=== PATIENT | male | born 1950 | race Caucasian/White ===

== ENCOUNTER → 2017-04-03 | Outpatient (CLI) | payer BC ==
--- NOTE | 2017-04-03 08:17 | US ---
EXAMINATION TYPE: US liver DATE OF EXAM: 04/03/2017 COMPARISON: 06/09/2015 and 12/15/2014 CLINICAL HISTORY: 67-year-old male R74.8 ABN LEVEL OF OTHER SERUM ENZYMES. Elevated LFT's TECHNIQUE: Multiple sonographic images of the right upper quadrant are obtained. FINDINGS: Liver Length: 16.0 cm Gallbladder Wall: 0.2 cm CBD: 5.8 mm Right Kidney: 12.7 x 6.3 x 6.7 cm Pancreas: Suboptimal visualization of the pancreatic head and tail secondary to shadowing from bowel gas. Liver: Heterogeneous, echogenic, and attenuating. This secondary limits assessment for focal lesion. Gallbladder: wnl Evidence for sonographic Andrade's sign: No CBD: wnl Right Kidney: No hydronephrosis. Two cysts, largest at upper pole with septation= 5.2 x 5.5 x 5.5 cm . Previously, this measured 5.5 x 4.9 x 4.8 cm. It was also measured at 5.2 x 5.3 x 5.6 cm on 5. Continued annual surveillance can be performed. IMPRESSION: 1. Heterogeneous and echogenic liver. Findings could represent hepatic steatosis or nonspecific hepat ocellular disease. 2. A septated cyst in the upper pole the right kidney measures 5.5 cm. This was measured at 5.6 cm ba ck on 12/15/2014. Consider continued annual surveillance.
== END | disposition home or self-care (01) ==
LOC: RADUSWWP 06:56
PROVIDERS: ATTEND Family Medicine
DX: K76.89 Other specified diseases of liver (principal); N28.1 Cyst of kidney, acquired
CPT/HCPCS: 76705

== ENCOUNTER → 2017-08-25 | Outpatient (CLI) | payer BC ==
--- NOTE | 2017-08-25 13:13 | CT ---
EXAMINATION TYPE: CT chest w con DATE OF EXAM: 08/25/2017 COMPARISON: NONE HISTORY: Abnormal CXR. Chest x-ray films are not at this location. CT DLP: 425.2 mGycm, Automated exposure control for dose reduction was used. CONTRAST: Performed injected with 100 mL of Isovue 300. TECHNIQUE: Axial images were obtained at 5 mm thick sections. Reconstructed images are reviewed on [employer] computer in the coronal plane. FINDINGS: Portion of the thyroid visualized is normal. Some very subtle paraseptal emphysematous changes or pulmonary fibrosis may be present within the per iphery of the lungs. A 0.5 cm nodules in the anterior right middle lobe. Series 4 image 30. Irregular densities in the right middle lobe periphery measuring 0.5 cm. Series 4 image 32. There is a oval de nsity measuring 1.0 cm in the periphery of the right middle lobe. Series 4 image 38. There is a 1.0 cm right hilar lymph node. No additional enlarged lymphadenopathy is evident The asce nding aorta diameter at the level of the main pulmonary artery is 3.5 cm. The main pulmonary artery diameter at the bifurcation is 2.7 cm. Coronary artery calcifications present. Limited CT sections are obtained through the upper abdomen. There are 2 0.4 cm calcifications within the superior anterior right kidney pole. This is adjacent to a large cyst measuring 9 Hounsfield unit s and 3.2 cm in size. There is a 0.3 similar calcification inferior pole left kidney. No obstruction from the renal stones is evident. There is a small cyst at the inferior pole right kidney measuring 1 .6 cm and 9 Hounsfield units. A 1.0 cm mid right lateral renal cyst is also present. IMPRESSIONS: 1. At least 3 small nodular densities at the right middle lobe. A 1.0 cm lymph node is in the right s uprahilar region. Additional workup for neoplasm is recommended. PET/CT could be performed. 2. Nonobstructing bilateral renal stones
== END ==
LOC: RADCTMAIN 09:02
PROVIDERS: ATTEND Family Medicine
DX: R91.8 Other nonspecific abnormal finding of lung field (principal)
CPT/HCPCS: 71260; Q9967

== ENCOUNTER → 2017-11-27 | Outpatient (CLI) | payer BC ==
[2017-11-27 13:14] LABS: Blood Urea Nitrogen 15 mg/dL (9-20)
--- NOTE | 2017-11-27 16:06 | CT ---
EXAMINATION TYPE: CT chest w con DATE OF EXAM: 11/27/2017 COMPARISON: 08/25/2017 HISTORY: Follow up for pulmonary nodules. CT DLP: 387.5 mGycm. Automated Exposure Control for Dose Reduction was Utilized. TECHNIQUE: CT scan of the thorax is performed following with IV Contrast, patient injected with 100 mL of Isovue M300. FINDINGS: LUNGS: Subpleural reticulation is seen throughout the entirety of the lungs. This is not only seen in a peripheral basilar distribution but also a peripheral apical distribution. No evidence of intersep emily lobular thickening or fibrosis. There is a stable 1.0 cm right middle lobe nodule on series 4 image 41. Superior to this there is a s table 5 mm pulmonary nodule on series 4 image 34. Just superior to this the previously seen 5 mm pulm onary nodule is not well visualized given slice selection on series 4 image 32. There is a 5 mm pulmo nary nodule within the right lower lobe on series 4 image 33, retrospectively unchanged from the prio r. Probable intrafissural lymph node is irregular in shape on series 4 image 30 and unchanged from th e prior. Also retrospectively unchanged from the prior there is a 3 mm right basilar peripheral pulmo nary nodule on series 4 image 47. Subpleural 2 mm pulmonary nodule within the lingula is seen on series 4 image 40 and unchanged from t he prior. No new pulmonary nodules are identified. MEDIASTINUM: Mediastinal lymph nodes appear similar to the prior with the largest in the precarinal s pace containing a morphologically normal appearing fatty hilum. No pericardial effusion is seen. M oderate calcific atheromatous changes are seen of the thoracic aorta and of the coronary arteries. OTHER: There is a right renal cystic lesion partially visualized extending into the right renal sinus likely representing a pararenal cyst. Measures at least 7.1 cm. 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 Degree of stenosis appears greater than 50% at both origins. The liver is diffusely hypoattenuated representing hepatic steatosis most commonly. Moderate multilevel degenerative changes of the thoracic spine are noted. IMPRESSION: Short-term stability of the previously seen multiple bilateral nodules the largest measuring up to 1. 0 cm within the right middle lobe. The size PET CT could be considered for further evaluation.
== END | disposition home or self-care (01) ==
LOC: RADCTMAIN 12:32
PROVIDERS: ATTEND Internal Medicine Critical Care Medicine
DX: R91.8 Other nonspecific abnormal finding of lung field (principal); Z88.8 Allergy status to other drugs, medicaments and biological substances
CPT/HCPCS: 82565; 84520; 71260; 36415; Q9967

== ENCOUNTER → 2018-04-12 | Outpatient (CLI) | payer BC ==
--- NOTE | 2018-04-12 10:52 | US ---
EXAMINATION TYPE: US duplex aorta DATE OF EXAM: 04/12/2018 COMPARISON: CT abdomen and pelvis February 25, 2015 CLINICAL HISTORY: Z13.6 Encounter for screening for cardiovascular d. Controlled HTN per patient EXAM MEASUREMENTS: Abdominal Aorta: Proximal: 2.86cm A/P Longitudinal 2.8 cm transversely Mid: 2.2 by 2.02cm Transverse Distal: 1.7 by 1.94cm Transverse Bifurcation: Right CHRISTOPHER = 1.32cm Transverse; Left CHRISTOPHER = 1.36cm Transverse Calcified wall changes noted throughout aorta and into CHRISTOPHER. PW Doppler and Color Flow patency is docu mented. Adjacent liver is incidentally heterogeneously hyperechoic consistent with fatty infiltration. IMPRESSION: Diffuse atherosclerotic change redemonstrated without greater than 3 cm AAA.
== END | disposition home or self-care (01) ==
LOC: RADUSWWP 07:00
PROVIDERS: ATTEND Family Medicine
DX: I70.90 Unspecified atherosclerosis (principal)
CPT/HCPCS: 93979

== ENCOUNTER → 2018-05-29 | Outpatient (CLI) | payer BC ==
[2018-05-29 07:44] LABS: Blood Urea Nitrogen 16 mg/dL (9-20)
--- NOTE | 2018-05-29 10:18 | CT ---
EXAMINATION TYPE: CT abdomen pelvis w con DATE OF EXAM: 05/29/2018 COMPARISON: 02/25/2015 CT abdomen pelvis and chest CT dated 11/27/2017 HISTORY: Hematuria CT DLP: 1491 mGycm Automated exposure control for dose reduction was used. TECHNIQUE: Helical acquisition of images was performed from the lung bases through the pelvis. CONTRAST: Performed with Oral Contrast and with IV Contrast, patient injected with 100 ml mL of Isovue 300. FINDINGS: LUNG BASES: There is a similar approximately 9 mm pulmonary nodule within the right middle lobe in co mparison to exam of 2014. Given its stability this is favored to be benign. Subsolid 3 mm pulmonary n odule within the right lower lobe is also unchanged and favored to be benign. 2 mm right lower lobe p ulmonary nodule on series 4 image 10 appears new. Minimal bibasilar subsegmental atelectasis is seen at the lung bases. Subpleural reticulation favors early fibrotic change. Moderate atherosclerosis of the visualized abdominal aorta is noted. LIVER/GB: Hepatic parenchyma is diffusely hypoattenuated in comparison to that of the spleen, most co mmonly seen in hepatic steatosis. This finding limits evaluation for hepatic masses. No gross evidenc e of hepatic mass is seen. No intrahepatic biliary ductal dilatation. No cholelithiasis. PANCREAS: No significant abnormality is seen. SPLEEN: No significant abnormality is seen. ADRENALS: No significant abnormality is seen. KIDNEYS: There is a 3 mm calculus of the left lower pole of the kidney, nonobstructive. Too small to accurately characterize left hypoattenuated 9 mm renal lesion was partially visualized on the prior e xam but ill-defined due to lack of contrast. This measures fluid attenuation and likely represents a simple cyst. Additional subcentimeter left upper pole hypoattenuated lesion is also too small to accu rately characterize. Within the right kidney there are multiple cysts measuring up to 6.4 cm. Nonobst ructing right upper poler 6 mm calculus is seen as well as punctate additional upper pole calculi (2 in number) No hydronephrosis is seen of either kidney. No hydroureter. No urinary bladder calculi. FREE AIR: No free air is visualized. ADENOPATHY: No greater than 1 cm short axis lymph nodes are noted within the abdomen or pelvis. REPRODUCTIVE ORGANS: Prostate gland is heterogenous containing central zone calcifications. URINARY BLADDER: Unremarkable although nonenhanced. OSSEOUS STRUCTURES: Moderate femoral acetabular arthropathy is seen bilaterally. Degenerative change s are noted of the sacroiliac joints. Moderate multilevel degenerative changes of the spine are also noted. BOWEL: There are few sigmoid diverticula present without pericolonic fat stranding. Moderate amount retained colonic stool is seen. No dilated large or small bowel. OTHER: Extensive atheromatous changes are seen of the abdominal aorta and its branches. Abdominal aor ta is of normal course and caliber. IMPRESSION: 1. BILATERAL NONOBSTRUCTING RENAL CALCULI. NO EVIDENCE OF HYDRONEPHROSIS OR URINARY BLADDER CALCULI. MULTIPLE BILATERAL RENAL LESIONS ARE SEEN, THE LARGEST DEFINITIVELY SIMPLE CYSTS AND SUBCENTIMETER LE SIONS ARE TOO SMALL TO ACCURATELY CHARACTERIZE, HOWEVER THESE 2 MEASURES SIMPLE FLUID WITH NO CURRENT SUSPICIOUS FEATURES. 2. HEPATIC STEATOSIS. 3. SIGMOID DIVERTICULOSIS WITHOUT EVIDENCE OF ACUTE DIVERTICULITIS. 4. RIGHT BASILAR PULMONARY NODULES, ONE OF WHICH IS NEW AND 2 OF WHICH APPEAR SIMILAR DATING BACK TO 2014 THAT ARE FAVORED TO BE BENIGN SUPERIMPOSED UPON PROBABLE EARLY FIBROTIC CHANGE. CONTINUED FOLLOW -UP IS RECOMMENDED FOR THESE PULMONARY NODULES GIVEN THE 1 SUBCENTIMETER NODULE APPEARS NEW.
== END | disposition home or self-care (01) ==
LOC: RADCTMAIN 07:04
PROVIDERS: ATTEND Urology
DX: N20.0 Calculus of kidney (principal); N28.1 Cyst of kidney, acquired; N28.89 Other specified disorders of kidney and ureter; K76.0 Fatty (change of) liver, not elsewhere classified; K57.30 Diverticulosis of large intestine without perforation or abscess without bleeding
CPT/HCPCS: 82565; 84520; 74177; 36415; Q9967

== ENCOUNTER 2018-08-10 06:47 | Day surgery (SDC) | payer BC ==
[2018-08-08 09:48] VITALS: BMI 28.0
[~2018-08-10 06:47] MED LIST: LACTATED RINGERS 1,000 ML IV SCH; LIDOCAINE 1% 20 ML VIAL (10MG/ML) FOR IV START INTRADERMA PRN
[2018-08-10 07:20] VITALS: RESP 16; TEMP 97.4
[2018-08-10 07:21] LABS: Glucose,Whole Blood 108 mg/dL (75-99)
[2018-08-10] MEDS ORDERED: PROPOFOL 10 MG/ML 20 ML VIAL IV ONE (07:38)
--- NOTE | 2018-08-10 08:08 | P.PCN ---
Date of Procedure: 08/10/18 Procedure(s) Performed: BRIEF HISTORY: Patient is a 68-year-old pleasant white male, scheduled for an elective colonoscopy as a part of evaluation of stool that was positive for cologuard. Last colonoscopy was 15 years ago PROCEDURE PERFORMED: Colonoscopy with snare polypectomy. PREOPERATIVE DIAGNOSIS: Positiv cologuard. IV sedation per Anesthesia. PROCEDURE: After informed consent was obtained, the patient, was brought into the endoscopy unit. IV sedation was administered by Anesthesia under continuous monitoring. Digital rectal examination was normal. Initially the Olympus CF-160 flexible video colonoscope was then inserted in the rectum, gradually advanced into the cecum without any difficulty. Careful examination was performed as the scope was gradually being withdrawn. Ileocecal valve and the appendiceal orifice were visualized and appeared normal. Prep was excellent. Mucosa of the cecum, ascending colon, transverse colon, descending colon appeared normal. In the sigmoid colon there was a 5 mm sessile polyp removed by snare polypectomy. In the proximal rectum there was a 1 cm pancreatic polyp removed by snare polypectomy. Rest of the, sigmoid colon, and rectum appeared normal. Retroflexion was performed in the rectum and no lesions were seen. The patient tolerated the procedure well. IMPRESSION: 1 cm proximal rectal polyp serous was snare polypectomy 5 mm sigmoid colon polyp status post polypectomy RECOMMENDATIONS: Findings of this examination were discussed with the patient as well as his family. He was advised to follow with the biopsy results. If the biopsy shows adenoma, he can have a repeat colonoscopy in 3-5 years.
[2018-08-10 08:57] VITALS: BP 152/86; PULSE 80
== END 2018-08-10 08:34 | disposition home or self-care (01) ==
LOC: ORWHC2ENDO 06:47
PROVIDERS: ATTEND Internal Medicine Gastroenterology
DX: D12.5 Benign neoplasm of sigmoid colon (principal); D12.8 Benign neoplasm of rectum; E11.9 Type 2 diabetes mellitus without complications; F17.210 Nicotine dependence, cigarettes, uncomplicated; Z79.84 Long term (current) use of oral hypoglycemic drugs; Z79.899 Other long term (current) drug therapy
CPT/HCPCS: 88305; 45385; J2704

== ENCOUNTER 2019-05-10 09:51 | Emergency (ER) | payer BC ==
[2019-05-10 10:03] VITALS: TEMP 97.7
[2019-05-10] MEDS ORDERED: SODIUM CHLORIDE 0.9% 1,000 ML IV STA (10:22)
--- NOTE | 2019-05-10 10:22 | ED ---
Dizziness HPI - General Chief Complaint: Dizziness Stated Complaint: syncope, head pain Time Seen by Provider: 05/10/19 10:07 Source: patient Mode of arrival: wheelchair Limitations: no limitations - History of Present Illness Initial Comments: Patient is 61-year-old male with history of A. fib presents emergency Department with a chief complaint of a fall. Patient reports yesterday he was sitting on his porch, smoking a cigarette when he developed a syncopal episode, fell forward and landed on his face. Patient reports the fall was not witnessed. Patient reports that he did not recognize there was a syncopal episode until he noticed some bleeding near his nose. Patient reports there is no abrasion on his forehead and the bridge of the nose. Patient denies a postictal state. He states that he drove back for about 3 hours after the incident and came for reevaluation today. Patient reports he takes metoprolol and lisinopril daily. He does see a trauma registrar annually. Also complaining of a reproducible headache with palpation on the right side of his head. Denies any chest pain, shortness of breath, headache, nausea, vomiting, episodes of diaphoresis, lightheadedness, one-sided weakness or paresthesias, visual disturbances. - Related Data Home Medications Medication Instructions Recorded Confirmed Aspirin [Adult Low Dose Aspirin EC] 162 mg PO DAILY 12/07/15 05/10/19 Cholecalciferol [Vitamin D3] 5,000 unit PO DAILY 12/07/15 05/10/19 Lisinopril [Prinivil] 10 mg PO HS 12/07/15 05/10/19 Multivitamins, Thera [Multivitamin] 1 tab PO DAILY 12/07/15 05/10/19 Vitamin E 400 unit PO DAILY 12/07/15 05/10/19 Metoprolol Succinate (ER) [Toprol 50 mg PO DAILY 05/10/19 05/10/19 Xl] metFORMIN HCL ER [Glucophage Xr] 500 mg PO DAILY 05/10/19 05/10/19 Allergies Allergy/AdvReac Type Severity Reaction Status Date / Time No Known Allergies Allergy Verified 05/10/19 12:02 Review of Systems ROS Statement: Those systems with pertinent positive or pertinent negative responses have been documented in the HPI. ROS Other: All systems not noted in ROS Statement are negative. Past Medical History Past Medical History: Diabetes Mellitus, Hyperlipidemia, Hypertension Additional Past Medical History / Comment(s): hx kidney stones History of Any Multi-Drug Resistant Organisms: None Reported Past Surgical History: Appendectomy Additional Past Surgical History / Comment(s): fatty tissue removed from left leg Past Anesthesia/Blood Transfusion Reactions: No Reported Reaction Past Psychological History: No Psychological Hx Reported Smoking Status: Current every day smoker - Past Family History Mother Family Medical History: No Reported History General Exam Limitations: no limitations General appearance: alert, in no apparent distress Head exam: Present: normocephalic. Absent: atraumatic (Abrasion on the forehead and bridge of the nose. No palpable bone deformities in the nose.), normal inspection (2 lesions on the right side of the scalp directly where the patient is complaining of pain. Appears to be actinic keratosis.), other (Negative Negron sign, negative raccoon's, negative hemotympanum.) Eye exam: Present: normal appearance, PERRL, EOMI Pupils: Present: normal accommodation ENT exam: Present: normal exam, normal oropharynx, mucous membranes moist, TM's normal bilaterally, normal external ear exam Neck exam: Present: normal inspection, tenderness (Right-sided along the trapezius.), full ROM Respiratory exam: Present: normal lung sounds bilaterally Cardiovascular Exam: Present: regular rate, normal rhythm, normal heart sounds Extremities exam: Present: normal inspection, full ROM Back exam: Present: normal inspection, full ROM Neurological exam: Present: alert, oriented X3, CN II-XII intact, normal gait, reflexes normal Psychiatric exam: Present: normal affect, normal mood Skin exam: Present: warm, dry, intact, normal color Course Vital Signs 05/10/19 05/10/19 05/10/19 10:00 11:00 12:47 Temperature 97.7 F 97.7 F Pulse Rate 65 51 L 58 L Respiratory 18 19 19 Rate Blood Pressure 96/60 153/70 116/60 O2 Sat by Pulse 96 96 96 Oximetry EKG Findings - EKG Comments: EKG Findings:: First degree AV block, no ST changes. Ventricular rate 61, CA interval 222, QRS duration 82, QTC 392 Medical Decision Making - Medical Decision Making Patient is a 69-year-old male presenting to emergency Department with a chief complaint of a syncopal episode. Patient had a possible syncopal episode yesterday for an unknown period of time. I exam patient does have an abrasion on the forehead and nose. CT brain C-spine unremarkable. Patient is not on blood thinners. Urine was obtained to evaluate for dehydration. It is unremarkable. EKG shows a first-degree AV block. Patient does have a history of A. fib. Patient is currently treated with a beta candie and lisinopril. On initial evaluation patient is slightly hypertensive with systolic blood pressure in the mid 90s. Patient was reporting initially some dizziness. Patient was given 1 L bolus of IV saline. Reevaluation patient reports the dizziness is almost completely resolved. Blood pressure is up in the mid 110s systolic. I suspect the patient had developed a syncopal episode secondary to an orthostatic hypotensive episode after he attempted to get up while he was sitting on a bench causing him to have a syncopal episode. Patient advised to follow-up with [facility] and discuss possible changes to his anti-hypertensive medication. Initial troponin was negative. CBC CMP unremarkable. Strict return parameters were thoroughly discussed with patient is a worsening agreeable. Case discussed with physician. - Lab Data Result diagrams: 05/10/19 10:32 05/10/19 10:32 Lab Results 05/10/19 05/10/19 05/10/19 Range/Units 10:32 10:32 10:32 WBC 8.1 (3.8-10.6) k/uL RBC 4.49 (4.30-5.90) m/uL Hgb 13.9 (13.0-17.5) gm/dL Hct 40.4 (39.0-53.0) % MCV 89.9 (80.0-100.0) fL MCH 31.0 (25.0-35.0) pg MCHC 34.5 (31.0-37.0) g/dL RDW 13.2 (11.5-15.5) % Plt Count 247 (150-450) k/uL Sodium 132 L (137-145) mmol/L Potassium 4.7 (3.5-5.1) mmol/L Chloride 100 (98-107) mmol/L Carbon Dioxide 23 (22-30) mmol/L Anion Gap 9 mmol/L BUN 15 (9-20) mg/dL Creatinine 0.71 (0.66-1.25) mg/dL Est GFR (CKD-EPI)AfAm >90 (>60 ml/min/1.73 sqM) Est GFR (CKD-EPI)NonAf >90 (>60 ml/min/1.73 sqM) Glucose 195 H (74-99) mg/dL Calcium 9.2 (8.4-10.2) mg/dL Total Bilirubin 0.8 (0.2-1.3) mg/dL AST 30 (17-59) U/L ALT 24 (4-49) U/L Alkaline Phosphatase 162 H (38-126) U/L Troponin I <0.012 (0.000-0.034) ng/mL Total Protein 7.1 (6.3-8.2) g/dL Albumin 3.9 (3.5-5.0) g/dL Urine Color Urine Appearance (Clear) Urine pH (5.0-8.0) Ur Specific [place] (1.001-1.035) Urine Protein (Negative) Urine Glucose (UA) (Negative) Urine Ketones (Negative) Urine Blood (Negative) Urine Nitrite (Negative) Urine Bilirubin (Negative) Urine Urobilinogen (<2.0) mg/dL Ur Leukocyte Esterase (Negative) 05/10/19 Range/Units 12:00 WBC (3.8-10.6) k/uL RBC (4.30-5.90) m/uL Hgb (13.0-17.5) gm/dL Hct (39.0-53.0) % MCV (80.0-100.0) fL MCH (25.0-35.0) pg MCHC (31.0-37.0) g/dL RDW (11.5-15.5) % Plt Count (150-450) k/uL Sodium (137-145) mmol/L Potassium (3.5-5.1) mmol/L Chloride (98-107) mmol/L Carbon Dioxide (22-30) mmol/L Anion Gap mmol/L BUN (9-20) mg/dL Creatinine (0.66-1.25) mg/dL Est GFR (CKD-EPI)AfAm (>60 ml/min/1.73 sqM) Est GFR (CKD-EPI)NonAf (>60 ml/min/1.73 sqM) Glucose (74-99) mg/dL Calcium (8.4-10.2) mg/dL Total Bilirubin (0.2-1.3) mg/dL AST (17-59) U/L ALT (4-49) U/L Alkaline Phosphatase (38-126) U/L Troponin I (0.000-0.034) ng/mL Total Protein (6.3-8.2) g/dL Albumin (3.5-5.0) g/dL Urine Color Yellow Urine Appearance Clear (Clear) Urine pH 5.5 (5.0-8.0) Ur Specific [place] 1.008 (1.001-1.035) Urine Protein Negative (Negative) Urine Glucose (UA) Negative (Negative) Urine Ketones Negative (Negative) Urine Blood Negative (Negative) Urine Nitrite Negative (Negative) Urine Bilirubin Negative (Negative) Urine Urobilinogen <2.0 (<2.0) mg/dL Ur Leukocyte Esterase Negative (Negative) Disposition Clinical Impression: Syncope, Facial abrasion Disposition: HOME SELF-CARE Condition: Stable Instructions (If sedation given, give patient instructions): Abrasion (ED), Dizziness (ED) Additional Instructions: Please follow up with primary care. Physician to emergency department if symp toms worsen. Is patient prescribed a controlled substance at d/c from ED?: No Referrals: Stoney Patel MD [Primary Care Provider] - 1-2 days Time of Disposition: 12:22
[2019-05-10 10:52] LABS: HCT 40.4 % (39.0-53.0); HGB 13.9 gm/dL (13.0-17.5); MCHC 34.5 g/dL (31.0-37.0); MCV 89.9 fL (80.0-100.0); Mean Platelet Volume 7.2; Platelet Count 247 k/uL (150-450); RBC 4.49 m/uL (4.30-5.90); RDW 13.2 % (11.5-15.5); WBC 8.1 k/uL (3.8-10.6)
--- NOTE | 2019-05-10 10:54 | CT ---
EXAMINATION TYPE: CT brain rajinder lowery DATE OF EXAM: 05/10/2019 COMPARISON: None HISTORY: Fall CT DLP: 1384.[address] of the brain was performed. The ventricles, basal cisterns and sulci overlying the cerebral convexities demonstrate mild enlargem ent. There is no evidence for intracranial hemorrhage or sulcal effacement. There is decreased attenuatio n about the periventricular white matter and deep white matter of both cerebral hemispheres, compatib le with chronic small vessel ischemia. No mass effects are seen. If symptoms persist consider MRI. Osseous calvarium is intact. IMPRESSION: 1. Age related atrophic and chronic small vessel ischemic change without acute intracranial process seen at this time. CT Cervical Spine: Unenhanced CT of the cervical spine was performed with bone and soft tissue window settings submitted . Coronal and sagittal reconstruction is obtained. There is normal alignment and prevertebral soft tissues. No evidence for acute cervical fracture . Scattered degenerative disc disease and spondylosis. Biapical scarring. IMPRESSION: 1. No evidence for acute fracture or subluxation of the cervical spine.
[2019-05-10 11:02] VITALS: RESP 19
[2019-05-10 11:20] LABS: ALT 24 U/L (4-49); AST 30 U/L (17-59); African American GFR (CKD) >90 (>60 ml/min/1.73 sqM); Albumin 3.9 g/dL (3.5-5.0); Alkaline Phosphatase 162 U/L (38-126); Anion Gap 9 mmol/L; Blood Urea Nitrogen 15 mg/dL (9-20); Calcium 9.2 mg/dL (8.4-10.2); Carbon Dioxide 23 mmol/L (22-30); Chloride 100 mmol/L (98-107); Glucose 195 mg/dL (74-99); Non-African American GFR(CKD) >90 (>60 ml/min/1.73 sqM); Potassium 4.7 mmol/L (3.5-5.1); Sodium 132 mmol/L (137-145); Total Bilirubin 0.8 mg/dL (0.2-1.3); Total Protein 7.1 g/dL (6.3-8.2)
[2019-05-10 12:18] LABS: Appearance,Urine Clear (Clear); Bilirubin,Urine Negative (Negative); Blood,Urine Negative (Negative); Color,Urine Yellow; Glucose,Urine (UA) Negative (Negative); Ketones,Urine Negative (Negative); Leukocyte Esterase,Urine Negative (Negative); Nitrite,Urine Negative (Negative); PH, Urine 5.5 (5.0-8.0); Protein,Urine Negative (Negative); Specific Gravity,Urine 1.008 (1.001-1.035); Urobilinogen,Urine <2.0 mg/dL (<2.0)
[2019-05-10 12:48] VITALS: BP 116/60; PULSE 58
== END 2019-05-10 12:47 | disposition home or self-care (01) ==
LOC: EC 09:51
DX: S00.81XA Abrasion of other part of head, initial encounter (principal); R55 Syncope and collapse; S00.31XA Abrasion of nose, initial encounter; I44.0 Atrioventricular block, first degree; I48.91 Unspecified atrial fibrillation; I10 Essential (primary) hypertension; L98.9 Disorder of the skin and subcutaneous tissue, unspecified; E11.9 Type 2 diabetes mellitus without complications; F17.210 Nicotine dependence, cigarettes, uncomplicated; Z79.82 Long term (current) use of aspirin; Z79.84 Long term (current) use of oral hypoglycemic drugs; Z79.899 Other long term (current) drug therapy; W01.0XXA Fall on same level from slipping, tripping and stumbling without subsequent striking against object, initial encounter; Y93.89 Activity, other specified; Y92.008 Other place in unspecified non-institutional (private) residence as the place of occurrence of the external cause
CPT/HCPCS: 36415; 70450; 72125; 80053; 81003; 84484; 85027; 93005; 96360; 96361; 99284

== ENCOUNTER → 2020-06-22 | Outpatient (CLI) | payer BC ==
--- NOTE | 2020-06-22 16:07 | US ---
EXAMINATION TYPE: US liver DATE OF EXAM: 06/22/2020 COMPARISON: Ultrasound 04/03/[address] 05/29/2018 CLINICAL HISTORY: 70-year-old male R74.8 Abnormal levels of other serum enzymes. Elevated labs, no sy mptoms TECHNIQUE: Multiple sonographic images of the right upper quadrant are obtained. FINDINGS: EXAM MEASUREMENTS: Liver Length: 14.6 cm Gallbladder Wall: 0.2 cm CBD: 0.6 cm Right Kidney: 12.1 x 5.5 x 7.3 cm Pancreas: Suboptimal visualization of the pancreatic tail due to shadowing from bowel gas. Visualize d portions show no gross adenopathy. Liver: wnl Gallbladder: wnl Evidence for sonographic Andrade's sign: no CBD: Borderline in caliber. Right Kidney: 6.6 x 5.7 x 5.6cm cyst with a thin internal septation and some mural based calcificati ons along the deep aspect of the cyst. No suspicious soft tissue nodularity. In 2017, this measured 5 .5 x 5.5 x 5.2 cm [address] the CT of 05/29/2018, this measured 6.4 cm. IMPRESSION: 1. Mildly complex cyst of the right kidney measuring 6.6 cm (versus 6.4 cm in 2019 and 5.5 cm in 2017 ). Recommend continued annual surveillance given the slow, gradual increase in size. 2. Borderline caliber to the bile duct at 6 mm, acceptable given patient's age. This measurement is r elatively unchanged from 2017 where it was 5.8 mm.
== END | disposition home or self-care (01) ==
LOC: RADUSWWP 10:53
PROVIDERS: ATTEND Family Medicine
DX: R93.2 Abnormal findings on diagnostic imaging of liver and biliary tract (principal)
CPT/HCPCS: 76705

== ENCOUNTER → 2020-12-04 | Outpatient (CLI) | payer BC ==
[2020-12-04 15:38] LABS: African American GFR (CKD) >90 (>60 ml/min/1.73 sqM); Blood Urea Nitrogen 18 mg/dL (9-20); Non-African American GFR(CKD) 88 (>60 ml/min/1.73 sqM)
--- NOTE | 2020-12-04 16:40 | CT ---
EXAMINATION TYPE: CT chest w con DATE OF EXAM: 12/04/2020 COMPARISON: 08/06/2018 HISTORY: Lung nodule. Pt reports no issue since last exam CT DLP: 381.90 mGycm, Automated exposure control for dose reduction was used. CONTRAST: Performed injected with 100 mL of Isovue 300. TECHNIQUE: Axial images were obtained at 5 mm thick sections. Reconstructed images are reviewed on [employer] computer in the coronal plane. FINDINGS: Portion of the thyroid visualized is normal. There is a spiculated 0.5 cm density within the anterior right upper lung field. Series 4 image 33. T here is a 0.5 cm density in the periphery of the right anterior lateral lung. Series 4 image 32. Ther e is a 0.4 cm density within the posterior lateral right upper lobe. Series 4 image 33. There is interval development of a suspicious microspiculated nodule measuring 2.0 x 1.7 cm in the pe riphery of the right lung. Series 4 image 35. A nodule within the right middle lobe periphery measuri ng 1.4 cm has enlarged from 0.9 cm previously. Series 4 image 41. Punctate density measuring 0.4 cm m zayra be developing in the periphery of the right lateral lung base, series 4 image 44. There is an enlarged 1.3 cm pretracheal lymph node present. Additional 1.1 cm enlarged pretracheal l ymph node is evident. There may be a right suprahilar node measuring 1.3 cm. There is a 2.6 x 2.3 cm nodular density in the right hilar region may be a hilar lymph node. Series 3 image 35 The ascending aorta diameter at the level of the main pulmonary artery is 3.4 cm. The main pulmonary artery diamet er at the bifurcation is 2.[address] sections are obtained through the upper abdomen. There is a 7 cm cyst measuring 8 Hounsfie ld units on the posterior lateral right kidney. IMPRESSIONS: 1. Enlarging and new right lung nodules. PET CT recommended for additional workup. 2. Suspected right hilar and mediastinal adenopathy suspicious for metastatic disease. A Yellow level critical message alert has been initiated for Villa Celeste DO via the [employer] 36 0 [employer] Critical Results System on 12/04/2020 4:37 PM. This message alert has been sent to Villa Celeste DO via the preferences provided by the clinician for the receipt of Radiology Critical Findings. [facility] [place] [id number].
== END | disposition home or self-care (01) ==
LOC: RADCTMAIN 14:45
PROVIDERS: ATTEND Internal Medicine Critical Care Medicine
DX: R91.1 Solitary pulmonary nodule (principal)
CPT/HCPCS: 82565; 84520; 71260; 36415; Q9967

== ENCOUNTER → 2020-12-18 | Outpatient (CLI) | payer BC ==
--- NOTE | 2020-12-23 12:05 | PE ---
Nuclear medicine PET/CT HISTORY: Solitary pulmonary nodule, R 91.8, initial Correlation to CT chest 12/04/2020 Patient received 12.9 mCi F-18 FDG intravenously in delayed scanning was performed from the skull bas e to the mid thighs. Localization and attenuation correction CT scan was performed. Chest and neck: The pulmonary masses in the right lower lobe are again noted. There is associated hyp ermetabolic uptake. The larger nodule shows an SUV 3.9 and shows spiculated margins abutting the fiss ure, smaller nodule anteriorly SUV 2.2. Retrocaval pretracheal nodes are present, SUV values 3.8. The re is no pleural pericardial effusion. Coronary artery calcifications are present. Interstitial silverio es are present within the lungs. There is no cervical or supraclavicular adenopathy. No axillary rosa m opathy. Smaller nodule present on axial image 106 measures only 7 8 mm, nodular density also present on 108 measuring 5 mm, no definite associated uptake. Abdomen shows no suspicious uptake. No evident adrenal mass. Large cyst is associated with the upper pole the right kidney in exophytic location. Atheromatous changes are present within the aorta. Bowel uptake is likely physiologic. Osseous structures show no suspicious uptake. Degenerative disc changes and facet arthropathy are not ed within the lumbar spine. IMPRESSION: Findings may represent bronchogenic carcinoma, metastasis
== END | disposition home or self-care (01) ==
LOC: RADPETMAIN 13:00
PROVIDERS: ATTEND Internal Medicine Critical Care Medicine
DX: R91.8 Other nonspecific abnormal finding of lung field (principal)
CPT/HCPCS: 78815; A9552

== ENCOUNTER 2021-02-03 10:47 | Day surgery (SDC) | payer BC ==
[2021-01-29 15:47] VITALS: BMI 27.9
[~2021-02-03 10:47] MED LIST changes: +ALBUTEROL NEB (CONC) 2.5 MG/0.5 ML INHALATION ONE; +ATROPINE SULFATE 0.4 MG/ML 1 ML VIAL IM ONE; +DEXAMETHASONE SOD PHOSPHATE 4 MG/ML 1 ML VIAL IV ONE; -LIDOCAINE 1% 20 ML VIAL (10MG/ML) FOR IV START INTRADERMA PRN; +LIDOCAINE 2% (PF) 20 MG/ML 5 ML VIAL INHALATION ONE; +LIDOCAINE VISCOUS 300 MG/15 ML CUP MUCOUS MEM ONE; +ONDANSETRON 4 MG/2 ML VIAL IVP ONE; +SODIUM CHLORIDE 0.9% 1,000 ML IV SCH
[2021-02-03 11:18] VITALS: TEMP 96.8
[2021-02-03 11:43] LABS: Glucose,Whole Blood 132 mg/dL (75-99)
[2021-02-03] MEDS ORDERED: LIDOCAINE 1% INJ 10MG/ML (20 ML MDV) ONE (12:20)
[2021-02-03] MEDS ORDERED: SUCCINYLCHOLINE CHLORIDE 100 MG/5 ML SYR IV ONE (12:20)
[2021-02-03] MEDS ORDERED: fentaNYL (PF) 50 MCG/ML 2 ML AMP ONE (12:20)
[2021-02-03] MEDS ORDERED: PROPOFOL 10 MG/ML 20 ML VIAL IV ONE (12:20)
--- NOTE | 2021-02-03 12:39 | CT ---
EXAMINATION TYPE: CT Chest sebastián Etienne Protocol DATE OF EXAM: 02/03/2021 COMPARISON: PET CT December 18, 2020. HISTORY: pre bronchial navigation. Abnormal CT and PET/CT. CT DLP: 575 mGycm Automated exposure control for dose reduction was used. FINDINGS: Exam is for bronchoscopy planning and not for diagnostic purposes. Moderate underlying emphysematous change is present bilaterally greatest in the upper lungs. Persistent suspicious nodules in the right mid to lower lung along with central suspicious nodule. [id number] peripheral reticulation and fibrotic changes in the lower lungs. Abnormal right paratracheal adenopathy extending to pericarinal region shows significant short-term interval growth. Coronary artery calcifications are redemonstrat ed. There is partial visualization of exophytic thin-walled cyst laterally right kidney. IMPRESSION: As above.
[2021-02-03 14:15] VITALS: RESP 16
[2021-02-03 14:21] LABS: Glucose,Whole Blood 117 mg/dL (75-99)
--- NOTE | 2021-02-03 14:23 | XR ---
EXAMINATION TYPE: XR chest 1V portable DATE OF EXAM: 02/03/2021 COMPARISON: Chest CT December 04, 2020 HISTORY: Postbronchoscopy. TECHNIQUE: Single AP portable frontal upright view of the chest is obtained. FINDINGS: There is chronic emphysematous and pulmonary fibrotic change with scattered right lower rodrigo ng nodules redemonstrated. No pneumothorax after bronchoscopy and right lung sampling The cardiac gatito houette size is stable and upper limits of normal with atherosclerotic aorta. The osseous structure s are demineralized. Old posterior lateral right mid rib fractures are redemonstrated. IMPRESSION: No pneumothorax noted.
[2021-02-03 14:56] VITALS: BP 113/74; PULSE 60
[2021-02-03 18:24] LABS: Appearance,BF Hazy; Nucleated Cells, Body Fluid 40 /uL; RBC, Body Fluid 735 /uL
--- NOTE | 2021-02-03 18:42 | OP ---
OPERATIVE REPORT PULMONARY/CRITICAL CARE PROCEDURE NOTE: Electromagnetic navigational bronchoscopy. PREOPERATIVE DIAGNOSIS: Pulmonary mass/nodule. Rule out cancer. POSTOPERATIVE DIAGNOSIS: Pulmonary mass/nodule. Rule out cancer. OPERATORS: 1. Dr. Celeste. 2. Dr. Coughlin. 3. Medical student Jeff Allan. There was informed consent and universal timeout. The procedure was done in endoscopy room #1. Anesthesia provided general anesthesia with Dr. Santamaria. PROCEDURE DESCRIPTION: After the patient was adequately sedated and under the effects of general anesthesia, the bronchoscope was inserted through the bronchoscope adapter connected to the endotracheal tube. We localized the area of concern using the electromagnetic navigational system provided by [employer]. We did multiple transbronchial needle aspiration biopsies in the area of the anterior medial wall of the right middle lobe. Then we also did some sampling in the distal bronchus intermedius adjacent to the entrance of the right middle lobe. In the same location, we did brushes and washes as well. We also sampled the subcarinal area one time. We did a transbronchial needle aspiration of the subcarinal region. The patient tolerated the procedure well. There was minimal bleeding, maybe less than 5 mL. There was no immediate complication. The patient will be recovered. I did have a chance to speak to Jessi, the patient's . I explained what we did and our concerns. Anyway, the sampling probably will not be back until sometime mid next week. MMODL / IJN: [id number] /
[2021-02-03 18:54] LABS: Mononuclear WBC,Body Fluid 92 %; Polynuclear WBC,Body Fluid 8 %; Total Cells Counted,Body Fluid 100
== END 2021-02-03 15:05 | disposition home or self-care (01) ==
LOC: ORWHC2ENDO 10:47
PROVIDERS: ATTEND Internal Medicine Critical Care Medicine
DX: R91.8 Other nonspecific abnormal finding of lung field (principal); R91.1 Solitary pulmonary nodule; Z79.82 Long term (current) use of aspirin; Z79.84 Long term (current) use of oral hypoglycemic drugs; Z79.899 Other long term (current) drug therapy
CPT/HCPCS: 31629; 31623; 31624; 31627; 88104; 88108; 88305; 89050; 87070; 87205; 71045; 71250; J0461; J2001; J3010; J0330; J2704

== ENCOUNTER → 2021-02-24 | Outpatient (CLI) | payer BC ==
[2021-02-24 11:50] LABS: Basophils # (A) 0.1 k/uL (0-0.2); Basophils % (A) 1 %; Eosinophils # (A) 0.4 k/uL (0-0.7); Eosinophils % (A) 4 %; HGB 13.9 gm/dL (13.0-17.5); Lymphocytes # (A) 2.4 k/uL (1.0-4.8); Lymphocytes % (A) 27 %; MCH 30.4 pg (25.0-35.0); MCV 92.1 fL (80.0-100.0); Mean Platelet Volume 7.5; Monocytes # (A) 0.5 k/uL (0-1.0); Monocytes % (A) 6 %; Neutrophils # (A) 5.4 k/uL (1.3-7.7); Neutrophils % (A) 60 %; Platelet Count 215 k/uL (150-450); RBC 4.56 m/uL (4.30-5.90); RDW 12.4 % (11.5-15.5); WBC 8.9 k/uL (3.8-10.6)
[2021-02-24 12:26] LABS: African American GFR (CKD) >90 (>60 ml/min/1.73 sqM); Anion Gap 9 mmol/L; Blood Urea Nitrogen 20 mg/dL (9-20); Carbon Dioxide 25 mmol/L (22-30); Chloride 102 mmol/L (98-107); Non-African American GFR(CKD) >90 (>60 ml/min/1.73 sqM); Potassium 4.8 mmol/L (3.5-5.1); Sodium 136 mmol/L (137-145)
[2021-02-24 12:36] LABS: INR 0.9 (<1.2); Partial Thromboplastin Time 22.7 sec (22.0-30.0); Prothrombin Time 10.1 sec (9.0-12.0)
== END | disposition home or self-care (01) ==
LOC: LABWHC1 10:44
PROVIDERS: ATTEND Surgery
DX: Z01.812 Encounter for preprocedural laboratory examination (principal); R58 Hemorrhage, not elsewhere classified; R59.1 Generalized enlarged lymph nodes
CPT/HCPCS: 36415; 80051; 82565; 84520; 85025; 85610; 85730; 86850; 86900; 86901

== ENCOUNTER 2021-03-04 07:30 | Day surgery (SDC) | payer BC ==
[2021-03-03 09:11] VITALS: BMI 27.6
[~2021-03-04 07:30] MED LIST changes: -ALBUTEROL NEB (CONC) 2.5 MG/0.5 ML INHALATION ONE; -ATROPINE SULFATE 0.4 MG/ML 1 ML VIAL IM ONE; +HYDROmorphone 0.5 MG/0.5 ML SYRINGE IVP PRN; +LIDOCAINE 1% (10MG/ML) FOR IV START INTRADERMA PRN; -LIDOCAINE 2% (PF) 20 MG/ML 5 ML VIAL INHALATION ONE; -LIDOCAINE VISCOUS 300 MG/15 ML CUP MUCOUS MEM ONE; +MIDAZOLAM 2 MG/2 ML VIAL IV PRN; -SODIUM CHLORIDE 0.9% 1,000 ML IV SCH
[2021-03-04 08:16] LABS: Glucose,Whole Blood 140 mg/dL (75-99)
[2021-03-04] MEDS ORDERED: SUCCINYLCHOLINE CHLORIDE 100 MG/5 ML SYR IV ONE (09:35)
[2021-03-04] MEDS ORDERED: fentaNYL (PF) 50 MCG/ML 2 ML AMP ONE (09:35)
[2021-03-04] MEDS ORDERED: PROPOFOL 10 MG/ML 20 ML VIAL IV ONE (09:35)
[2021-03-04] MEDS ORDERED: LIDOCAINE 1% INJ 10MG/ML (20 ML MDV) ONE (09:35)
[2021-03-04] MEDS ORDERED: ROCURONIUM 10 MG/ML (5 ML VIAL) IV ONE (09:35)
[2021-03-04] MEDS ORDERED: NEOSTIGMINE 1 MG/ML 10 ML VIAL ONE (09:35)
[2021-03-04] MEDS ORDERED: GLYCOPYRROLATE 0.2 MG/ML 2 ML VIAL ONE (09:35)
[2021-03-04] MEDS ORDERED: SUGAMMADEX SODIUM 500 MG/5 ML SDV IV ONE (09:35)
[2021-03-04] MEDS ORDERED: MIDAZOLAM 2 MG/2 ML VIAL ONE (09:35)
[2021-03-04] MEDS ORDERED: LACTATED RINGERS 1,000 ML IV ONE (10:22)
[2021-03-04] MEDS ORDERED: GELATIN SPONGE,ABSORB (LARGE) 1 EACH SPONGE TOPICAL ONE (10:31)
[2021-03-04] MEDS ORDERED: THROMBIN (BOVINE) 5,000 UNIT VIAL TOPICAL ONE (10:34)
[2021-03-04] MEDS ORDERED: GELATIN SPONGE,ABSORB (SMALL) 1 EACH SPONGE TOPICAL ONE (10:34)
--- NOTE | 2021-03-04 11:12 | P.OP ---
Date of Procedure: 03/04/21 Preoperative Diagnosis: mediastinal lymphadenopathy, right lung mass Postoperative Diagnosis: same Procedure(s) Performed: Mediastinoscopy with ln bx Anesthesia: RIKKI Surgeon: Ayad Andrea Estimated Blood Loss (ml): 100 IV fluids (ml): 1,000 Pathology: other (Left paratracjheal bx, pretracheal bx) Condition: stable Disposition: PACU Indications for Procedure: 71-year-old male with right upper lobe mass which is PET positive. He also has mediastinal adenopathy which is PET positive . Bronchoscopic workup to date has been negative. Patient was referred to pa for diagnosis. Discussion was held with the patient that excisional biopsy of the lung would give us a diagnosis of the lung disease but not definitively of staging if the diagnosis is malignant. Alternatively biopsy of the mediastinal nodes would likely not give us a diagnosis if the mass is negative for carcinoma. Was decided to proceed with mediastinoscopy first physicist the least invasive procedure and then proceed to lung biopsy if that is nondiagnostic. Alternatively, if the mediastinoscopy demonstrates carcinoma then we will have both a diagnosis and staging with a minimally invasive procedure. Operative Findings: Tissues were very densely adherent and planes were extremely difficult. We were able to get some biopsies of the pretracheal and left paratracheal tissues but frozen section only revealed adipose tissue. In attempting to obtain more biopsies we ran into bleeding which led us to cease the procedure. Description of Procedure: The patient was brought to the operating room, placed supine on the operating table, anesthetized and intubated. He was appropriately positioned for mediastinoscopy. Transverse incision was made at the base of the neck across the midline. This was carried down through skin and subcutaneous tissue to the strap muscles. Dissection was continued in the midline between the strap muscles to the pretracheal plane. The pretracheal plane was entered and blunt dissection continued into the mediastinum with finger dissection. Video mediastinoscope was introduced and dissection was carried down to the ismael. Dissection was very difficult due to the density of the adhesion of the tissues. We attempted to dissected off into the pretracheal plane but the tissues were very dense and dissection was very difficult. We continued dissected both anteriorly and medially we discovered some softer tissue in the left paratracheal region. Multiple biopsies were taken here and one was sent for frozen section. We continued dissecting anteriorly and were able to biopsy some tissue but then ran into bleeding. This was packed and ultimately controlled with some Gelfoam and thrombin. Frozen section returned showing just adipose tissue. At this point it was felt that the risk of ongoing dissection causing further bleeding was too high to continue and it was decided to accept the specimens we had an move forward. Mediastinoscope was withdrawn and the incision was closed with layers of Vicryl suture and skin glue. Patient was extubated and transferred to recovery in stable condition.
[2021-03-04 11:22] VITALS: TEMP 97.5
[2021-03-04 11:27] LABS: Glucose,Whole Blood 150 mg/dL (75-99)
[2021-03-04 11:36] VITALS: RESP 16
[2021-03-04 12:24] VITALS: PULSE 58
[2021-03-04 12:51] VITALS: BP 126/65
== END 2021-03-04 13:04 | disposition home or self-care (01) ==
LOC: OR 07:30
PROVIDERS: ATTEND Thoracic Surgery (Cardiothoracic Vascular Surgery)
DX: C34.90 Malignant neoplasm of unspecified part of unspecified bronchus or lung (principal); E11.9 Type 2 diabetes mellitus without complications; I10 Essential (primary) hypertension; Z79.84 Long term (current) use of oral hypoglycemic drugs; Z79.82 Long term (current) use of aspirin; Z79.899 Other long term (current) drug therapy; Z87.891 Personal history of nicotine dependence; E78.5 Hyperlipidemia, unspecified
CPT/HCPCS: 86900; 86901; 88305; 86850; 88342; 88331; 88341; 39402; J2250; J1100; J2710; J0690; J2405; J2001; J3010; J0330; J2704

== ENCOUNTER → 2021-03-19 | Outpatient (CLI) | payer BC ==
--- NOTE | 2021-03-20 04:36 | MR ---
EXAMINATION TYPE: MR brain wo/w con DATE OF EXAM: 03/19/2021 COMPARISON: None HISTORY: ivon cancer, evaluate for mestatic disease. CONTRAST: Standard multiplanar, multisequence MRI departmental protocol images were obtained without contrast a nd with 9 mL intravenous Gadavist gadolinium contrast. There is cerebral cortical atrophy. There is no mass effect nor midline shift. There is no sign of in tracranial hemorrhage. Brainstem is intact. Corpus callosum is intact. Sella turcica appears normal. There is no evidence of posterior fossa mass. There is some mucosal thickening in the frontal and ant erior ethmoid sinuses. There is mild mucosal thickening right maxillary sinus. There is some nodular foci of increased signal on the T2 and FLAIR images in the white matter around the occipital horns of the lateral ventricles. There is also some minimal involvement around the fron emily horns. Total number of lesions is less than 20 and most of these are measure less than 5 mm. Contrast images show no pathologic enhancement. There is normal enhancement of the venous sinuses. IMPRESSION: There is some sinusitis. Patchy white matter signal changes probably due to chronic small vessel ischemia. No evidence of metastatic disease.
== END | disposition home or self-care (01) ==
LOC: RADMRIMAIN 17:46
PROVIDERS: ATTEND Internal Medicine Hematology & Oncology
DX: C34.90 Malignant neoplasm of unspecified part of unspecified bronchus or lung (principal); J32.9 Chronic sinusitis, unspecified
CPT/HCPCS: 70553; A9585

== ENCOUNTER → 2021-06-30 | Outpatient (CLI) | payer BC ==
[2021-06-30 12:00] LABS: African American GFR (CKD) >90 (>60 ml/min/1.73 sqM); Blood Urea Nitrogen 16 mg/dL (9-20); Non-African American GFR(CKD) >90 (>60 ml/min/1.73 sqM)
--- NOTE | 2021-06-30 13:43 | CT ---
EXAMINATION TYPE: CT chest w con DATE OF EXAM: 06/30/2021 COMPARISON: 02/03/2021, PET scan 12/18/2020 HISTORY: Lung ca. CT DLP: 354 mGycm Automated exposure control for dose reduction was used. TECHNIQUE: CT scan of the chest is performed with IV Contrast, patient injected with 100 mL of Isovue 300. MIP Images are created on CT scanner and reviewed. 3D reconstructed images are created on an independent workstation and reviewed. FINDINGS: LUNGS: Emphysematous changes are noted. A 5 mm nodule anterior segment right upper lobe is stable. Ad ditional 2 mm nodule axial image 47 right lower lobe stable. 2 mm superior segment right lower lobe n odule stable. Larger mass previously measuring 2 x 1.7 cm markedly reduced in size now measuring 1.2 x 0.8 cm. Interlobular septal thickening is seen. Correlate for chronic interstitial lung disease. 1.4 cm mass anterior segment right upper lobe markedly reduced in size now measuring a maximal dimens ion of 0.8 cm. Additional sub-5 mm nodules too small to characterize. No pleural effusion or pneumoth orax. MEDIASTINUM: The previously noted large pretracheal lymph node measuring a short axis of 2.4 cm now m easures a short axis of 1.2 cm it is markedly improved. Right hilar lymph node now measures a short a xis of 1.2 cm and previously measured 2.6 x 2.2 cm. There is coronary artery calcium patient. Atherosclerotic change aorta. Heart size normal. OTHER: Simple appearing right renal cyst. Hypertrophic and degenerative change of the spine. Chronic rib deformities are seen. IMPRESSION: 1. Interval marked reduction in size of the two masses in the right upper lobe as well as the medias tinal and hilar lymphadenopathy compatible with response to therapy. 2. Additional sub-5 mm nodules are too small to characterize and can be followed on short-term basis. 3. COPD with findings suggestive of chronic interstitial lung disease.
== END | disposition home or self-care (01) ==
LOC: RADCTMAIN 10:58
PROVIDERS: ATTEND Internal Medicine Hematology & Oncology
DX: C34.91 Malignant neoplasm of unspecified part of right bronchus or lung (principal); J44.9 Chronic obstructive pulmonary disease, unspecified
CPT/HCPCS: 82565; 84520; 71260; 36415; Q9967

== ENCOUNTER → 2021-09-27 | Outpatient (CLI) | payer BC ==
--- NOTE | 2021-09-27 12:54 | CT ---
EXAMINATION TYPE: CT ChestAbdPelvis w con DATE OF EXAM: 09/27/2021 COMPARISON: Chest 06/30/2021 and PET/CT 12/18/2020 HISTORY: 71-year-old male C34.91 Z03.89 Lung cancer, trouble swallowing TECHNIQUE: Contiguous axial scanning of the chest, abdomen, and pelvis performed with IV Contrast, pa tient injected with 100 mL of Isovue 300. Delayed images through the kidneys were obtained. Coronal/s agittal reconstructions performed. CT DLP: 1127.5 mGycm Automated exposure control for dose reduction was used. FINDINGS: CHEST: Heart normal size without pericardial effusion. Extensive LAD and RCA coronary calcifications are pre sent and a marker for coronary artery disease. Aorta normal caliber with [id number] atherosclerotic calcifications. The ventricular vessel bra nching anatomy. Large caliber to the main right and left pulmonary arteries measuring up to 2.9 cm suggesting underly ing pulmonary hypertension. Subcarinal lymph node slightly increased in size at 1.1 cm versus 7 mm, previously. Residual poorly defined soft tissue precarinal region measuring 1.6 cm versus 2.1 cm, previously sugg est posttreatment change at the site of previous disease. Small right infrahilar lymph node measuring 1.2 cm, unchanged. Previous right middle lobe nodules seen on 12/18/2020 not apparent. There is increasing patchy airspace opacity and groundglass throughout the right mid and lower lung s uggesting posttreatment change. Some of these areas have a somewhat nodular appearance, refer to axia l images 38 and 40. A 6 mm peripheral right lower lobe pulmonary nodule, axial image 49 appears new. Attention on follow- up. Background moderate emphysema. No pleural effusion. ABDOMEN: No focal liver lesion or biliary ductal dilatation. Portal venous system is patent. Gallbladder, adrenal glands, spleen, and pancreas within normal limits. A couple cortical cysts in the left kidney measuring up to 1.7 cm. Larger cortical cyst right kidney measuring up to 7.5 cm redemonstrated. No dilated small bowel, free fluid, free air. No mesenteric or retroperitoneal lymphadenopathy. Moderate atelectatic calcifications abdominal aorta and common iliac arteries. At least moderate arth ritic narrowing at the origin of the celiac axis and SMA. Focal moderate atherosclerotic stenosis pro ximal left common iliac artery, axial image 94 is unchanged. No dilated small bowel, free fluid, or free air. No mesenteric or retroperitoneal lymphadenopathy. Mi ld overall stool burden. Sigmoid diverticulosis. No pericolonic inflammatory change. PELVIS: Unchanged eccentric anterior bladder wall thickening, likely chronic for the patient. No masslike luis fernando earance here. Pelvic phleboliths. Prostate gland mildly enlarged at 4.9 cm. No abnormal fluid collect ion the pelvis or pelvic lymphadenopathy. BONES: [facility] mid and lower thoracic spine. Hypertrophic facet arthropathy mid to lower lumbar spine with grad e 1 anterolisthesis L4-L5. No osseous destructive process. IMPRESSION: 1. WORSENING PATCHY AIRSPACE DISEASE AND GROUNDGLASS THROUGHOUT THE RIGHT MID AND LOWER LUNG SUGGESTS POSTTREATMENT CHANGE. SOME OF THIS DENSITY HAS A NODULAR APPEARANCE (AXIAL IMAGE 38 AND 40); ATTENTI ON ON FOLLOW-UP. 2. A 6 MM PERIPHERAL RIGHT LOWER LOBE NODULE MAY BE INFLAMMATORY OR COULD BE A NEW PULMONARY NODULE. AGAIN, ATTENTION ON FOLLOW-UP. THE PREVIOUS DOMINANT RIGHT MIDDLE LOBE MASSES SEEN ON 12/18/2020 ARE NO LONGER IDENTIFIED. 3. SUBCARINAL LYMPH NODE IS NONENLARGED BUT HAS INCREASED IN SIZE (1.1 CM NOW VERSUS 7 MM, PREVIOUSLY ). THIS MAY BE REACTIVE. AGAIN, ATTENTION ON FOLLOW-UP. 4. DECREASING SOFT TISSUE IN THE PRECARINAL SPACE. STABLE TREATED DISEASE AT THE RIGHT HILUM. 5. CAD, COPD, AND PULMONARY HYPERTENSION.
== END | disposition home or self-care (01) ==
LOC: RADCTMAIN 09:07
PROVIDERS: ATTEND Internal Medicine Hematology & Oncology
DX: C34.91 Malignant neoplasm of unspecified part of right bronchus or lung (principal); I25.10 Atherosclerotic heart disease of native coronary artery without angina pectoris; I27.20 Pulmonary hypertension, unspecified; J44.9 Chronic obstructive pulmonary disease, unspecified
CPT/HCPCS: 82565; 84520; 71260; 74177; 36415; Q9967

== ENCOUNTER → 2021-09-28 | Outpatient (CLI) | payer BC ==
--- NOTE | 2021-09-28 19:29 | MR ---
EXAMINATION TYPE: MR brain wo/w con DATE OF EXAM: 09/28/2021 COMPARISON: 03/19/2021. CT 09/27/2021 HISTORY: 71-year-old male Z79.899, C34.31 Small cell cancer TECHNIQUE: Multiplanar, multisequence images of the brain and brainstem were acquired before and aft er administration of 8 mL IV Gadavist. Diffusion weighted imaging is performed. FINDINGS: No evidence for acute infarction, hemorrhage, mass effect, midline shift, herniation, effacement of b mackenzie cisterns, or extra-axial fluid collection. New 5 mm ring enhancing lesion near the right cerebellar vermis, axial postcontrast image 51. The ventricles and sulci are age-appropriate. Major intracranial flow voids are intact. T2/FLAIR weighted sequences again show moderate scattered foci of bright white matter change particul latia in the subcortical, deep white matter, and periventricular regions of both cerebral hemispheres, not significantly changed from prior. Midline structures demonstrate normal morphology. The craniocervical junction is normal. Post contrast images demonstrate no additional evidence of pathologic enhancement. Dural venous sinu ses are patent. Mild to moderate mucosal thickening ethmoid air cells. Mild mucosal thickening frontal sinuses. Sinus disease shows improvement from prior exam. Globes are intact. IMPRESSION: 1. Solitary 5 mm ring-enhancing lesion near the right cerebellar vermis, axial image 51. 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 2. Stable moderate scattered burden of chronic small vessel ischemic disease. Otherwise, no acute int racranial abnormality seen. 3. Residual mild to moderate ethmoid and frontal sinus disease, improving compared to 03/19/2021.
== END | disposition home or self-care (01) ==
LOC: RADMRIMAIN 11:39
PROVIDERS: ATTEND Radiology Radiation Oncology
DX: C34.31 Malignant neoplasm of lower lobe, right bronchus or lung (principal); I67.82 Cerebral ischemia; J32.2 Chronic ethmoidal sinusitis; G93.89 Other specified disorders of brain; Z79.899 Other long term (current) drug therapy
CPT/HCPCS: 70553; A9585

== ENCOUNTER → 2021-12-09 | Outpatient (CLI) | payer BC ==
--- NOTE | 2021-12-09 11:10 | MR ---
EXAMINATION TYPE: MR brain wo/w con DATE OF EXAM: 12/09/2021 COMPARISON: 09/28/2021 HISTORY: Lung cancer, evaluate for metastatic disease. TECHNIQUE: Multiplanar, multisequence images of the brain and brainstem is performed without and with IV contras t, utilizing 8 mL intravenous Gadavist . FINDINGS: No evidence for acute infarction, hemorrhage, mass effect, midline shift, herniation, effacement of b mackenzie cisterns, or extra-axial fluid collection. Previous 5 mm ring enhancing lesion near the right cerebellar vermis, no longer identified. The ventricles and sulci are age-appropriate. Major intracranial flow voids are intact. T2/FLAIR weighted sequences again show moderate scattered foci of bright white matter change particul latia in the subcortical, deep white matter, and periventricular regions of both cerebral hemispheres, not significantly changed from prior. Midline structures demonstrate normal morphology. The craniocervical junction is normal. Mild mucosal thickening frontal sinuses. Sinus disease shows improvement from prior exam. Globes are intact. IMPRESSION: 1. Resolution of previous noted 5 mm ring-enhancing lesion within the cerebellum. 2. Degenerative and nonspecific white matter changes most typical of remote ischemia. 3. Chronic sinusitis.
== END | disposition home or self-care (01) ==
LOC: RADMRIMAIN 09:03
PROVIDERS: ATTEND Radiology Radiation Oncology
DX: C79.31 Secondary malignant neoplasm of brain (principal); I67.82 Cerebral ischemia; J32.9 Chronic sinusitis, unspecified
CPT/HCPCS: 70553; A9585

== ENCOUNTER 2021-12-28 12:15 | Inpatient (IN) | payer BC, MEDICARE ==
[2021-12-28] MEDS ORDERED: METOPROLOL TARTRATE 5 MG/5 ML VIAL IVP STA ×2 (12:35→12:57)
[2021-12-28] MEDS ORDERED: SODIUM CHLORIDE 0.9% 500 ML 500 ML IV STA (12:35)
[2021-12-28] MEDS ORDERED: SODIUM CHLORIDE 0.9% 1,000 ML IV STA (12:35)
[2021-12-28] MEDS ORDERED: ASPIRIN 81 MG PO STA (12:35)
--- NOTE | 2021-12-28 12:45 | ED ---
Arrhythmia/Palpitations HPI - General Chief Complaint: Arrhythmia/Palpitations Stated Complaint: heart racing, chest pain Time Seen by Provider: 12/28/21 12:20 Source: patient, RN notes reviewed Mode of arrival: wheelchair Limitations: no limitations - History of Present Illness Initial Comments: 71-year-old male with a history of small cell cancer who states she's been having episodes of irregular and fast heartbeat with a past 6 months normally lasting up to 15 minutes but he controls it by relaxing perhaps drinking water he states. He states at these times his blood pressure goes down to about 80/60 this morning however started again and was last over 2 hours became for evaluation. He has some shortness of breath some dizziness lightheadedness with it. He denies any overt chest pain that has a different sensation in his chest. Additionally he has in the past and recent chemotherapy. Last was 6 months ago he did also had a recent change in his diabetic medication and since then has lost about 25 pounds in the last several months. MD Complaint: rapid heart beat, palpitations - Related Data Home Medications Medication Instructions Recorded Confirmed Aspirin [Adult Low Dose Aspirin EC] 81 mg PO DAILY 12/07/15 12/28/21 Cholecalciferol [Vitamin D3] 5,000 unit PO DAILY 12/07/15 12/28/21 Multivitamins, Thera [Multivitamin] 1 tab PO DAILY 12/07/15 12/28/21 Metoprolol Succinate (ER) [Toprol 50 mg PO DAILY 05/10/19 12/28/21 Xl] Cinnamon Bark [Cinnamon] 500 mg PO DAILY 12/28/21 12/28/21 Empaglifloz/Linaglip/Metformin 1 tab PO DAILY 12/28/21 12/28/21 [Trijardy Xr 12.5-2.5-1,000 mg] Zinc 50 mg PO DAILY 12/28/21 12/28/21 Allergies Allergy/AdvReac Type Severity Reaction Status Date / Time No Known Allergies Allergy Verified 12/28/21 14:11 Review of Systems ROS Statement: Those systems with pertinent positive or pertinent negative responses have been documented in the HPI. ROS Other: All systems not noted in ROS Statement are negative. Past Medical History Past Medical History: Diabetes Mellitus, Hyperlipidemia, Hypertension Additional Past Medical History / Comment(s): HAS "SPOT ON LUNG",hx kidney stones History of Any Multi-Drug Resistant Organisms: None Reported Past Surgical History: Appendectomy Additional Past Surgical History / Comment(s): Navigational bronchoscopy,fatty tissue removed from left leg,COLONOSCOPY Past Anesthesia/Blood Transfusion Reactions: No Reported Reaction Additional Past Anesthesia/Blood Transfusion Reaction / Comment(s): no hx blood transfusion Past Psychological History: No Psychological Hx Reported Smoking Status: Former smoker - Past Family History Mother Family Medical History: No Reported History General Exam - General Exam Comments Initial Comments: This is a well-developed well-nourished awake alert oriented times 3 male Limitations: no limitations General appearance: alert, anxious Head exam: Present: atraumatic, normocephalic, normal inspection Eye exam: Present: normal appearance, PERRL, EOMI. Absent: scleral icterus, conjunctival injection, periorbital swelling ENT exam: Present: normal exam, mucous membranes moist Neck exam: Present: normal inspection, full ROM, other (No stridor or bruits). Absent: tenderness, meningismus, lymphadenopathy Respiratory exam: Present: normal lung sounds bilaterally. Absent: respiratory distress, wheezes, rales, rhonchi, stridor Cardiovascular Exam: Present: tachycardia. Absent: systolic murmur, diastolic murmur, rubs, gallop, clicks GI/Abdominal exam: Present: soft, normal bowel sounds. Absent: distended, tenderness, guarding, rebound, rigid Extremities exam: Present: normal inspection, full ROM, normal capillary refill. Absent: tenderness, pedal edema, joint swelling, calf tenderness Back exam: Present: normal inspection Neurological exam: Present: alert, oriented X3, CN II-XII intact Psychiatric exam: Present: normal affect, normal mood Skin exam: Present: warm, dry, intact, normal color. Absent: rash Course Vital Signs 12/28/21 12/28/21 12/28/21 12:20 12:49 13:19 Temperature 97.8 F 98 F Pulse Rate 146 H 134 H 86 Respiratory 18 16 16 Rate Blood Pressure 98/65 145/88 138/85 O2 Sat by Pulse 95 65 L 98 Oximetry 12/28/21 14:45 Temperature Pulse Rate 75 Respiratory 20 Rate Blood Pressure 141/86 O2 Sat by Pulse 99 Oximetry - Reevaluation(s) Reevaluation #1: 12/28/21 15:13 She did spontaneously convert back to a sinus rhythm he then went into a fast rhythm did convert was given IV beta blockers and has had no further symptoms. Reevaluation #2: 12/28/21 15:15 Repeat EKG showed a supraventricular tachycardia rate 143 QRS duration 105 daily since QTC to 75/358 with evidence of RVH Medical Decision Making - Medical Decision Making I did discuss findings with the patient as well as Dr. Jimenez due to the situation the patient be admitted for continued monitoring and evaluation. - Lab Data Result diagrams: 12/28/21 12:37 12/28/21 12:37 Lab Results 12/28/21 12/28/21 12/28/21 Range/Units 12:37 12:37 12:37 WBC 7.7 (3.8-10.6) k/uL RBC 4.73 (4.30-5.90) m/uL Hgb 14.1 (13.0-17.5) gm/dL Hct 43.2 (39.0-53.0) % MCV 91.5 (80.0-100.0) fL MCH 29.8 (25.0-35.0) pg MCHC 32.5 (31.0-37.0) g/dL RDW 15.6 H (11.5-15.5) % Plt Count 328 (150-450) k/uL MPV 7.3 Neutrophils % 69 % Lymphocytes % 17 % Monocytes % 6 % Eosinophils % 6 % Basophils % 1 % Neutrophils # 5.3 (1.3-7.7) k/uL Lymphocytes # 1.3 (1.0-4.8) k/uL Monocytes # 0.4 (0-1.0) k/uL Eosinophils # 0.4 (0-0.7) k/uL Basophils # 0.1 (0-0.2) k/uL PT 10.0 (9.0-12.0) sec INR 0.9 (<1.2) APTT 23.4 (22.0-30.0) sec D-Dimer 1.66 H (<0.60) mg/L FEU Sodium 139 (137-145) mmol/L Potassium 4.7 (3.5-5.1) mmol/L Chloride 105 (98-107) mmol/L Carbon Dioxide 24 (22-30) mmol/L Anion Gap 10 mmol/L BUN 21 H (9-20) mg/dL Creatinine 1.19 (0.66-1.25) mg/dL Est GFR (CKD-EPI)AfAm 71 (>60 ml/min/1.73 sqM) Est GFR (CKD-EPI)NonAf 62 (>60 ml/min/1.73 sqM) Glucose 124 H (74-99) mg/dL Calcium 9.6 (8.4-10.2) mg/dL Magnesium 2.0 (1.6-2.3) mg/dL Total Bilirubin 0.5 (0.2-1.3) mg/dL AST 26 (17-59) U/L ALT 14 (4-49) U/L Alkaline Phosphatase 190 H (38-126) U/L Troponin I (0.000-0.034) ng/mL Total Protein 7.6 (6.3-8.2) g/dL Albumin 4.2 (3.5-5.0) g/dL TSH 1.330 (0.465-4.680) mIU/L 12/28/21 Range/Units 12:37 WBC (3.8-10.6) k/uL RBC (4.30-5.90) m/uL Hgb (13.0-17.5) gm/dL Hct (39.0-53.0) % MCV (80.0-100.0) fL MCH (25.0-35.0) pg MCHC (31.0-37.0) g/dL RDW (11.5-15.5) % Plt Count (150-450) k/uL MPV Neutrophils % % Lymphocytes % % Monocytes % % Eosinophils % % Basophils % % Neutrophils # (1.3-7.7) k/uL Lymphocytes # (1.0-4.8) k/uL Monocytes # (0-1.0) k/uL Eosinophils # (0-0.7) k/uL Basophils # (0-0.2) k/uL PT (9.0-12.0) sec INR (<1.2) APTT (22.0-30.0) sec D-Dimer (<0.60) mg/L FEU Sodium (137-145) mmol/L Potassium (3.5-5.1) mmol/L Chloride (98-107) mmol/L Carbon Dioxide (22-30) mmol/L Anion Gap mmol/L BUN (9-20) mg/dL Creatinine (0.66-1.25) mg/dL Est GFR (CKD-EPI)AfAm (>60 ml/min/1.73 sqM) Est GFR (CKD-EPI)NonAf (>60 ml/min/1.73 sqM) Glucose (74-99) mg/dL Calcium (8.4-10.2) mg/dL Magnesium (1.6-2.3) mg/dL Total Bilirubin (0.2-1.3) mg/dL AST (17-59) U/L ALT (4-49) U/L Alkaline Phosphatase (38-126) U/L Troponin I <0.012 (0.000-0.034) ng/mL Total Protein (6.3-8.2) g/dL Albumin (3.5-5.0) g/dL TSH (0.465-4.680) mIU/L - EKG Data -: EKG Interpreted by Nd EKG shows normal: sinus rhythm EKG Comments: Sinus rhythm first-degree AV block rate 98. Interval to a 2 QRS duration 84 QT since QTC 325/380 left exodeviation pulmonary disease pattern with nonspecific septal changes - Radiology Data Radiology results: report reviewed (Imaging reviewed evidence of right sided infiltrate pneumonia is considered along with the patient does have a history of small cell cancer.), image reviewed Disposition Clinical Impression: Tachycardia, Small cell lung cancer in adult, Elevated d-dimer Disposition: ADMITTED IP TO THIS [facility] Condition: Stable Referrals: Stoney Patel MD [Primary Care Provider] - 1-2 days Decision Date: 12/28/21 Decision Time: 15:00
[2021-12-28 12:52] LABS: Basophils # (A) 0.1 k/uL (0-0.2); Basophils % (A) 1 %; Eosinophils # (A) 0.4 k/uL (0-0.7); Eosinophils % (A) 6 %; HCT 43.2 % (39.0-53.0); HGB 14.1 gm/dL (13.0-17.5); Lymphocytes # (A) 1.3 k/uL (1.0-4.8); Lymphocytes % (A) 17 %; MCH 29.8 pg (25.0-35.0); MCHC 32.5 g/dL (31.0-37.0); MCV 91.5 fL (80.0-100.0); Mean Platelet Volume 7.3; Monocytes # (A) 0.4 k/uL (0-1.0); Monocytes % (A) 6 %; Neutrophils # (A) 5.3 k/uL (1.3-7.7); Neutrophils % (A) 69 %; Platelet Count 328 k/uL (150-450); RBC 4.73 m/uL (4.30-5.90); RDW 15.6 % (11.5-15.5); WBC 7.7 k/uL (3.8-10.6)
[2021-12-28 13:06] LABS: Albumin 4.2 g/dL (3.5-5.0); Calcium 9.6 mg/dL (8.4-10.2); Potassium 4.7 mmol/L (3.5-5.1); Total Bilirubin 0.5 mg/dL (0.2-1.3); Total Protein 7.6 g/dL (6.3-8.2)
[2021-12-28 13:09] LABS: INR 0.9 (<1.2); Partial Thromboplastin Time 23.4 sec (22.0-30.0)
--- NOTE | 2021-12-28 13:43 | XR ---
EXAMINATION TYPE: XR chest 2V DATE OF EXAM: 12/28/2021 COMPARISON: 02/03/2021 TECHNIQUE: PA and lateral views submitted. HISTORY: Tachycardia FINDINGS: Diffuse hyperinflation compatible COPD. Interstitial chronic findings compatible fibrosis. Increasing consolidation in the right midlung. Underlying mass in the right perihilar region again suspected. N o pneumothorax or pleural effusion. Right hilar fullness compatible with previous history of mass or adenopathy. Chronic rib deformities noted. IMPRESSION: 1. COPD with changes of chronic interstitial lung disease and increasing consolidation in the lateral margin of the right lung. This may represent an enlarging right-sided neoplasm with surrounding renate pheral atelectasis or developing pneumonia.
--- NOTE | 2021-12-28 14:23 | CT ---
EXAMINATION TYPE: CT angio chest CT DLP: 334.1 mGycm, Automated exposure control for dose reduction was used. DATE OF EXAM: 12/28/2021 2:10 PM COMPARISON: Chest radiograph from same day. Multiple CTs of the chest with most recent on 09/27/2021. CLINICAL INDICATION:Male, 71 years old with history of PE suspected; Chest pain TECHNIQUE/CONTRAST: CTA scan of the thorax is performed with IV Contrast, patient injected with 74 mL of Isovue 370, pulm onary embolism protocol. MIP images are created and reviewed. FINDINGS: Pulmonary Artery: There is no evidence for a filling defect within the pulmonary vasculature to sugge st acute pulmonary embolism. The pulmonary artery is of normal size. Lungs/Pleura: Multifocal airspace opacities within the right lung are present which are increased in density compared to prior CT on 09/28/2011.. There is superimposed moderate to severe centrilobular em physema changes. Underlying interstitial lung disease changes are present bilaterally. No evidence of pneumothorax. Trace right pleural effusion is present. Airway: Large airways are patent. Heart: Heart is within normal limits for size.. Vasculature: Mild atherosclerotic calcifications are present throughout the aorta and its branches. Mediastinum: No gross evidence of adenopathy. Musculoskeletal: No acute osseous abnormalities, mild multifocal disc degeneration changes are presen t. Soft Tissues: Unremarkable. Lower neck: No significant findings. Upper Abdomen: Partially visualized right renal cyst. IMPRESSION: 1. No evidence of pulmonary embolism. 2. Right multifocal airspace disease consistent with pneumonia superimposed on centrilobular emphysem a as well as chronic interstitial lung disease. Overall findings are worse from 09/27/2021.
[2021-12-28] MEDS ORDERED: ACETAMINOPHEN TAB 325 MG TAB PO PRN (15:17)
[2021-12-28] MEDS ORDERED: NALOXONE 0.4 MG/ML 1 ML VIAL IV PRN (15:17)
--- NOTE | 2021-12-28 17:08 | P.HPIM ---
History of Present Illness H&P Date: 12/28/21 Chief Complaint: Tachycardia 71-year-old man with medical history of hypertension, diabetes, hyperlipidemia, small cell carcinoma of the lung presented for evaluation of intermittent episodes of tachycardia. Patient says that for the last several months he has had intermittent episodes of tachycardia and hypotension. Normally, these episodes resolved with some water intake and rest, but this episode lasted for greater than 15-20 minutes, prompting concern. Patient says that when he has his episodes they're associated with a little bit of dyspnea, anxiety, sweats. When he has these episodes, he takes his blood pressure and notices that his heart rate is as high as 145-150, and his blood pressure is as low as 80/50. Since he started to express his episodes he stopped taking his lisinopril and continues to take his metoprolol only for blood pressure. He denies chest pain, fevers, chills, nausea, vomiting, syncope, presyncope, cough, dyspnea, abdominal pain, constipation, diarrhea, dysuria, dyschezia, numbness/weakness of extremities. In the emergency room, patient was afebrile, 138/85, heart rate 86, 98% on 2 L nasal cannula. CBC, chemistries are unremarkable. Liver function tests show a mildly elevated alkaline phosphatase at 190. TSH was 1.33. Coags were unremarkable. D-dimer was elevated at 1.66. EKG shows sinus rhythm with first- degree AV block and an indeterminate access, frequent PACs. Chest CTA shows no evidence of pulmonary embolism but does show right multifocal airspace disease consistent with infiltrate superimposed on centrilobular emphysema as well as chronic interstitial lung disease in the area of his known small cell cancer. Chest x-ray showed COPD with changes of chronic interstitial lung disease increased consolidation in the lateral margin of the right lung concerning for enlarging right-sided neoplasm. All Systems reviewed and pertinent positives and negatives noted in HPI, all other symptoms are negative Gen: in no apparent distress, resting comfortably in bed Eyes: PERRL, no scleral injection or icterus HENT: normocephalic, atraumatic, good hearing acuity, moist mucous membranes Neck: no tracheal deviation, full range of motion Resp: good air exchange, breathing comfortably with no accessory muscle use, no tactile fremitus CVS: good distal perfusion x 4, no pitting edema GI: soft, NTTP, ND, no hepatosplenomegaly : no suprapubic tenderness, no CVAT, alicea catheter not present MSK: no clubbing, no cyanosis, no noted contractures of extremities Skin: no noted rashes, petechiae; temperature of skin is appropriate Neuro: moving all extremities without signs of weakness, CN II-XII intact Psych: cooperative, euthymic mood, insight and judgment intact Labs and imaging reviewed as above Assessment/plan: Paroxysmal tachycardia -Admit to observation, telemetry -Trend troponins -Orthostatics twice a day -We'll require ambulatory ECG -Tilt table testing as outpatient -Needs outpatient oncology follow-up Small cell lung cancer Hypertension Diabetes type 2 Hyperlipidemia -Home medications reviewed and reconciled Patient is full code DVT prophylaxis with enoxaparin Past Medical History Past Medical History: Diabetes Mellitus, Hyperlipidemia, Hypertension Additional Past Medical History / Comment(s): HAS "SPOT ON LUNG",hx kidney stones History of Any Multi-Drug Resistant Organisms: None Reported Past Surgical History: Appendectomy Additional Past Surgical History / Comment(s): Navigational bronchoscopy,fatty tissue removed from left leg,COLONOSCOPY Past Anesthesia/Blood Transfusion Reactions: No Reported Reaction Additional Past Anesthesia/Blood Transfusion Reaction / Comment(s): no hx blood transfusion Past Psychological History: No Psychological Hx Reported Smoking Status: Former smoker - Past Family History Mother Family Medical History: No Reported History Medications and Allergies Home Medications Medication Instructions Recorded Confirmed Type Aspirin [Adult Low Dose Aspirin EC] 81 mg PO DAILY 12/07/15 12/28/21 History Cholecalciferol [Vitamin D3] 5,000 unit PO DAILY 12/07/15 12/28/21 History Multivitamins, Thera [Multivitamin] 1 tab PO DAILY 12/07/15 12/28/21 History Metoprolol Succinate (ER) [Toprol 50 mg PO DAILY 05/10/19 12/28/21 History Xl] Cinnamon Bark [Cinnamon] 500 mg PO DAILY 12/28/21 12/28/21 History Empaglifloz/Linaglip/Metformin 1 tab PO DAILY 12/28/21 12/28/21 History [Trijardy Xr 12.5-2.5-1,000 mg] Zinc 50 mg PO DAILY 12/28/21 12/28/21 History Allergies Allergy/AdvReac Type Severity Reaction Status Date / Time No Known Allergies Allergy Verified 12/28/21 14:11 Physical Exam Osteopathic Statement: *. No significant issues noted on an osteopathic structural exam other than those noted in the History and Physical/Consult. Vitals: Vital Signs Temp Pulse Resp BP Pulse Ox 12/28/21 16:32 73 16 140/86 98 12/28/21 14:45 75 20 141/86 99 12/28/21 13:19 86 16 138/85 98 12/28/21 12:49 98 F 134 H 16 145/88 65 L 12/28/21 12:20 97.8 F 146 H 18 98/65 95 Intake and Output 12/28/21 12/28/21 12/28/21 06:59 14:59 22:59 Other: Weight 79.379 kg Results CBC & Chem 7: 12/28/21 12:37 12/28/21 12:37 Labs: Abnormal Lab Results - Last 24 Hours (Table) 12/28/21 12/28/21 12/28/21 Range/Units 12:37 12:37 12:37 RDW 15.6 H (11.5-15.5) % D-Dimer 1.66 H (<0.60) mg/L FEU BUN 21 H (9-20) mg/dL Glucose 124 H (74-99) mg/dL Alkaline Phosphatase 190 H (38-126) U/L
[2021-12-28 17:14] LABS: Glucose,Whole Blood 110 mg/dL (70-110)
[2021-12-28] MEDS: INSULIN ASPART (NovoLOG) 100 UNIT/ML VIAL SQ SCH (17:51)
[2021-12-28] MEDS: ENOXAPARIN 40 MG/0.4 ML SYRINGE SQ SCH (17:55)
[2021-12-28] MEDS: SODIUM CHLORIDE 0.9% 1,000 ML IV SCH (18:22)
[2021-12-28 20:25] LABS: Glucose,Whole Blood 127 mg/dL (70-110)
[2021-12-29] MEDS: SODIUM CHLORIDE 0.9% 1,000 ML IV SCH (03:32)
[2021-12-29 05:39] LABS: Glucose,Whole Blood 109 mg/dL (70-110)
[2021-12-29] MEDS: INSULIN ASPART (NovoLOG) 100 UNIT/ML VIAL SQ SCH ×2 (05:42→12:12)
[2021-12-29] MEDS ORDERED: metFORMIN 500 MG TAB PO SCH (07:30)
[2021-12-29] MEDS: ENOXAPARIN 40 MG/0.4 ML SYRINGE SQ SCH (08:54)
[2021-12-29] MEDS ORDERED: MULTIVITAMINS, THERA 1 EACH TAB PO SCH (09:00)
[2021-12-29] MEDS ORDERED: ZINC SULFATE 220 MG CAP PO SCH (09:00)
[2021-12-29] MEDS ORDERED: LINAGLIPTIN 5 MG TABLET PO SCH (09:00)
[2021-12-29] MEDS ORDERED: METOPROLOL SUCCINATE (ER) 50 MG TAB.ER.24H PO SCH (09:00)
[2021-12-29] MEDS ORDERED: CHOLECALCIFEROL 125 MCG (5000 IU) TABLET PO SCH (09:00)
[2021-12-29] MEDS ORDERED: NON FORMULARY DRUG (Cinnamon Bark [Cinnamon] 500 MG Capsule) PO SCH (09:00)
[2021-12-29] MEDS ORDERED: ASPIRIN 81 MG PO SCH (09:00)
[2021-12-29 09:01] VITALS: RESP 17
[2021-12-29 11:41] VITALS: BP 104/66; PULSE 61; TEMP 98.1
[2021-12-29 12:10] LABS: Glucose,Whole Blood 92 mg/dL (70-110)
--- NOTE | 2021-12-29 13:39 | CA ---
Transthoracic Echo Report Name: Lawrence Schaefer Age: 71 Gender: M : 1950 Exam Date: 12/29/2021 11:05 Exam Location: [facility] Ht (in): 69 Wt (lb): 175 Ordering Physician: Hussein Murguia MD Attending/Referring Phys: Platen Press Feeder Princess Sapp RDCS Procedure CPT: Indications: paroxysmal tachycardia Cardiac Hx: Technical Quality: Good Contrast 1: Total Dose (mL): Contrast 2: Total Dose (mL): MEASUREMENTS (Male / Female) Normal Values 2D ECHO LV Diastolic Diameter PLAX 4.8 cm 4.2 - 5.9 / 3.9 - 5.3 cm LV Systolic Diameter PLAX 2.9 cm IVS Diastolic Thickness 1.0 cm 0.6 - 1.0 / 0.6 - 0.9 cm LVPW Diastolic Thickness 1.1 cm 0.6 - 1.0 / 0.6 - 0.9 cm LV Relative Wall Thickness 0.5 RV Internal Dim ED PLAX 3.0 cm LA Systolic Diameter LX 3.8 cm 3.0 - 4.0 / 2.7 - 3.8 cm M-MODE Aortic Root Diameter MM 3.8 cm MV E Point Septal Separation 0.4 cm AV Cusp Separation MM 2.3 cm DOPPLER AV Peak Velocity 107.7 cm/s AV Peak Gradient 4.6 mmHg MV Area PHT 3.0 cm??? Mitral E Point Velocity 82.4 cm/s Mitral A Point Velocity 93.7 cm/s Mitral E to A Ratio 0.9 MV Deceleration Time 255.6 ms MV E' Velocity 5.9 cm/s Mitral E to MV E' Ratio 14.0 TR Peak Velocity 216.4 cm/s TR Peak Gradient 18.7 mmHg Right Ventricular Systolic Press 23.7 mmHg FINDINGS Left Ventricle Left ventricular ejection fraction is estimated at 55-60 %. Left ventricular cavity size normal. Left ventricular wall thickness normal. Right Ventricle Normal right ventricular size and function. Right ventricular systolic pressure within normal limits. Right Atrium Normal right atrial size. Left Atrium Normal left atrial size. No evidence for an atrial septal defect. Mitral Valve Structurally normal mitral valve. No mitral stenosis, regurgitation or prolapse. Mitral annular calcification. Aortic Valve Trileaflet aortic valve. No aortic valve stenosis or regurgitation. Tricuspid Valve Trace to mild tricuspid regurgitation. Pulmonic Valve Structurally normal pulmonic valve. Pericardium Normal pericardium. No pericardial effusion. Aorta Mild aortic dilatation at the level of the sinuses of valsalva (38 mm). CONCLUSIONS Normal left ventricular dimension and systolic function Previewed by: Dr. Monty Son MD (Electronically Signed) Final Date: 29 December 2021 13:38
--- NOTE | 2021-12-29 13:47 | P.DS ---
Providers Date of admission: 12/28/21 15:19 Expected date of discharge: 12/29/21 Attending physician: Hussein Murguia MD Primary care physician: Stoney Patel [facility] Course: Paroxysmal tachycardia Small cell lung cancer Hypertension Diabetes type 2 Hyperlipidemia 71-year-old man with medical history of hypertension, diabetes, hyperlipidemia, small cell carcinoma of the lung presented for evaluation of intermittent episodes of tachycardia. In the emergency room, patient was afebrile, 138/85, heart rate 86, 98% on 2 L nasal cannula. CBC, chemistries are unremarkable. Liver function tests show a mildly elevated alkaline phosphatase at 190. TSH was 1.33. Coags were unremarkable. D-dimer was elevated at 1.66. EKG shows sinus rhythm with first-degree AV block and an indeterminate access, frequent PACs. Chest CTA shows no evidence of pulmonary embolism but does show right multifocal airspace disease consistent with infiltrate superimposed on centrilobular emphysema as well as chronic interstitial lung disease in the area of his known small cell cancer. Chest x-ray showed COPD with changes of chronic interstitial lung disease increased consolidation in the lateral margin of the right lung concerning for enlarging right-sided neoplasm. Patient's telemetry had no acute events over night. Patient's echocardiogram showed an ejection fraction of 55-60% with no wall motion abnormality and no RV dysfunction, no diastolic dysfunction, no valvular abnormalities. Patient was discharged home with instructions for 30 day ambulatory ECG monitoring as well as cardiology follow-up for tilt table testing. Also instructed follow-up with oncology in case paroxysmal hypotension and tachycardia are related to paraneoplastic syndrome/autonomic dysfunction from small cell cancer. I spent 32 minutes coordinating this discharge, 12/29 discharge date Gen: in no apparent distress, resting comfortably in bed Eyes: PERRL, no scleral injection or icterus HENT: normocephalic, atraumatic, good hearing acuity, moist mucous membranes Neck: no tracheal deviation, full range of motion Resp: good air exchange, breathing comfortably with no accessory muscle use, no tactile fremitus CVS: good distal perfusion x 4, no pitting edema GI: soft, NTTP, ND, no hepatosplenomegaly : no suprapubic tenderness, no CVAT, alicea catheter not present MSK: no clubbing, no cyanosis, no noted contractures of extremities Skin: no noted rashes, petechiae; temperature of skin is appropriate Neuro: moving all extremities without signs of weakness, CN II-XII intact Psych: cooperative, euthymic mood, insight and judgment intact Patient Condition at Discharge: Good Plan - Discharge Summary Discharge Rx Participant: No New Discharge Prescriptions: New Acetaminophen Tab [Tylenol] 650 mg PO Q6HR PRN tab PRN Reason: Mild Pain Or Fever > 100.5 Continue Aspirin [Adult Low Dose Aspirin EC] 81 mg PO DAILY Multivitamins, Thera [Multivitamin (formulary)] 1 tab PO DAILY Cholecalciferol [Vitamin D3 (25 Mcg = 1000 Iu)] 5,000 unit PO DAILY Metoprolol Succinate (ER) [Toprol XL] 50 mg PO DAILY Zinc 50 mg PO DAILY Cinnamon Bark [Cinnamon] 500 mg PO DAILY Empaglifloz/Linaglip/Metformin [Trijardy Xr 12.5-2.5-1,000 mg] 1 tab PO DAILY Discharge Medication List Aspirin [Adult Low Dose Aspirin EC] 81 mg PO DAILY 12/07/15 [History] Cholecalciferol [Vitamin D3 (25 Mcg = 1000 Iu)] 5,000 unit PO DAILY 12/07/15 [History] Multivitamins, Thera [Multivitamin (formulary)] 1 tab PO DAILY 12/07/15 [History] Metoprolol Succinate (ER) [Toprol XL] 50 mg PO DAILY 05/10/19 [History] Cinnamon Bark [Cinnamon] 500 mg PO DAILY 12/28/21 [History] Empaglifloz/Linaglip/Metformin [Trijardy Xr 12.5-2.5-1,000 mg] 1 tab PO DAILY 12/28/21 [History] Zinc 50 mg PO DAILY 12/28/21 [History] Acetaminophen Tab [Tylenol] 650 mg PO Q6HR PRN tab 12/29/21 [Rx] Follow up Appointment(s)/Referral(s): Stoney Patel MD [Primary Care Provider] - 1-2 days Monty Son MD [STAFF PHYSICIAN] - 1 Week (Tilt table testing for paroxysmal tachycardia and hypotension) Ambulatory/Diagnostic Orders: Miscellaneous Radiology Order [RAD.AMB] Location: None Selected Discharge Disposition: HOME SELF-CARE
== END 2021-12-29 15:11 | disposition home or self-care (01) | DRG 309 ==
LOC: EC 12:15 → 3SCARD 15:19
PROVIDERS: ADMIT Internal Medicine; ATTEND Internal Medicine
DX: I47.9 Paroxysmal tachycardia, unspecified (principal); C34.91 Malignant neoplasm of unspecified part of right bronchus or lung; J84.9 Interstitial pulmonary disease, unspecified; E11.9 Type 2 diabetes mellitus without complications; E78.5 Hyperlipidemia, unspecified; F41.9 Anxiety disorder, unspecified; R79.1 Abnormal coagulation profile; I49.1 Atrial premature depolarization; I10 Essential (primary) hypertension; I44.0 Atrioventricular block, first degree; J43.2 Centrilobular emphysema; Z79.82 Long term (current) use of aspirin; Z87.442 Personal history of urinary calculi; Z87.891 Personal history of nicotine dependence; Z79.899 Other long term (current) drug therapy
CPT/HCPCS: 36415; 71046; 71275; 80053; 83735; 84443; 84484; 85025; 85379; 85610; 85730; 93005; 93270; 93306; 96374; 96376; 99285

== ENCOUNTER 2022-01-19 07:56 | Day surgery (SDC) | payer BC ==
[2022-01-19 08:32] LABS: Glucose,Whole Blood 137 mg/dL (70-110)
[2022-01-19 08:51] VITALS: RESP 18; TEMP 98.1
[2022-01-19 10:05] VITALS: BP 123/74; PULSE 62
--- NOTE | 2022-01-25 13:14 | US ---
ULTRASOUND GUIDED CORE BIOPSY RIGHT NECK MASS: CLINICAL HISTORY: Right neck mass FINDINGS: The procedure was explained to the patient. The risks, complications, benefits and alternatives were discussed and any questions were answered. Informed consent was obtained. Patient was placed supin e on the ultrasound table and prepped and draped in the usual sterile fashion. Utilizing a 20 gauge needle, two passes were made into the right neck mass. Patient was stable throughout the procedure. Pathology is pending. All elements of maximal barrier technique were utilized. IMPRESSION: 1. Successful ultrasound guided core biopsy right neck mass.
== END 2022-01-19 09:40 | disposition home or self-care (01) ==
LOC: RADPROMAIN 07:56
PROVIDERS: ATTEND Internal Medicine Hematology & Oncology
DX: R59.0 Localized enlarged lymph nodes (principal)
CPT/HCPCS: 20206; 21550; 36415; 88305; 88341; 88342

== ENCOUNTER → 2022-01-20 | Day surgery (SDC) | payer BC ==
[2022-01-19 14:17] VITALS: BMI 25.8
[~2022-01-20] MED LIST changes: -DEXAMETHASONE SOD PHOSPHATE 4 MG/ML 1 ML VIAL IV ONE; -HYDROmorphone 0.5 MG/0.5 ML SYRINGE IVP PRN; -LACTATED RINGERS 1,000 ML IV SCH; -LIDOCAINE 1% (10MG/ML) FOR IV START INTRADERMA PRN; -MIDAZOLAM 2 MG/2 ML VIAL IV PRN; -ONDANSETRON 4 MG/2 ML VIAL IVP ONE; +SODIUM CHLORIDE 0.9% 1,000 ML IV SCH
[2022-01-20 11:46] VITALS: BP 121/80; PULSE 43; RESP 18; TEMP 98.3
--- NOTE | 2022-01-20 14:16 | P.EPPROC ---
- EP Procedure Note Electrophysiology Procedure Note: Diagnosis Recurrent presyncope Twelve-lead EKG shows sinus rhythm first degree AV block, UT interval: 50 ms Narrow QRS normal ST segments Tilt table test for protocol Baseline blood pressure 126/73 mmHg, Baseline heart rate 68 beats a minute Patient was tilted upright at an angle of 70 per protocol There was a progressive gradual drop in blood pressure. 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
== END ==
LOC: CATHEP 11:01
PROVIDERS: ATTEND Internal Medicine Clinical Cardiac Electrophysiology
DX: R55 Syncope and collapse (principal); I44.0 Atrioventricular block, first degree; R94.31 Abnormal electrocardiogram [ECG] [EKG]; Z20.822 Contact with and (suspected) exposure to COVID-19
CPT/HCPCS: 87635; 93005; 93660

== ENCOUNTER → 2022-01-21 | Outpatient (CLI) | payer BC ==
--- NOTE | 2022-01-26 07:18 | PE ---
EXAMINATION TYPE: PET CT fusion skull to thigh DATE OF EXAM: 01/21/2022 CLINICAL INDICATION:Male, 72 years old with history of C34.31, C77.9; TECHNIQUE: Following the intravenous administration of 11.41 mCi of F-18 FDG, whole body images are performed from the skull base to the midthigh. Images are reviewed on the computer in the coronal, a xial, and sagittal planes. Reconstructed rotating images are created on independent workstation and reviewed on the computer. A non-contrast CT is performed in conjunction with the PET scan. Glucose level 99 mg/dL COMPARISON: CT 09/27/2021, PET/CT 12/18/2020, FINDINGS: Mediastinal SUV mean is 1.54. Hepatic parenchyma SUV mean is 1.9. SKULL BASE AND NECK: Right neck soft tissue mass measuring 4.7 x 4.2 cm with max SUV 8.3 previously not visualized CHEST, MEDIASTINUM, AND HILAR REGION: Consolidation changes throughout the lung with more focal uptak e with Max SUV 4.2 in the mid right lung. Overall consolidation changes similar to 12/28/2021 and wors e from 09/27/2021. Discrete pulmonary nodules seen on prior PET which were FDG avid involving the righ t pulmonary hilum and right middle lobe are obscured on today's exam secondary to some consolidation changes. ABDOMEN AND PELVIS: No suspicious FDG activity. Physiologic uptake is seen throughout the bowel which limits evaluation. OSSEOUS STRUCTURES: No suspicious FDG activity. OTHER CT: Scattered consolidation changes are seen throughout the right lung. Increased interstitial lung markings are present throughout the right lung. Carotid bifurcation atherosclerosis. Mild cardio megaly. Moderate coronary artery atherosclerosis. Right renal cyst. Moderate atherosclerosis of the a rterial vasculature. Lxey-ju-zecckubf multilevel disc degeneration changes throughout the lungs. Dege neration changes of the shoulders. IMPRESSION: 1. Right neck mass with increased FDG activity consistent with malignancy. This is new from prior on 12/18/2020. 2. Scattered consolidation changes within the right lung could represent posttreatment changes with superimposed infectious/inflammatory process with underlying remaining malignancy not entirely exclud ed at this time recommend. Attention on follow-up imaging.
== END | disposition home or self-care (01) ==
LOC: RADPETMAIN 09:51
PROVIDERS: ATTEND Radiology Radiation Oncology
DX: C34.31 Malignant neoplasm of lower lobe, right bronchus or lung (principal); C77.9 Secondary and unspecified malignant neoplasm of lymph node, unspecified
CPT/HCPCS: 78815; A9552

== ENCOUNTER → 2022-03-01 | Outpatient (CLI) | payer BC ==
--- NOTE | 2022-03-01 17:37 | MR ---
EXAMINATION TYPE: MR brain wo/w con DATE OF EXAM: 03/01/2022 COMPARISON: 12/09/2021, 09/28/2021 HISTORY: 72-year-old male C79.31, Lung cancer, evaluate metastatic disease. TECHNIQUE: Multiplanar, multisequence images of the brain and brainstem were acquired before and aft er administration of 7 mL IV Gadavist. Diffusion weighted imaging is performed. FINDINGS: No evidence for acute infarction, hemorrhage, mass, mass effect, midline shift, herniation, effacemen t of basal cisterns, or extra-axial fluid collection. The ventricles and sulci are age-appropriate. Major intracranial flow voids are intact. T2/FLAIR weighted sequences redemonstrate scattered mild to moderate foci of bright white matter garza ge particularly in the subcortical and deep white matter regions of both cerebral hemispheres. Midline structures demonstrate normal morphology. The craniocervical junction is normal. Post contrast images demonstrate no evidence of pathologic enhancement. Dural venous sinuses are pat ent. Moderate mucosal thickening ethmoid air cells. IMPRESSION: No evidence for new or recurrent intracranial metastases. Stable mild to moderate scattered burden of chronic small vessel ischemic disease. No acute intracranial abnormality seen. Moderate chronic ethmoid sinus disease.
== END | disposition home or self-care (01) ==
LOC: RADMRIMAIN 11:41
PROVIDERS: ATTEND Radiology Radiation Oncology
DX: C79.31 Secondary malignant neoplasm of brain (principal); J32.2 Chronic ethmoidal sinusitis
CPT/HCPCS: 70553; A9585

== ENCOUNTER 2022-04-14 09:39 | Emergency (ER) | payer BC ==
[2022-04-14 09:57] VITALS: BP 123/76; PULSE 98; RESP 18; TEMP 98.1
--- NOTE | 2022-04-14 10:51 | CT ---
EXAMINATION TYPE: CT brain rajinder lowery DATE OF EXAM: 04/14/2022 COMPARISON: 05/10/2019 HISTORY: Fall, pain Unenhanced CT of the brain was performed. The ventricles, basal cisterns and sulci overlying the cerebral convexities demonstrate mild enlargem ent. There is no evidence for intracranial hemorrhage or sulcal effacement. There is decreased attenuatio n about the periventricular white matter and deep white matter of both cerebral hemispheres, compatib le with chronic small vessel ischemia. No mass effects are seen. If symptoms persist consider MRI. Osseous calvarium is intact. IMPRESSION: 1. Age related atrophic and chronic small vessel ischemic change without acute intracranial process seen at this time. CT Cervical Spine: Unenhanced CT of the cervical spine was performed with bone and soft tissue window settings submitted . Coronal and sagittal reconstruction is obtained. There is normal alignment and prevertebral soft tissues. No evidence for acute cervical fracture . Scattered degenerative disc disease and spondylosis. Biapical scarring. IMPRESSION: 1. No evidence for acute fracture or subluxation of the cervical spine.
--- NOTE | 2022-04-14 10:52 | XR ---
EXAMINATION TYPE: XR hand complete RT DATE OF EXAM: 04/14/2022 COMPARISON: NONE HISTORY: 72-year-old male fall, head injury, fifth digit pain. TECHNIQUE: 3 views FINDINGS: There is an intra-articular fracture involving the base of the fifth metacarpal. Extension into the fourth-fifth intermetacarpal joint and fifth CMC joint. Marked ulnar-sided soft tissue swell ing. Additional dorsal soft tissue swelling overlying the knuckles. Moderate to severe degenerative c hange first CMC joint and moderate at the triscaphe joint and throughout the remainder of the thumb. Mild osteoarthritic change at the DIP joints of the fingers. IMPRESSION: Fracture at the fifth metacarpal base is not significantly displaced but suspect intra-articular exte nsion into both the fourth-fifth intermetacarpal joint as well as the fifth CMC joint. Marked associa bull soft tissue swelling.
--- NOTE | 2022-04-14 10:58 | CT ---
EXAMINATION TYPE: CT facial bones wo con DATE OF EXAM: 04/14/2022 COMPARISON: None HISTORY: Fall pain Unenhanced CT of the facial bones was performed in the axial and coronal planes. Bone and soft tissu e window settings are submitted. Right periocular soft tissue swelling. I do not see evidence for displaced facial bone fracture or depressed facial bone fracture. The globes are intact. Paranasal sinuses are well-aerated. IMPRESSION: 1. No evidence for depressed or displaced facial bone fracture.
--- NOTE | 2022-04-14 11:08 | XR ---
EXAMINATION TYPE: XR chest 2V, XR ribs RT DATE OF EXAM: 04/14/2022 COMPARISON: CTA chest December 28 HISTORY: Shortness of breath TECHNIQUE: Frontal and lateral views of the chest are obtained. 4 views of the right-sided ribs are also submitted. FINDINGS: Scattered senescent parenchymal changes noted. Hyperinflation compatible with COPD. There is chronic interstitial infiltrate overlying the right midlung zone. This was seen on prior CTA . There is no evidence for pneumothorax. Mild fibrotic changes seen. Heart size is stable. Mediastinal structures are stable and grossly unremarkable. No evidence for hilar prominence. Right-sided ribs demonstrate chronic. Deformity of right ribs 5 and 6 unchanged from CTA study. No ac [place] fracture is seen with certainty at this time. IMPRESSION: 1. Chronic interstitial process right mid lung zone with underlying changes of mild fibrosis. 2. Chronic rib deformities of right ribs 5 and 6. No acute rib fracture is seen with certainty at thi s time.
[2022-04-14] MEDS ORDERED: ACETAMINOPHEN TAB 500 MG TAB PO STA (11:11)
[2022-04-14] MEDS ORDERED: LIDOCAINE 5% PATCH TOPICAL STA (11:11)
[2022-04-14] MEDS ORDERED: TOPICAL SKIN ADHESIVE 1 EACH AMP TOPICAL ONE (11:12)
--- NOTE | 2022-04-14 11:28 | ED ---
Fall HPI - General Chief Complaint: Fall Stated Complaint: Fall, Rib pain, hand & facial injury Time Seen by Provider: 04/14/22 10:23 Source: patient Mode of arrival: ambulatory - History of Present Illness Initial Comments: Patient is 72-year-old male who presents to the emergency department for evaluation of fall. Patient states he was walking his dog who pulled on the leash while chasing after a school bus causing patient to fall on his right outstretched hand. Patient did hit his right eyebrow on the cement. Patient laceration by right eyebrow. Last tetanus within 5 years. He takes a baby aspirin otherwise denies blood thinner use. He denies loss of consciousness. Denies blurry vision, double vision, lightheadedness, dizziness, headache, nausea, vomiting. Patient reports mild pain over the ulnar aspect of his hand. Denies other hand pain including in the anatomical snuffbox region. Patient also reports mild right rib pain. No chest pain or shortness of breath. - Related Data Home Medications Medication Instructions Recorded Confirmed Aspirin [Adult Low Dose Aspirin EC] 81 mg PO DAILY 12/07/15 01/19/22 Cholecalciferol [Vitamin D3 (25 5,000 unit PO DAILY 12/07/15 01/19/22 Mcg = 1000 Iu)] Multivitamins, Thera [Multivitamin 1 tab PO DAILY 12/07/15 01/19/22 (formulary)] Metoprolol Succinate (ER) [Toprol 50 mg PO DAILY 05/10/19 01/19/22 XL] Cinnamon Bark [Cinnamon] 500 mg PO DAILY 12/28/21 01/19/22 Empaglifloz/Linaglip/Metformin 1 tab PO DAILY 12/28/21 01/19/22 [Trijardy Xr 12.5-2.5-1,000 mg] Zinc 50 mg PO DAILY 12/28/21 01/19/22 Atorvastatin [Lipitor] 80 mg PO HS 01/19/22 01/19/22 Empaglifloz/Linaglip/Metformin 1 tab PO DAILY 01/19/22 01/20/22 [Trijardy Xr 12.5-2.5-1,000 mg] Previous Rx's Medication Instructions Recorded Acetaminophen Tab [Tylenol] 650 mg PO Q6HR PRN tab 12/29/21 Lidocaine 5% Patch [Lidoderm 5% 1 patch TOPICAL DAILY #7 patch 04/14/22 Patch] Allergies Allergy/AdvReac Type Severity Reaction Status Date / Time No Known Allergies Allergy Verified 04/14/22 09:57 Review of Systems ROS Statement: Those systems with pertinent positive or pertinent negative responses have been documented in the HPI. ROS Other: All systems not noted in ROS Statement are negative. Past Medical History Past Medical History: Diabetes Mellitus, Hyperlipidemia, Hypertension Additional Past Medical History / Comment(s): HAS "SPOT ON LUNG",hx kidney stones History of Any Multi-Drug Resistant Organisms: None Reported Past Surgical History: Appendectomy Additional Past Surgical History / Comment(s): Navigational bronchoscopy,fatty tissue removed from left leg,COLONOSCOPY Past Anesthesia/Blood Transfusion Reactions: No Reported Reaction Additional Past Anesthesia/Blood Transfusion Reaction / Comment(s): no hx blood transfusion Past Psychological History: No Psychological Hx Reported Smoking Status: Former smoker Past Alcohol Use History: None Reported Past Drug Use History: None Reported - Past Family History Mother Family Medical History: No Reported History General Exam Limitations: no limitations General appearance: alert, in no apparent distress Head exam: Present: atraumatic, normocephalic. Absent: normal inspection (2 cm laceration just lateral to right eyebrow) Eye exam: Present: normal appearance, PERRL, EOMI. Absent: scleral icterus, conjunctival injection, periorbital swelling Neck exam: Present: normal inspection, full ROM. Absent: tenderness Respiratory exam: Present: normal lung sounds bilaterally. Absent: respiratory distress, wheezes, rales, rhonchi, stridor, chest wall tenderness (No tenderness with palpation of the right ribs), decreased breath sounds Cardiovascular Exam: Present: regular rate, normal rhythm, normal heart sounds. Absent: systolic murmur, diastolic murmur, rubs, gallop, clicks Extremities exam: Present: other (Swelling and bruising of the medial aspect of right hand. Patient also has a cyst in this region states has been there for several years. No anatomical snuffbox tenderness. Full range of motion. Neurovascularly intact.) Neurological exam: Present: alert, oriented X3, CN II-XII intact Psychiatric exam: Present: normal affect, normal mood Skin exam: Present: warm, dry, intact, normal color. Absent: rash Course Vital Signs 04/14/22 09:54 Temperature 98.1 F Pulse Rate 98 Respiratory 18 Rate Blood Pressure 123/76 O2 Sat by Pulse 96 Oximetry Medical Decision Making - Medical Decision Making This is a 72-year-old presenting after fall. No blood thinner use. Patient feels well with minimal pain. No concussive symptoms. CT of the brain, C-spine, facial bones were obtained and interpreted by me which shows no acute process.Chest x-ray obtain and interpreted by me chronic deformities of the right ribs 5 and 6 with no acute rib fracture seen with certainty. There is chronic interstitial process of the right mid lung zone with underlying changes of mild fibrosis. 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 Right hand xray obtained and interpreted by me shows fracture at the fifth metacarpal base with intra- articular extension into both the fourth and fifth and metacarpal joint involvement fifth CMC joint. There is marked soft tissue swelling. Pain treated with Tylenol and lidocaine patch over her ribs. He was placed in an ulnar gutter splint. Neurovascularly intact on reassessment. Small laceration is lateral to right eyebrow was seen thoroughly and well approximated with exofin. Tetanus update not indicated. Patient was sent home with lidocaine patches. He'll follow up with primary care provider and intake specialist. Dr. Alvarenga is my attending. Disposition Clinical Impression: Fracture of fifth metacarpal bone of right hand, Fall, Rib pain on right side, Laceration Disposition: HOME SELF-CARE Condition: Good Instructions (If sedation given, give patient instructions): Laceration (ED), Hand Fracture (ED), Fall Prevention for Older Adults (ED), Skin Adhesive Care (ED), Boxer Fracture (ED) Additional Instructions: Keep wound clean and dry. Avoid soaking and scrubbing for the next week. Keep splint clean and dry. Ice injury for 20 minutes each session, 4 times a day for the next 24-48 hours. Please follow-up with intake specialist in 1-2 days. Take Tylenol for pain. Use lidocaine patches for any further rib pain. Return to the emergency department if you experience new, concerning, or worsening symptoms. Prescriptions: Lidocaine 5% Patch [Lidoderm 5% Patch] 1 patch TOPICAL DAILY #7 patch Is patient prescribed a controlled substance at d/c from ED?: No Referrals: Stoney Patel MD [Primary Care Provider] - 1-2 days Adri Vera DO [Doctor of Osteopathic Medicine] - 1-2 days
== END 2022-04-14 11:51 | disposition home or self-care (01) ==
LOC: EC 09:39
DX: S62.306A Unspecified fracture of fifth metacarpal bone, right hand, initial encounter for closed fracture (principal); I67.82 Cerebral ischemia; J98.4 Other disorders of lung; E11.9 Type 2 diabetes mellitus without complications; I10 Essential (primary) hypertension; E78.5 Hyperlipidemia, unspecified; Z87.891 Personal history of nicotine dependence; Z79.82 Long term (current) use of aspirin; Z79.899 Other long term (current) drug therapy; Z79.02 Long term (current) use of antithrombotics/antiplatelets; Z79.84 Long term (current) use of oral hypoglycemic drugs; W18.09XA Striking against other object with subsequent fall, initial encounter; Y93.K1 Activity, walking an animal
CPT/HCPCS: 29125; 70450; 70486; 71046; 72125; 99284

== ENCOUNTER → 2022-05-23 | Outpatient (CLI) | payer BC ==
--- NOTE | 2022-05-24 12:37 | CT ---
EXAMINATION TYPE: CT ChestAbdPelvis w con CT DLP: 989 mGycm, Automated exposure control for dose reduction was used. DATE OF EXAM: 05/23/2022 3:57 PM COMPARISON: PET/CT 01/21/2022 CLINICAL INDICATION:Male, 72 years old with history of C34.91 lung ca, obs for mets. f/u lung ca. Technique: Multiple axial images of the chest, abdomen, and pelvis were obtained. Two-dimensional cor onal and sagittal reconstructions were obtained. Contrast used:100 mL of Isovue 300 with IV Contrast, Oral contrast used: with Oral Contrast Findings: CHEST: Redemonstration of interstitial prominence with increased areas of reticulation most pronounce d peripherally. Within the right lung there is bronchiectasis with varicose bronchial dilation simila r to prior. These areas of consolidation extending from the hilum to the peripheral pleura. Overall f indings are not significantly changed from prior in distribution. No suspicious masses. LUNGS/ PLEURA: AIRWAY: Patent and unremarkable. HEART: The heart is mildly enlarged for size. There is coronary artery atherosclerosis. MEDIASTINUM: No gross evidence of adenopathy. Similar somewhat ill-defined soft tissue attenuation ex tends into the subcarinal and along the right lung bronchus when comparing to prior. Stable right sup erior paratracheal lymph node series 4 image 12 measuring 10 mm VASCULATURE: No aortic aneurysm. No evidence for pulmonary embolism. Atherosclerosis of the arterial vasculature. MUSCULOSKELETAL: New acute fracture of right rib 6 laterally. Remote injury of right rib 5 laterally. Subacute fracture of right rib 11 posterior laterally, and 10th posterior laterally. Left rib 7 scle rotic focus measuring 10 x 4 mm is unchanged. SOFT TISSUES/LYMPH NODES: Right supraclavicular FDG avid mass seen on prior is not entirely in the fi eld-of-view. No evidence for mass in the loesm-gy-iemg. LOWER NECK: No significant findings. ABDOMEN: ABDOMEN LIVER: Unremarkable GALLBLADDER AND BILE DUCTS: Unremarkable. PANCREAS: Unremarkable. SPLEEN: Unremarkable. ADRENAL GLANDS: Unremarkable. KIDNEYS AND URETERS: No evidence of hydronephrosis or renal calculus. Right renal cyst measuring up t o 7.6 cm. Additional right-sided renal cysts are smaller. PELVIS BLADDER: Unremarkable REPRODUCTIVE: Unremarkable. ABDOMEN & PELVIS STOMACH AND BOWEL: No evidence of bowel obstruction. Moderate stool burden throughout the colon. Scat tered clonic diverticula are present. PERITONEUM: No evidence of pneumoperitoneum or free fluid. VASCULATURE: No evidence of aortic aneurysm. MUSCULOSKELETAL: No acute osseous abnormalities, mild multilevel disc degeneration changes throughout the spine. LYMPH NODES: No gross evidence for lymphadenopathy. SOFT TISSUE/ABDOMINAL WALL: Unremarkable IMPRESSION: 1. Right supraclavicular FDG avid mass seen on prior PET/CT is not entirely in the bleee-wo-dwdp. No evidence for mass in the piypu-ul-ouoc. 2. Acute right rib 6 fracture. Remote right rib 5 fracture. Subacute right rib 10 and 11 fractures. 3. No evidence for new or enlarging lymph nodes or evidence for metastatic disease within the chest, abdomen and pelvis. 4. Stable appearance of the right lung with consolidation bronchiectasis and interstitial prominence .
== END | disposition home or self-care (01) ==
LOC: RADCTMAIN 13:52
PROVIDERS: ATTEND Internal Medicine Hematology & Oncology
DX: C34.91 Malignant neoplasm of unspecified part of right bronchus or lung (principal); S22.41XA Multiple fractures of ribs, right side, initial encounter for closed fracture; J47.9 Bronchiectasis, uncomplicated; R22.2 Localized swelling, mass and lump, trunk
CPT/HCPCS: 82565; 84520; 71260; 74177; 36415; Q9967

== ENCOUNTER → 2022-06-02 | Outpatient (CLI) | payer BC ==
--- NOTE | 2022-06-03 09:46 | MR ---
EXAMINATION TYPE: MR brain wo/w con DATE OF EXAM: 06/02/2022 12:38 PM CLINICAL INDICATION:Male, 72 years old with history of C79.31 MALIGNANT NEOPLASM OF BRAIN; COMPARISON: 03/01/2022 TECHNIQUE: Multi planar, multi sequence imaging was performed through the brain including: T1, T2, In version recovery, susceptibility weighted imaging and gradient echo imaging and Diffusion weighted im aging. The patient was then given intravenous contrast and multi planar, T1 fat-saturation images wer e obtained. IV Contrast: 7.5 cc Gadavist FINDINGS: Mild generalized atrophy changes with proportional dilation of the ventricular system. Dif fusion-weighted imaging shows no evidence of restricted diffusion to suggest acute/subacute infarct. Intracranial arterial flow voids are maintained. Midline structures show no abnormality. Scattered fo ci of high T2 signal intensity are seen within the periventricular white matter. The susceptibility w eighted images do not reveal any evidence for micro-hemorrhage. After administration of gadolinium, n o abnormal enhancement is seen. The bone marrow signal is within normal limits. Paranasal sinuses and mastoid air cells: Mild scattered paranasal sinus disease. Visualized orbits: Orbital contents are intact. IMPRESSION: 1. No evidence of intracranial mass, acute/subacute infarct, or abnormal enhancement. No finding to s uggest metastatic disease. 2. Nonspecific white matter changes, likely related to small vessel ischemic disease
== END | disposition home or self-care (01) ==
LOC: RADMRIMAIN 11:29
PROVIDERS: ATTEND Radiology Radiation Oncology
DX: C79.31 Secondary malignant neoplasm of brain (principal); G93.89 Other specified disorders of brain
CPT/HCPCS: 70553; A9585

== ENCOUNTER → 2022-08-23 | Outpatient (CLI) | payer BC ==
--- NOTE | 2022-08-23 13:09 | MR ---
EXAMINATION TYPE: MR brain wo/w con DATE OF EXAM: 08/23/2022 12:43 PM CLINICAL INDICATION:Male, 72 years old with history of C79.31 SECONDARY MALIGNANT NEOPLASM OF BRAIN; Lung CA 9-2021, Secondary Malignant Neoplasm, COMPARISON: MR brain 06/02/2022 TECHNIQUE: Multi planar, multi sequence imaging was performed through the brain including: T1, T2, In version recovery, susceptibility weighted imaging and gradient echo imaging and Diffusion weighted im aging. The patient was then given intravenous contrast and multi planar, T1 fat-saturation images wer e obtained. IV Contrast: 8 cc Gadavist FINDINGS: There is a new focus of enhancement within the right cerebellar hemisphere superior aspect measuring 5 x 4 mm. Mild generalized atrophy changes with proportional dilation of the ventricular system. Dif fusion-weighted imaging shows no evidence of restricted diffusion to suggest acute/subacute infarct. Intracranial arterial flow voids are maintained. Midline structures show no abnormality. Scattered fo ci of high T2 signal intensity are seen within the periventricular white matter. The susceptibility w eighted images do not reveal any evidence for micro-hemorrhage. The bone marrow signal is within normal limits. Paranasal sinuses and mastoid air cells: Mild scattered paranasal sinus disease. Visualized orbits: Orbital contents are intact. IMPRESSION: 1. New right cerebellar hemisphere focus of enhancement concerning for metastatic disease. 2. Nonspecific white matter changes, likely related to small vessel ischemic disease
== END | disposition home or self-care (01) ==
LOC: RADMRIMAIN 11:27
PROVIDERS: ATTEND Radiology Radiation Oncology
DX: C79.31 Secondary malignant neoplasm of brain (principal); R90.82 White matter disease, unspecified
CPT/HCPCS: 70553; A9585

== ENCOUNTER → 2022-09-02 | Outpatient (CLI) | payer BC ==
--- NOTE | 2022-09-02 23:59 | PE ---
EXAMINATION TYPE: PET CT fusion skull to thigh DATE OF EXAM: 09/02/2022 CLINICAL INDICATION:Male, 72 years old with history of C34.81 Lung CA; TECHNIQUE: Following the intravenous administration of 13 mCi of F-18 FDG, whole body images are pe rformed from the skull base to the midthigh. Images are reviewed on the computer in the coronal, axi al, and sagittal planes. Reconstructed rotating images are created on independent workstation and re viewed on the computer. A non-contrast CT is performed in conjunction with the PET scan. Glucose le maci 97 mg/dL COMPARISON: CT 05/24/2022, PET/CT 01/21/2022, FINDINGS: Mediastinal SUV mean is 1.0. Hepatic parenchyma SUV mean is 1.9. SKULL BASE AND NECK: Interval decrease in size of right neck FDG avid lymph node max SUV 8.2 previously 8.3 and measuring 14 mm and previously 4.2 cm and 01/21/2022. This is not definitively seen on prior on 05/23/2022. CHEST, MEDIASTINUM, AND HILAR REGION: Right perihilar region focus of FDG activity max SUV 7.3 is sub optimally evaluated on CT imaging due to lack of IV contrast. Increasing airspace opacities are seen throughout the right lung compared to prior. There is bronchiectasis changes also present. Left intra fissural pulmonary nodule. ABDOMEN AND PELVIS: No suspicious radiotracer activity. OSSEOUS STRUCTURES: No suspicious radiotracer activity. Healing changes to the right prior rib fractu res. Fractures. OTHER CT: Atherosclerosis of the carotid bifurcations, arterial vasculature and coronary arteries. Ri ght renal cyst with peripheral calcification. Prostate gland is enlarged measuring up to 5.4 cm. Bila teral fat-containing inguinal hernias. Scattered colonic diverticula. Renal sinus calcifications may represent nonobstructing calculi versus atherosclerosis. IMPRESSION: 1. Interval decrease in size but similar FDG activity of right lower neck lymph node compared to yesenia or PET on 01/21/2022. This is not definitely seen on 05/23/2022 CT. 2. New right perihilar FDG focus which is suspicious for metastatic disease versus less likely react karin to infectious/inflammatory process. Attention on short-term follow-up CT chest. 3. Worsening multifocal airspace consolidation and opacities concerning for superimposed infectious/ inflammatory process predominantly in the right.
== END | disposition home or self-care (01) ==
LOC: RADPETMAIN 15:40
PROVIDERS: ATTEND Internal Medicine Critical Care Medicine
DX: C34.81 Malignant neoplasm of overlapping sites of right bronchus and lung (principal); R91.8 Other nonspecific abnormal finding of lung field
CPT/HCPCS: 78815; A9552

== ENCOUNTER → 2022-11-21 | Outpatient (CLI) | payer BC ==
--- NOTE | 2022-11-21 11:15 | MR ---
EXAMINATION TYPE: MR brain wo/w con DATE OF EXAM: 11/21/2022 COMPARISON: 08/23/2022 HISTORY: Lung cancer, evaluation for mets TECHNIQUE: Multiplanar, multisequence images of the brain and brainstem is performed without and with IV contras t, utilizing 7.5 mL intravenous Gadavist . FINDINGS: Diffusion weighted images demonstrate no evidence of a recent infarct or other diffusion ab normality. The ventricular system and cisternal spaces are normal in size and appearance. The brain volume is a ge appropriate. Punctate area of abnormal signal involving the right basal ganglia compatible with re mote lacunar infarct. There is diffuse as well as numerous focal areas of abnormal signal in the renate ventricular white matter most typical of remote microvascular ischemia. Midline structures demonstrate normal morphology. The craniocervical junction appears within normal limits. Post contrast images demonstrate punctate area of enhancement involving the right cerebellum measuring 1 to 2 mm which is nonspecific. The dural venous sinuses appear patent. Changes of mild ch ronic sinusitis. And the globes are intact. IMPRESSION: 1. The punctate 2 mm area of enhancement involving the right cerebellum is too small to characterize stable in size relative to prior exam. No new areas of enhancement.
== END | disposition home or self-care (01) ==
LOC: RADMRIMAIN 08:52
PROVIDERS: ATTEND Radiology Radiation Oncology
DX: C79.31 Secondary malignant neoplasm of brain (principal); C34.90 Malignant neoplasm of unspecified part of unspecified bronchus or lung; Z92.21 Personal history of antineoplastic chemotherapy
CPT/HCPCS: 70553; A9585

== ENCOUNTER → 2023-04-27 | Outpatient (CLI) | payer BC ==
--- NOTE | 2023-04-30 13:42 | PE ---
EXAMINATION TYPE: PET CT fusion skull to thigh DATE OF EXAM: 04/27/2023 CLINICAL INDICATION:Male, 73 years old with history of R91.8 abnormal findings lung field; TECHNIQUE: Following the intravenous administration of 11.93 mCi of F-18 FDG, whole body images are performed from the skull base to the midthigh. Images are reviewed on the computer in the coronal, axial, and sagittal planes. Reconstructed rotating images are created on independent workstation and reviewed on the computer. A non-contrast CT is performed in conjunction with the PET scan. Glucose level 110 mg/dL CT DLP: 461 mGycm, Automated exposure control for dose reduction was used. COMPARISON: CT none, PET/CT 02/03/2023 09/02/2022, FINDINGS: Mediastinal SUV mean is 2.2. Hepatic parenchyma SUV mean is 2.7. SKULL BASE AND NECK: Increasing metabolic activity and size of right neck lymph nodes max SUV 12.6, p reviously no metabolic activity visualized. Now measuring up to 12 mm. CHEST, MEDIASTINUM, AND HILAR REGION: * Right midlung FDG avid mass max SUV 12.1, previously no significant FDG activity. The consolidatio n changes around this mass limits evaluation for measurements. * Scattered pulmonary nodules are increased metabolic activity in today's exam are present including right upper lung max SUV 11.3. Left lower lobe superior segment max SUV 2.5. * Right lower lobe posteriorly max SUV 4.0. ABDOMEN AND PELVIS: Large mass within the liver now with metabolic activity max SUV 10.8 measuring 6.2 x 3.8 cm. Addition al more posterior mass in the liver max SUV 10.6 measuring 2.6 cm. MUSCULOSKELETAL STRUCTURES: No suspicious radiotracer activity. OTHER CT: Atherosclerosis of the carotid bifurcations, arterial vasculature and coronary arteries. Right renal cyst with peripheral calcification. Prostate gland is enlarged measuring up to 5.4 cm. B ilateral fat-containing inguinal hernias. Scattered colonic diverticula. Renal sinus calcifications m ay represent nonobstructing calculi versus atherosclerosis. IMPRESSION: Progression of disease with increasing right neck lymphadenopathy with metabolic activity, increasing scattered pulmonary nodules, at least 2 liver metabolically active lesions are present. Additionally there is increasing metabolic activity within the right midlung possibly relating to prior malignanc y.
== END | disposition home or self-care (01) ==
LOC: RADPETMAIN 09:36
PROVIDERS: ATTEND Internal Medicine Critical Care Medicine
DX: K76.9 Liver disease, unspecified (principal); R91.8 Other nonspecific abnormal finding of lung field; R59.0 Localized enlarged lymph nodes
CPT/HCPCS: 78815; A9552

== ENCOUNTER → 2023-05-23 | Outpatient (CLI) | payer BC ==
--- NOTE | 2023-05-23 17:48 | MR ---
EXAMINATION TYPE: MR brain wo/w con DATE OF EXAM: 05/23/2023 4:10 PM CLINICAL INDICATION:Male, 73 years old with history of C34.91; Lung cancer. Started new chemo treatme nt. COMPARISON: 02/13/2023 TECHNIQUE: Multi planar, multi sequence imaging was performed through the brain including: T1, T2, In version recovery, susceptibility weighted imaging and gradient echo imaging and Diffusion weighted im aging. The patient was then given intravenous contrast and multi planar, T1 fat-saturation images wer e obtained. IV Contrast: 7 cc Gadavist FINDINGS: Stable area of concern within the right cerebellum (image 801 image [id number]) is redemonstrated with single 3 mm focus of enhancement similar back to 08/23/2022. No additional abnormal contrast enhancement sug gest metastatic disease. Diffusion-weighted imaging shows no evidence of restricted diffusion to sugg est acute/subacute infarct. Intracranial arterial flow voids are maintained. Midline structures show no abnormality. Scattered foci of high T2 signal intensity are seen within the periventricular white matter. The susceptibility weighted images do not reveal any evidence for micro-hemorrhage. The bone marrow signal is within normal limits. Paranasal sinuses and mastoid air cells: No significant paranasal sinus disease. Visualized orbits: Orbital contents are intact. IMPRESSION: 1. Stable medial right cerebellar focus of enhancement. No additional/new suspicious enhancement iden tified. No additional evidence for metastatic disease within the brain. 2. No evidence of intracranial mass or acute/subacute infarct. 3. Nonspecific white matter changes, likely related to small vessel ischemic disease
== END | disposition home or self-care (01) ==
LOC: RADMRIMAIN 15:15
PROVIDERS: ATTEND Internal Medicine Hematology & Oncology
DX: C34.91 Malignant neoplasm of unspecified part of right bronchus or lung (principal); R90.82 White matter disease, unspecified
CPT/HCPCS: 70553; A9585

== ENCOUNTER 2023-05-26 13:46 | Inpatient (IN) | payer BC, MEDICARE ==
--- NOTE | 2023-05-26 14:06 | ED ---
Arrhythmia/Palpitations HPI - General Source: patient, family, RN notes reviewed Mode of arrival: ambulatory Limitations: no limitations <Soumya Noguera - Last Filed: 05/26/23 14:06> <Robyn Mcneil - Last Filed: 05/26/23 15:36> - General Source: RN notes reviewed, old records reviewed Mode of arrival: EMS Limitations: no limitations - History of Present Illness MD Complaint: rapid heart beat, "heart racing", palpitations, irregular heart beat -: hour(s) Arrhythmia History: atrial fibrillation Associated Symptoms: chest pain, shortness of breath Treatments Prior to Arrival: other (0) <Ezekiel Pfeiffer - Last Filed: 06/03/23 16:07> - General Stated Complaint: high heart rate lung cancer Time Seen by Provider: 05/26/23 14:04 - History of Present Illness Initial Comments: Patient is a 73-year-old male presented ER with chief complaint of tachycardia. [facility] Patient states today he started to have palpitations and shortness of breath and his heart rate was found to be in the 150s. (Soumya Noguera) 73-year-old male with history of lung cancer on chemotherapy who presents to the emergency department reporting tachycardia. He states he has a history of atrial tachycardia and SVT. States that over the past 3 nights he has had multiple episodes of palpitations. His heart rate has gone up to 140. This was sustained for approximately an hour today before he took a second dose of his Toprol. States he has been taking it as directed. He has not seen a sap fico architect in several years. Currently he is undergoing chemotherapy with Dr. Coughlin for lung cancer. Patient does arrive and is hypoxic with an oxygenation of 85%. States that he normally is around 88%. Admits to cough which is only mildly productive. No fevers. No calf pain or swelling. No history of DVT or PE. Denies chest pain. No other alleviating, precipitating or modifying factors (Robyn Mcneil) This is a 73-year-old male to the emergency department for evaluation of significant tachycardia with severe dyspnea and hypoxia. Patient is denying chest pain (Ezekiel Pfeiffer) - Related Data Home Medications Medication Instructions Recorded Confirmed Empaglifloz/Linaglip/Metformin 1 tab PO DAILY 08/16/22 01/12/24 [Trijardy Xr 12.5-2.5-1,000 mg] Benzonatate [Tessalon Perles] 100 mg PO TID 05/26/23 05/26/23 Cholecalciferol [Vitamin D3 (125 125 mcg PO DAILY 05/26/23 05/26/23 Mcg = 5000 Iu)] Multivitamins, Thera [Multivitamin 1 tab PO DAILY 05/26/23 05/26/23 (formulary)] Ondansetron [Zofran] 4 mg PO Q4H PRN 05/26/23 05/26/23 Previous Rx's Medication Instructions Recorded Albuterol Inhaler [Ventolin Hfa 1 puff INHALATION Q6H PRN #1 each 05/31/23 Inhaler] Budesonide-Formot 160-4.5 Mcg 2 puff INHALATION RT-BID #1 each 05/31/23 [Symbicort 160-4.5 Mcg Inhaler] Ipratropium-Albuterol Nebulize 3 ml INHALATION RT-QID PRN #120 05/31/23 [Duoneb 0.5 mg-3 mg/3 ml Soln] each predniSONE See Taper PO DIRECTED #30 tab 05/31/23 Metoprolol Succinate (ER) [Toprol 50 mg PO DAILY #30 tab 06/01/23 XL] Allergies Allergy/AdvReac Type Severity Reaction Status Date / Time No Known Allergies Allergy Verified 05/26/23 18:59 Review of Systems ROS Other: All systems not noted in ROS Statement are negative. <Soumya Noguera - Last Filed: 05/26/23 14:06> ROS Other: All systems not noted in ROS Statement are negative. <Robyn Mcneil - Last Filed: 05/26/23 15:36> ROS Other: All systems not noted in ROS Statement are negative. <Ezekiel Pfeiffer - Last Filed: 06/03/23 16:07> ROS Statement: Those systems with pertinent positive or pertinent negative responses have been documented in the HPI. Past Medical History Past Medical History: Diabetes Mellitus, Hyperlipidemia, Hypertension Additional Past Medical History / Comment(s): HAS "SPOT ON LUNG",hx kidney stones, lung cancer History of Any Multi-Drug Resistant Organisms: None Reported Past Surgical History: Appendectomy Additional Past Surgical History / Comment(s): Navigational bronchoscopy,fatty tissue removed from left leg,COLONOSCOPY Past Anesthesia/Blood Transfusion Reactions: No Reported Reaction Additional Past Anesthesia/Blood Transfusion Reaction / Comment(s): no hx blood transfusion Past Psychological History: No Psychological Hx Reported Smoking Status: Former smoker Past Alcohol Use History: None Reported Past Drug Use History: None Reported - Past Family History Mother Family Medical History: No Reported History <Soumya Noguera - Last Filed: 05/26/23 14:06> - Past Family History Father Family Medical History: Diabetes Mellitus Additional Family Medical History / Comment(s): from anuerysm caused from shrapnel injury. <Ezekiel Pfeiffer - Last Filed: 06/03/23 16:07> General Exam Limitations: no limitations <Soumya Noguera - Last Filed: 05/26/23 14:06> General appearance: alert, in no apparent distress Head exam: Present: atraumatic, normocephalic, normal inspection Eye exam: Present: normal appearance, PERRL, EOMI. Absent: scleral icterus, conjunctival injection, periorbital swelling ENT exam: Present: normal exam, mucous membranes moist Neck exam: Present: normal inspection. Absent: tenderness, meningismus, lymphadenopathy Respiratory exam: Present: decreased breath sounds. Absent: respiratory distress, wheezes, rales, rhonchi, stridor Cardiovascular Exam: Present: regular rate, tachycardia, normal heart sounds. Absent: systolic murmur, diastolic murmur, rubs, gallop, clicks GI/Abdominal exam: Present: soft, normal bowel sounds. Absent: distended, tenderness, guarding, rebound, rigid Extremities exam: Present: normal inspection, full ROM, normal capillary refill. Absent: tenderness, pedal edema, joint swelling, calf tenderness Back exam: Present: normal inspection Neurological exam: Present: alert, oriented X3, CN II-XII intact Psychiatric exam: Present: normal affect, normal mood Skin exam: Present: warm, dry, intact, normal color. Absent: rash <Robyn Mcneil - Last Filed: 05/26/23 15:36> General appearance: alert, in no apparent distress, anxious Head exam: Present: atraumatic, normocephalic, normal inspection Eye exam: Present: normal appearance, PERRL, EOMI. Absent: scleral icterus, c onjunctival injection, periorbital swelling ENT exam: Present: normal exam, mucous membranes moist Neck exam: Present: normal inspection. Absent: tenderness, meningismus, lymphadenopathy Respiratory exam: Present: normal lung sounds bilaterally. Absent: respiratory distress, wheezes, rales, rhonchi, stridor Cardiovascular Exam: Present: tachycardia, normal heart sounds. Absent: systolic murmur, diastolic murmur, rubs, gallop, clicks GI/Abdominal exam: Present: soft, normal bowel sounds. Absent: distended, tenderness, guarding, rebound, rigid Extremities exam: Present: normal inspection, full ROM, normal capillary refill. Absent: tenderness, pedal edema, joint swelling, calf tenderness Back exam: Present: normal inspection Neurological exam: Present: alert, oriented X3, CN II-XII intact Psychiatric exam: Present: normal affect, normal mood Skin exam: Present: warm, dry, intact, normal color. Absent: rash <Ezekiel Pfeiffer - Jayme Filed: 06/03/23 16:07> - General Exam Comments Initial Comments: Visual Physical Exam Vital signs reviewed General: Well-appearing, nontoxic, no acute distress. Head: Normocephalic, atraumatic Eyes: PERRLA, EOMI ENT: Airway patent Chest: Nonlabored breathing Skin: No visual rash, normal skin tone Neuro: Alert and oriented 3 Musculoskeletal: No gross abnormalities (PoornimaSoumya) Course <Ezekiel Pfeiffer Filed: 06/03/23 16:07> Vital Signs 05/26/23 05/26/23 05/26/23 13:58 14:30 14:49 Temperature 98 F Pulse Rate 104 H 96 89 Pulse Rate [ 98 Administrative Officer ] Respiratory 18 24 25 H Rate Blood Pressure 122/79 O2 Sat by Pulse 90 L 85 L 94 L Oximetry 05/26/23 05/26/23 05/26/23 14:50 15:00 15:10 Temperature Pulse Rate 93 87 87 Pulse Rate [ Administrative Officer ] Respiratory 25 H 18 35 H Rate Blood Pressure 115/79 115/79 122/80 O2 Sat by Pulse 94 L 92 L 92 L Oximetry 05/26/23 05/26/23 05/26/23 15:30 15:50 15:59 Temperature Pulse Rate 86 79 79 Pulse Rate [ Administrative Officer ] Respiratory 16 Rate Blood Pressure 111/75 O2 Sat by Pulse 96 Oximetry 05/26/23 05/26/23 05/26/23 16:00 16:30 17:00 Temperature Pulse Rate 71 79 72 Pulse Rate [ Administrative Officer ] Respiratory 24 22 22 Rate Blood Pressure 113/74 115/82 O2 Sat by Pulse 96 94 L 95 Oximetry 05/26/23 05/26/23 05/26/23 17:30 18:00 18:30 Temperature Pulse Rate 69 100 81 Pulse Rate [ Administrative Officer ] Respiratory 20 20 20 Rate Blood Pressure 97/83 117/73 114/78 O2 Sat by Pulse 96 90 L Oximetry 05/26/23 05/26/23 05/26/23 19:00 19:48 20:30 Temperature Pulse Rate 79 89 80 Pulse Rate [ Administrative Officer ] Respiratory 21 16 22 Rate Blood Pressure 120/74 123/74 121/65 O2 Sat by Pulse 91 L 95 Oximetry 05/26/23 05/26/23 05/26/23 21:00 22:00 23:00 Temperature Pulse Rate 81 93 73 Pulse Rate [ Administrative Officer ] Respiratory 24 26 H 22 Rate Blood Pressure 132/73 120/78 124/70 O2 Sat by Pulse 94 L 94 L Oximetry 05/27/23 05/27/23 05/27/23 00:00 01:00 02:00 Temperature Pulse Rate 69 61 60 Pulse Rate [ Administrative Officer ] Respiratory 28 H 21 23 Rate Blood Pressure 110/72 116/67 113/67 O2 Sat by Pulse 97 96 97 Oximetry 05/27/23 05/27/23 05/27/23 03:00 05:00 06:00 Temperature Pulse Rate 56 L 56 L 64 Pulse Rate [ Administrative Officer ] Respiratory 25 H 26 H 16 Rate Blood Pressure 114/66 105/65 108/65 O2 Sat by Pulse 97 97 97 Oximetry 05/27/23 05/27/23 05/27/23 09:10 11:07 11:30 Temperature 98.0 F 98.7 F Pulse Rate 87 76 138 H Pulse Rate [ Administrative Officer ] Respiratory 18 18 18 Rate Blood Pressure 98/56 111/76 104/73 O2 Sat by Pulse 96 96 Oximetry 05/27/23 05/27/23 05/27/23 12:00 13:00 15:00 Temperature Pulse Rate 137 H 86 66 Pulse Rate [ Administrative Officer ] Respiratory 14 16 18 Rate Blood Pressure 95/74 115/67 99/67 O2 Sat by Pulse Oximetry 05/27/23 05/27/23 05/27/23 17:22 17:29 19:29 Temperature Pulse Rate 65 79 88 Pulse Rate [ Administrative Officer ] Respiratory 16 Rate Blood Pressure 110/60 O2 Sat by Pulse 97 95 Oximetry 05/27/23 05/27/23 05/28/23 20:47 20:57 02:30 Temperature 98 F Pulse Rate 75 80 63 Pulse Rate [ Administrative Officer ] Respiratory 15 Rate Blood Pressure 104/63 O2 Sat by Pulse 98 Oximetry 05/28/23 05/28/23 05/28/23 05:39 08:52 08:56 Temperature 97.2 F L 98.5 F Pulse Rate 59 L 87 91 Pulse Rate [ Administrative Officer ] Respiratory 16 18 Rate Blood Pressure 108/61 127/87 O2 Sat by Pulse 96 95 93 L Oximetry 05/28/23 05/28/23 05/28/23 09:09 12:09 12:19 Temperature Pulse Rate 88 70 77 Pulse Rate [ Administrative Officer ] Respiratory Rate Blood Pressure O2 Sat by Pulse Oximetry 05/28/23 05/28/23 05/28/23 14:56 16:43 16:48 Temperature 97.9 F Pulse Rate 92 80 86 Pulse Rate [ Administrative Officer ] Respiratory 18 18 Rate Blood Pressure 113/61 111/74 O2 Sat by Pulse 98 96 Oximetry 05/28/23 16:53 Temperature Pulse Rate 80 Pulse Rate [ Administrative Officer ] Respiratory Rate Blood Pressure O2 Sat by Pulse Oximetry - Reevaluation(s) Reevaluation #1: 05/26/23 17:03 Medical record is reviewed (Ezekiel Pfeiffer) Reevaluation #2: 05/26/23 17:03 Symptoms are unchanged (Ezekiel Pfeiffer) Reevaluation #3: Patient does have improving symptoms here in the ER (Ezekiel Pfeiffer) - Consultations Consultation #1: Spoke with admitting physicians will be to admit this patient (Ezekiel Pfeiffer) Medical Decision Making <Soumya Noguera - Last Filed: 05/26/23 14:06> - Lab Data Result diagrams: 05/26/23 14:24 05/26/23 14:24 <TarunRobyn Simone - Last Filed: 05/26/23 15:36> - Lab Data Result diagrams: 05/30/23 08:06 05/30/23 08:06 - Radiology Data Radiology results: report reviewed (CT chest is negative for PE and unchanged from prior), image reviewed <Ezekiel Pfeiffer - Last Filed: 06/03/23 16:07> - Medical Decision Making I performed the quick note portion of the exam. Electronically signed by Soumya Noguera PA-C (Soumya Noguera) Was pt. sent in by a medical professional or institution ([facility], HEARING IMPAIRED TEACHER, urgent care, hospital, or penitentiary...) When possible be specific @ -No Did you speak to anyone other than the patient for history (EMS, parent, family, police, friend...)? What history was obtained from this source @ -No Did you review nursing and triage notes (agree or disagree)? Why? @ -I reviewed and agree with nursing and triage notes Were old charts reviewed (outside hosp., previous admission, EMS record, old EKG, old radiological studies, urgent care reports/EKG's, penitentiary records)? Report findings @ -No old charts were reviewed Differential Diagnosis (chest pain, altered mental status, abdominal pain women, abdominal pain men, vaginal bleeding, weakness, fever, dyspnea, syncope, headache, dizziness, GI bleed, back pain, seizure, CVA, palpatations, mental health, musculoskeletal)? @ -Differential Palpitations Ventricular arrhythmias, atrial arrhythmias, myocardial infarction, anemia, thyrotoxicosis, electrolyte imbalance, hypokalemia, pulmonary embolism, pulmonary disease, drugs, alcohol, anxiety, stress.... This is not meant to be an all-inclusive list. EKG interpreted by me (3pts min.). @ -yes and demonstrates sinus rhythm with a rate of 98. MI interval 270. QRS 81. QTC of 473. No acute ST segment elevations or depressions X-rays interpreted by me (1pt min.). @ -None done CT interpreted by me (1pt min.). @ -None done U/S interpreted by me (1pt. min.). @ -None done What testing was considered but not performed or refused? (CT, X-rays, U/S, labs)? Why? @ -None What meds were considered but not given or refused? Why? @ -None Did you discuss the management of the patient with other professionals (professionals i.e. , PA, HEARING IMPAIRED TEACHER, lab, RT, psych nurse, certified social workers in health care, supervisor lace tearing, teacher, landing signal officer, returned case inspector)? Give summary @ -No Was smoking cessation discussed for >3mins.? @ -No Was critical care preformed (if so, how long)? @ -No Were there social determinants of health that impacted care today? How? (Homelessness, low income, unemployed, alcoholism, drug addiction, transportation, low edu. Level, literacy, decrease access to med. care, fpc, rehab)? @ -No Was there de-escalation of care discussed even if they declined (Discuss DNR or withdrawal of care, Hospice)? DNR status @ -No What co-morbidities impacted this encounter? (DM, HTN, Smoking, COPD, CAD, Cancer, CVA, ARF, Chemo, Hep., AIDS, mental health diagnosis, sleep apnea, mor bid obesity)? @ -None Was patient admitted / discharged? Hospital course, mention meds given and route, prescriptions, significant lab abnormalities, going to OR and other pertinent info. @ -Upon arrival patient was placed into room 2. A thorough history and physical exam was performed. IV access was established. Laboratory studies are conducted. Patient is hypoxic and therefore he is placed on 2 L of oxygen. He does not wear oxygen at home. D-dimer is elevated. CT of the chest is ordered. Awaiting CT read. Patient will be signed out to Dr. Pfeiffer Undiagnosed new problem with uncertain prognosis? @ -No Drug Therapy requiring intensive monitoring for toxicity (Heparin, Nitro, Insulin, Cardizem)? @ -No Were any procedures done? @ -No Diagnosis/symptom? @ -default Acute, or Chronic, or Acute on Chronic? @ -default Uncomplicated (without systemic symptoms) or Complicated (systemic symptoms)? @ -default Side effects of treatment? @ -No Exacerbation, Progression, or Severe Exacerbation? @ -No Poses a threat to life or bodily function? How? (Chest pain, [place], [place], pneumonia, PE, COPD, DKA, ARF, appy, cholecystitis, CVA, Diverticulitis, Homicidal, Suicidal, threat to staff... and all critical care pts) @ -No (Robyn Mcneil Simone) 73 male who will be admitted for further evaluation, related hypoxia and shortness of breath. Patient denying any current chest pain states shortness of breath is something that he deals with daily but today with some mildly worse (Ezekiel Pfeiffer) - Lab Data Lab Results 05/26/23 05/26/23 05/26/23 Range/Units 14:24 14:24 14:24 WBC 5.3 (3.8-10.6) k/uL RBC 4.47 (4.30-5.90) m/uL Hgb 14.0 (13.0-17.5) gm/dL Hct 40.9 (39.0-53.0) % MCV 91.4 (80.0-100.0) fL MCH 31.3 (25.0-35.0) pg MCHC 34.2 (31.0-37.0) g/dL RDW 15.2 (11.5-15.5) % Plt Count 276 (150-450) k/uL MPV 7.8 PT (10.0-12.5) sec INR (<1.2) APTT (22.0-30.0) sec D-Dimer (<0.60) mg/L FEU Sodium 134 L (137-145) mmol/L Potassium 4.6 (3.5-5.1) mmol/L Chloride 102 (98-107) mmol/L Carbon Dioxide 20 L (22-30) mmol/L Anion Gap 12 mmol/L BUN 22 H (9-20) mg/dL Creatinine 0.80 (0.66-1.25) mg/dL Est GFR (CKD-EPI)AfAm >90 (>60 ml/min/1.73 sqM) Est GFR (CKD-EPI)NonAf 90 (>60 ml/min/1.73 sqM) Glucose 166 H (74-99) mg/dL Plasma Lactic Acid Biju (0.7-2.0) mmol/L Calcium 9.6 (8.4-10.2) mg/dL Magnesium (1.6-2.3) mg/dL Total Bilirubin 0.7 (0.2-1.3) mg/dL AST 40 (17-59) U/L ALT 30 (4-49) U/L Alkaline Phosphatase 148 H (38-126) U/L Troponin I 0.013 (0.000-0.034) ng/mL Total Protein 7.6 (6.3-8.2) g/dL Albumin 4.1 (3.5-5.0) g/dL TSH (0.465-4.680) mIU/L Influenza Type A (PCR) (Not Detectd) Influenza Type B (PCR) (Not Detectd) RSV (PCR) (Not Detectd) SARS-CoV-2 (PCR) (Not Detectd) 05/26/23 05/26/23 05/26/23 Range/Units 14:24 14:51 14:51 WBC (3.8-10.6) k/uL RBC (4.30-5.90) m/uL Hgb (13.0-17.5) gm/dL Hct (39.0-53.0) % MCV (80.0-100.0) fL MCH (25.0-35.0) pg MCHC (31.0-37.0) g/dL RDW (11.5-15.5) % Plt Count (150-450) k/uL MPV PT 10.8 (10.0-12.5) sec INR 1.0 (<1.2) APTT 23.8 (22.0-30.0) sec D-Dimer 1.86 H (<0.60) mg/L FEU Sodium (137-145) mmol/L Potassium (3.5-5.1) mmol/L Chloride (98-107) mmol/L Carbon Dioxide (22-30) mmol/L Anion Gap mmol/L BUN (9-20) mg/dL Creatinine (0.66-1.25) mg/dL Est GFR (CKD-EPI)AfAm (>60 ml/min/1.73 sqM) Est GFR (CKD-EPI)NonAf (>60 ml/min/1.73 sqM) Glucose (74-99) mg/dL Plasma Lactic Acid Biju (0.7-2.0) mmol/L Calcium (8.4-10.2) mg/dL Magnesium 1.7 (1.6-2.3) mg/dL Total Bilirubin (0.2-1.3) mg/dL AST (17-59) U/L ALT (4-49) U/L Alkaline Phosphatase (38-126) U/L Troponin I (0.000-0.034) ng/mL Total Protein (6.3-8.2) g/dL Albumin (3.5-5.0) g/dL TSH 0.787 (0.465-4.680) mIU/L Influenza Type A (PCR) (Not Detectd) Influenza Type B (PCR) (Not Detectd) RSV (PCR) (Not Detectd) SARS-CoV-2 (PCR) (Not Detectd) 05/26/23 05/26/23 Range/Units 15:10 15:12 WBC (3.8-10.6) k/uL RBC (4.30-5.90) m/uL Hgb (13.0-17.5) gm/dL Hct (39.0-53.0) % MCV (80.0-100.0) fL MCH (25.0-35.0) pg MCHC (31.0-37.0) g/dL RDW (11.5-15.5) % Plt Count (150-450) k/uL MPV PT (10.0-12.5) sec INR (<1.2) APTT (22.0-30.0) sec D-Dimer (<0.60) mg/L FEU Sodium (137-145) mmol/L Potassium (3.5-5.1) mmol/L Chloride (98-107) mmol/L Carbon Dioxide (22-30) mmol/L Anion Gap mmol/L BUN (9-20) mg/dL Creatinine (0.66-1.25) mg/dL Est GFR (CKD-EPI)AfAm (>60 ml/min/1.73 sqM) Est GFR (CKD-EPI)NonAf (>60 ml/min/1.73 sqM) Glucose (74-99) mg/dL Plasma Lactic Acid Biju 1.6 (0.7-2.0) mmol/L Calcium (8.4-10.2) mg/dL Magnesium (1.6-2.3) mg/dL Total Bilirubin (0.2-1.3) mg/dL AST (17-59) U/L ALT (4-49) U/L Alkaline Phosphatase (38-126) U/L Troponin I (0.000-0.034) ng/mL Total Protein (6.3-8.2) g/dL Albumin (3.5-5.0) g/dL TSH (0.465-4.680) mIU/L Influenza Type A (PCR) Not Detected (Not Detectd) Influenza Type B (PCR) Not Detected (Not Detectd) RSV (PCR) Not Detected (Not Detectd) SARS-CoV-2 (PCR) Not Detected (Not Detectd) Critical Care Time Critical Care Time: Yes Total Critical Care Time: 31 <Ezekiel Pfeiffer - Last Filed: 06/03/23 16:07> Disposition <Soumya Noguera - Last Filed: 05/26/23 14:06> <Robyn Mcneil - Last Filed: 05/26/23 15:36> Is patient prescribed a controlled substance at d/c from ED?: No Time of Disposition: 18:30 <Ezekiel Pfeiffer - Last Filed: 06/03/23 16:07> Clinical Impression: Tachycardia, SVT (supraventricular tachycardia), Small cell lung cancer in adult, Hypoxia, Dyspnea Disposition: ADMITTED IP TO THIS HOSP Condition: Stable
[2023-05-26 14:40] LABS: HCT 40.9 % (39.0-53.0); MCH 31.3 pg (25.0-35.0); MCHC 34.2 g/dL (31.0-37.0); MCV 91.4 fL (80.0-100.0); Mean Platelet Volume 7.8; Platelet Count 276 k/uL (150-450); RBC 4.47 m/uL (4.30-5.90); RDW 15.2 % (11.5-15.5); WBC 5.3 k/uL (3.8-10.6)
[2023-05-26 14:53] LABS: ALT 30 U/L (4-49); African American GFR (CKD) >90 (>60 ml/min/1.73 sqM); Albumin 4.1 g/dL (3.5-5.0); Anion Gap 12 mmol/L; Blood Urea Nitrogen 22 mg/dL (9-20); Calcium 9.6 mg/dL (8.4-10.2); Carbon Dioxide 20 mmol/L (22-30); Chloride 102 mmol/L (98-107); Glucose 166 mg/dL (74-99); Non-African American GFR(CKD) 90 (>60 ml/min/1.73 sqM); Sodium 134 mmol/L (137-145); Total Bilirubin 0.7 mg/dL (0.2-1.3); Total Protein 7.6 g/dL (6.3-8.2)
[2023-05-26 14:54] LABS: AST 40 U/L (17-59); Potassium 4.6 mmol/L (3.5-5.1)
[2023-05-26 14:55] LABS: Alkaline Phosphatase 148 U/L (38-126)
[2023-05-26] MEDS ORDERED: SODIUM CHLORIDE 0.9% 1,000 ML IV STA (15:29)
[2023-05-26 15:30] LABS: Partial Thromboplastin Time 23.8 sec (22.0-30.0); Prothrombin Time 10.8 sec (10.0-12.5)
[2023-05-26] MEDS ORDERED: IPRATROPIUM-ALBUTEROL 3 ML NEB INHALATION STA (15:31)
--- NOTE | 2023-05-26 17:48 | CT ---
CT CHEST FOR PULMONARY EMBOLISM. EXAMINATION TYPE: CT chest angio for PE DATE OF EXAM: 05/26/2023 INDICATION: hypoxia, lung cancer, tachycardia CT DLP: 301.8 mGycm, Automated exposure control for dose reduction was used. CONTRAST: Patient injected with 100ml mL of Isovue 300. COMPARISON: 04/27/2023 TECHNIQUE: CT of the chest is performed on a spiral scan at 2 mm thick sections. Study is performed with intravenous contrast timed for evaluation for pulmonary embolism. This will limit additional po rtions of the evaluation. 3-D MIP images reconstructed by the technologist are reviewed on the compu ter in the coronal and sagittal planes. FINDINGS: No persistent filling defects are evident to suggest an acute pulmonary embolism. No mediastinal or hilar adenopathy enlarged by CT criteria is evident. The ascending aorta diameter at the level of the main pulmonary artery is 2.4 cm. The main pulmonary artery diameter at the bifur cation is 3.2 cm. There is a 1.5 cm nodule in the posterior right, image 69. 1.0 cm nodules in the superior segment lef t lower lobe, series 406, image 61 Consolidation with air bronchograms in the right upper lobe. Emphy sematous changes are present. Some fibrosis may be in the right apex. Limited CT sections are obtained through the upper abdomen. There is a large 7 cm hypodensity in supe rior right lobe liver suspicious for metastatic lesion. Additional smaller lesions within the liver. IMPRESSION: 1. No acute pulmonary embolism. 2. Right upper lobe mass and consolidation and hypodense lesions within the liver corresponding to bl astic findings on PET/CT. No lung nodules may be larger than the comparison.
[2023-05-26] MEDS ORDERED: MORPHINE SULFATE 4 MG/ML SYRINGE IV PRN (18:32)
[2023-05-26] MEDS ORDERED: NALOXONE 0.4 MG/ML 1 ML VIAL IV PRN (18:32)
[2023-05-26] MEDS ORDERED: methylPREDNISolone SOD SUCCI 125 MG/2 ML VIAL IV STA (18:32)
[2023-05-26] MEDS ORDERED: AZITHROMYCIN 500 MG in SODIUM CHLORIDE 0.9% 250 ML IVPB STA (18:32)
[2023-05-26] MEDS ORDERED: ONDANSETRON 4 MG/2 ML VIAL IVP PRN (18:32)
[2023-05-26 19:33] LABS: Magnesium 1.7 mg/dL (1.6-2.3)
[2023-05-26] MEDS: SODIUM CHLORIDE 0.9% 1,000 ML IV SCH (19:53)
[2023-05-26] MEDS: ACETAMINOPHEN TAB 325 MG TAB PO PRN (22:01)
[2023-05-26] MEDS: methylPREDNISolone SOD SUCCI 125 MG/2 ML VIAL IV SCH (23:11)
[2023-05-27] MEDS ORDERED: ONDANSETRON 4 MG TAB PO PRN (07:37)
[2023-05-27] MEDS: SODIUM CHLORIDE 0.9% 1,000 ML IV SCH ×2 (08:57→21:12)
[2023-05-27] MEDS: PANTOPRAZOLE 40 MG/10 ML VIAL IV SCH (08:58)
[2023-05-27] MEDS: methylPREDNISolone SOD SUCCI 125 MG/2 ML VIAL IV SCH ×2 (08:59→15:53)
[2023-05-27] MEDS ORDERED: DEXTROSE 50% SYRINGE 50 ML IVP PRN ×2 (09:01)
[2023-05-27] MEDS: BENZONATATE 100 MG CAP PO SCH ×3 (09:03→20:59)
[2023-05-27] MEDS: MULTIVITAMINS, THERA 1 EACH TAB PO SCH (09:03)
[2023-05-27] MEDS: CHOLECALCIFEROL 125 MCG (5000 IU) TABLET PO SCH (09:03)
[2023-05-27] MEDS: METOPROLOL SUCCINATE (ER) 50 MG TAB.ER.24H PO SCH (09:29)
--- NOTE | 2023-05-27 09:36 | XR ---
EXAMINATION TYPE: XR chest 1V portable DATE OF EXAM: 05/27/2023 COMPARISON: 04/14/2022 INDICATION: Short of breath TECHNIQUE: Single frontal view of the chest is obtained. FINDINGS: The heart size is normal. The pulmonary vasculature is normal. Peripheral infiltrate is present. This appears more focal smaller than the comparison study. There is elevation of the right diaphragm from prior study. Mild peripheral increased lung markings on the le ft. IMPRESSION: 1. Peripheral bilateral lung infiltrates are nonspecific. This may be chronic on the right. Follow-up recommended. 2. Elevation of the right diaphragm, an interval change
[2023-05-27 10:16] LABS: Basophils # (A) 0 X 10*3/uL (0.00-0.10); Basophils % (A) 0 %; Eosinophils # (A) 0 X 10*3/uL (0.04-0.35); Eosinophils % (A) 0 %; HCT 37.3 % (39.6-50.0); HGB 11.9 g/dL (13.0-17.0); Lymphocytes # (A) 0.47 X 10*3/uL (0.90-5.00); Lymphocytes % (A) 11.7 %; MCH 29.4 pg (27.0-32.0); MCHC 31.9 g/dL (32.0-37.0); MCV 92.1 FL (80.0-97.0); Mean Platelet Volume 9.5 FL (9.5-12.2); Monocytes # (A) 0.09 X 10*3/uL (0.20-1.00); Monocytes % (A) 2.2 %; NRBC Per 100 WBC 0 X 10*3/uL (0.00-0.01); Neutrophils # (A) 3.45 X 10*3/uL (1.80-7.70); Neutrophils % (A) 85.6 %; Platelet Count 261 X 10*3/uL (140-440); RBC 4.05 X 10*6/uL (4.40-5.60); RDW 14.7 % (11.5-14.5); WBC 4.03 X 10*3/uL (4.50-10.00)
[2023-05-27 10:24] LABS: ALT 24 U/L (10-49); AST 21 U/L (14-35); Albumin 3.7 g/dL (3.8-4.9); Albumin/Globulin Ratio 1.48 Ratio (1.60-3.17); Alkaline Phosphatase 114 U/L (41-126); BUN/Creat Ratio 20.89 Ratio (12.00-20.00); Blood Urea Nitrogen 18.8 mg/dL (9.0-27.0); Calcium 9.2 mg/dL (8.7-10.3); Carbon Dioxide 23.7 mmol/L (21.6-31.8); Chloride 104 mmol/L (96-109); Globulin 2.5 g/dL (1.6-3.3); Glucose 146 mg/dL (70-110); Phosphorus 4.7 mg/dL (2.4-5.1); Potassium 5.1 mmol/L (3.5-5.5); Sodium 138 mmol/L (135-145); Total Bilirubin 0.3 mg/dL (0.3-1.2); Total Protein 6.2 g/dL (6.2-8.2)
[2023-05-27] MEDS ORDERED: METOPROLOL TARTRATE 5 MG/5 ML VIAL IVP PRN (11:40)
[2023-05-27 11:47] LABS: Glucose,Whole Blood 269 mg/dL (70-110)
[2023-05-27] MEDS: INSULIN ASPART (NovoLOG) 100 UNIT/ML VIAL SQ SCH ×3 (11:57→20:58)
--- NOTE | 2023-05-27 12:27 | P.CNPUL ---
History of Present Illness Consult date: 05/27/23 Requesting physician: Leonora Melendez Reason for consult: dyspnea, abnormal CXR/CT Chief complaint: Shortness of breath and palpitations History of present illness: This is a very pleasant 73-year-old male patient with a known history of diabetes mellitus, hypertension, hyperlipidemia, former smoker. He has a history of lung cancer and received radiation/chemotherapy. He PET scan from April to revealed progression of disease with increasing right neck lymphadenopathy with metabolic activity, increasing scattered pulmonary nodules, at least to liver metabolically active lesions are present. Additionally there is increasing metabolic activity within the right midlung possibly related to prior malignancy. MRI of the brain revealed a stable medial right cerebellar focus of enhancement. No additional suspicious lesions. He is currently undergoing immunotherapy and recently started Zepzelca. Since that time he has been having increasing shortness of breath and tachycardia. He does have previous history of SVT and atrial tachycardia and is maintained on metoprolol. He took an extra dose yesterday without much improvement. Stated his oxygen was at about 85% and is usually higher than 88%. He presented to the emergency room last evening. CT angiogram ruled out pulmonary embolism. There is a right upper lobe mass and consolidation and hypodense lesions within the liver corresponding to recent PET scan findings. White count 4.0. Hemoglobin 11.9. Platelets 261. Sodium 138. Potassium 5.1. Bicarb 24. BUN 19. Creatinine 0.9. Glucose 146. Viral screen negative. Review of Systems REVIEW OF SYSTEMS: CONSTITUTIONAL: Denies any recent significant weight loss or weight gain. EYES: Denies change in vision. EARS, NOSE, MOUTH, THROAT: Denies headaches, denies sore throat. CARDIOVASCULAR: Positive for palpitations no syncopal episodes. RESPIRATORY: Positive for shortness of breath, cough, congestion no hemoptysis. GASTROINTESTINAL: Denies change in appetite, denies abdominal pain GENITOURINARY: Denies hematuria, denies infections. MUSKULOSKELETAL: Denies pain, denies swelling. INTEGUMENTARY: Denies rash, denies eczema. NEUROLOGICAL: Denies recent memory loss, no recent seizure activity. PSYCHIATRIC: Denies anxiety, denies depression. HEMATOLOGIC/LYMPHATIC: Denies anemia, denies enlarged lymph nodes. Past Medical History Past Medical History: Diabetes Mellitus, Hyperlipidemia, Hypertension Additional Past Medical History / Comment(s): HAS "SPOT ON LUNG",hx kidney stones, lung cancer History of Any Multi-Drug Resistant Organisms: None Reported Past Surgical History: Appendectomy Additional Past Surgical History / Comment(s): Navigational bronchoscopy,fatty tissue removed from left leg,COLONOSCOPY Past Anesthesia/Blood Transfusion Reactions: No Reported Reaction Additional Past Anesthesia/Blood Transfusion Reaction / Comment(s): no hx blood transfusion Past Psychological History: No Psychological Hx Reported Smoking Status: Former smoker Past Alcohol Use History: None Reported Past Drug Use History: None Reported - Past Family History Mother Family Medical History: No Reported History Medications and Allergies Home Medications Medication Instructions Recorded Confirmed Type Metoprolol Succinate (ER) [Toprol 50 mg PO DAILY 05/10/19 05/26/23 History XL] Empaglifloz/Linaglip/Metformin 1 tab PO DAILY 12/28/21 05/26/23 History [Trijardy Xr 12.5-2.5-1,000 mg] Benzonatate [Tessalon Perles] 100 mg PO TID 05/26/23 05/26/23 History Cholecalciferol [Vitamin D3 (125 125 mcg PO DAILY 05/26/23 05/26/23 History Mcg = 5000 Iu)] Levofloxacin [Levaquin] 500 mg PO DAILY 05/26/23 05/26/23 History Multivitamins, Thera [Multivitamin 1 tab PO DAILY 05/26/23 05/26/23 History (formulary)] Ondansetron [Zofran] 4 mg PO Q4H PRN 05/26/23 05/26/23 History predniSONE [Deltasone] See Taper PO DAILY 05/26/23 05/26/23 History Allergies Allergy/AdvReac Type Severity Reaction Status Date / Time No Known Allergies Allergy Verified 05/26/23 18:59 Physical Exam Vitals: Vital Signs Temp Pulse Pulse Resp BP Pulse Ox 05/27/23 12:00 137 H 14 95/74 05/27/23 11:30 98.7 F 138 H 18 104/73 05/27/23 11:07 76 18 111/76 96 05/27/23 09:10 98.0 F 87 18 98/56 96 05/27/23 06:00 64 16 108/65 97 05/27/23 05:00 56 L 26 H 105/65 97 05/27/23 03:00 56 L 25 H 114/66 97 05/27/23 02:00 60 23 113/67 97 05/27/23 01:00 61 21 116/67 96 05/27/23 00:00 69 28 H 110/72 97 05/26/23 23:00 73 22 124/70 94 L 05/26/23 22:00 93 26 H 120/78 94 L 05/26/23 21:00 81 24 132/73 05/26/23 20:30 80 22 121/65 05/26/23 19:48 89 16 123/74 95 05/26/23 19:00 79 21 120/74 91 L 05/26/23 18:30 81 20 114/78 90 L 05/26/23 18:00 100 20 117/73 05/26/23 17:30 69 20 97/83 96 05/26/23 17:00 72 22 115/82 95 05/26/23 16:30 79 22 94 L 05/26/23 16:00 71 24 113/74 96 05/26/23 15:59 79 05/26/23 15:50 79 05/26/23 15:30 86 16 111/75 96 05/26/23 15:10 87 35 H 122/80 92 L 05/26/23 15:00 87 18 115/79 92 L 05/26/23 14:50 93 25 H 115/79 94 L 05/26/23 14:49 89 25 H 94 L 05/26/23 14:30 96 98 24 85 L 05/26/23 13:58 98 F 104 H 18 122/79 90 L GENERAL EXAM: Alert, very pleasant 73-year-old male, on air, fairly comfortable in no apparent distress. HEAD: Normocephalic. EYES: Normal reaction of pupils, equal size. NOSE: Clear with pink turbinates. THROAT: No erythema or exudates. NECK: No masses, no JVD. CHEST: No chest wall deformity. LUNGS: Equal air entry with no crackles, wheeze, rhonchi or dullness. CVS: S1 and S2 normal with no audible murmur, regular rhythm. ABDOMEN: No hepatosplenomegaly, normal bowel sounds, no guarding or rigidity. SPINE: No scoliosis or deformity SKIN: No rashes CENTRAL NERVOUS SYSTEM: No focal deficits, tone is normal in all 4 extremities. EXTREMITIES: There is no peripheral edema. No clubbing, no cyanosis. Peripheral pulses are intact. Results - Laboratory Findings CBC and BMP: 05/27/23 05:54 05/27/23 05:54 PT/INR, D-dimer PT 10.8 sec (10.0-12.5) 05/26/23 14:51 INR 1.0 (<1.2) 05/26/23 14:51 D-Dimer 1.86 mg/L FEU (<0.60) H 05/26/23 14:51 Abnormal lab findings: Abnormal Labs 05/26/23 05/26/23 05/27/23 14:24 14:51 05:54 WBC 4.03 L RBC 4.05 L Hgb 11.9 L Hct 37.3 L MCHC 31.9 L RDW 14.7 H Lymphocytes # 0.47 L Monocytes # 0.09 L Eosinophils # 0 L D-Dimer 1.86 H Sodium 134 L Carbon Dioxide 20 L BUN 22 H BUN/Creatinine Ratio Glucose 166 H POC Glucose (mg/dL) Alkaline Phosphatase 148 H Albumin Albumin/Globulin Ratio 05/27/23 05/27/23 05:54 11:45 WBC RBC Hgb Hct MCHC RDW Lymphocytes # Monocytes # Eosinophils # D-Dimer Sodium Carbon Dioxide BUN BUN/Creatinine Ratio 20.89 H Glucose 146 H POC Glucose (mg/dL) 269 H Alkaline Phosphatase Albumin 3.7 L Albumin/Globulin Ratio 1.48 L - Diagnostic Findings Chest x-ray: image reviewed CT scan - chest: image reviewed Assessment and Plan Assessment: Dyspnea and occasions in a patient recently started on immunotherapy, Zepzelca, possibly related to COPD exacerbation or tracheobronchitis Atrial tachycardia. Patient with a known history of atrial tachycardia and SVT, maintained on beta blockers History of metastatic lung cancer with previous chemoradiation treatments. Recent PET scan from April 2023 showing progression. Initiated on immunotherapy History of chronic obstructive pulmonary disease Former smoker Diabetes mellitus Hypertension : The patient was seen and evaluated Chest x-ray, computed tomography scan of the chest, labs and medications reviewed Continue Symbicort, Tessalon Perles, Solu-Medrol Continue beta blockers for rate control Cardiology consulted Empiric antibiotics Check a pro-calcitonin We'll continue to follow and make further recommendations based on his clinical status I have personally seen and examined the patient, performed the documentation and the assessment and plan as written. Number of minutes spent on the visit: 20.
[2023-05-27] MEDS ORDERED: IPRATROPIUM-ALBUTEROL 3 ML NEB INHALATION PRN (15:35)
--- NOTE | 2023-05-27 15:41 | P.HPIM ---
History of Present Illness H&P Date: 05/27/23 Patient was admitted on 05/26/23 at 6:32 PM, however ER physician did not notify provider of admission and we were notified by nursing staff of patient's admission at 7:30 AM on 05/27/23. History of Presenting Illness: Patient is a very pleasant 73-year-old male with a past medical history of lung cancer currently undergoing intravenous chemotherapy treatments with Dr. Coughlin with last treatment being last week, hypertension, hyperlipidemia, and [id number] diabetes mellitus. He presented to the emergency department on 05/26/23 secondary to a chief complaint of shortness of breath and palpitations. Upon arrival patient underwent full evaluation. Vital signs show blood pressure 122/79, heart rate 104, respiratory rate 18, temp 98.0F, SpO2 of 90% on room air later dropping down to 85% on room air. EKG was completed showing sinus rhythm with frequent PACs and occasional PVCs. Chest x-ray completed showing peripheral bilateral lung infiltrates with elevation of the right diaphragm. Labs were completed and reviewed. CBC unremarkable. BMP revealing mild hyponatremia with sodium of 134, hypocarbia with bicarb of 20 and slightly elevated BUN of 22. Liver profile showing elevated alkaline phosphatase of 148 otherwise normal findings. Troponin 0.013 and TSH is 0.787. Coagulation profile normal findings with the exception of elevated d-dimer of 1.86. Lactic acid 1.6. CTA chest completed secondary to elevated d-dimer which was negative for PE revealing right upper lobe mass and consolidation with hypodense lesions within the liver corresponding to findings on recent PET scan. Patient was admitted under our services with consultation to pulmonology, hematology, and cardiology. Patient seen and fully evaluated at bedside this morning. Patient resting comfortably with at bedside. He reports currently palpitations are under control at this time but also reports that they have been waxing and waning. He reports this is his fifth round of chemotherapy and currently he is on a different medication that he has not had before so he associates his symptoms of palpitations and increasing shortness of breath with this medication (Zepzelca), but reports when his palpitations worsened he came to the emergency department for evaluation. He denies having any headache, lightheadedness, dizziness, chest pain, fevers, chills, diaphoresis, nausea, vomiting, or experiencing any numbness/tingling/weakness/swelling in his extremities. Review of systems: Pertinent positives and negatives as discussed in HPI, a complete review of systems was performed and all other systems are negative. Physical exam: Vital signs reviewed and stable. General: Nontoxic, no distress and appears stated age. Derm: Skin warm and dry, normal coloration for ethnicity. Head: Atraumatic, normocephalic and symmetric. Eyes: EOMs intact, no lid lag, and anicteric sclera Mouth: no lip lesions, mucus membranes moist Cardiovascular: regular rate and rhythm with normal S1S2, no murmur, positive posterior tibial pulses bilaterally, and cap refill < 2 seconds. Lungs: Respirations even, regular, and unlabored on room air. Lungs CTA bilaterally, no rhonchi, no rales, no wheezing, and no accessory muscle usage. Abdominal: soft, nontender to palpation, no guarding, no appreciable organomegaly Ext: ROM intact. No gross muscle atrophy, no edema, no contractures Neuro: Speech clear, face symmetrical and CN II-XII grossly intact with no noted focal neuro deficits Psych: Alert and oriented to person, place, time, and situation. Appropriate and pleasant affect. Assessment and Plan of Care: Acute on chronic respiratory failure with hypoxia Metastatic lung cancer Palpitations with repeat EKG findings consistent with atrial tachycardia 138 bpm Hypertension Hyperlipidemia -Consult to Pulmonology for acute on chronic respiratory failure -Consult to cardiology secondary to atrial tachycardia -Oxygenation to be administered and titrated as needed to maintain SPO2 equal to or greater than 90% -Telemetry monitoring. -Monitor Pulse-oximetry -Duonebs scheduled for times daily and as needed for SOB and/or wheezing -Incentive Spirometry -Steroids: Solu-Medrol 60 mg IVP every 8 hours -Consult also placed to hematology/oncology [id number] diabetes mellitus Hold [facility] and place patient on glycemic protocol with NovoLog sliding scale. Data and imaging reviewed: As stated above in HPI Repeat morning EKG completed and reviewed showing atrial tachycardia at 138 bpm with a right bundle branch block The patient is admitted with an anticipated greater than 2 midnight stay for evaluation of acute on chronic respiratory failure with hypoxia and atrial tachycardia CODE STATUS: Full code DVT prophylaxis: Lovenox Anticipated discharge date: Clinical course to determine Anticipated discharge place: Clinical course to determine Patient was seen independently by Nurse Practitioner. This document was prepared using [employer] dictation software. Please allow for errors in shipping associate while rare they do occur. Guido Lutz NP rendered care for this patient independently, reviewed the findings and plan as documented in the note above. I did not physically speak with or examine the patient on this date. Past Medical History Past Medical History: Diabetes Mellitus, Hyperlipidemia, Hypertension Additional Past Medical History / Comment(s): HAS "SPOT ON LUNG",hx kidney stones, lung cancer History of Any Multi-Drug Resistant Organisms: None Reported Past Surgical History: Appendectomy Additional Past Surgical History / Comment(s): Navigational bronchoscopy,fatty tissue removed from left leg,COLONOSCOPY Past Anesthesia/Blood Transfusion Reactions: No Reported Reaction Additional Past Anesthesia/Blood Transfusion Reaction / Comment(s): no hx blood transfusion Past Psychological History: No Psychological Hx Reported Smoking Status: Former smoker Past Alcohol Use History: None Reported Past Drug Use History: None Reported - Past Family History Mother Family Medical History: No Reported History Medications and Allergies Home Medications Medication Instructions Recorded Confirmed Type Metoprolol Succinate (ER) [Toprol 50 mg PO DAILY 05/10/19 05/26/23 History XL] Empaglifloz/Linaglip/Metformin 1 tab PO DAILY 12/28/21 05/26/23 History [Trijardy Xr 12.5-2.5-1,000 mg] Benzonatate [Tessalon Perles] 100 mg PO TID 05/26/23 05/26/23 History Cholecalciferol [Vitamin D3 (125 125 mcg PO DAILY 05/26/23 05/26/23 History Mcg = 5000 Iu)] Levofloxacin [Levaquin] 500 mg PO DAILY 05/26/23 05/26/23 History Multivitamins, Thera [Multivitamin 1 tab PO DAILY 05/26/23 05/26/23 History (formulary)] Ondansetron [Zofran] 4 mg PO Q4H PRN 05/26/23 05/26/23 History predniSONE [Deltasone] See Taper PO DAILY 05/26/23 05/26/23 History Allergies Allergy/AdvReac Type Severity Reaction Status Date / Time No Known Allergies Allergy Verified 05/26/23 18:59 Physical Exam Vitals: Vital Signs Temp Pulse Pulse Resp BP Pulse Ox 05/27/23 06:00 64 16 108/65 97 05/27/23 05:00 56 L 26 H 105/65 97 05/27/23 03:00 56 L 25 H 114/66 97 05/27/23 02:00 60 23 113/67 97 05/27/23 01:00 61 21 116/67 96 05/27/23 00:00 69 28 H 110/72 97 05/26/23 23:00 73 22 124/70 94 L 05/26/23 22:00 93 26 H 120/78 94 L 05/26/23 21:00 81 24 132/73 05/26/23 20:30 80 22 121/65 05/26/23 19:48 89 16 123/74 95 05/26/23 19:00 79 21 120/74 91 L 05/26/23 18:30 81 20 114/78 90 L 05/26/23 18:00 100 20 117/73 05/26/23 17:30 69 20 97/83 96 05/26/23 17:00 72 22 115/82 95 05/26/23 16:30 79 22 94 L 05/26/23 16:00 71 24 113/74 96 05/26/23 15:59 79 05/26/23 15:50 79 05/26/23 15:30 86 16 111/75 96 05/26/23 15:10 87 35 H 122/80 92 L 05/26/23 15:00 87 18 115/79 92 L 05/26/23 14:50 93 25 H 115/79 94 L 05/26/23 14:49 89 25 H 94 L 05/26/23 14:30 96 98 24 85 L 05/26/23 13:58 98 F 104 H 18 122/79 90 L Results CBC & Chem 7: 05/27/23 05:54 05/27/23 05:54 Labs: Abnormal Lab Results - Last 24 Hours (Table) 05/26/23 05/26/23 Range/Units 14:24 14:51 D-Dimer 1.86 H (<0.60) mg/L FEU Sodium 134 L (137-145) mmol/L Carbon Dioxide 20 L (22-30) mmol/L BUN 22 H (9-20) mg/dL Glucose 166 H (74-99) mg/dL Alkaline Phosphatase 148 H (38-126) U/L
[2023-05-27] MEDS: IPRATROPIUM-ALBUTEROL 3 ML NEB INHALATION SCH ×2 (17:21→20:46)
[2023-05-27] MEDS: SYMBICORT 160-4.5 MCG INHALER INHALATION SCH (20:46)
[2023-05-27 20:58] LABS: Glucose,Whole Blood 290 mg/dL (70-110)
[2023-05-27] MEDS: AZITHROMYCIN 500 MG in SODIUM CHLORIDE 0.9% 250 ML IVPB SCH (20:59)
[2023-05-27] MEDS: ACETAMINOPHEN TAB 325 MG TAB PO PRN (22:37)
--- NOTE | 2023-05-28 01:23 | P.CONS ---
History of Present Illness - Reason for Consult Consult date: 05/27/23 Small cell lung ca on rx, arrythmia - History of Present Illness The patient is a 73-year-old with a known history of metastatic small cell lung cancer, well known to our service. He is followed by Dr. Coughlin in the outpatient setting. The patient came into the emergency room because of palpitations and marked elevation of heart rate, episodically, over the past 3 days. The symptoms were persistent and recurrent, despite him taking his cardiac medications as directed. The patient does have a known history of SVT. Heart rate had been as high as 140. There was some associated shortness of breath compared to baseline, as well as a mild productive cough In the emergency room, heart rate was as high as 138, with EKG confirming atrial tachycardia. The patient's chest x-ray showed some nonspecific peripheral infiltrates, possibly chronic. CT angiogram was negative for pulmonary embolism and showed known bilateral lung nodules, and liver metastasis. Patient was admitted for further management. His oncology history is as follows: He was initially found to have a small right upper lobe nodule in 2017, remained stable on follow-up scans. He developed increasing lung nodules in the right by 12/02, with subsequent PET scan showing uptake. Diagnosis of small cell lung cancer was made via mediastinoscopy in 03/04 after initial bronchoscopy in 01/02 was not diagnostic. Brain MRI at baseline was negative. The patient was treated with carboplatin and [employer]-16 along with concurrent radiation, completing treatment in early 2021. In 10/03 he developed isolated 5 mm cerebellar metastasis, which was treated with SB RT with improvement He then developed biopsy-proven recurrence in the right supraclavicular area in 02/03, and was treated with irinotecan. He had SB RT to a new brain lesion in 09/04. Subsequent PET scan showed progression in right hilar node, leading to resumption of treatment with car boplatin and [employer]-16. September 04 with development of liver lesions, as well as right hilar and left rodrigo ng lesions. He was started on weekly Taxol in 01/04 with improvement. He was found to have disease progression again on repeat PET scan in mid 05/06, with new liver lesions, as well as progression in the right supraclavicular area and bilateral lung nodules. The patient was started on treatment with Lurbinectedin, on 05/18/23, and is status post 1 cycle. When seen in the office on 05/25/23 he was complaining of cough, shortness of breath and generalized weakness as well as increased sleeping time and decreased appetite. Review of Systems Constitutional: Reports poor appetite, Reports weakness, Reports weight loss Eyes: denies blurred vision, denies pain Ears: deny: decreased hearing, ear discharge, earache, tinnitus Ears, nose, mouth and throat: Denies headache, Denies sore throat Cardiovascular: Reports irregular heart beat, Reports rapid heart beat, Reports shortness of breath Respiratory: Reports cough with sputum, Reports dyspnea Gastrointestinal: Reports nausea, Reports vomiting Genitourinary: Reports as per HPI Musculoskeletal: Reports muscle weakness Integumentary: Denies pruritus, Denies rash Neurological: Reports weakness Psychiatric: Reports as per HPI Endocrine: Reports fatigue, Reports weight change Hematologic/Lymphatic: Reports as per HPI Past Medical History Past Medical History: Diabetes Mellitus, Hyperlipidemia, Hypertension Additional Past Medical History / Comment(s): HAS "SPOT ON LUNG",hx kidney stones, lung cancer History of Any Multi-Drug Resistant Organisms: None Reported Past Surgical History: Appendectomy Additional Past Surgical History / Comment(s): Navigational bronchoscopy,fatty tissue removed from left leg,COLONOSCOPY Past Anesthesia/Blood Transfusion Reactions: No Reported Reaction Additional Past Anesthesia/Blood Transfusion Reaction / Comm: no hx blood transfusion Past Psychological History: No Psychological Hx Reported Smoking Status: Former smoker Past Alcohol Use History: None Reported Past Drug Use History: None Reported - Past Family History Mother Family Medical History: No Reported History Medications and Allergies Home Medications Medication Instructions Recorded Confirmed Type Metoprolol Succinate (ER) [Toprol 50 mg PO DAILY 05/10/19 05/26/23 History XL] Empaglifloz/Linaglip/Metformin 1 tab PO DAILY 12/28/21 05/26/23 History [Trijardy Xr 12.5-2.5-1,000 mg] Benzonatate [Tessalon Perles] 100 mg PO TID 05/26/23 05/26/23 History Cholecalciferol [Vitamin D3 (125 125 mcg PO DAILY 05/26/23 05/26/23 History Mcg = 5000 Iu)] Levofloxacin [Levaquin] 500 mg PO DAILY 05/26/23 05/26/23 History Multivitamins, Thera [Multivitamin 1 tab PO DAILY 05/26/23 05/26/23 History (formulary)] Ondansetron [Zofran] 4 mg PO Q4H PRN 05/26/23 05/26/23 History predniSONE [Deltasone] See Taper PO DAILY 05/26/23 05/26/23 History Allergies Allergy/AdvReac Type Severity Reaction Status Date / Time No Known Allergies Allergy Verified 05/26/23 18:59 Physical Exam Vitals: Vital Signs Temp Pulse Pulse Resp BP Pulse Ox 05/27/23 12:00 137 H 14 95/74 05/27/23 11:30 98.7 F 138 H 18 104/73 05/27/23 11:07 76 18 111/76 96 05/27/23 09:10 98.0 F 87 18 98/56 96 05/27/23 06:00 64 16 108/65 97 05/27/23 05:00 56 L 26 H 105/65 97 05/27/23 03:00 56 L 25 H 114/66 97 05/27/23 02:00 60 23 113/67 97 05/27/23 01:00 61 21 116/67 96 05/27/23 00:00 69 28 H 110/72 97 05/26/23 23:00 73 22 124/70 94 L 05/26/23 22:00 93 26 H 120/78 94 L 05/26/23 21:00 81 24 132/73 05/26/23 20:30 80 22 121/65 05/26/23 19:48 89 16 123/74 95 05/26/23 19:00 79 21 120/74 91 L 05/26/23 18:30 81 20 114/78 90 L 05/26/23 18:00 100 20 117/73 05/26/23 17:30 69 20 97/83 96 05/26/23 17:00 72 22 115/82 95 05/26/23 16:30 79 22 94 L 05/26/23 16:00 71 24 113/74 96 05/26/23 15:59 79 05/26/23 15:50 79 05/26/23 15:30 86 16 111/75 96 05/26/23 15:10 87 35 H 122/80 92 L 05/26/23 15:00 87 18 115/79 92 L 05/26/23 14:50 93 25 H 115/79 94 L 05/26/23 14:49 89 25 H 94 L 05/26/23 14:30 96 98 24 85 L 05/26/23 13:58 98 F 104 H 18 122/79 90 L - Constitutional General appearance: no acute distress - EENT Eyes: EOMI, PERRLA ENT: hearing grossly normal, normal oropharynx - Neck Neck: no lymphadenopathy Thyroid: bilateral: normal size - Respiratory Respiratory: bilateral: diminished - Cardiovascular Rhythm: regular Heart sounds: normal: S1, S2 - Gastrointestinal General gastrointestinal: normal bowel sounds, soft - Integumentary Integumentary: normal - Neurologic Neurologic: CNII-XII intact - Musculoskeletal Musculoskeletal: generalized weakness, strength equal bilaterally - Psychiatric Psychiatric: A&O x's 3, appropriate affect Results CBC & Chem 7: 05/27/23 05:54 05/27/23 05:54 Labs: Abnormal Lab Results - Last 24 Hours (Table) 05/26/23 05/26/23 05/27/23 Range/Units 14:24 14:51 05:54 WBC 4.03 L (4.50-10.00) X 10*3/uL RBC 4.05 L (4.40-5.60) X 10*6/uL Hgb 11.9 L (13.0-17.0) g/dL Hct 37.3 L (39.6-50.0) % MCHC 31.9 L (32.0-37.0) g/dL RDW 14.7 H (11.5-14.5) % Lymphocytes # 0.47 L (0.90-5.00) X 10*3/uL Monocytes # 0.09 L (0.20-1.00) X 10*3/uL Eosinophils # 0 L (0.04-0.35) X 10*3/uL D-Dimer 1.86 H (<0.60) mg/L FEU Sodium 134 L (137-145) mmol/L Carbon Dioxide 20 L (22-30) mmol/L BUN 22 H (9-20) mg/dL BUN/Creatinine Ratio (12.00-20.00) Ratio Glucose 166 H (74-99) mg/dL POC Glucose (mg/dL) (70-110) mg/dL Alkaline Phosphatase 148 H (38-126) U/L Albumin (3.8-4.9) g/dL Albumin/Globulin Ratio (1.60-3.17) Ratio 05/27/23 05/27/23 Range/Units 05:54 11:45 WBC (4.50-10.00) X 10*3/uL RBC (4.40-5.60) X 10*6/uL Hgb (13.0-17.0) g/dL Hct (39.6-50.0) % MCHC (32.0-37.0) g/dL RDW (11.5-14.5) % Lymphocytes # (0.90-5.00) X 10*3/uL Monocytes # (0.20-1.00) X 10*3/uL Eosinophils # (0.04-0.35) X 10*3/uL D-Dimer (<0.60) mg/L FEU Sodium (137-145) mmol/L Carbon Dioxide (22-30) mmol/L BUN (9-20) mg/dL BUN/Creatinine Ratio 20.89 H (12.00-20.00) Ratio Glucose 146 H (74-99) mg/dL POC Glucose (mg/dL) 269 H (70-110) mg/dL Alkaline Phosphatase (38-126) U/L Albumin 3.7 L (3.8-4.9) g/dL Albumin/Globulin Ratio 1.48 L (1.60-3.17) Ratio Comments: EKG image reviewed and interpreted Chest x-ray: report reviewed CT scan - chest: report reviewed Assessment and Plan (1) SVT (supraventricular tachycardia) Narrative/Plan: the patient has a known history of atrial arrhythmia, and presented with exacerbation of the same. This was confirmed on EKG. The patient has improved with treatment with review of his rhythm on the monitor at the time of examination showing normal sinus rhythm. - It was discussed with the patient that his current regimen typically does not cause any definite cardiac toxicity. - Defer to audiology and admitting service for management of exacerbation of his atrial arrhythmia. Current Visit: No Status: Acute Code(s): I47.1 - SUPRAVENTRICULAR TACHYCARDIA * DO NOT USE * SNOMED Code(s): 0594094 (2) Small cell lung cancer in adult Narrative/Plan: the patient has just been initiated on his new regimen for progressive small cell lung cancer. He status post 1 cycle, and had multiple systemic symptoms which are fairly typical side effects from the regimen. These were actually starting to improve over the last 1-2 days. - Monitor counts while inpatient, and supplement if needed - The plan would be to resume treatment as an outpatient on scheduled, assuming that the patient's acute situation is resolved Current Visit: No Status: Acute Code(s): C34.90 - MALIGNANT NEOPLASM OF UNSP PART OF UNSP BRONCHUS OR LUNG SNOMED Code(s): 561324322
[2023-05-28] MEDS: methylPREDNISolone SOD SUCCI 125 MG/2 ML VIAL IV SCH ×4 (02:32→23:32)
[2023-05-28 08:01] LABS: HCT 35.5 % (39.0-53.0); HGB 11.9 gm/dL (13.0-17.5); MCH 30.7 pg (25.0-35.0); MCHC 33.5 g/dL (31.0-37.0); MCV 91.7 fL (80.0-100.0); Mean Platelet Volume 8.1; Platelet Count 274 k/uL (150-450); RBC 3.87 m/uL (4.30-5.90); RDW 15.3 % (11.5-15.5); WBC 5.1 k/uL (3.8-10.6)
[2023-05-28 08:25] LABS: ALT 26 U/L (4-49); AST 26 U/L (17-59); African American GFR (CKD) >90 (>60 ml/min/1.73 sqM); Albumin 3.5 g/dL (3.5-5.0); Albumin/Globulin Ratio 1.3; Alkaline Phosphatase 126 U/L (38-126); Anion Gap 11 mmol/L; Blood Urea Nitrogen 20 mg/dL (9-20); Calcium 9.2 mg/dL (8.4-10.2); Carbon Dioxide 24 mmol/L (22-30); Chloride 102 mmol/L (98-107); Globulin 2.8 g/dL; Glucose 167 mg/dL (74-99); Magnesium 1.9 mg/dL (1.6-2.3); Non-African American GFR(CKD) >90 (>60 ml/min/1.73 sqM); Potassium 4.6 mmol/L (3.5-5.1); Sodium 137 mmol/L (137-145); Total Bilirubin 0.5 mg/dL (0.2-1.3); Total Protein 6.3 g/dL (6.3-8.2)
[2023-05-28] MEDS: PANTOPRAZOLE 40 MG/10 ML VIAL IV SCH (08:47)
[2023-05-28] MEDS: METOPROLOL SUCCINATE (ER) 50 MG TAB.ER.24H PO SCH (08:48)
[2023-05-28] MEDS: INSULIN ASPART (NovoLOG) 100 UNIT/ML VIAL SQ SCH ×4 (08:48→21:15)
[2023-05-28] MEDS: BENZONATATE 100 MG CAP PO SCH ×3 (08:49→21:15)
[2023-05-28] MEDS: CHOLECALCIFEROL 125 MCG (5000 IU) TABLET PO SCH (08:49)
[2023-05-28] MEDS: IPRATROPIUM-ALBUTEROL 3 ML NEB INHALATION SCH ×4 (08:55→18:12)
[2023-05-28] MEDS: SYMBICORT 160-4.5 MCG INHALER INHALATION SCH ×2 (08:56→18:12)
[2023-05-28] MEDS: MULTIVITAMINS, THERA 1 EACH TAB PO SCH (09:28)
[2023-05-28 09:45] LABS: Glucose,Whole Blood 295 mg/dL (70-110)
--- NOTE | 2023-05-28 13:14 | P.PN ---
Subjective Progress Note Date: 05/28/23 Hospital Course: Patient is a very pleasant 73-year-old male with a past medical history of lung cancer currently undergoing intravenous chemotherapy treatments with Dr. Coughlin with last treatment being last week, hypertension, hyperlipidemia, and cza-gcxtkde-vqfswluvm diabetes mellitus. He presented to the emergency department on 05/26/23 secondary to a chief complaint of shortness of breath and palpitations. He reported that he is currently undergoing his fifth round of chemotherapy and was just started on a different medication that he has not had before so he initially associated his symptoms of palpitations and increasing shortness of breath with this medication (Lurbinectedin), but reported when his palpitations worsened and his heart rate was in the 150s he came to the emergency department for evaluation. Upon arrival patient underwent full ev aluation. Vital signs show blood pressure 122/79, heart rate 104, respiratory rate 18, temp 98.0F, SpO2 of 90% on room air and later dropping down to 85% on room air requiring oxygen supplementation. EKG was completed showing sinus rhythm with frequent PACs and occasional PVCs. Chest x-ray completed showing peripheral bilateral lung infiltrates with elevation of the right diaphragm. Labs were completed and reviewed. CBC unremarkable. BMP revealing mild hyponatremia with sodium of 134, hypocarbia with bicarb of 20 and slightly elevated BUN of 22. Liver profile showing elevated alkaline phosphatase of 148 otherwise normal findings. Troponin 0.013 and TSH is 0.787. Coagulation profile normal findings with the exception of elevated d-dimer of 1.86. Lactic acid 1.6. CTA chest completed secondary to elevated d-dimer which was negative for PE revealing right upper lobe mass and consolidation with hypodense lesions within the liver corresponding to findings on recent PET scan. Patient was admitted under our services with consultation to pulmonology, hematology, and cardiology. Subjective: Patient seen and fully evaluated at bedside this morning. He he denies experiencing any further episodes of palpitations since last night. He reports continued shortness of breath and remains on 2 L O2 via nasal cannula. Patient denies having any new complaints or concerns at this time. Physical exam: Vital signs reviewed and stable. General: Nontoxic, no distress and appears stated age. Derm: Skin warm and dry, normal coloration for ethnicity. Head: Atraumatic, normocephalic and symmetric. Eyes: EOMs intact, no lid lag, and anicteric sclera Mouth: no lip lesions, mucus membranes moist Cardiovascular: regular rate and rhythm with normal S1S2, no murmur, positive posterior tibial pulses bilaterally, and cap refill < 2 seconds. Lungs: Respirations even, regular, and unlabored on room air. Lungs CTA bilaterally, no rhonchi, no rales, no wheezing, and no accessory muscle usage. Abdominal: soft, nontender to palpation, no guarding, no appreciable organomegaly Ext: ROM intact. No gross muscle atrophy, no edema, no contractures Neuro: Speech clear, face symmetrical and CN II-XII grossly intact with no noted focal neuro deficits Psych: Alert and oriented to person, place, time, and situation. Appropriate and pleasant affect. Assessment and Plan of Care: Acute on chronic respiratory failure with hypoxia Metastatic small cell lung cancer Atrial tachycardia Hypertension Hyperlipidemia -Pulmonary following, reviewed documentation in chart. -Consult to cardiology secondary to atrial tachycardia -Oxygenation to be administered and titrated as needed to maintain SPO2 equal to or greater than 90% -Telemetry monitoring. -Monitor Pulse-oximetry -Duonebs scheduled for times daily and as needed for SOB and/or wheezing -Incentive Spirometry -Steroids: Solu-Medrol 60 mg IVP every 8 hours -Continue with IV antibiotics azithromycin day 2/3 -Oncology following, reviewed documentation in chart. -Order placed for home O2 evaluation -Pro-calcitonin was slightly elevated at 0.65. Sby-vokjyrj-xeimvdztu diabetes mellitus Hold Trijardy and continue glycemic protocol with NovoLog sliding scale. Hemoglobin A1c 6.7%. Data and imaging reviewed: Vital signs reviewed. Blood pressure 127/87, heart rate 87, respiratory rate 18, temp 98.5F, SpO2 of 93% on 2 L. Morning labs reviewed. CBC showing stable normocytic anemia with hemoglobin of 11.9. BMP unremarkable. Blood glucose 167. Calcium normal findings at 9.2. Magnesium 1.9. Liver profile unremarkable. CODE STATUS: Full code DVT prophylaxis: Lovenox Anticipated discharge date: Clinical course to determine Anticipated discharge place: Clinical course to determine Patient was seen independently by Nurse Practitioner. This document was prepared using [employer] dictation software. Please allow for errors in social work associate while rare they do occur. Guido Lutz NP rendered care for this patient independently, reviewed the findings and plan as documented in the note above. I did not physically speak with or examine the patient on this date. Objective - Vital Signs Vital signs: Vital Signs Temp 97.2 F L 05/28/23 05:39 Pulse 59 L 05/28/23 05:39 Resp 16 05/28/23 05:39 BP 108/61 05/28/23 05:39 Pulse Ox 96 05/28/23 05:39 FiO2 Intake & Output 05/27/23 05/28/23 05/28/23 18:59 06:59 18:59 Output Total 2550 Balance -2550 Output: Urine 2550 - Labs CBC & Chem 7: 05/30/23 08:06 05/30/23 08:06 Labs: Abnormal Lab Results - Last 24 Hours (Table) 05/27/23 05/27/23 05/27/23 Range/Units 05:54 05:54 11:45 WBC 4.03 L (4.50-10.00) X 10*3/uL RBC 4.05 L (4.40-5.60) X 10*6/uL Hgb 11.9 L (13.0-17.0) g/dL Hct 37.3 L (39.6-50.0) % MCHC 31.9 L (32.0-37.0) g/dL RDW 14.7 H (11.5-14.5) % Lymphocytes # 0.47 L (0.90-5.00) X 10*3/uL Monocytes # 0.09 L (0.20-1.00) X 10*3/uL Eosinophils # 0 L (0.04-0.35) X 10*3/uL BUN/Creatinine Ratio 20.89 H (12.00-20.00) Ratio Glucose 146 H (70-110) mg/dL POC Glucose (mg/dL) 269 H (70-110) mg/dL Albumin 3.7 L (3.8-4.9) g/dL Albumin/Globulin Ratio 1.48 L (1.60-3.17) Ratio 05/27/23 05/28/23 05/28/23 Range/Units 20:45 07:30 07:30 WBC (4.50-10.00) X 10*3/uL RBC 3.87 L (4.40-5.60) X 10*6/uL Hgb 11.9 L (13.0-17.0) g/dL Hct 35.5 L (39.6-50.0) % MCHC (32.0-37.0) g/dL RDW (11.5-14.5) % Lymphocytes # (0.90-5.00) X 10*3/uL Monocytes # (0.20-1.00) X 10*3/uL Eosinophils # (0.04-0.35) X 10*3/uL BUN/Creatinine Ratio (12.00-20.00) Ratio Glucose 167 H (70-110) mg/dL POC Glucose (mg/dL) 290 H (70-110) mg/dL Albumin (3.8-4.9) g/dL Albumin/Globulin Ratio (1.60-3.17) Ratio
--- NOTE | 2023-05-28 13:40 | P.PN ---
Subjective Progress Note Date: 05/28/23 This is a very pleasant 73-year-old male patient with a known history of diabetes mellitus, hypertension, hyperlipidemia, former smoker. He has a history of lung cancer and received radiation/chemotherapy. He PET scan from April to revealed progression of disease with increasing right neck lymphadenopathy with metabolic activity, increasing scattered pulmonary nodules, at least to liver metabolically active lesions are present. Additionally there is increasing metabolic activity within the right midlung possibly related to prior malignancy. MRI of the brain revealed a stable medial right cerebellar focus of enhancement. No additional suspicious lesions. He is currently undergoing immunotherapy and recently started Zepzelca. Since that time he has been having increasing shortness of breath and tachycardia. He does have previous history of SVT and atrial tachycardia and is maintained on metoprolol. He took an extra dose yesterday without much improvement. Stated his oxygen was at about 85% and is usually higher than 88%. He presented to the emergency room last evening. CT angiogram ruled out pulmonary embolism. There is a right upper lobe mass and consolidation and hypodense lesions within the liver corresponding to recent PET scan findings. White count 4.0. Hemoglobin 11.9. Platelets 261. Sodium 138. Potassium 5.1. Bicarb 24. BUN 19. Creatinine 0.9. Glucose 146. Viral screen negative. The patient is seen today 05/28/2023 in follow-up in the emergency department. He is currently sitting up in bed. Awake and alert in no acute distress. He is maintaining good O2 saturations in the 90s on 2 L/m per nasal cannula. He has normal saline at 75 ML's per hour. He is continued on Symbicort, DuoNeb inhalations, IV Medrol and azithromycin. Lovenox for DVT prophylaxis. White count 5.1. Hemoglobin 11.9. Platelets 274. Sodium 137. Potassium 4.6. Bicarb 24. BUN 20. Creatinine 0.79. Glucose 167. Procalcitonin 0.65. Objective - Vital Signs Vital signs: Vital Signs Temp 98.5 F 05/28/23 08:52 Pulse 77 05/28/23 12:19 Resp 18 05/28/23 08:52 BP 127/87 05/28/23 08:52 Pulse Ox 93 L 05/28/23 08:56 FiO2 Intake & Output 05/27/23 05/28/23 05/28/23 18:59 06:59 18:59 Output Total 2550 500 Balance -2550 -500 Output: Urine 2550 500 - Exam GENERAL EXAM: Alert, 73-year-old male, on 2 L nasal cannula, comfortable in no apparent distress. HEAD: Normocephalic. EYES: Normal reaction of pupils, equal size. NOSE: Clear with pink turbinates. THROAT: No erythema or exudates. NECK: No masses, no JVD. CHEST: No chest wall deformity. LUNGS: Equal air entry with no crackles, wheeze, rhonchi or dullness. CVS: S1 and S2 normal with no audible murmur, regular rhythm. ABDOMEN: No hepatosplenomegaly, normal bowel sounds, no guarding or rigidity. SPINE: No scoliosis or deformity SKIN: No rashes CENTRAL NERVOUS SYSTEM: No focal deficits, tone is normal in all 4 extremities. EXTREMITIES: There is no peripheral edema. No clubbing, no cyanosis. Peripheral pulses are intact. - Labs CBC & Chem 7: 05/28/23 07:30 05/28/23 07:30 Labs: Abnormal Lab Results - Last 24 Hours (Table) 05/27/23 05/27/23 05/28/23 Range/Units 05:54 20:45 07:30 RBC (4.30-5.90) m/uL Hgb (13.0-17.5) gm/dL Hct (39.0-53.0) % Glucose (74-99) mg/dL POC Glucose (mg/dL) 290 H (70-110) mg/dL Hemoglobin A1c 6.7 H (<=6.0) % Procalcitonin 0.65 H (0.02-0.09) ng/mL 05/28/23 05/28/23 05/28/23 Range/Units 07:30 07:30 09:42 RBC 3.87 L (4.30-5.90) m/uL Hgb 11.9 L (13.0-17.5) gm/dL Hct 35.5 L (39.0-53.0) % Glucose 167 H (74-99) mg/dL POC Glucose (mg/dL) 295 H (70-110) mg/dL Hemoglobin A1c (<=6.0) % Procalcitonin (0.02-0.09) ng/mL Assessment and Plan Assessment: Dyspnea and palpitations in a patient recently started on immunotherapy, Zepzelca, possibly related to COPD exacerbation or tracheobronchitis, pro calcitonin 0.65 Atrial tachycardia. Patient with a known history of atrial tachycardia and SVT, maintained on beta blockers History of metastatic lung cancer with previous chemoradiation treatments. Recent PET scan from April 2023 showing progression. Initiated on immunotherapy History of chronic obstructive pulmonary disease Former smoker Diabetes mellitus Hypertension Plan: The patient was seen and evaluated Labs and medications reviewed Continue the current treatment plan I treated the FiO2 as tolerated We'll continue to follow I have personally seen and examined the patient, performed the documentation and the assessment and plan as written. Number of minutes spent on the visit: 10.
[2023-05-28] MEDS: ENOXAPARIN 40 MG/0.4 ML SYRINGE SQ SCH (14:09)
[2023-05-28] MEDS: SODIUM CHLORIDE 0.9% 1,000 ML IV SCH (14:11)
[2023-05-28 14:16] LABS: Glucose,Whole Blood 272 mg/dL (70-110)
--- NOTE | 2023-05-28 15:20 | P.CRDCN ---
History of Present Illness Consult date: 05/28/23 Chief complaint: Tachycardia and shortness of breath History of present illness: The patient is a 73-year-old gentleman with a past medical history significant for "tachycardia" as well as recent diagnosis of lung cancer currently the patient is on chemotherapy. The patient presented to the emergency department complaining of heart racing/fluttering associated with dizziness but no presyncope and no syncope but he also was experiencing increasing in the shortness of breath. No symptoms of chest pain or chest discomfort. He was receiving beta candie as an outpatient and he has been compliant with this. He was seen by a bit sharpener in the past but he stated that he didn't have any follow-up with the last several years. He underwent further workup including EKG showing sinus mechanism with PVC and also he underwent a computed tomography scan of the chest which showed a mass in the right upper lobe was also possible mass in the liver as well. Hematology/oncology service consulted to see the patient. Also the chest x-ray showed possible infiltrate consistent with pneumonia and currently is on antibiotic for that. He stated that he is feeling better. D-dimer came in to be abnormal but the computed tomography scan did not show any pulmonary embolism. No NT proBNP but the patient doesn't look in any overt congestive heart failure at this point. No orthopnea and no PND and no lower extremity edema and no change in the weight as a matter of fact he lost weight. No history of coronary artery disease or congestive heart failure or cardiac arrhythmia. The examination is remarkable for stable vital signs with a regular rate and rhythm and a systolic murmur at the right upper sternal border and clear breathing sounds bilaterally and no edema was noted in the lower extremities Assessment Heart racing/tachycardia. The patient has been in sinus rhythm and he has not been tachycardic throughout the hospital stay Dyspnea etiology unknown at this point. Could be related to the lung cancer. Rule out acute coronary event. Obtain serial cardiac enzymes History of metastatic lung cancer Plan Obtain serial cardiac enzymes Obtain an echocardiogram to assess ejection fraction Monitor for any cardiac arrhythmia Follow-up with the patient Past Medical History Past Medical History: Diabetes Mellitus, Hyperlipidemia, Hypertension Additional Past Medical History / Comment(s): HAS "SPOT ON LUNG",hx kidney stones, lung cancer History of Any Multi-Drug Resistant Organisms: None Reported Past Surgical History: Appendectomy Additional Past Surgical History / Comment(s): Navigational bronchoscopy,fatty tissue removed from left leg,COLONOSCOPY Past Anesthesia/Blood Transfusion Reactions: No Reported Reaction Additional Past Anesthesia/Blood Transfusion Reaction / Comment(s): no hx blood transfusion Past Psychological History: No Psychological Hx Reported Smoking Status: Former smoker Past Alcohol Use History: None Reported Past Drug Use History: None Reported - Past Family History Mother Family Medical History: No Reported History Medications and Allergies Home Medications Medication Instructions Recorded Confirmed Type Metoprolol Succinate (ER) [Toprol 50 mg PO DAILY 05/10/19 05/26/23 History XL] Empaglifloz/Linaglip/Metformin 1 tab PO DAILY 12/28/21 05/26/23 History [Trijardy Xr 12.5-2.5-1,000 mg] Benzonatate [Tessalon Perles] 100 mg PO TID 05/26/23 05/26/23 History Cholecalciferol [Vitamin D3 (125 125 mcg PO DAILY 05/26/23 05/26/23 History Mcg = 5000 Iu)] Levofloxacin [Levaquin] 500 mg PO DAILY 05/26/23 05/26/23 History Multivitamins, Thera [Multivitamin 1 tab PO DAILY 05/26/23 05/26/23 History (formulary)] Ondansetron [Zofran] 4 mg PO Q4H PRN 05/26/23 05/26/23 History predniSONE [Deltasone] See Taper PO DAILY 05/26/23 05/26/23 History Allergies Allergy/AdvReac Type Severity Reaction Status Date / Time No Known Allergies Allergy Verified 05/26/23 18:59 Physical Exam Vitals: Vital Signs Temp Pulse Resp BP Pulse Ox 05/28/23 14:56 92 18 113/61 98 05/28/23 12:19 77 05/28/23 12:09 70 05/28/23 09:09 88 05/28/23 08:56 91 93 L 05/28/23 08:52 98.5 F 87 18 127/87 95 05/28/23 05:39 97.2 F L 59 L 16 108/61 96 05/28/23 02:30 98 F 63 15 104/63 98 05/27/23 20:57 80 05/27/23 20:47 75 05/27/23 19:29 88 16 110/60 95 05/27/23 17:29 79 05/27/23 17:22 65 97 Intake and Output 05/28/23 05/28/23 05/28/23 06:59 14:59 22:59 Output Total 1150 500 Balance -1150 -500 Output: Urine 1150 500 Results 05/28/23 07:30 05/28/23 07:30 Cardiac Enzymes 05/28/23 Range/Units 07:30 AST 26 (17-59) U/L CBC 05/28/23 Range/Units 07:30 WBC 5.1 (3.8-10.6) k/uL RBC 3.87 L (4.30-5.90) m/uL Hgb 11.9 L (13.0-17.5) gm/dL Hct 35.5 L (39.0-53.0) % Plt Count 274 (150-450) k/uL Comprehensive Metabolic Panel 05/28/23 Range/Units 07:30 Sodium 137 (137-145) mmol/L Potassium 4.6 (3.5-5.1) mmol/L Chloride 102 (98-107) mmol/L Carbon Dioxide 24 (22-30) mmol/L BUN 20 (9-20) mg/dL Creatinine 0.72 (0.66-1.25) mg/dL Glucose 167 H (74-99) mg/dL Calcium 9.2 (8.4-10.2) mg/dL AST 26 (17-59) U/L ALT 26 (4-49) U/L Alkaline Phosphatase 126 (38-126) U/L Total Protein 6.3 (6.3-8.2) g/dL Albumin 3.5 (3.5-5.0) g/dL Current Medications Generic Name Dose Route Start Last Admin Trade Name Freq PRN Reason Stop Dose Admin Acetaminophen 650 mg 05/26/23 21:55 05/27/23 22:37 Acetaminophen Tab 325 Mg Tab PO 650 mg Q6HR PRN Administration Fever and/ or Pain Albuterol/Ipratropium 3 ml 05/27/23 16:00 05/28/23 12:09 Ipratropium-Albuterol 3 Ml Neb INHALATION 3 ml RT-QID HORTENSIA Administration Albuterol/Ipratropium 3 ml 05/27/23 15:35 Ipratropium-Albuterol 3 Ml Neb INHALATION RT-Q2H PRN Shortness Of Breath Or Wheezing Benzonatate 100 mg 05/27/23 09:00 05/28/23 08:49 Benzonatate 100 Mg Cap PO 100 mg TID HORTENSIA Administration Budesonide/Formoterol Fumarate 2 puff 05/27/23 20:00 05/28/23 08:56 Symbicort 160-4.5 Mcg Inhaler INHALATION 2 puff RT-BID HORTENSIA Administration Cholecalciferol 125 mcg 05/27/23 09:00 05/28/23 08:49 Cholecalciferol 125 Mcg (5000 Iu) Tablet PO 125 mcg DAILY HORTENSIA Administration Dextrose/Water 25 ml 05/27/23 09:01 Dextrose 50% Syringe 50 Ml IVP PER PROTOCOL PRN Hypoglycemia Protocol Dextrose/Water 50 ml 05/27/23 09:01 Dextrose 50% Syringe 50 Ml IVP PER PROTOCOL PRN Hypoglycemia Protocol Enoxaparin Sodium 40 mg 05/28/23 09:00 05/28/23 14:09 Enoxaparin 40 Mg/0.4 Ml Syringe SQ 40 mg DAILY HORTENSIA Administration Sodium Chloride 1,000 mls @ 75 mls/hr 05/26/23 18:45 05/28/23 14:11 Saline 0.9% IV 75 mls/hr .[id number] HORTENSIA Administration Azithromycin 500 mg/ Sodium 250 mls @ 250 mls/hr 05/27/23 21:00 05/27/23 20:59 Chloride IVPB 05/29/23 21:59 250 mls/hr HS HORTENSIA Administration Protocol Insulin Aspart 0 unit 05/27/23 12:30 05/28/23 14:53 Insulin Aspart (Novolog) 100 Unit/Ml Vial SQ 3 unit ACHS HORTENSIA Administration Protocol Methylprednisolone Sodium Succinate 60 mg 05/27/23 00:00 05/28/23 08:51 Methylprednisolone Sod Succi 125 Mg/2 Ml Vial IV 60 mg Q8HR HORTENSIA Administration Metoprolol Succinate 50 mg 05/27/23 09:00 05/28/23 08:48 Metoprolol Succinate (Er) 50 Mg Tab.Er.24h PO 50 mg DAILY HORTESNIA Administration Morphine Sulfate 4 mg 05/26/23 18:32 Morphine Sulfate 4 Mg/Ml Syringe IV Q4HR PRN Severe Pain (Scale 7 to 10) Multivitamins 1 each 05/27/23 09:00 05/28/23 09:28 Multivitamins, Thera 1 Each Tab PO 1 each DAILY HORTENSIA Administration Naloxone HCl 0.2 mg 05/26/23 18:32 Naloxone 0.4 Mg/Ml 1 Ml Vial IV Q2M PRN Opioid Reversal Ondansetron HCl 4 mg 05/26/23 18:32 Ondansetron 4 Mg/2 Ml Vial IVP Q8HR PRN Nausea And Vomiting Ondansetron HCl 4 mg 05/27/23 07:37 Ondansetron 4 Mg Tab PO Q4H PRN Nausea Pantoprazole Sodium 40 mg 05/27/23 09:00 05/28/23 08:47 Pantoprazole 40 Mg/10 Ml Vial IV 40 mg DAILY HORTENSIA Administration Intake and Output 05/28/23 05/28/23 05/28/23 06:59 14:59 22:59 Output Total 1150 500 Balance -1150 -500 Output: Urine 1150 500 05/28/23 07:30 05/28/23 07:30
[2023-05-28 18:12] LABS: Glucose,Whole Blood 184 mg/dL (70-110)
[2023-05-28 20:53] LABS: Glucose,Whole Blood 217 mg/dL (70-110)
[2023-05-28] MEDS: AZITHROMYCIN 500 MG in SODIUM CHLORIDE 0.9% 250 ML IVPB SCH (21:17)
[2023-05-28] MEDS: ACETAMINOPHEN TAB 325 MG TAB PO PRN (23:32)
[2023-05-29] MEDS: SODIUM CHLORIDE 0.9% 1,000 ML IV SCH ×2 (00:26→11:47)
[2023-05-29] MEDS: IPRATROPIUM-ALBUTEROL 3 ML NEB INHALATION SCH ×4 (07:30→22:09)
[2023-05-29] MEDS: SYMBICORT 160-4.5 MCG INHALER INHALATION SCH ×3 (07:30→23:11)
[2023-05-29 07:58] LABS: Glucose,Whole Blood 150 mg/dL (70-110)
[2023-05-29] MEDS: INSULIN ASPART (NovoLOG) 100 UNIT/ML VIAL SQ SCH ×4 (08:00→20:50)
[2023-05-29] MEDS: ENOXAPARIN 40 MG/0.4 ML SYRINGE SQ SCH (09:28)
[2023-05-29] MEDS: BENZONATATE 100 MG CAP PO SCH ×3 (09:28→20:50)
[2023-05-29] MEDS: methylPREDNISolone SOD SUCCI 125 MG/2 ML VIAL IV SCH ×3 (09:28→22:58)
[2023-05-29] MEDS: PANTOPRAZOLE 40 MG/10 ML VIAL IV SCH (09:29)
[2023-05-29] MEDS: CHOLECALCIFEROL 125 MCG (5000 IU) TABLET PO SCH (09:29)
[2023-05-29] MEDS: MULTIVITAMINS, THERA 1 EACH TAB PO SCH (09:29)
[2023-05-29] MEDS: METOPROLOL SUCCINATE (ER) 50 MG TAB.ER.24H PO SCH (09:29)
[2023-05-29] MEDS: ACETAMINOPHEN TAB 325 MG TAB PO PRN ×2 (09:29→23:01)
[2023-05-29] MEDS ORDERED: ADENOSINE 3 MG/ML 2 ML VIAL IVP STA (10:06)
[2023-05-29] MEDS ORDERED: METOPROLOL TARTRATE 25 MG TAB PO STA (10:09)
[2023-05-29] MEDS ORDERED: METOPROLOL TARTRATE 5 MG/5 ML VIAL IVP SCH (11:00)
[2023-05-29 11:08] LABS: HCT 36.8 % (39.6-50.0); HGB 11.8 g/dL (13.0-17.0); MCH 29.9 pg (27.0-32.0); MCHC 32.1 g/dL (32.0-37.0); MCV 93.4 FL (80.0-97.0); Mean Platelet Volume 9.4 FL (9.5-12.2); NRBC Per 100 WBC 0 X 10*3/uL (0.00-0.01); Platelet Count 307 X 10*3/uL (140-440); RBC 3.94 X 10*6/uL (4.40-5.60); WBC 5.09 X 10*3/uL (4.50-10.00)
[2023-05-29 11:24] LABS: ALT 30 U/L (10-49); AST 25 U/L (14-35); Albumin 3.7 g/dL (3.8-4.9); Albumin/Globulin Ratio 1.54 Ratio (1.60-3.17); Alkaline Phosphatase 123 U/L (41-126); BUN/Creat Ratio 22.62 Ratio (12.00-20.00); Blood Urea Nitrogen 18.1 mg/dL (9.0-27.0); Calcium 9.4 mg/dL (8.7-10.3); Chloride 104 mmol/L (96-109); Globulin 2.4 g/dL (1.6-3.3); Glucose 168 mg/dL (70-110); Potassium 4.7 mmol/L (3.5-5.5); Sodium 139 mmol/L (135-145); Total Bilirubin 0.3 mg/dL (0.3-1.2); Total Protein 6.1 g/dL (6.2-8.2)
[2023-05-29] MEDS: DILTIAZEM 125 MG in SODIUM CHLORIDE 0.9% 100 ML IV SCH (11:32)
[2023-05-29 11:52] LABS: Glucose,Whole Blood 246 mg/dL (70-110)
--- NOTE | 2023-05-29 13:56 | P.PN ---
Subjective HISTORY OF PRESENT ILLNESS: 05/28/2023 The patient is a 73-year-old gentleman with a past medical history significant for "tachycardia" as well as recent diagnosis of lung cancer currently the patient is on chemotherapy. The patient presented to the emergency department complaining of heart racing/fluttering associated with dizziness but no presyncope and no syncope but he also was experiencing increasing in the shortne ss of breath. No symptoms of chest pain or chest discomfort. He was receiving beta candie as an outpatient and he has been compliant with this. He was seen by a civil engineering designer in the past but he stated that he didn't have any follow-up with the last several years. He underwent further workup including EKG showing sinus mechanism with PVC and also he underwent a computed tomography scan of the chest which showed a mass in the right upper lobe was also possible mass in the liver as well. Hematology/oncology service consulted to see the patient. Also the chest x-ray showed possible infiltrate consistent with pneumonia and currently is on antibiotic for that. He stated that he is feeling better. D- dimer came in to be abnormal but the computed tomography scan did not show any pulmonary embolism. No NT proBNP but the patient doesn't look in any overt congestive heart failure at this point. No orthopnea and no PND and no lower extremity edema and no change in the weight as a matter of fact he lost weight. No history of coronary artery disease or congestive heart failure or cardiac arrhythmia. The examination is remarkable for stable vital signs with a regular rate and rhythm and a systolic murmur at the right upper sternal border and clear breathing sounds bilaterally and no edema was noted in the lower extremities 05/29/2023 Patient examined this morning at the bedside. At the time of examination, the patient denies any chest pain or pressure. He denies any shortness of breath. PHYSICAL EXAM: VITAL SIGNS: Reviewed. GENERAL: Well-developed in no acute distress. NECK: Supple. No JVD or thyromegaly LUNGS: Respirations even and unlabored. Lungs essentially clear to auscultation bilaterally. HEART: Regular rate and rhythm. S1 and S2 heard. EXTREMITIES: Normal range of motion. No clubbing or cyanosis. Peripheral pulse s intact. 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 One of these episodes broke with vagal maneuvers. Patient then went into SVT again. An A-Team was called and the patient received 2.5mg IVP metoprolol per primary medicine and converted to sinus mechanism. A dose of adenosine was ordered. However this was not given as the patient converted to sinus mechanism with IV push metoprolol prior to adenosine being administered We will transfer the patient to 3 S. and start him on a Cardizem drip at 5 mg an hour Patient's metoprolol increased to 75 mg daily Patient will require SVT ablation in the future. Patient states he would like to focus on his cancer treatments right now but does verbalize understanding of need for ablation Obtain 2D echo to assess cardiac structure and function Further recommendations pending patient's course Nurse practitioner note has been reviewed by physician. Signing provider agrees with the documented findings, assessment, and plan of care. Objective - Vital Signs Vital signs: Vital Signs Temp 98 F 05/29/23 11:48 Pulse 86 05/29/23 11:48 Resp 20 05/29/23 11:48 BP 137/64 05/29/23 11:48 Pulse Ox 96 05/29/23 11:48 FiO2 Intake & Output 05/28/23 05/29/23 05/29/23 18:59 06:59 18:59 Intake Total 1440 240 Output Total 500 450 Balance -500 1440 -210 Weight 68.039 kg Intake: Intake, IV Titration 900 Amount Sodium Chloride 0.9% 1, 900 000 ml @ 75 mls/hr IV . [id number] HORTENSIA Rx#:[id number] Oral 540 240 Output: Urine 500 450 Other: Voiding Method Toilet Toilet # Voids 2 3 1 - Labs CBC & Chem 7: 05/29/23 06:21 05/29/23 06:21 Labs: Abnormal Lab Results - Last 24 Hours (Table) 05/28/23 05/28/23 05/28/23 Range/Units 14:13 18:10 20:52 RBC (4.40-5.60) X 10*6/uL Hgb (13.0-17.0) g/dL Hct (39.6-50.0) % RDW (11.5-14.5) % MPV (9.5-12.2) FL BUN/Creatinine Ratio (12.00-20.00) Ratio Glucose (70-110) mg/dL POC Glucose (mg/dL) 272 H 184 H 217 H (70-110) mg/dL Total Protein (6.2-8.2) g/dL Albumin (3.8-4.9) g/dL Albumin/Globulin Ratio (1.60-3.17) Ratio 05/29/23 05/29/23 05/29/23 Range/Units 06:21 06:21 07:57 RBC 3.94 L (4.40-5.60) X 10*6/uL Hgb 11.8 L (13.0-17.0) g/dL Hct 36.8 L (39.6-50.0) % RDW 15.0 H (11.5-14.5) % MPV 9.4 L (9.5-12.2) FL BUN/Creatinine Ratio 22.62 H (12.00-20.00) Ratio Glucose 168 H (70-110) mg/dL POC Glucose (mg/dL) 150 H (70-110) mg/dL Total Protein 6.1 L (6.2-8.2) g/dL Albumin 3.7 L (3.8-4.9) g/dL Albumin/Globulin Ratio 1.54 L (1.60-3.17) Ratio 05/29/23 Range/Units 11:50 RBC (4.40-5.60) X 10*6/uL Hgb (13.0-17.0) g/dL Hct (39.6-50.0) % RDW (11.5-14.5) % MPV (9.5-12.2) FL BUN/Creatinine Ratio (12.00-20.00) Ratio Glucose (70-110) mg/dL POC Glucose (mg/dL) 246 H (70-110) mg/dL Total Protein (6.2-8.2) g/dL Albumin (3.8-4.9) g/dL Albumin/Globulin Ratio (1.60-3.17) Ratio
--- NOTE | 2023-05-29 14:20 | P.PN ---
Subjective Progress Note Date: 05/29/23 Hospital Course: Patient is a very pleasant 73-year-old male with a past medical history of lung cancer currently undergoing intravenous chemotherapy treatments with Dr. Coughlin with last treatment being last week, hypertension, hyperlipidemia, and afk-rmzrxka-frfcoxbde diabetes mellitus. He presented to the emergency department on 05/26/23 secondary to a chief complaint of shortness of breath and palpitations. He reported that he is currently undergoing his fifth round of chemotherapy and was just started on a different medication that he has not had before so he initially associated his symptoms of palpitations and increasing shortness of breath with this medication (Lurbinectedin), but reported when his palpitations worsened and his heart rate was in the 150s he came to the emergency department for evaluation. Upon arrival patient underwent full ev aluation. Vital signs show blood pressure 122/79, heart rate 104, respiratory rate 18, temp 98.0F, SpO2 of 90% on room air and later dropping down to 85% on room air requiring oxygen supplementation. EKG was completed showing sinus rhythm with frequent PACs and occasional PVCs. Chest x-ray completed showing peripheral bilateral lung infiltrates with elevation of the right diaphragm. Labs were completed and reviewed. CBC unremarkable. BMP revealing mild hyponatremia with sodium of 134, hypocarbia with bicarb of 20 and slightly elevated BUN of 22. Liver profile showing elevated alkaline phosphatase of 148 otherwise normal findings. Troponin 0.013 and TSH is 0.787. Coagulation profile normal findings with the exception of elevated d-dimer of 1.86. Lactic acid 1.6. CTA chest completed secondary to elevated d-dimer which was negative for PE revealing right upper lobe mass and consolidation with hypodense lesions within the liver corresponding to findings on recent PET scan. Patient was admitted under our services with consultation to pulmonology, hematology, and cardiology. Physical exam: Vital signs reviewed and stable. General: Nontoxic, no distress and appears stated age. Derm: Skin warm and dry, normal coloration for ethnicity. Head: Atraumatic, normocephalic and symmetric. Eyes: EOMs intact, no lid lag, and anicteric sclera Mouth: no lip lesions, mucus membranes moist Cardiovascular: regular rate and rhythm with normal S1S2, no murmur, positive posterior tibial pulses bilaterally, and cap refill < 2 seconds. Lungs: Respirations even, regular, and unlabored on room air. Lungs slightly diminished otherwise CTA bilaterally, no rhonchi, no rales, no wheezing, and no accessory muscle usage. Abdominal: soft, nontender to palpation, no guarding, no appreciable organomegaly Ext: ROM intact. No gross muscle atrophy, no edema, no contractures Neuro: Speech clear, face symmetrical and CN II-XII grossly intact with no noted focal neuro deficits Psych: Alert and oriented to person, place, time, and situation. Appropriate and pleasant affect. Assessment and Plan of Care: Patient seen and fully evaluated at bedside this morning. An A-team was called on patient this morning secondary to recurrent episode of palpitations. Patient was found to be in SVT. Patient initially performed vasovagal maneuvers which did temporarily stop run of SVT however patient having recurrent runs of SVT. Order placed for metoprolol 2.5 mg IVP and patient converting back into normal sinus rhythm with heart rate in 60s. Patient being transferred to 3 S. cardiac stepdown unit for closer monitoring. Cardiology evaluated and started patient on Cardizem infusion and discussed recommendations for SVT ablation. Recurrent runs of SVT Acute on chronic respiratory failure with hypoxia Metastatic small cell lung cancer Hypertension Hyperlipidemia -Pulmonary following, reviewed documentation in chart. -Cardiology following, started patient on Cardizem infusion and recommending ablation for SVT -Oxygenation to be administered and titrated as needed to maintain SPO2 equal to or greater than 90% -Telemetry monitoring. -Monitor Pulse-oximetry -Duonebs scheduled for times daily and as needed for SOB and/or wheezing -Incentive Spirometry -Steroids: Solu-Medrol 60 mg IVP every 8 hours -Continue with IV antibiotics azithromycin day / -Oncology following, reviewed documentation in chart. -Order placed for home O2 evaluation -Pro-calcitonin was slightly elevated at 0.65. Nyx-mmstreb-ptuexsnne diabetes mellitus Hold Trijardy and continue glycemic protocol with NovoLog sliding scale. Hemoglobin A1c 6.7%. Data and imaging reviewed: Vital signs reviewed. Blood pressure 139/73, heart rate 93, respiratory rate 18, temp 98F, and SpO2 of 95% on 2 L. Morning labs reviewed. CBC showing stable normocytic anemia with hemoglobin of 11.8. BMP unremarkable. Magnesium 2.0. Blood glucose 168. Calcium normal findings at 9.4. Magnesium 2.0. CODE STATUS: Full code DVT prophylaxis: Lovenox Anticipated discharge date: Clinical course to determine Anticipated discharge place: Clinical course to determine Patient was seen independently by Nurse Practitioner. This document was prepared using [employer] dictation software. Please allow for errors in escalator service mechanic while rare they do occur. Guido Lutz NP rendered care for this patient independently, reviewed the findings and plan as documented in the note above. I did not physically speak with or examine the patient on this date. Objective - Vital Signs Vital signs: Vital Signs Temp 97.6 F 05/29/23 07:53 Pulse 72 05/29/23 07:53 Resp 16 05/29/23 07:53 BP 134/70 05/29/23 07:53 Pulse Ox 97 05/29/23 07:53 FiO2 Intake & Output 05/28/23 05/29/23 05/29/23 18:59 06:59 18:59 Intake Total 1440 Output Total 500 Balance -500 1440 Weight 68.039 kg Intake: Intake, IV Titration 900 Amount Sodium Chloride 0.9% 1, 900 000 ml @ 75 mls/hr IV . [id number] [facility] Rx#:[id number] Oral 540 Output: Urine 500 Other: Voiding Method Toilet # Voids 2 3 - Labs CBC & Chem 7: 05/30/23 08:06 05/30/23 08:06 Labs: Abnormal Lab Results - Last 24 Hours (Table) 05/27/23 05/28/23 05/28/23 Range/Units 05:54 07:30 09:42 POC Glucose (mg/dL) 295 H (70-110) mg/dL Hemoglobin A1c 6.7 H (<=6.0) % Procalcitonin 0.65 H (0.02-0.09) ng/mL 05/28/23 05/28/23 05/28/23 Range/Units 14:13 18:10 20:52 POC Glucose (mg/dL) 272 H 184 H 217 H (70-110) mg/dL Hemoglobin A1c (<=6.0) % Procalcitonin (0.02-0.09) ng/mL 05/29/23 Range/Units 07:57 POC Glucose (mg/dL) 150 H (70-110) mg/dL Hemoglobin A1c (<=6.0) % Procalcitonin (0.02-0.09) ng/mL
[2023-05-29 14:25] VITALS: BMI 22.1
[2023-05-29 16:15] LABS: Glucose,Whole Blood 282 mg/dL (70-110)
[2023-05-29 16:26] LABS: LDL Cholesterol,Calculated 137.2 mg/dL (0.0-131.0)
--- NOTE | 2023-05-29 17:11 | P.PN ---
Subjective Progress Note Date: 05/29/23 This is a very pleasant 73-year-old male patient with a known history of diabetes mellitus, hypertension, hyperlipidemia, former smoker. He has a history of lung cancer and received radiation/chemotherapy. He PET scan from April to revealed progression of disease with increasing righ t neck lymphadenopathy with metabolic activity, increasing scattered pulmonary nodules, at least to liver metabolically active lesions are present. Additionally there is increasing metabolic activity within the right midlung possibly related to prior malignancy. MRI of the brain revealed a stable medial right cerebellar focus of enhancement. No additional suspicious lesions. He is currently undergoing immunotherapy and recently started Zepzelca. Since that time he has been having increasing shortness of breath and tachycardia. He does have previous history of SVT and atrial tachycardia and is maintained on metoprolol. He took an extra dose yesterday without much improvement. Stated h is oxygen was at about 85% and is usually higher than 88%. He presented to the emergency room last evening. CT angiogram ruled out pulmonary embolism. There is a right upper lobe mass and consolidation and hypodense lesions within the liver corresponding to recent PET scan findings. White count 4.0. Hemoglobin 11.9. Platelets 261. Sodium 138. Potassium 5.1. Bicarb 24. BUN 19. Creatinine 0.9. Glucose 146. Viral screen negative. The patient is seen today 05/28/2023 in follow-up in the emergency department. He is currently sitting up in bed. Awake and alert in no acute distress. He is maintaining good O2 saturations in the 90s on 2 L/m per nasal cannula. He has normal saline at 75 ML's per hour. He is continued on Symbicort, DuoNeb inhalations, IV Medrol and azithromycin. Lovenox for DVT prophylaxis. White count 5.1. Hemoglobin 11.9. Platelets 274. Sodium 137. Potassium 4.6. Bicarb 24. BUN 20. Creatinine 0.79. Glucose 167. Procalcitonin 0.65. On today's evaluation of 05/29/2023, the patient is being seen for a follow-up. The patient got transferred to [facility] as the patient is having recurrent episodes of SVT. Cardiology saw the patient. One of those episodes broke with vagal maneuvers. Subsequently, the patient went into SVT again. Patient was given 2.5 mg of IV metoprolol and he converted back into sinus rhythm. Adequacy was not given. Accordingly, the patient got transferred to [facility] and the patient was started on Cardizem drip at 5 mg an hour. The metoprolol dose was also increased up to 75 mg daily. 2-D echo cardiac was also ordered. Last echocardiogram from December 2021 was within normal limits. Noted the patient's had a CT angiogram of the chest of the time of admission. There was no evidence of any pulmonary embolism. There was a right upper lobe mass and consolidation and hypodense lesions in the liver corresponding with his history of lung cancer. Blood work from today shows WBC count of 5, hemoglobin 11.8 and a platelet count of 307. Sodium is 139, potassium is at 4.7, BUN is at 80 with a creatinine of 0.8 and LFTs are within normal limits. The patient is on DuoNeb updrafts, IV Solu-Medrol, Symbicort as maintenance 2 puffs twice a day and adjustment the cardiac medication was mentioned. Most recent heart rate is down to 86. Objective - Vital Signs Vital signs: Vital Signs Temp 98.3 F 05/29/23 15:43 Pulse 72 05/29/23 16:47 Resp 18 05/29/23 15:43 BP 112/61 05/29/23 15:43 Pulse Ox 94 L 05/29/23 15:43 FiO2 Intake & Output 05/28/23 05/29/23 05/29/23 18:59 06:59 18:59 Intake Total 1440 480 Output Total 500 450 Balance -500 1440 30 Weight 68.039 kg 68.039 kg Intake: Intake, IV Titration 900 Amount Sodium Chloride 0.9% 1, 900 000 ml @ 75 mls/hr IV . [id number] [facility] Rx#:[id number] Oral 540 480 Output: Urine 500 450 Other: Voiding Method Toilet Toilet # Voids 2 3 2 - Exam GENERAL EXAM: Alert, 73-year-old male, on 3 L nasal cannula, comfortable in no apparent distress. HEAD: Normocephalic. EYES: Normal reaction of pupils, equal size. NOSE: Clear with pink turbinates. THROAT: No erythema or exudates. NECK: No masses, no JVD. CHEST: No chest wall deformity. LUNGS: Equal air entry with no crackles, wheeze, rhonchi or dullness. CVS: S1 and S2 normal with no audible murmur, regular rhythm. ABDOMEN: No hepatosplenomegaly, normal bowel sounds, no guarding or rigidity. SPINE: No scoliosis or deformity SKIN: No rashes CENTRAL NERVOUS SYSTEM: No focal deficits, tone is normal in all 4 extremities. EXTREMITIES: There is no peripheral edema. No clubbing, no cyanosis. Peripheral pulses are intact. - Labs CBC & Chem 7: 05/29/23 06:21 05/29/23 06:21 Labs: Abnormal Lab Results - Last 24 Hours (Table) 05/28/23 05/28/23 05/29/23 Range/Units 18:10 20:52 06:21 RBC 3.94 L (4.40-5.60) X 10*6/uL Hgb 11.8 L (13.0-17.0) g/dL Hct 36.8 L (39.6-50.0) % RDW 15.0 H (11.5-14.5) % MPV 9.4 L (9.5-12.2) FL BUN/Creatinine Ratio (12.00-20.00) Ratio Glucose (70-110) mg/dL POC Glucose (mg/dL) 184 H 217 H (70-110) mg/dL Total Protein (6.2-8.2) g/dL Albumin (3.8-4.9) g/dL Albumin/Globulin Ratio (1.60-3.17) Ratio Cholesterol (0.00-200.00) mg/dL LDL Cholesterol, Calc (0.0-131.0) mg/dL 05/29/23 05/29/23 05/29/23 Range/Units 06:21 06:21 07:57 RBC (4.40-5.60) X 10*6/uL Hgb (13.0-17.0) g/dL Hct (39.6-50.0) % RDW (11.5-14.5) % MPV (9.5-12.2) FL BUN/Creatinine Ratio 22.62 H (12.00-20.00) Ratio Glucose 168 H (70-110) mg/dL POC Glucose (mg/dL) 150 H (70-110) mg/dL Total Protein 6.1 L (6.2-8.2) g/dL Albumin 3.7 L (3.8-4.9) g/dL Albumin/Globulin Ratio 1.54 L (1.60-3.17) Ratio Cholesterol 213.00 H (0.00-200.00) mg/dL LDL Cholesterol, Calc 137.2 H (0.0-131.0) mg/dL 05/29/23 05/29/23 Range/Units 11:50 16:13 RBC (4.40-5.60) X 10*6/uL Hgb (13.0-17.0) g/dL Hct (39.6-50.0) % RDW (11.5-14.5) % MPV (9.5-12.2) FL BUN/Creatinine Ratio (12.00-20.00) Ratio Glucose (70-110) mg/dL POC Glucose (mg/dL) 246 H 282 H (70-110) mg/dL Total Protein (6.2-8.2) g/dL Albumin (3.8-4.9) g/dL Albumin/Globulin Ratio (1.60-3.17) Ratio Cholesterol (0.00-200.00) mg/dL LDL Cholesterol, Calc (0.0-131.0) mg/dL Assessment and Plan Plan: COPD exacerbation/ bronchitis. Pro-calcitonin level is minimally elevated,. There is no clear indication for an underlying pneumonia. The patient is currently on Zithromax. The patient also on bronchodilators and steroids. 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 The patient's most recent PET/CT from April 2023 showed disease progression and the patient is currently on alkylating agent with Zepzelca AV alondra reentry tachycardia, recurrent, currently on a Cardizem drip and the patient is also on beta blockers with metoprolol. History of AV block Dysautonomia with a positive table tilt test in January 2022 Previous history of SVT History of chronic obstructive pulmonary disease Former smoker Diabetes mellitus Hypertension Plan: Titrate Oxygen flow to maintain saturation above 90%, currently on 3 L Continue DuoNeb Continue Symbicort 2 puffs twice a day IV Solu-Medrol 60 g every 6 hours Cardizem drip regarding AV node reentrant tachycardia Beta blockers and the patient is currently on metoprolol Echocardiogram is pending Patient is currently on 3 S. We'll continue to follow
--- NOTE | 2023-05-29 17:32 | CA ---
Transthoracic Echo Report Name: Lawrence Schaefer Age: 73 Gender: M : 1950 Exam Date: 05/29/2023 13:08 Exam Location: [place] [facility] Ht (in): 69 Wt (lb): 150 Ordering Physician: Monty Son MD [id number]) Attending/Referring Phys: [employer] Princess Sapp RDCS Procedure CPT: Indications: tachycardia Cardiac Hx: Technical Quality: Good Contrast 1: Total Dose (mL): Contrast 2: Total Dose (mL): MEASUREMENTS (Male / Female) Normal Values 2D ECHO LV Diastolic Diameter PLAX 3.7 cm 4.2 - 5.9 / 3.9 - 5.3 cm LV Systolic Diameter PLAX 2.4 cm IVS Diastolic Thickness 1.2 cm 0.6 - 1.0 / 0.6 - 0.9 cm LVPW Diastolic Thickness 1.2 cm 0.6 - 1.0 / 0.6 - 0.9 cm LV Relative Wall Thickness 0.6 RV Internal Dim ED PLAX 3.6 cm LA Systolic Diameter LX 3.4 cm 3.0 - 4.0 / 2.7 - 3.8 cm LV Diastolic Volume MOD 4C 83.4 cm??? LV Systolic Volume MOD 4C 44.8 cm??? LV Ejection Fraction MOD 4C 46.3 % LV Cardiac Index MOD 4C 1442.0 cm???/min???m??? LV Diastolic Length 4C 8.9 cm LV Systolic Length 4C 7.7 cm LV Diastolic Volume MOD 2C 92.0 cm??? LV Systolic Volume MOD 2C 48.5 cm??? LV Ejection Fraction MOD 2C 47.3 % LV Cardiac Index MOD 2C 1626.3 cm???/min???m??? LV Diastolic Length 2C 9.4 cm LV Systolic Length 2C 7.7 cm LA Volume 57.5 cm??? 18 - 58 / 22 - 52 cm??? LA Volume Index 31.6 cm???/m??? 16 - 28 cm???/m??? M-MODE Aortic Root Diameter MM 3.7 cm MV E Point Septal Separation 0.2 cm AV Cusp Separation MM 2.4 cm DOPPLER AV Peak Velocity 163.4 cm/s AV Peak Gradient 10.7 mmHg MV Area PHT 4.2 cm??? Mitral E Point Velocity 127.3 cm/s Mitral A Point Velocity 78.8 cm/s Mitral E to A Ratio 1.6 MV Deceleration Time 182.4 ms MV E' Velocity 9.7 cm/s Mitral E to MV E' Ratio 13.1 TR Peak Velocity 372.2 cm/s TR Peak Gradient 55.4 mmHg Right Ventricular Systolic Press 59.5 mmHg FINDINGS Left Ventricle Left ventricular ejection fraction is estimated at 50-55 %. Small left ventricular cavity. Mildly increased septal wall thickness. Right Ventricle Mild right ventricular dilatation. Severe pulmonary hypertension. Right ventricular systolic pressure estimated at 60 mm hg. Right Atrium Normal right atrial size. Left Atrium Mildly increased left atrial volume. Mitral Valve Structurally normal mitral valve. Mitral annular calcification. No mitral stenosis, regurgitation or prolapse. Aortic Valve Trileaflet aortic valve. No aortic valve stenosis or regurgitation. Tricuspid Valve Structurally normal tricuspid valve. [id number] tricuspid regurgitation. Pulmonic Valve Structurally normal pulmonic valve. Trace pulmonic regurgitation. Pericardium No pericardial effusion. Aorta Normal size aortic root and proximal ascending aorta. CONCLUSIONS Normal LV size and systolic function Mildly enlarged right ventricle with hypokinetic distal free wall to the apex of the right ventricle RVSP estimated at 60 mmHg, Previewed by: Dr. Jhony Mckinnon MD (Electronically Signed) Final Date: 29 May 2023 17:31
[2023-05-29 19:58] LABS: Glucose,Whole Blood 284 mg/dL (70-110)
[2023-05-29] MEDS ORDERED: bisacodyL 5 MG TABLET.DR PO STA (20:18)
[2023-05-29] MEDS: AZITHROMYCIN 500 MG in SODIUM CHLORIDE 0.9% 250 ML IVPB SCH (21:06)
[2023-05-30 06:09] LABS: Glucose,Whole Blood 195 mg/dL (70-110)
[2023-05-30] MEDS: INSULIN ASPART (NovoLOG) 100 UNIT/ML VIAL SQ SCH ×4 (06:30→20:28)
[2023-05-30] MEDS: SODIUM CHLORIDE 0.9% 1,000 ML IV SCH ×4 (06:31→17:11)
[2023-05-30] MEDS: IPRATROPIUM-ALBUTEROL 3 ML NEB INHALATION SCH ×4 (07:45→21:51)
[2023-05-30] MEDS: SYMBICORT 160-4.5 MCG INHALER INHALATION SCH ×2 (07:45→21:51)
[2023-05-30] MEDS: CHOLECALCIFEROL 125 MCG (5000 IU) TABLET PO SCH (08:24)
[2023-05-30] MEDS: ENOXAPARIN 40 MG/0.4 ML SYRINGE SQ SCH (08:24)
[2023-05-30] MEDS: PANTOPRAZOLE 40 MG/10 ML VIAL IV SCH (08:24)
[2023-05-30] MEDS: methylPREDNISolone SOD SUCCI 125 MG/2 ML VIAL IV SCH ×3 (08:24→23:04)
[2023-05-30] MEDS: BENZONATATE 100 MG CAP PO SCH ×3 (08:24→20:28)
[2023-05-30] MEDS: MULTIVITAMINS, THERA 1 EACH TAB PO SCH (08:24)
[2023-05-30] MEDS ORDERED: METOPROLOL TARTRATE 50 MG TAB PO SCH (09:00)
[2023-05-30 09:24] LABS: HCT 36.7 % (39.0-53.0); Hypochromasia Slight; MCH 30.7 pg (25.0-35.0); MCHC 32.6 g/dL (31.0-37.0); MCV 94.1 fL (80.0-100.0); Mean Platelet Volume 7.7; Platelet Count 296 k/uL (150-450); RDW 15.3 % (11.5-15.5)
[2023-05-30 09:46] LABS: ALT 54 U/L (4-49); AST 39 U/L (17-59); African American GFR (CKD) >90 (>60 ml/min/1.73 sqM); Albumin 3.5 g/dL (3.5-5.0); Alkaline Phosphatase 157 U/L (38-126); Anion Gap 6 mmol/L; Blood Urea Nitrogen 19 mg/dL (9-20); Calcium 9.1 mg/dL (8.4-10.2); Carbon Dioxide 27 mmol/L (22-30); Chloride 104 mmol/L (98-107); Glucose 159 mg/dL (74-99); Non-African American GFR(CKD) >90 (>60 ml/min/1.73 sqM); Potassium 4.3 mmol/L (3.5-5.1); Sodium 137 mmol/L (137-145); Total Bilirubin 0.5 mg/dL (0.2-1.3); Total Protein 6.3 g/dL (6.3-8.2)
[2023-05-30] MEDS: DILTIAZEM 125 MG in SODIUM CHLORIDE 0.9% 100 ML IV SCH (10:59)
[2023-05-30 11:35] LABS: Glucose,Whole Blood 210 mg/dL (70-110)
--- NOTE | 2023-05-30 12:19 | P.PN ---
Subjective Progress Note Date: 05/30/23 This is a very pleasant 73-year-old male patient with a known history of diabetes mellitus, hypertension, hyperlipidemia, former smoker. He has a history of lung cancer and received radiation/chemotherapy. He PET scan from April to revealed progression of disease with increasing righ t neck lymphadenopathy with metabolic activity, increasing scattered pulmonary nodules, at least to liver metabolically active lesions are present. Additionally there is increasing metabolic activity within the right midlung possibly related to prior malignancy. MRI of the brain revealed a stable medial right cerebellar focus of enhancement. No additional suspicious lesions. He is currently undergoing immunotherapy and recently started Zepzelca. Since that time he has been having increasing shortness of breath and tachycardia. He does have previous history of SVT and atrial tachycardia and is maintained on metoprolol. He took an extra dose yesterday without much improvement. Stated h is oxygen was at about 85% and is usually higher than 88%. He presented to the emergency room last evening. CT angiogram ruled out pulmonary embolism. There is a right upper lobe mass and consolidation and hypodense lesions within the liver corresponding to recent PET scan findings. White count 4.0. Hemoglobin 11.9. Platelets 261. Sodium 138. Potassium 5.1. Bicarb 24. BUN 19. Creatinine 0.9. Glucose 146. Viral screen negative. The patient is seen today 05/28/2023 in follow-up in the emergency department. He is currently sitting up in bed. Awake and alert in no acute distress. He is maintaining good O2 saturations in the 90s on 2 L/m per nasal cannula. He has normal saline at 75 ML's per hour. He is continued on Symbicort, DuoNeb inhalations, IV Medrol and azithromycin. Lovenox for DVT prophylaxis. White count 5.1. Hemoglobin 11.9. Platelets 274. Sodium 137. Potassium 4.6. Bicarb 24. BUN 20. Creatinine 0.79. Glucose 167. Procalcitonin 0.65. On today's evaluation of 05/29/2023, the patient is being seen for a follow-up. The patient got transferred to [facility] as the patient is having recurrent episodes of SVT. Cardiology saw the patient. One of those episodes broke with vagal maneuvers. Subsequently, the patient went into SVT again. Patient was given 2.5 mg of IV metoprolol and he converted back into sinus rhythm. Adequacy was not given. Accordingly, the patient got transferred to [facility] and the patient was started on Cardizem drip at 5 mg an hour. The metoprolol dose was also increased up to 75 mg daily. 2-D echo cardiac was also ordered. Last echocardiogram from December 2021 was within normal limits. Noted the patient's had a CT angiogram of the chest of the time of admission. There was no evidence of any pulmonary embolism. There was a right upper lobe mass and consolidation and hypodense lesions in the liver corresponding with his history of lung cancer. Blood work from today shows WBC count of 5, hemoglobin 11.8 and a platelet count of 307. Sodium is 139, potassium is at 4.7, BUN is at 80 with a creatinine of 0.8 and LFTs are within normal limits. The patient is on DuoNeb updrafts, IV Solu-Medrol, Symbicort as maintenance 2 puffs twice a day and adjustment the cardiac medication was mentioned. Most recent heart rate is down to 86. On 05/30/2023, the patient is being seen for a follow-up. Overall respiratory status is unchanged since yesterday. As mentioned, the patient was having recurrent AV alondra reentry tachycardia and the patient is going to undergo an ablation today. Remains on DuoNeb updrafts. Remains on IV Solu-Medrol. He is also on Symbicort as maintenance. Nontender worsening shortness of breath. He is on normal saline running at 75 mL an hour. He is on metformin 75 mg by mouth daily. The Cardizem drip has been discontinued. Clinically, the patient is stable. Denies having any significant shortness of breath at rest. In fact, reports improvement in his COPD exacerbations the patient is less bronchospastic and wheezy. Echo of the heart was also completed and the patient is a preserved LV function with an ejection fraction of 50-55%. There was mildly enlarged RV and the right ventricular systolic pressure was estimated to be around 60. Mitral valve was normal. Aortic valve was normal. Objective - Vital Signs Vital signs: Vital Signs Temp 97.9 F 05/30/23 08:00 Pulse 74 05/30/23 08:00 Resp 20 05/30/23 08:00 BP 137/63 05/30/23 08:00 Pulse Ox 95 05/30/23 08:00 FiO2 Intake & Output 05/29/23 05/30/23 05/30/23 18:59 06:59 18:59 Intake Total 480 387.333 0 Output Total 450 Balance 30 387.333 0 Weight 68.039 kg Intake: IV 75 0.9 75 Intake, IV Titration 312.333 0 Amount Azithromycin 500 mg In 250 Sodium Chloride 0.9% 250 ml @ 250 mls/hr IVPB HS [facility] Rx#:[id number] Diltiazem 125 mg In 62.333 0 Sodium Chloride 0.9% 100 ml @ 5 MG/HR 5 mls/hr IV .Q24H [facility] Rx#:[id number] Oral 480 Output: Urine 450 Other: Voiding Method Toilet Toilet Toilet # Voids 2 2 - Exam GENERAL EXAM: Alert, 73-year-old male, on 3 L nasal cannula, comfortable in no apparent distress. HEAD: Normocephalic. EYES: Normal reaction of pupils, equal size. NOSE: Clear with pink turbinates. THROAT: No erythema or exudates. NECK: No masses, no JVD. CHEST: No chest wall deformity. LUNGS: Equal air entry with no crackles, wheeze, rhonchi or dullness. CVS: S1 and S2 normal with no audible murmur, regular rhythm. ABDOMEN: No hepatosplenomegaly, normal bowel sounds, no guarding or rigidity. SPINE: No scoliosis or deformity SKIN: No rashes CENTRAL NERVOUS SYSTEM: No focal deficits, tone is normal in all 4 extremities. EXTREMITIES: There is no peripheral edema. No clubbing, no cyanosis. Peripheral pulses are intact. - Labs CBC & Chem 7: 05/30/23 08:06 05/30/23 08:06 Labs: Abnormal Lab Results - Last 24 Hours (Table) 05/29/23 05/29/23 05/29/23 Range/Units 06:21 06:21 06:21 RBC 3.94 L (4.40-5.60) X 10*6/uL Hgb 11.8 L (13.0-17.0) g/dL Hct 36.8 L (39.6-50.0) % RDW 15.0 H (11.5-14.5) % MPV 9.4 L (9.5-12.2) FL Creatinine (0.66-1.25) mg/dL BUN/Creatinine Ratio 22.62 H (12.00-20.00) Ratio Glucose 168 H (70-110) mg/dL POC Glucose (mg/dL) (70-110) mg/dL ALT (4-49) U/L Alkaline Phosphatase (38-126) U/L Total Protein 6.1 L (6.2-8.2) g/dL Albumin 3.7 L (3.8-4.9) g/dL Albumin/Globulin Ratio 1.54 L (1.60-3.17) Ratio Cholesterol 213.00 H (0.00-200.00) mg/dL LDL Cholesterol, Calc 137.2 H (0.0-131.0) mg/dL 05/29/23 05/29/23 05/29/23 Range/Units 11:50 16:13 19:56 RBC (4.40-5.60) X 10*6/uL Hgb (13.0-17.0) g/dL Hct (39.6-50.0) % RDW (11.5-14.5) % MPV (9.5-12.2) FL Creatinine (0.66-1.25) mg/dL BUN/Creatinine Ratio (12.00-20.00) Ratio Glucose (70-110) mg/dL POC Glucose (mg/dL) 246 H 282 H 284 H (70-110) mg/dL ALT (4-49) U/L Alkaline Phosphatase (38-126) U/L Total Protein (6.2-8.2) g/dL Albumin (3.8-4.9) g/dL Albumin/Globulin Ratio (1.60-3.17) Ratio Cholesterol (0.00-200.00) mg/dL LDL Cholesterol, Calc (0.0-131.0) mg/dL 05/30/23 05/30/23 05/30/23 Range/Units 06:06 08:06 08:06 RBC 3.90 L (4.40-5.60) X 10*6/uL Hgb 12.0 L (13.0-17.0) g/dL Hct 36.7 L (39.6-50.0) % RDW (11.5-14.5) % MPV (9.5-12.2) FL Creatinine 0.59 L (0.66-1.25) mg/dL BUN/Creatinine Ratio (12.00-20.00) Ratio Glucose 159 H (70-110) mg/dL POC Glucose (mg/dL) 195 H (70-110) mg/dL ALT 54 H (4-49) U/L Alkaline Phosphatase 157 H (38-126) U/L Total Protein (6.2-8.2) g/dL Albumin (3.8-4.9) g/dL Albumin/Globulin Ratio (1.60-3.17) Ratio Cholesterol (0.00-200.00) mg/dL LDL Cholesterol, Calc (0.0-131.0) mg/dL Assessment and Plan Plan: COPD exacerbation/ bronchitis. Pro-calcitonin level is minimally elevated,. There is no clear indication for an underlying pneumonia. The patient also on bronchodilators and steroids. Clinically improving and in terms of his COPD exacerbation while being covered with accommodation of bronchodilators and steroids. 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 The patient's most recent PET/CT from April 2023 showed disease progression and the patient is currently on alkylating agent with Zepzelca AV alondra reentry tachycardia, recurrent, currently off Cardizem drip and the patient is also on beta blockers with metoprolol taken 75 mg of metoprolol and a daily basis History of AV block Dysautonomia with a positive table tilt test in January 2022 Previous history of SVT History of chronic obstructive pulmonary disease Former smoker Diabetes mellitus Hypertension Plan: Titrate Oxygen flow to maintain saturation above 90%, currently on 2 Continue DuoNeb Continue Symbicort 2 puffs twice a day IV Solu-Medrol 60 g every 6 hours Beta blockers and the patient is currently on metoprolol Cardiac ablation Echocardiogram is noted We'll continue to follow
[2023-05-30] MEDS ORDERED: CALCIUM CHLORIDE 100 MG/ML 10 ML SYRINGE ONE (13:38)
[2023-05-30] MEDS ORDERED: HEPARIN SODIUM,PORCINE 5,000 UNIT/ML 1 ML VIAL ONE (13:38)
[2023-05-30] MEDS ORDERED: MIDAZOLAM 2 MG/2 ML VIAL ONE (13:38)
[2023-05-30] MEDS ORDERED: ISOPROTERENOL 250 MCG/1.25 ML SYR IV ONE (13:38)
[2023-05-30] MEDS ORDERED: fentaNYL (PF) 50 MCG/ML 2 ML AMP ONE (13:38)
[2023-05-30] MEDS ORDERED: LIDOCAINE 1% INJ 10MG/ML (20 ML MDV) ONE (13:42)
[2023-05-30] MEDS ORDERED: IV FLUID CONTINUATION 700 ML IV ONE (13:42)
--- NOTE | 2023-05-30 13:54 | P.PN ---
Subjective Progress Note Date: 05/30/23 Hospital Course: Patient is a very pleasant 73-year-old male with a past medical history of lung cancer currently undergoing intravenous chemotherapy treatments with Dr. Coughlin with last treatment being last week, hypertension, hyperlipidemia, and vgl-iajufnc-rzrkzhajl diabetes mellitus. He presented to the emergency department on 05/26/23 secondary to a chief complaint of shortness of breath and palpitations. He reported that he is currently undergoing his fifth round of chemotherapy and was just started on a different medication that he has not had before so he initially associated his symptoms of palpitations and increasing shortness of breath with this medication (Lurbinectedin), but reported when his palpitations worsened and his heart rate was in the 150s he came to the emergency department for evaluation. Upon arrival patient underwent full ev aluation. Vital signs show blood pressure 122/79, heart rate 104, respiratory rate 18, temp 98.0F, SpO2 of 90% on room air and later dropping down to 85% on room air requiring oxygen supplementation. EKG was completed showing sinus rhythm with frequent PACs and occasional PVCs. Chest x-ray completed showing peripheral bilateral lung infiltrates with elevation of the right diaphragm. Labs were completed and reviewed. CBC unremarkable. BMP revealing mild hyponatremia with sodium of 134, hypocarbia with bicarb of 20 and slightly elevated BUN of 22. Liver profile showing elevated alkaline phosphatase of 148 otherwise normal findings. Troponin 0.013 and TSH is 0.787. Coagulation profile normal findings with the exception of elevated d-dimer of 1.86. Lactic acid 1.6. CTA chest completed secondary to elevated d-dimer which was negative for PE revealing right upper lobe mass and consolidation with hypodense lesions within the liver corresponding to findings on recent PET scan. Patient was admitted under our services with consultation to pulmonology, hematology, and cardiology. Physical exam: Vital signs reviewed and stable. General: Nontoxic, no distress and appears stated age. Derm: Skin warm and dry, normal coloration for ethnicity. Head: Atraumatic, normocephalic and symmetric. Eyes: EOMs intact, no lid lag, and anicteric sclera Mouth: no lip lesions, mucus membranes moist Cardiovascular: regular rate and rhythm with normal S1S2, no murmur, positive posterior tibial pulses bilaterally, and cap refill < 2 seconds. Lungs: Respirations even, regular, and unlabored on room air. Lungs slightly diminished otherwise CTA bilaterally, no rhonchi, no rales, no wheezing, and no accessory muscle usage. Abdominal: soft, nontender to palpation, no guarding, no appreciable organomegaly Ext: ROM intact. No gross muscle atrophy, no edema, no contractures Neuro: Speech clear, face symmetrical and CN II-XII grossly intact with no noted focal neuro deficits Psych: Alert and oriented to person, place, time, and situation. Appropriate and pleasant affect. Assessment and Plan of Care: Patient seen and fully evaluated at bedside this morning. Patient resting comfortably at this time and denies having any complaints or needs. Patient remains in sinus mechanism and has had no further episodes of SVT since additional dose of IV Lopressor was administered. Patient is scheduled to undergo cardiac ablation for SVT later this afternoon. Recurrent runs of SVT Acute on chronic respiratory failure with hypoxia Metastatic small cell lung cancer Hypertension Hyperlipidemia -Pulmonary following, reviewed documentation in chart. -Cardiology following, taking patient for cardiac ablation for SVT later this afternoon. -Oxygenation to be administered and titrated as needed to maintain SPO2 equal to or greater than 90% -Telemetry monitoring. -Monitor Pulse-oximetry -Duonebs scheduled for times daily and as needed for SOB and/or wheezing -Incentive Spirometry -Steroids: Solu-Medrol 60 mg IVP every 8 hours -Oncology following, reviewed documentation in chart. -Order placed for home O2 evaluation -Pro-calcitonin was slightly elevated at 0.65. Patient completed 3 day course of azithromycin. -TSH normal findings is 0.787. Diu-vkqubcy-igffxvvdj diabetes mellitus Hold Trijardy and continue glycemic protocol with NovoLog sliding scale. Hemoglobin A1c 6.7%. Data and imaging reviewed: Vital signs reviewed. Blood pressure 137/63, heart rate 74, respiratory rate 20, temp 97.9F, SpO2 of 95% on 2 L. Morning labs reviewed. CBC showing normocytic anemia with hemoglobin stable at 12.0. BMP unremarkable. Blood glucose 159. Liver profile showing elevated ALT of 54 and alkaline phosphatase of 157. Magnesium remains normal findings at 2.0. CODE STATUS: Full code DVT prophylaxis: Lovenox Anticipated discharge date: Clinical course to determine Anticipated discharge place: Clinical course to determine Patient was seen independently by Nurse Practitioner. This document was prepared using [employer] dictation software. Please allow for errors in software verification engineer while rare they do occur. Guido Lutz NP rendered care for this patient independently, reviewed the findings and plan as documented in the note above. I did not physically speak with or examine the patient on this date. Objective - Vital Signs Vital signs: Vital Signs Temp 97.6 F 05/30/23 03:55 Pulse 60 05/30/23 07:56 Resp 18 05/30/23 03:55 BP 138/61 05/30/23 03:55 Pulse Ox 96 05/30/23 07:45 FiO2 Intake & Output 05/29/23 05/30/23 05/30/23 18:59 06:59 18:59 Intake Total 480 387.333 Output Total 450 Balance 30 387.333 Weight 68.039 kg Intake: IV 75 0.9 75 Intake, IV Titration 312.333 Amount Azithromycin 500 mg In 250 Sodium Chloride 0.9% 250 ml @ 250 mls/hr IVPB HS [facility] Rx#:[id number] Diltiazem 125 mg In 62.333 Sodium Chloride 0.9% 100 ml @ 5 MG/HR 5 mls/hr IV .Q24H [facility] Rx#:[id number] Oral 480 Output: Urine 450 Other: Voiding Method Toilet Toilet # Voids 2 2 - Labs CBC & Chem 7: 05/30/23 08:06 05/30/23 08:06 Labs: Abnormal Lab Results - Last 24 Hours (Table) 05/29/23 05/29/23 05/29/23 Range/Units 06:21 06:21 06:21 RBC 3.94 L (4.40-5.60) X 10*6/uL Hgb 11.8 L (13.0-17.0) g/dL Hct 36.8 L (39.6-50.0) % RDW 15.0 H (11.5-14.5) % MPV 9.4 L (9.5-12.2) FL BUN/Creatinine Ratio 22.62 H (12.00-20.00) Ratio Glucose 168 H (70-110) mg/dL POC Glucose (mg/dL) (70-110) mg/dL Total Protein 6.1 L (6.2-8.2) g/dL Albumin 3.7 L (3.8-4.9) g/dL Albumin/Globulin Ratio 1.54 L (1.60-3.17) Ratio Cholesterol 213.00 H (0.00-200.00) mg/dL LDL Cholesterol, Calc 137.2 H (0.0-131.0) mg/dL 05/29/23 05/29/23 05/29/23 Range/Units 07:57 11:50 16:13 RBC (4.40-5.60) X 10*6/uL Hgb (13.0-17.0) g/dL Hct (39.6-50.0) % RDW (11.5-14.5) % MPV (9.5-12.2) FL BUN/Creatinine Ratio (12.00-20.00) Ratio Glucose (70-110) mg/dL POC Glucose (mg/dL) 150 H 246 H 282 H (70-110) mg/dL Total Protein (6.2-8.2) g/dL Albumin (3.8-4.9) g/dL Albumin/Globulin Ratio (1.60-3.17) Ratio Cholesterol (0.00-200.00) mg/dL LDL Cholesterol, Calc (0.0-131.0) mg/dL 05/29/23 05/30/23 Range/Units 19:56 06:06 RBC (4.40-5.60) X 10*6/uL Hgb (13.0-17.0) g/dL Hct (39.6-50.0) % RDW (11.5-14.5) % MPV (9.5-12.2) FL BUN/Creatinine Ratio (12.00-20.00) Ratio Glucose (70-110) mg/dL POC Glucose (mg/dL) 284 H 195 H (70-110) mg/dL Total Protein (6.2-8.2) g/dL Albumin (3.8-4.9) g/dL Albumin/Globulin Ratio (1.60-3.17) Ratio Cholesterol (0.00-200.00) mg/dL LDL Cholesterol, Calc (0.0-131.0) mg/dL
[2023-05-30] MEDS ORDERED: HEPARIN SODIUM (1,000 UNIT/ML) 1,000 UNIT in SODIUM CHLORIDE 0.9% 1,000 ML IRRIGATION ONE (13:59)
[2023-05-30] MEDS ORDERED: LIDOCAINE 1% INJ 10MG/ML (20 ML MDV) SQ ONE (14:18)
[2023-05-30] MEDS ORDERED: ACETAMINOPHEN IV (For NPO) 1,000 MG in EMPTY BAG 1 BAG IVPB ONE (16:40)
[2023-05-30] MEDS ORDERED: ACETAMINOPHEN TAB 325 MG TAB PO PRN (16:40)
--- NOTE | 2023-05-30 16:45 | P.PRLE ---
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 The slow pathway was successfully ablated He does have a mildly prolonged SC interval at baseline of about 225 ms In addition he may have an atrial tachycardia also but this was not tolerated for any ablation today and hopefully this was simply triggered during Isuprel infusion I will stop his beta blockers completely and hopefully his SC interval improves Thank you for entrusting me with the care of the patient Warm regards Sincerely Jhony Mckinnon
[2023-05-30 16:48] LABS: Glucose,Whole Blood 185 mg/dL (70-110)
--- NOTE | 2023-05-30 16:52 | P.EPPROC ---
- EP Procedure Note Electrophysiology Procedure Note: Diagnosis Recurrent SVT, drug refractory, unresponsive to Valsalva maneuver Recurrent, symptomatic On medical treatment MD interval was prolonged Final diagnosis AV alondra reentrant tachycardia, typical Status post successful ablation of the slow pathway The tachycardia was rendered noninducible. Details Patient was brought to the EP lab in a fasting state. Written informed consent was obtained prior to the procedure. The right ear groins were prepped and draped as a protocol and venous sheaths were placed in the right left femoral veins Via these diagnostic catheters were positioned in the high right atrium His bundle area, coronary sinus and right ventricle. The patient would go into recurrent SVT with minimal stimulation AV node Wenckebach block 390 ms The SVT was consistent with AV alondra reentry with a short septal time of less than 60 ms and a VAAV response ventricular pacing along with a long PPI A long sheath and a map being/ablation catheter was placed in the right heart The slow pathway was mapped The Des sinus was started His bundle was tagged After detailed mapping successful ablation was performed junctional rhythm was obtained. MD interval remained around 225 ms Thereafter full EP study was performed on and off Isuprel There was no evidence for reentry During Isuprel washout atrial tachycardia was induced but this was self terminating EP study was repeated again to ensure that there was no evidence for alondra reentry once again Patient to the procedure well without acute complications Venous sheaths were removed and hemostasis assured
[2023-05-30 20:02] LABS: Glucose,Whole Blood 202 mg/dL (70-110)
[2023-05-30] MEDS: ACETAMINOPHEN TAB 325 MG TAB PO PRN (20:27)
[2023-05-30 22:17] LABS: Glucose,Whole Blood 191 mg/dL (70-110)
[2023-05-31 06:09] LABS: Glucose,Whole Blood 240 mg/dL (70-110)
[2023-05-31] MEDS: INSULIN ASPART (NovoLOG) 100 UNIT/ML VIAL SQ SCH ×4 (06:40→20:57)
[2023-05-31] MEDS: BENZONATATE 100 MG CAP PO SCH ×3 (07:53→20:57)
[2023-05-31] MEDS: methylPREDNISolone SOD SUCCI 125 MG/2 ML VIAL IV SCH (07:53)
[2023-05-31] MEDS: CHOLECALCIFEROL 125 MCG (5000 IU) TABLET PO SCH (07:53)
[2023-05-31] MEDS: ENOXAPARIN 40 MG/0.4 ML SYRINGE SQ SCH (07:53)
[2023-05-31] MEDS: MULTIVITAMINS, THERA 1 EACH TAB PO SCH (07:53)
[2023-05-31] MEDS: PANTOPRAZOLE 40 MG/10 ML VIAL IV SCH (07:53)
[2023-05-31] MEDS: SYMBICORT 160-4.5 MCG INHALER INHALATION SCH ×2 (08:37→22:00)
[2023-05-31] MEDS: IPRATROPIUM-ALBUTEROL 3 ML NEB INHALATION SCH ×4 (08:37→22:00)
[2023-05-31] MEDS: predniSONE 20 MG TAB PO SCH (10:56)
[2023-05-31 11:46] LABS: Glucose,Whole Blood 284 mg/dL (70-110)
--- NOTE | 2023-05-31 12:01 | P.PN ---
Subjective Progress Note Date: 05/31/23 This is a very pleasant 73-year-old male patient with a known history of diabetes mellitus, hypertension, hyperlipidemia, former smoker. He has a history of lung cancer and received radiation/chemotherapy. He PET scan from April to revealed progression of disease with increasing righ t neck lymphadenopathy with metabolic activity, increasing scattered pulmonary nodules, at least to liver metabolically active lesions are present. Additionally there is increasing metabolic activity within the right midlung possibly related to prior malignancy. MRI of the brain revealed a stable medial right cerebellar focus of enhancement. No additional suspicious lesions. He is currently undergoing immunotherapy and recently started Zepzelca. Since that time he has been having increasing shortness of breath and tachycardia. He does have previous history of SVT and atrial tachycardia and is maintained on metoprolol. He took an extra dose yesterday without much improvement. Stated h is oxygen was at about 85% and is usually higher than 88%. He presented to the emergency room last evening. CT angiogram ruled out pulmonary embolism. There is a right upper lobe mass and consolidation and hypodense lesions within the liver corresponding to recent PET scan findings. White count 4.0. Hemoglobin 11.9. Platelets 261. Sodium 138. Potassium 5.1. Bicarb 24. BUN 19. Creatinine 0.9. Glucose 146. Viral screen negative. The patient is seen today 05/28/2023 in follow-up in the emergency department. He is currently sitting up in bed. Awake and alert in no acute distress. He is maintaining good O2 saturations in the 90s on 2 L/m per nasal cannula. He has normal saline at 75 ML's per hour. He is continued on Symbicort, DuoNeb inhalations, IV Medrol and azithromycin. Lovenox for DVT prophylaxis. White count 5.1. Hemoglobin 11.9. Platelets 274. Sodium 137. Potassium 4.6. Bicarb 24. BUN 20. Creatinine 0.79. Glucose 167. Procalcitonin 0.65. On today's evaluation of 05/29/2023, the patient is being seen for a follow-up. The patient got transferred to [facility] as the patient is having recurrent episodes of SVT. Cardiology saw the patient. One of those episodes broke with vagal maneuvers. Subsequently, the patient went into SVT again. Patient was given 2.5 mg of IV metoprolol and he converted back into sinus rhythm. Adequacy was not given. Accordingly, the patient got transferred to 3 and the patient was started on Cardizem drip at 5 mg an hour. The metoprolol dose was also increased up to 75 mg daily. 2-D echo cardiac was also ordered. Last echocardiogram from December 2021 was within normal limits. Noted the patient's had a CT angiogram of the chest of the time of admission. There was no evidence of any pulmonary embolism. There was a right upper lobe mass and consolidation and hypodense lesions in the liver corresponding with his history of lung cancer. Blood work from today shows WBC count of 5, hemoglobin 11.8 and a platelet count of 307. Sodium is 139, potassium is at 4.7, BUN is at 80 with a creatinine of 0.8 and LFTs are within normal limits. The patient is on DuoNeb updrafts, IV Solu-Medrol, Symbicort as maintenance 2 puffs twice a day and adjustment the cardiac medication was mentioned. Most recent heart rate is down to 86. On 05/30/2023, the patient is being seen for a follow-up. Overall respiratory status is unchanged since yesterday. As mentioned, the patient was having recurrent AV alondra reentry tachycardia and the patient is going to undergo an ablation today. Remains on DuoNeb updrafts. Remains on IV Solu-Medrol. He is also on Symbicort as maintenance. Nontender worsening shortness of breath. He is on normal saline running at 75 mL an hour. He is on metformin 75 mg by mouth daily. The Cardizem drip has been discontinued. Clinically, the patient is stable. Denies having any significant shortness of breath at rest. In fact, reports improvement in his COPD exacerbations the patient is less bronchospastic and wheezy. Echo of the heart was also completed and the patient is a preserved LV function with an ejection fraction of 50-55%. There was mildly enlarged RV and the right ventricular systolic pressure was estimated to be around 60. Mitral valve was normal. Aortic valve was normal. On 05/31/2023, the patient's post-ablation of the AV node reentry tachycardia. The patient is doing well. Cardiac rhythm is sinus. No specific complaints. He continues to have some ongoing shortness of breath related to COPD exacerbation. He also has malignancy in the form of a small cell lung cancer and the patient is receiving alkylating agents on outpatient basis. He remains on bronchodilators. Remains on Symbicort. He was on IV Solu-Medrol which I am going to stop and put him on a prednisone burst taper. He will need home nebulizer. He will need also home O2 as the patient is currently on 2 L of oxygen and is demonstrating desaturation with activity. No other new complaints. No new labs from today. Echo cardiac rhythm showed a preserved LV function. He does have moderate to severe pulmonary hypertension. Objective - Vital Signs Vital signs: Vital Signs Temp 98.0 F 05/31/23 07:49 Pulse 80 05/31/23 08:51 Resp 16 05/31/23 07:49 BP 147/67 05/31/23 07:49 Pulse Ox 93 L 05/31/23 09:51 FiO2 Intake & Output 05/30/23 05/31/23 05/31/23 18:59 06:59 18:59 Intake Total 1300.667 40 180 Output Total 225 375 Balance 1075.667 -335 180 Intake: IV 748 40 0.9 40 Intake, IV Titration 12.667 Amount Diltiazem 125 mg In 12.667 Sodium Chloride 0.9% 100 ml @ 5 MG/HR 5 mls/hr IV .Q24H [facility] Rx#:[id number] Oral 540 180 Output: Urine 225 375 Other: Voiding Method Toilet Toilet Toilet # Voids 1 1 - Exam GENERAL EXAM: Alert, 73-year-old male, on 3 L nasal cannula, comfortable in no apparent distress. HEAD: Normocephalic. EYES: Normal reaction of pupils, equal size. NOSE: Clear with pink turbinates. THROAT: No erythema or exudates. NECK: No masses, no JVD. CHEST: No chest wall deformity. LUNGS: Equal air entry with no crackles, wheeze, rhonchi or dullness. CVS: S1 and S2 normal with no audible murmur, regular rhythm. ABDOMEN: No hepatosplenomegaly, normal bowel sounds, no guarding or rigidity. SPINE: No scoliosis or deformity SKIN: No rashes CENTRAL NERVOUS SYSTEM: No focal deficits, tone is normal in all 4 extremities. EXTREMITIES: There is no peripheral edema. No clubbing, no cyanosis. Peripheral pulses are intact. - Labs CBC & Chem 7: 05/30/23 08:06 05/30/23 08:06 Labs: Abnormal Lab Results - Last 24 Hours (Table) 05/30/23 05/30/23 05/30/23 Range/Units 11:33 16:46 20:01 POC Glucose (mg/dL) 210 H 185 H 202 H (70-110) mg/dL 05/30/23 05/31/23 Range/Units 22:15 06:07 POC Glucose (mg/dL) 191 H 240 H (70-110) mg/dL Assessment and Plan Plan: COPD exacerbation/ bronchitis. Pro-calcitonin level is minimally elevated,. There is no clear indication for an underlying pneumonia. The patient also on bronchodilators and steroids. Clinically improving and in terms of his COPD exacerbation while being covered with accommodation of bronchodilators and steroids. 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 The patient's most recent PET/CT from April 2023 showed disease progression and the patient is currently on alkylating agent with Zepzelca AV alondra reentry tachycardia, recurrent, post-ablation and the patient is currently off Cardizem and off metoprolol. History of AV block Dysautonomia with a positive table tilt test in January 2022 Previous history of SVT History of chronic obstructive pulmonary disease Former smoker Diabetes mellitus Hypertension Plan: Titrate Oxygen flow to maintain saturation above 90%, currently on 2 Continue DuoNeb Continue Symbicort 2 puffs twice a day Discontinue the IV Solu-Medrol and put the patient a prednisone burst taper Ablation of the AV node reentrant tachycardia was done successfully This patient home nebulizer Arrange home O2 IV Solu-Medrol 60 g every 6 hours Metoprolol was discontinued Echocardiogram is noted We'll continue to follow
--- NOTE | 2023-05-31 12:23 | P.DS ---
Providers Date of admission: 05/26/23 18:32 Expected date of discharge: 05/31/23 Attending physician: Leonora Melendez MD Consults: 05/26/23 18:32 Consult Physician Routine Consulting Provider: Villa Celeste Consult Reason/Comments: known Do you want consulting provider notified?: Yes 05/27/23 07:40 Consult Physician Routine Consulting Provider: Ronen Fitch Consult Reason/Comments: lung cancer undergoing chemo w/ Sarai Do you want consulting provider notified?: Yes 05/27/23 11:38 Consult Physician Routine Consulting Provider: Monty Son Consult Reason/Comments: tachycardic runs with PACs and PVCs Do you want consulting provider notified?: Yes Primary care physician: [facility] Course: 73-year-old male with a past medical history of lung cancer currently undergoing chemotherapy treatments with Dr. Coughlin with last treatment last week, hypertension, hyperlipidemia, diabetes mellitus. He presented to the emergency department on 05/26/23 secondary to a chief complaint of shortness of breath and palpitations. He reported that he is currently undergoing his fifth round of chemotherapy and was just started on a different medication that he has not had before so he initially associated his symptoms of palpitations and increasing shortness of breath with this medication (Lurbinectedin), but reported when his palpitations worsened and his heart rate was in the 150s he came to the emergency department for evaluation. Upon arrival patient underwent full evaluation. Vital signs show blood pressure 122/79, heart rate 104, respiratory rate 18, temp 98.0F, SpO2 of 90% on room air and later dropping down to 85% on room air requiring oxygen supplementation. EKG was completed showing sinus rhythm with frequent PACs and occasional PVCs. Chest x-ray completed showing peripheral bilateral lung infiltrates with elevation of the right diaphragm. CBC unremarkable. BMP revealing sodium of 134, bicarb of 20 BUN of 22. Liver profile alkaline phosphatase of 148. Troponin 0.013 TSH is 0.787. D-dimer of 1.86. Lactic acid 1.6. CTA chest was negative for PE revealing right upper lobe mass and consolidation with hypodense lesions within the liver corresponding to findings on recent PET scan. Patient was admitted under our services with consultation to pulmonology, hematology, and cardiology. Subsequent EKG showed atrial tachycardia. Oncology consulted, current regimen typically does not cause cardiac toxicity. Pulmonology consulted, pro-calcitonin was slightly elevated at 0.65, completed 3 day course of azithromycin, maintained on bronchodilators and SoluMedrol IV. Cardiology consulted, she continued to have recurrent episodes of SVT and AV alondra reentry tachycardia. Echo EF 50-55% mildly enlarged RV with hypokinetic distal free wall to the apex of the RV. TSH within normal limits. Vagal maneuver attempted along with IV Metoprolol and Cardizem drip. EP consulted, underwent EP study and ablation with Dr. Mckinnon on 05/20. Dr. Mckinnon recommended discontinuing beta blockers. 05/31 Patient was seen and examined. Breathing back to baseline. Per RN, cardiology cleared the patient for discharge. Patient will need home O2 prior to discharge. He would also benefit from a nebulizer. He is a 40 year PPD smoker. Discussed with Dr. Rosales, cleared for discharge on Prednisone taper. Will prescribe Levaquin for 5 days to complete a total of 10 days antibiotics. Follow up with Pulmonology and Cardiology within 1 week of discharge. Vital signs reviewed and stable. General: Nontoxic, no distress and appears stated age. Derm: Skin warm and dry, normal coloration for ethnicity. Head: Atraumatic, normocephalic and symmetric. Eyes: EOMs intact, no lid lag, and anicteric sclera Mouth: no lip lesions, mucus membranes moist Cardiovascular: regular rate and rhythm with normal S1S2, systolic murmur Lungs: Respirations even, regular, and unlabored on room air. Lungs CTA bilaterally, no rhonchi, no rales, no wheezing, and no accessory muscle usage. Ext:. No gross muscle atrophy, no edema, no contractures movement and sensation intact.. Neuro: Speech clear, face symmetrical and no noted focal neuro deficits Psych: Alert and oriented to person, place, time, and situation. Appropriate and pleasant affect. 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 Patient Condition at Discharge: Stable Plan - Discharge Summary Discharge Rx Participant: No New Discharge Prescriptions: New Ipratropium-Albuterol Nebulize [Duoneb 0.5 mg-3 mg/3 ml Soln] 3 ml INHALATION RT-QID PRN #120 each PRN Reason: Shortness Of Breath predniSONE See Taper PO DIRECTED #30 tab Albuterol Inhaler [Ventolin Hfa Inhaler] 1 puff INHALATION Q6H PRN #1 each PRN Reason: Shortness Of Breath Or Wheezing Budesonide-Formot 160-4.5 Mcg [Symbicort 160-4.5 Mcg Inhaler] 2 puff INHALATION RT-BID #1 each Continue Cholecalciferol [Vitamin D3 (125 Mcg = 5000 Iu)] 125 mcg PO DAILY Multivitamins, Thera [Multivitamin (formulary)] 1 tab PO DAILY Empaglifloz/Linaglip/Metformin [Trijardy Xr 12.5-2.5-1,000 mg] 1 tab PO DAILY Ondansetron [Zofran] 4 mg PO Q4H PRN PRN Reason: Nausea Benzonatate [Tessalon Perles] 100 mg PO TID Discontinued Metoprolol Succinate (ER) [Toprol XL] 50 mg PO DAILY Levofloxacin [Levaquin] 500 mg PO DAILY predniSONE [Deltasone] See Taper PO DAILY Discharge Medication List Empaglifloz/Linaglip/Metformin [Trijardy Xr 12.5-2.5-1,000 mg] 1 tab PO DAILY 12/28/21 [History] Benzonatate [Tessalon Perles] 100 mg PO TID 05/26/23 [History] Cholecalciferol [Vitamin D3 (125 Mcg = 5000 Iu)] 125 mcg PO DAILY 05/26/23 [History] Multivitamins, Thera [Multivitamin (formulary)] 1 tab PO DAILY 05/26/23 [History] Ondansetron [Zofran] 4 mg PO Q4H PRN 05/26/23 [History] Albuterol Inhaler [Ventolin Hfa Inhaler] 1 puff INHALATION Q6H PRN #1 each 05/31/23 [Rx] Budesonide-Formot 160-4.5 Mcg [Symbicort 160-4.5 Mcg Inhaler] 2 puff INHALATION RT-BID #1 each 05/31/23 [Rx] Ipratropium-Albuterol Nebulize [Duoneb 0.5 mg-3 mg/3 ml Soln] 3 ml INHALATION RT-QID PRN #120 each 05/31/23 [Rx] predniSONE See Taper PO DIRECTED #30 tab 05/31/23 [Rx] Follow up Appointment(s)/Referral(s): Jhony Mckinnon MD [STAFF PHYSICIAN] - 06/07/23 9:45 am (With AUT[employer]ATIC [employer]UL[employer]ING LEAD OPERATOR) Stoney Patel MD [Primary Care Provider] - 06/09/23 12:30 pm Abdirashid Rosales MD [STAFF PHYSICIAN] - 06/20/23 1:00 pm (With Dr. Celeste) Patient Instructions/Handouts: Supraventricular Tachycardia (DC), Lung Cancer (DC), Using Oxygen at Home (DC), Electrophysiology Study (DC) Discharge Disposition: HOME SELF-CARE
--- NOTE | 2023-05-31 13:37 | P.PN ---
Subjective Progress Note Date: 05/31/23 Principal diagnosis: Small cell lung cancer In follow-up today patient denies palpitations or chest pain. He is being evaluated for home O2. He states that he feels better with the oxygen on. He also reports he is going home with nebulizers. He denies any other acute physical complaints. He feels that he is ready to resume treatment next week. Objective - Vital Signs Vital signs: Vital Signs Temp 98.0 F 05/31/23 07:49 Pulse 89 05/31/23 13:17 Resp 20 05/31/23 11:25 BP 141/82 05/31/23 11:25 Pulse Ox 93 L 05/31/23 11:25 FiO2 Intake & Output 05/30/23 05/31/23 05/31/23 18:59 06:59 18:59 Intake Total 1300.667 40 900 Output Total 225 375 Balance 1075.667 -335 900 Intake: IV 748 40 0.9 40 Intake, IV Titration 12.667 Amount Diltiazem 125 mg In 12.667 Sodium Chloride 0.9% 100 ml @ 5 MG/HR 5 mls/hr IV .Q24H [facility] Rx#:[id number] Oral 540 900 Output: Urine 225 375 Other: Voiding Method Toilet Toilet Toilet # Voids 1 1 2 - Constitutional General appearance: Present: average body habitus, cooperative, no acute distress - EENT Eyes: Present: anicteric sclerae, EOMI ENT: Present: hearing grossly normal - Respiratory Respiratory: left: wheezing (LLL), bilateral: rhonchi - Cardiovascular Details: Skin warm and dry to the touch - Neurologic Neurologic: Present: CNII-XII intact - Psychiatric Psychiatric: Present: A&O x's 3, appropriate affect, intact judgment & insight - Labs CBC & Chem 7: 05/30/23 08:06 05/30/23 08:06 Labs: Abnormal Lab Results - Last 24 Hours (Table) 05/30/23 05/30/23 05/30/23 Range/Units 16:46 20:01 22:15 POC Glucose (mg/dL) 185 H 202 H 191 H (70-110) mg/dL 05/31/23 05/31/23 Range/Units 06:07 11:45 POC Glucose (mg/dL) 240 H 284 H (70-110) mg/dL Assessment and Plan (1) SVT (supraventricular tachycardia) Current Visit: Yes Status: Acute Priority: High Code(s): I47.1 - SUPRAVENTRICULAR TACHYCARDIA * DO NOT USE * SNOMED Code(s): 4875376 (2) Small cell lung cancer in adult Current Visit: Yes Status: Acute Priority: Medium Code(s): C34.90 - MALIGNANT NEOPLASM OF UNSP PART OF UNSP BRONCHUS OR LUNG SNOMED Code(s): 949182319 Plan: SVT -Cardiology consulted. -Resolved Small cell lung cancer -Status post first cycle of zepzelca -Patient tolerated overall well, no significant hematological toxicities -Cardiotoxicity is not side effect reported with zepzelca treatment. Patient will be continued to be monitored. We can perform EKGs in office after treatment. -Pt is wanting to try another treatment so, kept his appointment for treatment next Monday 8:30 AM.
--- NOTE | 2023-05-31 15:02 | P.PN ---
Subjective Progress Note Date: 05/31/23 HISTORY OF PRESENT ILLNESS: 05/28/2023 The patient is a 73-year-old gentleman with a past medical history significant for "tachycardia" as well as recent diagnosis of lung cancer currently the patient is on chemotherapy. The patient presented to the emergency department complaining of heart racing/fluttering associated with dizziness but no presyncope and no syncope but he also was experiencing increasing in the shortness of breath. No symptoms of chest pain or chest discomfort. He was receiving beta candie as an outpatient and he has been compliant with this. He was seen by a associate account manager in the past but he stated that he didn't have any follow-up with the last several years. He underwent further workup including EKG showing sinus mechanism with PVC and also he underwent a computed tomography scan of the chest which showed a mass in the right upper lobe was also possible mass in the liver as well. Hematology/oncology service consulted to see the patient. Also the chest x-ray showed possible infiltrate consistent with pneumonia and currently is on antibiotic for that. He stated that he is feeling better. D-dimer came in to be abnormal but the computed tomography scan did not show any pulmonary embolism. No NT proBNP but the patient doesn't look in any overt congestive heart failure at this point. No orthopnea and no PND and no lower extremity edema and no change in the weight as a matter of fact he lost weight. No history of coronary artery disease or congestive heart failure or cardiac arrhythmia. The examination is remarkable for stable vital signs with a regular rate and rhythm and a systolic murmur at the right upper sternal border and clear breathing sounds bilaterally and no edema was noted in the lower extremities 05/29/2023 Patient examined this morning at the bedside. At the time of examination, the patient denies any chest pain or pressure. He denies any shortness of breath. 05/31 Yesterday, patient underwent ablation with Dr. Mckinnon. Patient was running in sinus rhythm this morning but by the afternoon was having episodes of tachycardia for which associate account manager was contacted. Blood pressure 141/82. Pulse ox 93% on 2 L. Patient states that he is waiting for home oxygen therapy to be arranged and he is going home today. VITAL SIGNS: Reviewed. GENERAL: Well-developed in no acute distress. NECK: Supple. No JVD or thyromegaly LUNGS: Respirations even and unlabored. Lungs essentially clear to auscultation bilaterally. HEART: Regular rate and rhythm. S1 and S2 heard. EXTREMITIES: Normal range of motion. No clubbing or cyanosis. Peripheral pulses intact. No lower extremity edema ASSESSMENT: Small cell lung cancer AVNRT First-degree AV block COPD Hypertension Diabetes Former nicotine dependence Dysautonomia, per tilt table testing, January 2022 History of SVT, per 24-hour Holter, December 2021 History of short self-limiting run of paroxysmal atrial fibrillation, per 24- hour Holter, December 2021 PLAN: Patient is status post ablation but still having episodes of atrial tachycardia for which medications will be addressed by associate account manager. Nurse practitioner note has been reviewed by physician. Signing provider agrees with the documented findings, assessment, and plan of care. Objective - Vital Signs Vital signs: Vital Signs Temp 98.0 F 05/31/23 07:49 Pulse 80 05/31/23 08:51 Resp 16 05/31/23 07:49 BP 147/67 05/31/23 07:49 Pulse Ox 93 L 05/31/23 09:51 FiO2 Intake & Output 05/30/23 05/31/23 05/31/23 18:59 06:59 18:59 Intake Total 1300.667 40 180 Output Total 225 375 Balance 1075.667 -335 180 Intake: IV 748 40 0.9 40 Intake, IV Titration 12.667 Amount Diltiazem 125 mg In 12.667 Sodium Chloride 0.9% 100 ml @ 5 MG/HR 5 mls/hr IV .Q24H [facility] Rx#:[id number] Oral 540 180 Output: Urine 225 375 Other: Voiding Method Toilet Toilet Toilet # Voids 1 1 - Labs CBC & Chem 7: 05/30/23 08:06 05/30/23 08:06 Labs: Abnormal Lab Results - Last 24 Hours (Table) 05/30/23 05/30/23 05/30/23 Range/Units 11:33 16:46 20:01 POC Glucose (mg/dL) 210 H 185 H 202 H (70-110) mg/dL 05/30/23 05/31/23 Range/Units 22:15 06:07 POC Glucose (mg/dL) 191 H 240 H (70-110) mg/dL
[2023-05-31] MEDS: ACETAMINOPHEN TAB 325 MG TAB PO PRN (15:29)
[2023-05-31] MEDS: METOPROLOL TARTRATE 25 MG TAB PO SCH (17:48)
[2023-05-31 20:01] LABS: Glucose,Whole Blood 310 mg/dL (70-110)
[2023-06-01 05:23] VITALS: RESP 18
[2023-06-01 06:12] LABS: Glucose,Whole Blood 176 mg/dL (70-110)
[2023-06-01] MEDS: INSULIN ASPART (NovoLOG) 100 UNIT/ML VIAL SQ SCH ×2 (06:18→12:01)
[2023-06-01] MEDS: SYMBICORT 160-4.5 MCG INHALER INHALATION SCH (08:18)
[2023-06-01] MEDS: IPRATROPIUM-ALBUTEROL 3 ML NEB INHALATION SCH ×2 (08:18→11:39)
[2023-06-01] MEDS: CHOLECALCIFEROL 125 MCG (5000 IU) TABLET PO SCH (09:15)
[2023-06-01] MEDS: predniSONE 20 MG TAB PO SCH (09:15)
[2023-06-01] MEDS: BENZONATATE 100 MG CAP PO SCH (09:15)
[2023-06-01] MEDS: ENOXAPARIN 40 MG/0.4 ML SYRINGE SQ SCH (09:15)
[2023-06-01] MEDS: METOPROLOL TARTRATE 25 MG TAB PO SCH (09:15)
[2023-06-01] MEDS: PANTOPRAZOLE 40 MG/10 ML VIAL IV SCH (09:16)
[2023-06-01] MEDS: MULTIVITAMINS, THERA 1 EACH TAB PO SCH (09:16)
[2023-06-01] MEDS: SODIUM CHLORIDE 0.9% 1,000 ML IV SCH (09:16)
--- NOTE | 2023-06-01 11:05 | P.PN ---
Subjective Progress Note Date: 06/01/23 73-year-old male with a past medical history of lung cancer currently undergoing chemotherapy treatments with Dr. Coughlin with last treatment last week, hypertension, hyperlipidemia, diabetes mellitus. He presented to the emergency department on 05/26/23 secondary to a chief complaint of shortness of breath and palpitations. He reported that he is currently undergoing his fifth round of chemotherapy and was just started on a different medication that he has not had before so he initially associated his symptoms of palpitations and increasing shortness of breath with this medication (Lurbinectedin), but reported when his palpitations worsened and his heart rate was in the 150s he came to the emergency department for evaluation. Upon arrival patient underwent full evaluation. Vital signs show blood pressure 122/79, heart rate 104, respiratory rate 18, temp 98.0F, SpO2 of 90% on room air and later dropping down to 85% on room air requiring oxygen supplementation. EKG was completed showing sinus rhythm with frequent PACs and occasional PVCs. Chest x-ray completed showing peripheral bilateral lung infiltrates with elevation of the right diaphragm. CBC unremarkable. BMP revealing sodium of 134, bicarb of 20 BUN of 22. Liver profile alkaline phosphatase of 148. Troponin 0.013 TSH is 0.787. D-dimer of 1.86. Lactic acid 1.6. CTA chest was negative for PE revealing right upper lobe mass and consolidation with hypodense lesions within the liver corresponding to findings on recent PET scan. Patient was admitted under our services with consultation to pulmonology, h ematology, and cardiology. Subsequent EKG showed atrial tachycardia. Oncology consulted, current regimen typically does not cause cardiac toxicity. Pulmonology consulted, pro-calcitonin was slightly elevated at 0.65, completed 3 day course of azithromycin, maintained on bronchodilators and SoluMedrol IV. Cardiology consulted, he continued to have recurrent episodes of SVT and AV alondra reentry tachycardia. Echo EF 50-55% mildly enlarged RV with hypokinetic distal free wall to the apex of the RV. TSH within normal limits. Vagal maneuver attempted along with IV Metoprolol and Cardizem drip. EP consulted, underwent EP study and ablation with Dr. Mckinnon on 05/20. Metoprolol was discontinued after ablation. 06/01 Patient was seen and examined. Discharge held yesterday as patient had elevated HR in the 150s prior to discharge. Started on Metoprolol 25 mg PO BID by Cardiology. Discussed with Dr. Christina, cleared for discharge on Metoprolol XL 50 mg PO QD. Patient will need home O2 prior to discharge. He would also benefit from a nebulizer. He is a 40 year PPD smoker. Discussed with Dr. Rosales, cleared for discharge on Prednisone taper. Follow up with Pulmonology and Cardiology within 1 week of discharge. Vital signs reviewed and stable. General: Nontoxic, no distress and appears stated age. Derm: Skin warm and dry, normal coloration for ethnicity. Head: Atraumatic, normocephalic and symmetric. Eyes: EOMs intact, no lid lag, and anicteric sclera Mouth: no lip lesions, mucus membranes moist Cardiovascular: regular rate and rhythm with normal S1S2, systolic murmur Lungs: Respirations even, regular, and unlabored on room air. Lungs CTA bilaterally, no rhonchi, no rales, no wheezing, and no accessory muscle usage. Ext:. No gross muscle atrophy, no edema, no contractures movement and sensation intact.. Neuro: Speech clear, face symmetrical and no noted focal neuro deficits Psych: Alert and oriented to person, place, time, and situation. Appropriate and pleasant affect. 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 Objective - Vital Signs Vital signs: Vital Signs Temp 98.1 F 06/01/23 04:00 Pulse 84 06/01/23 08:30 Resp 18 06/01/23 04:00 BP 114/68 06/01/23 04:00 Pulse Ox 93 L 06/01/23 04:00 FiO2 Intake & Output 05/31/23 06/01/23 06/01/23 18:59 06:59 18:59 Intake Total 1080 180 Output Total 320 Balance 1080 -320 180 Intake: Oral 1080 180 Output: Urine 320 Other: Voiding Method Toilet Toilet # Voids 2 - Labs CBC & Chem 7: 05/30/23 08:06 05/30/23 08:06 Labs: Abnormal Lab Results - Last 24 Hours (Table) 05/31/23 05/31/23 06/01/23 Range/Units 11:45 19:59 06:09 POC Glucose (mg/dL) 284 H 310 H 176 H (70-110) mg/dL
[2023-06-01 11:41] LABS: Glucose,Whole Blood 153 mg/dL (70-110)
[2023-06-01 11:50] VITALS: BP 98/54; TEMP 97.9
[2023-06-01 12:39] VITALS: PULSE 77
--- NOTE | 2023-06-01 15:41 | P.PN ---
Subjective Progress Note Date: 06/01/23 HISTORY OF PRESENT ILLNESS: 05/28/2023 The patient is a 73-year-old gentleman with a past medical history significant for "tachycardia" as well as recent diagnosis of lung cancer currently the patient is on chemotherapy. The patient presented to the emergency department complaining of heart racing/fluttering associated with dizziness but no presyncope and no syncope but he also was experiencing increasing in the shortness of breath. No symptoms of chest pain or chest discomfort. He was receiving beta candie as an outpatient and he has been compliant with this. He was seen by a experimental display builder in the past but he stated that he didn't have any follow-up with the last several years. He underwent further workup including EKG showing sinus mechanism with PVC and also he underwent a computed tomography scan of the chest which showed a mass in the right upper lobe was also possible mass in the liver as well. Hematology/oncology service consulted to see the patient. Also the chest x-ray showed possible infiltrate consistent with pneumonia and currently is on antibiotic for that. He stated that he is feeling better. D-dimer came in to be abnormal but the computed tomography scan did not show any pulmonary embolism. No NT proBNP but the patient doesn't look in any overt congestive heart failure at this point. No orthopnea and no PND and no lower extremity edema and no change in the weight as a matter of fact he lost weight. No history of coronary artery disease or congestive heart failure or cardiac arrhythmia. The examination is remarkable for stable vital signs with a regular rate and rhythm and a systolic murmur at the right upper sternal border and clear breathing sounds bilaterally and no edema was noted in the lower extremities 05/29/2023 Patient examined this morning at the bedside. At the time of examination, the patient denies any chest pain or pressure. He denies any shortness of breath. 05/31 Yesterday, patient underwent ablation with Dr. Mckinnon. Patient was running in sinus rhythm this morning but by the afternoon was having episodes of tachycardia for which experimental display builder was contacted. Blood pressure 141/82. Pulse ox 93% on 2 L. Patient states that he is waiting for home oxygen therapy to be arranged and he is going home today. 06/01 Yesterday, patient was prepared for discharge home but nurse reported that heart rate was elevated and discharge was held. Patient was resumed back on his Toprol XL 50 mg daily. His heart rate through the night was controlled the highest being in the 90s. Patient denies any palpitations. No lightheadedness or dizziness. VITAL SIGNS: Reviewed. GENERAL: Well-developed in no acute distress. NECK: Supple. No JVD or thyromegaly LUNGS: Respirations even and unlabored. Lungs essentially clear to auscultation bilaterally. HEART: Regular rate and rhythm. S1 and S2 heard. EXTREMITIES: Normal range of motion. No clubbing or cyanosis. Peripheral pulses intact. No lower extremity edema ASSESSMENT: Small cell lung cancer AVNRT First-degree AV block COPD Hypertension Diabetes Former nicotine dependence Dysautonomia, per tilt table testing, January 2022 History of SVT, per 24-hour Holter, December 2021 History of short self-limiting run of paroxysmal atrial fibrillation, per 24- hour Holter, December 2021 PLAN: Patient is cleared for discharge from cardiology and to continue on metoprolol succinate 50 mg daily. Nurse practitioner note has been reviewed by physician. Signing provider agrees with the documented findings, assessment, and plan of care. Objective - Vital Signs Vital signs: Vital Signs Temp 97.9 F 06/01/23 08:00 Pulse 77 06/01/23 12:00 Resp 18 06/01/23 08:00 BP 98/54 06/01/23 08:00 Pulse Ox 92 L 06/01/23 08:00 FiO2 Intake & Output 05/31/23 06/01/23 06/01/23 18:59 06:59 18:59 Intake Total 1080 180 Output Total 320 Balance 1080 -320 180 Intake: Oral 1080 180 Output: Urine 320 Other: Voiding Method Toilet Toilet Toilet # Voids 2 - Labs CBC & Chem 7: 05/30/23 08:06 05/30/23 08:06 Labs: Abnormal Lab Results - Last 24 Hours (Table) 05/31/23 06/01/23 06/01/23 Range/Units 19:59 06:09 11:40 POC Glucose (mg/dL) 310 H 176 H 153 H (70-110) mg/dL
== END 2023-06-01 12:43 | disposition home or self-care (01) | DRG 273 ==
LOC: EC 13:46 → 5NMEDONC 18:32 → 3SCARD 05-29 11:14
PROVIDERS: ADMIT Internal Medicine; ATTEND Internal Medicine
PROC: 02583ZZ Destruction of Conduction Mechanism, Percutaneous Approach (ICD-10-PCS; principal; 2023-05-30 07:30)
DX: I47.19 Other supraventricular tachycardia (principal); J96.21 Acute and chronic respiratory failure with hypoxia; C78.02 Secondary malignant neoplasm of left lung; J44.1 Chronic obstructive pulmonary disease with (acute) exacerbation; E87.1 Hypo-osmolality and hyponatremia; C79.31 Secondary malignant neoplasm of brain; C78.7 Secondary malignant neoplasm of liver and intrahepatic bile duct; C34.11 Malignant neoplasm of upper lobe, right bronchus or lung; I27.20 Pulmonary hypertension, unspecified; G90.1 Familial dysautonomia [Riley-Day]; I10 Essential (primary) hypertension; E78.5 Hyperlipidemia, unspecified; I44.0 Atrioventricular block, first degree; R01.1 Cardiac murmur, unspecified; R59.0 Localized enlarged lymph nodes; Z99.81 Dependence on supplemental oxygen; Z28.310 Unvaccinated for COVID-19; Z92.3 Personal history of irradiation; Z92.21 Personal history of antineoplastic chemotherapy; Z79.82 Long term (current) use of aspirin; Z79.899 Other long term (current) drug therapy; Z79.84 Long term (current) use of oral hypoglycemic drugs; Z79.51 Long term (current) use of inhaled steroids; Z87.891 Personal history of nicotine dependence; Z11.52 Encounter for screening for COVID-19; Z86.79 Personal history of other diseases of the circulatory system
CPT/HCPCS: 36415; 71045; 71275; 80053; 80061; 83036; 83605; 83735; 84100; 84145; 84443; 84484; 85025; 85027; 85379; 85610; 85730; 87636; 93005; 93306; 93623; 93653; 94640; 94760; 96361; 96365; 96366; 96375; 96376; 99285

== ENCOUNTER → 2023-07-07 | Outpatient (CLI) | payer BC, MEDICARE ==
--- NOTE | 2023-07-10 08:22 | PE ---
EXAMINATION TYPE: PET CT fusion skull to thigh DATE OF EXAM: 07/07/2023 COMPARISON: Chest abdomen pelvis CT 05/23/2022 Prior PET/CT: 04/27/2023 HISTORY: Lung cancer TECHNIQUE: Following the intravenous administration of 8.07 mCi of F-18 FDG, whole body images are p erformed from the skull base to the midthigh. Images are reviewed on the computer in the coronal, ax ial, and sagittal planes. Reconstructed rotating images are created on independent workstation and r eviewed on the computer. A localization and attenuation correction CT is performed in conjunction w ith the PET scan. DLP: 435.92 mGycm SCAN: Subsequent Scan Blood glucose: 124 mg/dL Average Mediastinum SUV: 2.11 Average Liver SUV: 2.65 FINDINGS: NECK: There is increased uptake through the right neck within masses within the right neck at the le maci of the hyoid deep to the sternocleidomastoid muscle. This has an SUV of 9.91, example image 57. A dditional right supraclavicular uptake is present, example image 67, SUV 6.3. Findings are suspicious for metastatic disease. THORAX: There is uptake within the patient's right upper lobe lung neoplasm, example image 84, SUV 11 .8. Previous SUV 10.91. A peripheral pleural-based nodule has increased uptake, image 84, SUV 10.98 s uspicious for metastatic disease. There is a punctate density within the right posterior lateral uppe r lung field, image 93, SUV 8.76. There is nodule in the posterior right mid thorax, image 99, SUV 11 .18. There may be a right suprahilar lymph node with increased uptake, image 94, SUV 8.16. ABDOMEN: There is a ring of increased activity along the lateral right upper lobe liver, example imag e 114, SUV 8.02. Small focal area of uptake is in the mid anterior right upper lobe liver, image 114, 0.12. An additional ring of activity in the posterior right mid liver image 127, SUV 8.22. Punctate area is present within the mid lateral right lobe liver, image 130, SUV 5.27. Findings are suspicious for metastatic disease. PELVIS: No abnormal uptake OSSEOUS STRUCTURES: No abnormal uptake LOCALIZATION CT: Masslike area is deep to the sternocleidomastoid muscle on the right at the thyroid thyroid lobe. Right upper lobe lung mass evident. Suspicious uptake within the pretracheal space whic h has some prominent node is not identified, example image 91. Hepatic masses present. The punctate a reas of uptake within the liver are not correlated with the CT findings. Note is made of a large cys t on the posterior lateral right kidney. Right renal stones without obstruction are present. A few in ferior pole left renal stones without obstruction are present. COMPARISON: Uptake within the liver has enlarged in size over the interval. The punctate areas of upt mary beth adjacent to the larger ring like lesions within the liver are new. Lung nodules present bilatera lly and suspected right hilar uptake are new findings from comparison. IMPRESSION: 1. Slight increase uptake of radiotracer within the patient's known right lung cancer. 2. New bilateral lung nodules, right hilar lymph node with uptake suspicious for metastatic disease. 3. Enlarging hepatic lesions. Two new punctate nodularities are adjacent to the 2 ringlike lesions wi thin the liver suspicious for new metastatic hepatic lesions. 3. New abnormal uptake within soft tissue right neck suspicious for metastatic disease.
== END | disposition home or self-care (01) ==
LOC: RADPETMAIN 13:20
PROVIDERS: ATTEND Internal Medicine Critical Care Medicine
DX: C34.12 Malignant neoplasm of upper lobe, left bronchus or lung (principal)
CPT/HCPCS: 78815; A9552

== ENCOUNTER 2023-10-05 08:58 | Inpatient (IN) | payer BC, MEDICARE ==
--- NOTE | 2023-10-05 09:27 | ED ---
Arrhythmia/Palpitations HPI - General Chief Complaint: Arrhythmia/Palpitations Stated Complaint: Possible AFIB onset Time Seen by Provider: 10/05/23 09:02 Source: family - History of Present Illness Initial Comments: 73-year-old male with past medical history of SVT/AV renodal entry tachycardia, lung cancer with mets who presents emergency department from preop. Patient was supposed to have a EGD with PEG tube placement today due to his poor oral intake and difficulty to swallow. Up in preop they found his heart rate to be anywhere from 105-160. He does take metoprolol daily for his elevated heart rate however did not take it today because he was told not to take anything after midnight. Patient also admits to increased shortness of breath. He wears 3 L of oxygen at home. He denies any fevers. Has a chronic cough. Currently on immunotherapy out of [place]. Last treatment was 2 weeks ago. Denies any chest pain. No other alleviating, precipitating or modifying factors - Related Data Home Medications Medication Instructions Recorded Confirmed Empaglifloz/Linaglip/Metformin 1 tab PO BID 12/28/21 10/05/23 [Trijardy Xr 12.5-2.5-1,000 mg] Multivitamins, Thera [Multivitamin 1 tab PO DAILY 05/26/23 10/05/23 (formulary)] Ondansetron [Zofran] 4 mg PO Q6H PRN 05/26/23 10/05/23 Albuterol Inhaler [Ventolin Hfa 1 puff INHALATION RT-Q6H PRN 10/05/23 10/05/23 Inhaler] Budesonide/Formoterol Fumarate 2 puff INHALATION RT-BID 10/05/23 10/05/23 [Breyna 160-4.5 Mcg Inhaler] Gabapentin 300 mg PO DIRECTED 10/05/23 10/05/23 HYDROcodone/APAP 7.5-325MG [[place] 1 tab PO Q4H PRN 10/05/23 10/05/23 7.5-325] Ipratropium-Albuterol Nebulize 3 ml INHALATION RT-QID 10/05/23 10/05/23 [Duoneb 0.5 mg-3 mg/3 ml Soln] Sennosides [Senokot] 17.2 mg PO HS 10/05/23 10/05/23 Previous Rx's Medication Instructions Recorded Metoprolol Succinate (ER) [Toprol 50 mg PO DAILY #30 tab 06/01/23 XL] Allergies Allergy/AdvReac Type Severity Reaction Status Date / Time No Known Allergies Allergy Verified 10/05/23 10:18 Review of Systems ROS Statement: Those systems with pertinent positive or pertinent negative responses have been documented in the HPI. ROS Other: All systems not noted in ROS Statement are negative. 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, tacycardia, wear home O2 3L 05/12 History of Any Multi-Drug Resistant Organisms: None Reported Past Surgical History: Appendectomy Additional Past Surgical History / Comment(s): bronchoscopy with biopsies, fatty tissue removed from left leg, colonoscopy Past Anesthesia/Blood Transfusion Reactions: No Reported Reaction Additional Past Anesthesia/Blood Transfusion Reaction / Comment(s): no hx blood transfusion Past Psychological History: No Psychological Hx Reported Smoking Status: Former smoker - Past Family History Father Family Medical History: Diabetes Mellitus Additional Family Medical History / Comment(s): from anuerysm caused from shrapnel injury. General Exam General appearance: alert, in no apparent distress Head exam: Present: atraumatic, normocephalic, normal inspection Eye exam: Present: normal appearance, PERRL, EOMI. Absent: scleral icterus, conjunctival injection, periorbital swelling ENT exam: Present: mucous membranes dry, other (Worse voice) Neck exam: Present: normal inspection. Absent: tenderness, meningismus, lymphadenopathy Respiratory exam: Present: normal lung sounds bilaterally. Absent: respiratory distress, wheezes, rales, rhonchi, stridor Cardiovascular Exam: Present: tachycardia, irregular rhythm, normal heart sounds. Absent: systolic murmur, diastolic murmur, rubs, gallop, clicks GI/Abdominal exam: Present: soft, normal bowel sounds. Absent: distended, tenderness, guarding, rebound, rigid Extremities exam: Present: normal inspection, full ROM, normal capillary refill. Absent: tenderness, pedal edema, joint swelling, calf tenderness Back exam: Present: normal inspection Neurological exam: Present: alert, oriented X3, CN II-XII intact Psychiatric exam: Present: normal affect, normal mood Skin exam: Present: warm, dry, intact, normal color. Absent: rash Course Vital Signs 10/05/23 10/05/23 10/05/23 09:07 09:15 09:52 Temperature 97.8 F Pulse Rate 123 H 105 H Pulse Rate [ 122 H Cost Control Supervisor ] Respiratory 22 22 Rate Blood Pressure 106/64 106/64 Blood Pressure [Left Arm] O2 Sat by Pulse 93 L 92 L Oximetry 10/05/23 10/05/23 10/05/23 11:00 11:57 12:17 Temperature Pulse Rate 93 96 96 Pulse Rate [ Cost Control Supervisor ] Respiratory 24 Rate Blood Pressure 102/68 Blood Pressure [Left Arm] O2 Sat by Pulse 92 L Oximetry 10/05/23 10/05/23 10/05/23 14:09 15:55 16:06 Temperature Pulse Rate 87 89 91 Pulse Rate [ Cost Control Supervisor ] Respiratory 22 Rate Blood Pressure 92/58 Blood Pressure [Left Arm] O2 Sat by Pulse 94 L Oximetry 10/05/23 10/05/23 10/05/23 16:39 18:27 20:16 Temperature 97.8 F Pulse Rate 91 90 104 H Pulse Rate [ Cost Control Supervisor ] Respiratory 18 22 20 Rate Blood Pressure 97/65 111/74 Blood Pressure [Left Arm] O2 Sat by Pulse 91 L 95 Oximetry 10/05/23 10/05/23 10/06/23 20:41 21:00 01:00 Temperature Pulse Rate 104 H 114 H 83 Pulse Rate [ Cost Control Supervisor ] Respiratory 20 20 18 Rate Blood Pressure 111/58 112/68 Blood Pressure [Left Arm] O2 Sat by Pulse 95 95 Oximetry 10/06/23 10/06/23 10/06/23 04:00 06:16 08:10 Temperature Pulse Rate 79 82 Pulse Rate [ 85 Cost Control Supervisor ] Respiratory 18 18 20 Rate Blood Pressure 98/63 103/68 Blood Pressure 100/68 [Left Arm] O2 Sat by Pulse 96 96 95 Oximetry 10/06/23 10/06/23 10/06/23 08:41 08:53 11:36 Temperature Pulse Rate 97 93 Pulse Rate [ 81 Cost Control Supervisor ] Respiratory 16 Rate Blood Pressure Blood Pressure 92/61 [Left Arm] O2 Sat by Pulse 96 Oximetry Medical Decision Making - Medical Decision Making Was pt. sent in by a medical professional or institution (, [facility], TAG WRITER, urgent care, hospital, or [place] health care facility...) When possible be specific @ -Patient was sent in from preop Did you speak to anyone other than the patient for history (EMS, parent, family, police, friend...)? What history was obtained from this source @ -Spoke with the preop nurse in regards to history Did you review nursing and triage notes (agree or disagree)? Why? @ -I reviewed and agree with nursing and triage notes Were old charts reviewed (outside hosp., previous admission, EMS record, old EKG, old radiological studies, urgent care reports/EKG's, [place] health care facility records)? Report findings @ -I reviewed operative report from May [address] Mckinnon performed an EGD procedure Differential Diagnosis (chest pain, altered mental status, abdominal pain women, abdominal pain men, vaginal bleeding, weakness, fever, dyspnea, syncope, headache, dizziness, GI bleed, back pain, seizure, CVA, palpatations, mental health, musculoskeletal)? @ -Differential Palpitations Ventricular arrhythmias, atrial arrhythmias, myocardial infarction, anemia, thyrotoxicosis, electrolyte imbalance, hypokalemia, pulmonary embolism, pulmonary disease, drugs, alcohol, anxiety, stress.... This is not meant to be an all-inclusive list. EKG interpreted by me (3pts min.). @ -Yes and demonstrates sinus tachycardia with a rate of 121. LA interval 238. QRS 80. QTc of 391. No acute ST segment elevations or depressions X-rays interpreted by me (1pt min.). @ -Yes and there is no acute process. Right-sided cancer CT interpreted by me (1pt min.). @ -None done U/S interpreted by me (1pt. min.). @ -None done What testing was considered but not performed or refused? (CT, X-rays, U/S, labs)? Why? @ -None What meds were considered but not given or refused? Why? @ -None Did you discuss the management of the patient with other professionals (professionals i.e. , [facility], TAG WRITER, lab, RT, psych nurse, social science teacher, supervisor particleboard, teacher, chief sustainability officer, watch case polisher)? Give summary @ -Spoke with Guido [facility] for admission Was smoking cessation discussed for >3mins.? @ -No Was critical care preformed (if so, how long)? @ -No Were there social determinants of health that impacted care today? How? (Homelessness, low income, unemployed, alcoholism, drug addiction, transportation, low edu. Level, literacy, decrease access to med. care, penitentiary, rehab)? @ -No Was there de-escalation of care discussed even if they declined (Discuss DNR or withdrawal of care, Hospice)? DNR status @ -Yes patient is a no code What co-morbidities impacted this encounter? (DM, HTN, Smoking, COPD, CAD, Cancer, CVA, ARF, Chemo, Hep., AIDS, mental health diagnosis, sleep apnea, morbid obesity)? @ -Lung cancer Was patient admitted / discharged? Hospital course, mention meds given and route, prescriptions, significant lab abnormalities, going to OR and other pertinent info. @ -Upon arrival patient seen and evaluated in room 1. Thorough history and physical exam was performed. He is placed on continuous pulse ox and cardiac monitoring. Twelve-lead EKG is obtained. Patient does have an atrial tachycardia. He does have a history of this. States he did not take his medications this morning and this is likely why the patient is in a rapid rate. I did provide the patient with his dose of metoprolol. Laboratory studies are conducted. Discussed the case with Guido from [facility] who will admit the patient. Patient's heart rate and breathing status need to be stabilized before he gets his feeding tube. Feel that this would best be facilitated in the hospital. Patient was agreeable to this and was taken in stable condition Undiagnosed new problem with uncertain prognosis? @ -No Drug Therapy requiring intensive monitoring for toxicity (Heparin, Nitro, Insulin, Cardizem)? @ -No Were any procedures done? @ -No Diagnosis/symptom? @ -Acute atrial tachycardia, history of lung cancer with planned PEG tube placement Acute, or Chronic, or Acute on Chronic? @ -Acute on chronic Uncomplicated (without systemic symptoms) or Complicated (systemic symptoms)? @ -Complicated Side effects of treatment? @ -No Exacerbation, Progression, or Severe Exacerbation? @ -Yes Poses a threat to life or bodily function? How? (Chest pain, [place], [place], pneumonia, PE, COPD, DKA, ARF, appy, cholecystitis, CVA, Diverticulitis, Homicidal, Suicidal, threat to staff... and all critical care pts) @ -Yes this patient presents with elevated heart rate - Lab Data Result diagrams: 10/09/23 08:38 10/09/23 08:38 Lab Results 10/05/23 10/05/23 10/05/23 Range/Units 09:39 09:39 09:39 WBC 11.4 H (3.8-10.6) k/uL RBC 4.45 (4.30-5.90) m/uL Hgb 12.5 L (13.0-17.5) gm/dL Hct 40.8 (39.0-53.0) % MCV 91.7 (80.0-100.0) fL MCH 28.2 (25.0-35.0) pg MCHC 30.8 L (31.0-37.0) g/dL RDW 14.1 (11.5-15.5) % Plt Count 540 H (150-450) k/uL MPV 7.7 Neutrophils % 90 % Lymphocytes % 3 % Monocytes % 5 % Eosinophils % 1 % Basophils % 0 % Neutrophils # 10.3 H (1.3-7.7) k/uL Lymphocytes # 0.4 L (1.0-4.8) k/uL Monocytes # 0.5 (0-1.0) k/uL Eosinophils # 0.1 (0-0.7) k/uL Basophils # 0.0 (0-0.2) k/uL PT 11.3 (10.0-12.5) sec INR 1.0 (<1.2) APTT 19.4 L (22.0-30.0) sec Sodium 133 L (137-145) mmol/L Potassium 4.8 (3.5-5.1) mmol/L Chloride 98 (98-107) mmol/L Carbon Dioxide 30 (22-30) mmol/L Anion Gap 5 mmol/L BUN 26 H (9-20) mg/dL Creatinine 0.66 (0.66-1.25) mg/dL Est GFR (CKD-EPI)AfAm >90 (>60 ml/min/1.73 sqM) Est GFR (CKD-EPI)NonAf >90 (>60 ml/min/1.73 sqM) Glucose 113 H (74-99) mg/dL Calcium 9.4 (8.4-10.2) mg/dL Magnesium 1.8 (1.6-2.3) mg/dL Total Bilirubin 0.7 (0.2-1.3) mg/dL AST 104 H (17-59) U/L ALT 39 (4-49) U/L Alkaline Phosphatase 584 H (38-126) U/L Troponin I (0.000-0.034) ng/mL Total Protein 6.6 (6.3-8.2) g/dL Albumin 3.4 L (3.5-5.0) g/dL 10/05/23 Range/Units 09:39 WBC (3.8-10.6) k/uL RBC (4.30-5.90) m/uL Hgb (13.0-17.5) gm/dL Hct (39.0-53.0) % MCV (80.0-100.0) fL MCH (25.0-35.0) pg MCHC (31.0-37.0) g/dL RDW (11.5-15.5) % Plt Count (150-450) k/uL MPV Neutrophils % % Lymphocytes % % Monocytes % % Eosinophils % % Basophils % % Neutrophils # (1.3-7.7) k/uL Lymphocytes # (1.0-4.8) k/uL Monocytes # (0-1.0) k/uL Eosinophils # (0-0.7) k/uL Basophils # (0-0.2) k/uL PT (10.0-12.5) sec INR (<1.2) APTT (22.0-30.0) sec Sodium (137-145) mmol/L Potassium (3.5-5.1) mmol/L Chloride (98-107) mmol/L Carbon Dioxide (22-30) mmol/L Anion Gap mmol/L BUN (9-20) mg/dL Creatinine (0.66-1.25) mg/dL Est GFR (CKD-EPI)AfAm (>60 ml/min/1.73 sqM) Est GFR (CKD-EPI)NonAf (>60 ml/min/1.73 sqM) Glucose (74-99) mg/dL Calcium (8.4-10.2) mg/dL Magnesium (1.6-2.3) mg/dL Total Bilirubin (0.2-1.3) mg/dL AST (17-59) U/L ALT (4-49) U/L Alkaline Phosphatase (38-126) U/L Troponin I <0.012 (0.000-0.034) ng/mL Total Protein (6.3-8.2) g/dL Albumin (3.5-5.0) g/dL Disposition Clinical Impression: SVT (supraventricular tachycardia), Tachycardia, Dyspnea, Small cell lung cancer in adult Disposition: ADMITTED IP TO THIS HOSP Condition: Stable Is patient prescribed a controlled substance at d/c from ED?: No Time of Disposition: 11:33 Decision to Admit Reason: Admit from EC Decision Date: 10/05/23 Decision Time: 11:33
[2023-10-05 09:58] LABS: Basophils % (A) 0 %; Eosinophils # (A) 0.1 k/uL (0-0.7); Eosinophils % (A) 1 %; HCT 40.8 % (39.0-53.0); HGB 12.5 gm/dL (13.0-17.5); Lymphocytes # (A) 0.4 k/uL (1.0-4.8); Lymphocytes % (A) 3 %; MCH 28.2 pg (25.0-35.0); MCHC 30.8 g/dL (31.0-37.0); MCV 91.7 fL (80.0-100.0); Mean Platelet Volume 7.7; Monocytes # (A) 0.5 k/uL (0-1.0); Monocytes % (A) 5 %; Neutrophils # (A) 10.3 k/uL (1.3-7.7); Neutrophils % (A) 90 %; Platelet Count 540 k/uL (150-450); RBC 4.45 m/uL (4.30-5.90); RDW 14.1 % (11.5-15.5); WBC 11.4 k/uL (3.8-10.6)
[2023-10-05 10:12] LABS: ALT 39 U/L (4-49); AST 104 U/L (17-59); African American GFR (CKD) >90 (>60 ml/min/1.73 sqM); Albumin 3.4 g/dL (3.5-5.0); Alkaline Phosphatase 584 U/L (38-126); Anion Gap 5 mmol/L; Blood Urea Nitrogen 26 mg/dL (9-20); Calcium 9.4 mg/dL (8.4-10.2); Carbon Dioxide 30 mmol/L (22-30); Chloride 98 mmol/L (98-107); Glucose 113 mg/dL (74-99); Magnesium 1.8 mg/dL (1.6-2.3); Non-African American GFR(CKD) >90 (>60 ml/min/1.73 sqM); Potassium 4.8 mmol/L (3.5-5.1); Sodium 133 mmol/L (137-145); Total Bilirubin 0.7 mg/dL (0.2-1.3); Total Protein 6.6 g/dL (6.3-8.2)
[2023-10-05 10:14] LABS: Prothrombin Time 11.3 sec (10.0-12.5)
--- NOTE | 2023-10-05 10:15 | XR ---
EXAMINATION TYPE: XR chest 2V DATE OF EXAM: 10/05/2023 10:09 AM CLINICAL INDICATION:Male, 73 years old with history of dysrhythmia; [facility] COMPARISON: 07/07/2023 TECHNIQUE: XR chest 2V Frontal and lateral views of the chest. FINDINGS: Lungs/Pleura: Scattered pulmonary masses with consolidation right lung with larger pleural effusion N o evidence of pneumothorax. Post chronic interstitial changes. Pulmonary vascularity: Unremarkable. Heart/mediastinum: Cardiomediastinal silhouette is unremarkable. Musculoskeletal: No acute osseous pathology. Other findings: None IMPRESSION: 1. Large right pleural effusion with scattered pulmonary masses and consolidation right upper lung a s seen on prior PET/CT.. 2. Multiple right-sided rib fractures.
[2023-10-05 10:17] LABS: Partial Thromboplastin Time 19.4 sec (22.0-30.0)
[2023-10-05] MEDS ORDERED: ONDANSETRON 4 MG TAB PO PRN (11:17)
[2023-10-05] MEDS ORDERED: NALOXONE 0.4 MG/ML 1 ML VIAL IV PRN (11:50)
[2023-10-05] MEDS: IPRATROPIUM-ALBUTEROL 3 ML NEB INHALATION STA (11:55)
[2023-10-05] MEDS ORDERED: DEXTROSE 50% SYRINGE 50 ML IVP PRN ×2 (12:36)
[2023-10-05] MEDS: SALINE NASAL GEL 14.1 GM TUBE NASAL SCH (12:53)
[2023-10-05] MEDS: HYDROcodone/APAP 7.5-325MG 1 EACH TAB PO PRN (12:53)
[2023-10-05] MEDS: metFORMIN 500 MG TAB PO SCH (12:54)
[2023-10-05] MEDS: METOPROLOL SUCCINATE (ER) 50 MG TAB.ER.24H PO SCH (12:55)
[2023-10-05] MEDS: DAPAGLIFLOZIN PROPANEDIOL 10 MG TABLET PO SCH (12:55)
[2023-10-05] MEDS: MULTIVITAMINS, THERA 1 EACH TAB PO SCH (12:55)
[2023-10-05] MEDS: LINAGLIPTIN 5 MG TABLET PO SCH (12:56)
[2023-10-05 14:23] LABS: Glucose,Whole Blood 123 mg/dL (70-110)
[2023-10-05] MEDS: INSULIN ASPART (NovoLOG) 100 UNIT/ML VIAL SQ SCH ×2 (14:29→16:55)
[2023-10-05] MEDS: IPRATROPIUM-ALBUTEROL 3 ML NEB INHALATION SCH (15:54)
--- NOTE | 2023-10-05 16:07 | P.HPIM ---
History of Present Illness H&P Date: 10/05/23 History of Presenting Illness: Patient is a very pleasant 73-year-old male with a past medical history of SVT/AV renodal entry tachycardia, metastatic lung cancer currently undergoing clinical study with immunotherapy treatments at [facility] in [place] and follows with oncologist Dr. Coughlin, hypertension, hyperlipidemia, and [id number] diabetes mellitus. He presented to the emergency department with a chief complaint of tachycardia, palpitations, and shortness of breath. Patient reports recently having difficulty swallowing secondary to his metastatic cancer and was scheduled for outpatient EGD with PEG tube placement today. However, while in preop preparing to undergo procedure he began having palpitations with episodes of tachycardia with heart rate elevating to the 160s accompanied by worsening shortness of breath. Patient reports this has happened in the past and he typically takes metoprolol on a daily basis for heart rate control but did not take it this morning because he was instructed to hold all medications prior to procedure. Patient's heart rate has improved and 90s at this time. He continues to report slightly increased shortness of breath remains on baseline home oxygen needs of 3 L. He denies having any headache, lightheadedness, dizziness, chest pain, abdominal pain, nausea, vomiting, or ex periencing any focal numbness/weakness/tingling in his extremities. He underwent evaluation in the emergency department. Vital signs upon arrival show blood pressure 106/64, heart rate 123, respiratory rate 22, temp 97.8 F, and SpO2 of 93% on 3 L. EKG completed showing sinus Tachycardia at 121 bpm with frequent PACs first-degree AV block with WV interval of 238 ms. Chest x-ray showing large right pleural effusion with scattered pulmonary masses and consolidation of right upper lung and multiple right-sided rib fractures. Labs completed and reviewed. CBC showing leukocytosis with WBC count of 11.4, hemoglobin of 12.5, and thrombocytosis with platelet count of 540. BMP showing hyponatremia with sodium 133, elevated BUN of 26, and blood glucose of 113. Liver profile showing elevated AST of 104 and alkaline phosphatase of 584. Troponin was negative at less than 0.012. Patient being admitted under our services consultation to cardiology for atrial tachycardia, consultation to pul monology for large pleural effusion, and consultation to general surgery for placement of PEG tube. Review of systems: Pertinent positives and negatives as discussed in HPI, a complete review of systems was performed and all other systems are negative. Physical exam: Vital signs reviewed and stable. General: Nontoxic, no distress, chronically ill-appearing, cachectic Derm: Skin warm and dry, normal coloration for ethnicity. Head: Atraumatic, normocephalic and symmetric. Eyes: EOMs intact, no lid lag, and anicteric sclera Mouth: no lip lesions, mucus membranes moist Cardiovascular: regular rate and rhythm with normal S1S2, systolic murmur, positive posterior tibial pulses bilaterally, and cap refill < 2 seconds. Lungs: Respirations even, regular, and unlabored on room air. Lungs diminished throughout entire right lung, good air entry throughout left lung with soft expiratory wheezes in left upper lobe. Abdominal: soft, nontender to palpation, no guarding, no appreciable organomega ly Ext: ROM intact. No gross muscle atrophy, no edema, no contractures Neuro: Speech clear, face symmetrical and CN II-XII grossly intact with no noted focal neuro deficits Psych: Alert and oriented to person, place, time, and situation. Appropriate and pleasant affect. Assessment and Plan of Care: Atrial tachycardia Metastatic Lung cancer with large right pleural effusion Multiple right sided pulmonary masses with multiple right-sided rib fractures, secondary to above Hypertension Hyperlipidemia -Consult to cardiology secondary to atrial tachycardia -Consult placed to general surgery for placement of PEG tube -Consult placed to furrier shop supervisor for evaluation and possible pleurocentesis of large right-sided effusion. -Consult also placed to hematology/oncology -Oxygenation to be administered and titrated as needed to maintain SPO2 equal to or greater than 90% -Telemetry monitoring. -Monitor Pulse-oximetry -Resume home metoprolol succinate 50 mg daily. -Duonebs scheduled for times daily and as needed for SOB and/or wheezing -Incentive Spirometry [id number] diabetes mellitus Hold Trijardy and place patient on glycemic protocol with NovoLog sliding scale. Data and imaging reviewed: As stated above in HPI. CODE STATUS: Full code DVT prophylaxis: Lovenox Anticipated discharge date: Clinical course to determine Anticipated discharge place: Clinical course to determine Patient was seen independently by Nurse Practitioner. This document was prepared using Programmr dictation software. Please allow for errors in facilities painter while rare they do occur. I reviewed the documentation as provided by the DMITRY above, who is the original author of this note. 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, tacycardia, wear home O2 3L 05/12 History of Any Multi-Drug Resistant Organisms: None Reported Past Surgical History: Appendectomy Additional Past Surgical History / Comment(s): bronchoscopy with biopsies, fatty tissue removed from left leg, colonoscopy Past Anesthesia/Blood Transfusion Reactions: No Reported Reaction Additional Past Anesthesia/Blood Transfusion Reaction / Comment(s): no hx blood transfusion Past Psychological History: No Psychological Hx Reported Smoking Status: Former smoker - Past Family History Father Family Medical History: Diabetes Mellitus Additional Family Medical History / Comment(s): from anuerysm caused from shrapnel injury. Medications and Allergies Home Medications Medication Instructions Recorded Confirmed Type Empaglifloz/Linaglip/Metformin 1 tab PO BID 12/28/21 10/05/23 History [Trijardy Xr 12.5-2.5-1,000 mg] Multivitamins, Thera [Multivitamin 1 tab PO DAILY 05/26/23 10/05/23 History (formulary)] Ondansetron [Zofran] 4 mg PO Q6H PRN 05/26/23 10/05/23 History Metoprolol Succinate (ER) [Toprol 50 mg PO DAILY #30 tab 06/01/23 10/05/23 Rx XL] Albuterol Inhaler [Ventolin Hfa 1 puff INHALATION RT-Q6H PRN 10/05/23 10/05/23 History Inhaler] Budesonide/Formoterol Fumarate 2 puff INHALATION RT-BID 10/05/23 10/05/23 History [Breyna 160-4.5 Mcg Inhaler] Gabapentin 300 mg PO DIRECTED 10/05/23 10/05/23 History HYDROcodone/APAP 7.5-325MG [[place] 1 tab PO Q4H PRN 10/05/23 10/05/23 History 7.5-325] Ipratropium-Albuterol Nebulize 3 ml INHALATION RT-QID 10/05/23 10/05/23 History [Duoneb 0.5 mg-3 mg/3 ml Soln] Sennosides [Senokot] 17.2 mg PO HS 10/05/23 10/05/23 History Allergies Allergy/AdvReac Type Severity Reaction Status Date / Time No Known Allergies Allergy Verified 10/05/23 10:18 Physical Exam Osteopathic Statement: *. No significant issues noted on an osteopathic structural exam other than those noted in the History and Physical/Consult. Vitals: Vital Signs Temp Pulse Pulse Resp BP Pulse Ox 10/05/23 11:57 96 10/05/23 11:00 93 24 102/68 92 L 10/05/23 09:52 122 H 10/05/23 09:15 97.8 F 105 H 22 106/64 92 L 10/05/23 09:07 123 H 22 106/64 93 L Intake and Output 10/04/23 10/05/23 10/05/23 22:59 06:59 14:59 Other: Weight 58.967 kg Results CBC & Chem 7: 10/06/23 05:43 10/06/23 05:43 Labs: Abnormal Lab Results - Last 24 Hours (Table) 10/05/23 10/05/23 10/05/23 Range/Units 09:39 09:39 09:39 WBC 11.4 H (3.8-10.6) k/uL Hgb 12.5 L (13.0-17.5) gm/dL MCHC 30.8 L (31.0-37.0) g/dL Plt Count 540 H (150-450) k/uL Neutrophils # 10.3 H (1.3-7.7) k/uL Lymphocytes # 0.4 L (1.0-4.8) k/uL APTT 19.4 L (22.0-30.0) sec Sodium 133 L (137-145) mmol/L BUN 26 H (9-20) mg/dL Glucose 113 H (74-99) mg/dL AST 104 H (17-59) U/L Alkaline Phosphatase 584 H (38-126) U/L Albumin 3.4 L (3.5-5.0) g/dL
[2023-10-05 16:56] LABS: Glucose,Whole Blood 96 mg/dL (70-110)
[2023-10-05] MEDS: SYMBICORT 160-4.5 MCG INHALER INHALATION SCH (20:15)
[2023-10-05 20:43] LABS: Glucose,Whole Blood 128 mg/dL (70-110)
[2023-10-05] MEDS: SENNOSIDES 8.6 MG TAB PO SCH (20:46)
--- NOTE | 2023-10-06 03:53 | P.CNPUL ---
History of Present Illness Consult date: 10/06/23 Requesting physician: Ezekiel Pfeiffer Reason for consult: other (Known metastatic small cell lung cancer) Chief complaint: Here for elective PEG tube insertion, tachyarrhythmia in preop History of present illness: Patient is a 73-year-old white male with past medical history significant for metastatic small cell lung cancer that was originally diagnosed back in 2020. He is status post chemo and radiation. He was noted to have disease progression on a recent PET scan done 06/2023. He has been referred to [facility], and is currently on immunotherapy. Reportedly enrolled in a clinical trial. Other medical history significant for COPD, diabetes mellitus, hypertension, hyperlipidemia, SVT/AV node reentry tachycardia. PET scan noted above demonstrated slight increased uptake of radiotracer within the patient's known right lung mass. There is new bilateral lung nodules, right hilar lymph node with uptake suspicious for metastatic disease. Enlarging hepatic lesions. And new abnormal uptake within the soft tissue of the right neck suspicious for metastatic disease. Patient does have a right neck mass. He has been having issues with dysphagia and aspiration. Reports coughing after eating or drinking thin liquids. He was scheduled for a elective EGD/PEG tube placement yesterday. While in preop, was noted to be in SVT, the procedure was canceled, and the patient was sent to the emergency department. Heart rate was noted as high as 160s beat per minute. He reportedly held his metoprolol earlier in the day, because he was n.p.o. for his procedure. He normally takes 50 mg twice a day. Of note, patient had a recent admission May 2023 for recurrent SVT refractory to pharmacologic's. He did undergo EP study and cardiac ablation during this admission. On my evaluation, patient is currently in the emergency department, room 1. Heart rhythm on bedside monitor appears normal sinus with a rate of 86 bpm. Blood pressure is normotensive. He is resting comfortably in bed, on 3 L/min nasal cannula, which is chronic. He is no longer experiencing any heart palpitations or lightheadedness or acute shortness of breath that he was feeling when noted to be in SVT. From a pulmonary standpoint, patient denies any change in his chronic dyspnea, he has a chronic cough with very limited sputum production. No hemoptysis. No chest pain. Denies fevers. He does have a right neck mass. No stridor on my evaluation. Follow-up chest x-ray shows an elevated right hemidiaphragm and right upper lung consolidation and bilateral lung masses/nodules, consistent with recent PET scan results. There is multiple right-sided rib fractures. No pneumothorax. He states that he has a follow-up CAT scan scheduled October 17 at [facility] in [place]. CBC drawn on arr ival: WBC count 11.4, hemoglobin 12.5, hematocrit 40.8, platelets 540. BMP on arrival unremarkable. Troponins less than 0.012. EKG taken earlier in the emergency room showed sinus tachycardia. No obvious acute ischemic changes. Current hemodynamics are stable. Review of Systems REVIEW OF SYSTEMS: CONSTITUTIONAL: Admits some recent unintentional weight loss, unsure of how much. Associated with this difficulty with swallowing EYES: Denies change in vision. EARS, NOSE, MOUTH, THROAT: Denies headaches, denies sore throat. CARDIOVASCULAR: Denies chest pain or syncope. Does admit some lightheadedness and heart palpitations earlier, which are improved. RESPIRATORY: Denies any change in his chronic shortness of breath, cough is also chronic and unchanged, reports minimal sputum production at times. Denies hemoptysis. GASTROINTESTINAL: Admits difficulty swallowing and coughing after drinking thin liquids. Appetite has been poor. Denies any nausea, vomiting, diarrhea, abdominal pain. GENITOURINARY: Denies hematuria, denies infections. MUSKULOSKELETAL: Denies pain, denies swelling. INTEGUMENTARY: Denies rash, denies eczema. NEUROLOGICAL: Denies recent memory loss, no recent seizure activity. PSYCHIATRIC: Denies anxiety, denies depression. HEMATOLOGIC/LYMPHATIC: Admits right neck mass. 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, tacycardia, wear home O2 3L 05/12 History of Any Multi-Drug Resistant Organisms: None Reported Past Surgical History: Appendectomy Additional Past Surgical History / Comment(s): bronchoscopy with biopsies, fatty tissue removed from left leg, colonoscopy Past Anesthesia/Blood Transfusion Reactions: No Reported Reaction Additional Past Anesthesia/Blood Transfusion Reaction / Comment(s): no hx blood transfusion Past Psychological History: No Psychological Hx Reported Smoking Status: Former smoker - Past Family History Father Family Medical History: Diabetes Mellitus Additional Family Medical History / Comment(s): from anuerysm caused from shrapnel injury. Medications and Allergies Home Medications Medication Instructions Recorded Confirmed Type Empaglifloz/Linaglip/Metformin 1 tab PO BID 12/28/21 10/05/23 History [Trijardy Xr 12.5-2.5-1,000 mg] Multivitamins, Thera [Multivitamin 1 tab PO DAILY 05/26/23 10/05/23 History (formulary)] Ondansetron [Zofran] 4 mg PO Q6H PRN 05/26/23 10/05/23 History Metoprolol Succinate (ER) [Toprol 50 mg PO DAILY #30 tab 06/01/23 10/05/23 Rx XL] Albuterol Inhaler [Ventolin Hfa 1 puff INHALATION RT-Q6H PRN 10/05/23 10/05/23 History Inhaler] Budesonide/Formoterol Fumarate 2 puff INHALATION RT-BID 10/05/23 10/05/23 History [Breyna 160-4.5 Mcg Inhaler] Gabapentin 300 mg PO DIRECTED 10/05/23 10/05/23 History HYDROcodone/APAP 7.5-325MG [[place] 1 tab PO Q4H PRN 10/05/23 10/05/23 History 7.5-325] Ipratropium-Albuterol Nebulize 3 ml INHALATION RT-QID 10/05/23 10/05/23 History [Duoneb 0.5 mg-3 mg/3 ml Soln] Sennosides [Senokot] 17.2 mg PO HS 10/05/23 10/05/23 History Allergies Allergy/AdvReac Type Severity Reaction Status Date / Time No Known Allergies Allergy Verified 10/05/23 10:18 Physical Exam Vitals: Vital Signs Temp Pulse Pulse Resp BP Pulse Ox 10/06/23 01:00 83 18 112/68 95 10/05/23 21:00 114 H 20 111/58 95 10/05/23 20:41 104 H 20 10/05/23 20:16 104 H 20 10/05/23 18:27 90 22 111/74 95 10/05/23 16:39 97.8 F 91 18 97/65 91 L 10/05/23 16:06 91 10/05/23 15:55 89 10/05/23 14:09 87 22 92/58 94 L 10/05/23 12:17 96 10/05/23 11:57 96 10/05/23 11:00 93 24 102/68 92 L 10/05/23 09:52 122 H 10/05/23 09:15 97.8 F 105 H 22 106/64 92 L 10/05/23 09:07 123 H 22 106/64 93 L Intake and Output 10/05/23 10/05/23 10/06/23 14:59 22:59 06:59 Other: Weight 58.967 kg GENERAL EXAM: Alert, 73-year-old white male, lying flat in bed, comfortable in no apparent distress. HEAD: Normocephalic and atraumatic EYES: Normal reaction of pupils, pupils are unequal, left greater than right. NOSE: Clear with pink turbinates. THROAT: No erythema or exudates. NECK: Right neck mass. No stridor. No JVD. CHEST: No chest wall deformity. LUNGS: Equal air entry with diminished right lung sounds and left basilar inspiratory crackles. No significant wheezing. On 3 L/min nasal cannula. No conversational dyspnea or accessory muscle use.. CVS: S1 and S2 normal with no audible murmur, regular rhythm. No extra heart sounds ABDOMEN: No hepatosplenomegaly, active bowel sounds, no guarding or rigidity. SPINE: No scoliosis or deformity SKIN: No rashes CENTRAL NERVOUS SYSTEM: No focal deficits, tone is normal in all 4 extremities. EXTREMITIES: There is no peripheral edema, clubbing, or cyanosis. Peripheral pulses are intact. Results - Laboratory Findings CBC and BMP: 10/06/23 05:43 10/06/23 05:43 PT/INR, D-dimer PT 11.3 sec (10.0-12.5) 10/05/23 09:39 INR 1.0 (<1.2) 10/05/23 09:39 Abnormal lab findings: Abnormal Labs 10/05/23 10/05/23 10/05/23 09:39 09:39 09:39 WBC 11.4 H Hgb 12.5 L MCHC 30.8 L Plt Count 540 H Neutrophils # 10.3 H Lymphocytes # 0.4 L APTT 19.4 L Sodium 133 L BUN 26 H Glucose 113 H POC Glucose (mg/dL) AST 104 H Alkaline Phosphatase 584 H Albumin 3.4 L 10/05/23 10/05/23 14:22 20:43 WBC Hgb MCHC Plt Count Neutrophils # Lymphocytes # APTT Sodium BUN Glucose POC Glucose (mg/dL) 123 H 128 H AST Alkaline Phosphatase Albumin - Diagnostic Findings Chest x-ray: image reviewed Assessment and Plan Assessment: SVT while in preop, patient held his metoprolol early in the day for scheduled procedure. 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 Metoprolol has since been resumed. He is currently in normal sinus rhythm. Metastatic small cell lung cancer Right neck mass related to small cell lung cancer post. Radiation therapy Dysphagia, patient has a right neck mass postradiation therapy.. He was scheduled for an elective EGD with PEG tube placement yesterday. Noted to be in SVT in preop, and the procedure was canceled. History of metastatic small cell lung cancer, with disease progression, currently on immunotherapy. Patient was referred to [facility], and is reportedly currently on a clinical trial. Most recent PET scan done June, demonstrated slight increased uptake of radiotracer within the patient's known right lung mass. There were new bilateral lung nodules, right hilar lymph node with uptake suspicious for metastatic disease. Enlarging hepatic lesions. And new abnormal uptake within the soft tissue of the right neck suspicious for metastatic disease. Brain MRI done May, shows a stable medial right cerebral focus of enhancement. This is status post SBRT. Right lung consolidation/opacification combination of tumor progression with small cell lung cancer and possibly pneumonia with right-sided pleural effusion. Patient is coughing copious amount of purulent respiratory secretions. Chronic hypoxemic respiratory failure, secondary to above, most recent chest x- ray demonstrates a large right upper lung consolidation consistent with the patient's known history of lung mass, bilateral pulmonary masses/nodules, right elevated hemidiaphragm, multiple right-sided rib fractures. Elevated right hemidiaphragm History of chronic obstructive pulmonary disease, stable Diabetes mellitus type 2 History of hypertension Former tobacco dependence Plan: Patient's medications, labs, imaging were reviewed. We are actually consulted for a reported large right pleural effusion. Chest x-ray findings consistent with patient's known history of small cell lung cancer and disease progression, consistent with recent PET scan results. Radiologist reported a large right pleural effusion, patient does have history of elevated right sided hemidiaphragm. We recommended follow-up CAT scan, however, patient refused. States he has a follow-up CAT scan scheduled with [facility] on October 17. Maintenance medications for COPD have been resumed. Continue supplemental oxygen Patient's metoprolol has been resumed. Current heart rhythm is normal sinus. Hemodynamics are stable. At this time, no further episodes of tachyarrhythmias. Patient will still need PEG tube, to be followed up by general surgery. We will continue to follow, and additional recommendations are forthcoming. I have personally seen and examined the patient, performed the documentation and the assessment and plan as written. Number of minutes spent on the visit:20 This is a joint evaluation that was done along the nurse practitioner. The patient presented to the hospital for ongoing dysphagia and need for a PEG tube insertion. The patient subsequently was found to be in SVT. He is known to have a previous history of AVNRT and he has undergone previous ablation. The patient is also known to have advanced small cell lung cancer and currently is undergoing a clinical trial treatment through [facility]. The patient apparently not taking beta-blockers and subsequently went into SVT. His current rhythm is sinus tachycardia. He was seen by cardiology. Pulmonary consultation was also requested and the patient's chest x-ray was quite abnormal. I reviewed the chest x-ray findings and the patient has significant opacification of the right lung and there is obvious interval progression with a large area of pulmonary consolidation in the right upper lobe and possibly an underlying right-sided pleural effusion the patient has multiple right-sided rib fractures. Ultrasound the chest also showed a moderate size right-sided pleural effusion. Note that the patient's last PET scan imaging was done on 07/10/2023 that showed slightly increased uptake in the right lung. There was areas of bilateral pulmonary nodules and right hilar lymph node consistent with metastatic disease and there was also enlarging hepatic lesions and 2 new punctate nodularities adjacent to the previous described lesions in the liver suspicious for metastatic disease and there was also uptake within the soft ti ssue of the right neck consistent with metastatic disease. Noted the patient's right neck mass was radiated and subsequently patient continued to have difficulties with dysphagia and he was told close to have a PEG tube inserted. At this point in time, the patient is coming significant cough and congestion and mucus production. The swallow mechanism is impaired. X-ray findings. Suggestive of pneumonia or progression of his small cell lung cancer. His white cell count is at 10, electrolytes are normal, proBNP is 369. I am going to cover the patient with Zosyn. Will put the patient on DuoNeb nebulized treatments. Will obtain sputum and blood cultures. Will need a follow-up CAT scan of the chest. Time with Patient: Greater than 30
[2023-10-06 06:21] LABS: African American GFR (CKD) >90 (>60 ml/min/1.73 sqM); Anion Gap 4 mmol/L; Blood Urea Nitrogen 25 mg/dL (9-20); Calcium 9.3 mg/dL (8.4-10.2); Carbon Dioxide 29 mmol/L (22-30); Chloride 100 mmol/L (98-107); Glucose 95 mg/dL (74-99); Magnesium 1.8 mg/dL (1.6-2.3); Non-African American GFR(CKD) >90 (>60 ml/min/1.73 sqM); Potassium 4.5 mmol/L (3.5-5.1); Sodium 133 mmol/L (137-145)
[2023-10-06] MEDS: ENOXAPARIN 40 MG/0.4 ML SYRINGE SQ SCH (08:22)
[2023-10-06 08:26] LABS: Glucose,Whole Blood 114 mg/dL (70-110)
[2023-10-06 08:34] LABS: Basophils # (A) 0.04 X 10*3/uL (0.00-0.10); Basophils % (A) 0.4 %; Eosinophils # (A) 0.14 X 10*3/uL (0.04-0.35); Eosinophils % (A) 1.4 %; HCT 36.7 % (39.6-50.0); HGB 11.5 g/dL (13.0-17.0); Lymphocytes % (A) 5.8 %; MCH 28.2 pg (27.0-32.0); MCHC 31.3 g/dL (32.0-37.0); Mean Platelet Volume 9.3 FL (9.5-12.2); Monocytes % (A) 7.8 %; NRBC Per 100 WBC 0 X 10*3/uL (0.00-0.01); Neutrophils # (A) 8.67 X 10*3/uL (1.80-7.70); Neutrophils % (A) 84.1 %; Platelet Count 467 X 10*3/uL (140-440); RBC 4.08 X 10*6/uL (4.40-5.60)
--- NOTE | 2023-10-06 09:06 | P.GSCN ---
History of Present Illness Consult date: 10/06/23 Reason for Consult: protein calorie malnutrition History of present illness: this a 73-year-old male with multiple medical problems. Patient was scheduled for PEG tube placement. Patient was thought to be in A. fib and his procedure was canceled by anesthesia. Patient has been admitted for further workup. 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, tacycardia, wear home O2 3L 05/12 History of Any Multi-Drug Resistant Organisms: None Reported Past Surgical History: Appendectomy Additional Past Surgical History / Comment(s): bronchoscopy with biopsies, fatty tissue removed from left leg, colonoscopy Past Anesthesia/Blood Transfusion Reactions: No Reported Reaction Additional Past Anesthesia/Blood Transfusion Reaction / Comm: no hx blood transfusion Past Psychological History: No Psychological Hx Reported Smoking Status: Former smoker - Past Family History Father Family Medical History: Diabetes Mellitus Additional Family Medical History / Comment(s): from anuerysm caused from shrapnel injury. Medications and Allergies Home Medications Medication Instructions Recorded Confirmed Type Empaglifloz/Linaglip/Metformin 1 tab PO BID 12/28/21 10/05/23 History [Trijardy Xr 12.5-2.5-1,000 mg] Multivitamins, Thera [Multivitamin 1 tab PO DAILY 05/26/23 10/05/23 History (formulary)] Ondansetron [Zofran] 4 mg PO Q6H PRN 05/26/23 10/05/23 History Metoprolol Succinate (ER) [Toprol 50 mg PO DAILY #30 tab 06/01/23 10/05/23 Rx XL] Albuterol Inhaler [Ventolin Hfa 1 puff INHALATION RT-Q6H PRN 10/05/23 10/05/23 History Inhaler] Budesonide/Formoterol Fumarate 2 puff INHALATION RT-BID 10/05/23 10/05/23 History [Breyna 160-4.5 Mcg Inhaler] Gabapentin 300 mg PO DIRECTED 10/05/23 10/05/23 History HYDROcodone/APAP 7.5-325MG [[place] 1 tab PO Q4H PRN 10/05/23 10/05/23 History 7.5-325] Ipratropium-Albuterol Nebulize 3 ml INHALATION RT-QID 10/05/23 10/05/23 History [Duoneb 0.5 mg-3 mg/3 ml Soln] Sennosides [Senokot] 17.2 mg PO HS 10/05/23 10/05/23 History Allergies Allergy/AdvReac Type Severity Reaction Status Date / Time No Known Allergies Allergy Verified 10/05/23 10:18 Surgical - Exam Vital Signs Pulse Resp BP Pulse Ox 123 H 22 106/64 93 L 10/05/23 09:07 10/05/23 09:07 10/05/23 09:07 10/05/23 09:07 - General cachectic, chronically ill - Eyes PERRL - ENT normal pinna - Neck no masses - Respiratory normal expansion - Cardiovascular Rhythm: regular - Abdomen Abdomen: soft, non tender Results - Labs 10/06/23 05:43 10/06/23 05:43 Abnormal Lab Results - Last 24 Hours (Table) 10/05/23 10/05/23 10/05/23 Range/Units 09:39 09:39 09:39 WBC 11.4 H (3.8-10.6) k/uL RBC (4.40-5.60) X 10*6/uL Hgb 12.5 L (13.0-17.5) gm/dL Hct (39.6-50.0) % MCHC 30.8 L (31.0-37.0) g/dL Plt Count 540 H (150-450) k/uL MPV (9.5-12.2) FL Immature Gran # (0.00-0.04) X 10*3/uL Neutrophils # 10.3 H (1.3-7.7) k/uL Lymphocytes # 0.4 L (1.0-4.8) k/uL APTT 19.4 L (22.0-30.0) sec Sodium 133 L (137-145) mmol/L BUN 26 H (9-20) mg/dL Creatinine (0.66-1.25) mg/dL Glucose 113 H (74-99) mg/dL POC Glucose (mg/dL) (70-110) mg/dL AST 104 H (17-59) U/L Alkaline Phosphatase 584 H (38-126) U/L Albumin 3.4 L (3.5-5.0) g/dL 10/05/23 10/05/23 10/06/23 Range/Units 14:22 20:43 05:43 WBC 10.30 H (3.8-10.6) k/uL RBC 4.08 L (4.40-5.60) X 10*6/uL Hgb 11.5 L (13.0-17.5) gm/dL Hct 36.7 L (39.6-50.0) % MCHC 31.3 L (31.0-37.0) g/dL Plt Count 467 H (150-450) k/uL MPV 9.3 L (9.5-12.2) FL Immature Gran # 0.05 H (0.00-0.04) X 10*3/uL Neutrophils # 8.67 H (1.3-7.7) k/uL Lymphocytes # 0.60 L (1.0-4.8) k/uL APTT (22.0-30.0) sec Sodium (137-145) mmol/L BUN (9-20) mg/dL Creatinine (0.66-1.25) mg/dL Glucose (74-99) mg/dL POC Glucose (mg/dL) 123 H 128 H (70-110) mg/dL AST (17-59) U/L Alkaline Phosphatase (38-126) U/L Albumin (3.5-5.0) g/dL 10/06/23 10/06/23 Range/Units 05:43 08:24 WBC (3.8-10.6) k/uL RBC (4.40-5.60) X 10*6/uL Hgb (13.0-17.5) gm/dL Hct (39.6-50.0) % MCHC (31.0-37.0) g/dL Plt Count (150-450) k/uL MPV (9.5-12.2) FL Immature Gran # (0.00-0.04) X 10*3/uL Neutrophils # (1.3-7.7) k/uL Lymphocytes # (1.0-4.8) k/uL APTT (22.0-30.0) sec Sodium 133 L (137-145) mmol/L BUN 25 H (9-20) mg/dL Creatinine 0.64 L (0.66-1.25) mg/dL Glucose (74-99) mg/dL POC Glucose (mg/dL) 114 H (70-110) mg/dL AST (17-59) U/L Alkaline Phosphatase (38-126) U/L Albumin (3.5-5.0) g/dL Diabetes panel 10/05/23 10/06/23 Range/Units 09:39 05:43 Sodium 133 L 133 L (137-145) mmol/L Potassium 4.8 4.5 (3.5-5.1) mmol/L Chloride 98 100 (98-107) mmol/L Carbon Dioxide 30 29 (22-30) mmol/L BUN 26 H 25 H (9-20) mg/dL Creatinine 0.66 0.64 L (0.66-1.25) mg/dL Glucose 113 H 95 (74-99) mg/dL Calcium 9.4 9.3 (8.4-10.2) mg/dL AST 104 H (17-59) U/L ALT 39 (4-49) U/L Alkaline Phosphatase 584 H (38-126) U/L Total Protein 6.6 (6.3-8.2) g/dL Albumin 3.4 L (3.5-5.0) g/dL Calcium panel 10/05/23 10/06/23 Range/Units 09:39 05:43 Calcium 9.4 9.3 (8.4-10.2) mg/dL Albumin 3.4 L (3.5-5.0) g/dL Pituitary panel 10/05/23 10/06/23 Range/Units 09:39 05:43 Sodium 133 L 133 L (137-145) mmol/L Potassium 4.8 4.5 (3.5-5.1) mmol/L Chloride 98 100 (98-107) mmol/L Carbon Dioxide 30 29 (22-30) mmol/L BUN 26 H 25 H (9-20) mg/dL Creatinine 0.66 0.64 L (0.66-1.25) mg/dL Glucose 113 H 95 (74-99) mg/dL Calcium 9.4 9.3 (8.4-10.2) mg/dL Adrenal panel 10/05/23 10/06/23 Range/Units 09:39 05:43 Sodium 133 L 133 L (137-145) mmol/L Potassium 4.8 4.5 (3.5-5.1) mmol/L Chloride 98 100 (98-107) mmol/L Carbon Dioxide 30 29 (22-30) mmol/L BUN 26 H 25 H (9-20) mg/dL Creatinine 0.66 0.64 L (0.66-1.25) mg/dL Glucose 113 H 95 (74-99) mg/dL Calcium 9.4 9.3 (8.4-10.2) mg/dL Total Bilirubin 0.7 (0.2-1.3) mg/dL AST 104 H (17-59) U/L ALT 39 (4-49) U/L Alkaline Phosphatase 584 H (38-126) U/L Total Protein 6.6 (6.3-8.2) g/dL Albumin 3.4 L (3.5-5.0) g/dL Assessment and Plan Assessment: protein calorie malnutrition. Patient will be scheduled for PEG tube placement on Monday if he has medically stable.
--- NOTE | 2023-10-06 11:03 | US ---
EXAMINATION TYPE: US chest DATE OF EXAM: 10/06/2023 COMPARISON: CXR CLINICAL INDICATION: Male, 73 years old with history of reported right pleural effusion; Right effusi on TECHNIQUE: Targeted ultrasound of the posterior lower right hemithorax EXAM MEASUREMENTS: Right Pleural Effusion pocket size: 8.6 cm Right skin surface to fluid distance: 2.4 cm Right side marked for possible thoracentesis outside the dept. Pulmonologists are able to review the images in the patient?s EMR. IMPRESSIONS: Moderate right pleural effusion.
[2023-10-06 11:37] LABS: Glucose,Whole Blood 126 mg/dL (70-110)
--- NOTE | 2023-10-06 12:11 | P.CRDCN ---
History of Present Illness History of present illness: HISTORY OF PRESENT ILLNESS: This is a 73-year-old male with a past medical history significant for AVNRT status post ablation, PVCs, dysautonomia, and lung cancer. Patient follows in the office with Dr. Mckinnon. We have been asked to see the patient in consultation for tachycardia. Patient examined at the bedside in the ER. Patient was scheduled for PEG tube placement yesterday. He was found to be tachycardic and his procedure was cancelled. He states he did not take his metoprolol yesterday. He reports increased shortness of breath. He does have a large right sided pleural effusion and pulmonary has been consulted. General surgery is planning for PEG tube placement on Monday if he is medically stable. DIAGNOSTICS: - EKG reveals sinus tachycardia with no signs of acute ischemia. - Chest xray large right pleural effusion with scattered pulmonary masses and consolidation right upper lung as seen on prior PET/CT. Multiple right-sided rib fractures. - Laboratory data: WBC 11.4. Hemoglobin 12.5. Platelet count 540. Sodium 133. Potassium 4.5. BUN 25 creatinine 0.64, troponin negative x 1. - Current home cardiac medications include metoprolol succinate 50 mg daily. - Most recent echocardiogram obtained in May 2023 reveals ejection fraction 50 to 55%, severe pulmonary hypertension, mild to moderate tricuspid regurgitation - Cardiac catheterization history: Unknown REVIEW OF SYSTEMS: At the time of my exam: CONSTITUTIONAL: Denies fever or chills. HEENT: Denies blurred vision, vision changes, or eye pain. Denies hemoptysis CARDIOVASCULAR: Denies chest pain. Denies orthopnea. Denies PND. Denies palpitations RESPIRATORY: Denies shortness of breath. GASTROINTESTINAL: Denies abdominal pain. Denies nausea or vomiting. HEMATOLOGIC: Denies bleeding disorders. GENITOURINARY: Denies any blood in urine. SKIN: Denies pruitis. Denies rash. PHYSICAL EXAM: VITAL SIGNS: Reviewed. GENERAL: Well-developed in no acute distress. HEENT: Head is normocephalic. Pupils are equal, round. Sclerae anicteric. Mucous membranes of the mouth are moist. Neck supple. No JVD or thyromegaly LUNGS: Respirations even and unlabored. Diminished breath sounds on the right. HEART: Regular rate and rhythm. S1 and S2 heard. ABDOMEN: Soft. Nondistended. Nontender. EXTREMITIES: Normal range of motion. No clubbing or cyanosis. Peripheral pulses intact. No lower extremity edema NEUROLOGIC: Awake and alert. Oriented x 3. ASSESSMENT: Sinus tachycardia Right pleural effusion Metastatic lung cancer Multiple right-sided rib fractures Severe pulmonary hypertension History of AVNRT status post ablation History of PVCs History of dysautonomia with positive tilt table testing Dysphagia, patient to have PEG tube placed PLAN: Continue current cardiac medications Continue telemetry monitoring Check TSH Check BNP Obtain limited echo to assess for pericardial effusion Pulmonary consulted for right pleural effusion General surgery consulted and planning for PEG tube placement on Monday if patient is medically stable Further recommendations pending patient course Nurse practitioner note has been reviewed by physician. Signing provider agrees with the documented findings, assessment, and plan of care documented by ELECTRICAL INTEGRATOR as a scribe. 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, tacycardia, wear home O2 3L 05/12 History of Any Multi-Drug Resistant Organisms: None Reported Past Surgical History: Appendectomy Additional Past Surgical History / Comment(s): bronchoscopy with biopsies, fatty tissue removed from left leg, colonoscopy Past Anesthesia/Blood Transfusion Reactions: No Reported Reaction Additional Past Anesthesia/Blood Transfusion Reaction / Comment(s): no hx blood transfusion Past Psychological History: No Psychological Hx Reported Smoking Status: Former smoker - Past Family History Father Family Medical History: Diabetes Mellitus Additional Family Medical History / Comment(s): from anuerysm caused from shrapnel injury. Medications and Allergies Home Medications Medication Instructions Recorded Confirmed Type Empaglifloz/Linaglip/Metformin 1 tab PO BID 12/28/21 10/05/23 History [Trijardy Xr 12.5-2.5-1,000 mg] Multivitamins, Thera [Multivitamin 1 tab PO DAILY 05/26/23 10/05/23 History (formulary)] Ondansetron [Zofran] 4 mg PO Q6H PRN 05/26/23 10/05/23 History Metoprolol Succinate (ER) [Toprol 50 mg PO DAILY #30 tab 06/01/23 10/05/23 Rx XL] Albuterol Inhaler [Ventolin Hfa 1 puff INHALATION RT-Q6H PRN 10/05/23 10/05/23 History Inhaler] Budesonide/Formoterol Fumarate 2 puff INHALATION RT-BID 10/05/23 10/05/23 History [Breyna 160-4.5 Mcg Inhaler] Gabapentin 300 mg PO DIRECTED 10/05/23 10/05/23 History HYDROcodone/APAP 7.5-325MG [[place] 1 tab PO Q4H PRN 10/05/23 10/05/23 History 7.5-325] Ipratropium-Albuterol Nebulize 3 ml INHALATION RT-QID 10/05/23 10/05/23 History [Duoneb 0.5 mg-3 mg/3 ml Soln] Sennosides [Senokot] 17.2 mg PO HS 10/05/23 10/05/23 History Allergies Allergy/AdvReac Type Severity Reaction Status Date / Time No Known Allergies Allergy Verified 10/05/23 10:18 Physical Exam Vitals: Vital Signs Temp Pulse Pulse Resp BP Pulse Ox 10/06/23 06:16 82 18 103/68 96 10/06/23 04:00 79 18 98/63 96 10/06/23 01:00 83 18 112/68 95 10/05/23 21:00 114 H 20 111/58 95 10/05/23 20:41 104 H 20 10/05/23 20:16 104 H 20 10/05/23 18:27 90 22 111/74 95 10/05/23 16:39 97.8 F 91 18 97/65 91 L 10/05/23 16:06 91 10/05/23 15:55 89 10/05/23 14:09 87 22 92/58 94 L 10/05/23 12:17 96 10/05/23 11:57 96 10/05/23 11:00 93 24 102/68 92 L 10/05/23 09:52 122 H 10/05/23 09:15 97.8 F 105 H 22 106/64 92 L 10/05/23 09:07 123 H 22 106/64 93 L Results 10/06/23 05:43 10/06/23 05:43 Cardiac Enzymes 10/05/23 10/05/23 Range/Units 09:39 09:39 AST 104 H (17-59) U/L Troponin I <0.012 (0.000-0.034) ng/mL Coagulation 10/05/23 Range/Units 09:39 PT 11.3 (10.0-12.5) sec APTT 19.4 L (22.0-30.0) sec CBC 10/05/23 Range/Units 09:39 WBC 11.4 H (3.8-10.6) k/uL RBC 4.45 (4.30-5.90) m/uL Hgb 12.5 L (13.0-17.5) gm/dL Hct 40.8 (39.0-53.0) % Plt Count 540 H (150-450) k/uL Comprehensive Metabolic Panel 10/05/23 10/06/23 Range/Units 09:39 05:43 Sodium 133 L 133 L (137-145) mmol/L Potassium 4.8 4.5 (3.5-5.1) mmol/L Chloride 98 100 (98-107) mmol/L Carbon Dioxide 30 29 (22-30) mmol/L BUN 26 H 25 H (9-20) mg/dL Creatinine 0.66 0.64 L (0.66-1.25) mg/dL Glucose 113 H 95 (74-99) mg/dL Calcium 9.4 9.3 (8.4-10.2) mg/dL AST 104 H (17-59) U/L ALT 39 (4-49) U/L Alkaline Phosphatase 584 H (38-126) U/L Total Protein 6.6 (6.3-8.2) g/dL Albumin 3.4 L (3.5-5.0) g/dL Current Medications Generic Name Dose Route Start Last Admin Trade Name Freq PRN Reason Stop Dose Admin Hydrocodone Bitart/Acetaminophen 1 each 10/05/23 11:17 10/06/23 06:44 Hydrocodone/Apap 7.5-325mg 1 Each Tab PO 1 each Q4H PRN Administration Pain Albuterol/Ipratropium 3 ml 10/05/23 16:00 10/05/23 20:15 Ipratropium-Albuterol 3 Ml Neb INHALATION 3 ml RT-QID HORTENSIA Administration Albuterol/Ipratropium 3 ml 10/05/23 15:44 Ipratropium-Albuterol 3 Ml Neb INHALATION RT-Q2H PRN Shortness Of Breath Or Wheezing Budesonide/Formoterol Fumarate 2 puff 10/05/23 20:00 10/05/23 20:15 Symbicort 160-4.5 Mcg Inhaler INHALATION 2 puff RT-BID HORTENSIA Administration Dapagliflozin 10 mg 10/05/23 11:30 10/05/23 12:55 Dapagliflozin Propanediol 10 Mg Tablet PO 10 mg DAILY HORTENSIA Administration Dextrose/Water 25 ml 10/05/23 12:36 Dextrose 50% Syringe 50 Ml IVP PER PROTOCOL PRN Hypoglycemia Protocol Dextrose/Water 50 ml 10/05/23 12:36 Dextrose 50% Syringe 50 Ml IVP PER PROTOCOL PRN Hypoglycemia Protocol Enoxaparin Sodium 40 mg 10/06/23 09:00 Enoxaparin 40 Mg/0.4 Ml Syringe SQ DAILY HORTENSIA Insulin Aspart 0 unit 10/05/23 17:30 10/05/23 20:44 Insulin Aspart (Novolog) 100 Unit/Ml Vial SQ Not Given ACHS [facility] Protocol Metoprolol Succinate 50 mg 10/05/23 11:30 10/05/23 12:55 Metoprolol Succinate (Er) 50 Mg Tab.Er.24h PO 50 mg DAILY HORTENSIA Administration Multivitamins 1 each 10/05/23 11:30 10/05/23 12:55 Multivitamins, Thera 1 Each Tab PO 1 each DAILY HORTENSIA Administration Naloxone HCl 0.2 mg 10/05/23 11:50 Naloxone 0.4 Mg/Ml 1 Ml Vial IV Q2M PRN Opioid Reversal Ondansetron HCl 4 mg 10/05/23 11:17 Ondansetron 4 Mg Tab PO Q6H PRN Nausea Senna 17.2 mg 10/05/23 21:00 10/05/23 20:46 Sennosides 8.6 Mg Tab PO 17.2 mg HS HORTENSIA Administration Sodium Chloride 1 applic 10/05/23 12:30 10/06/23 04:06 Saline Nasal Gel 14.1 Gm Tube NASAL 1 applic Q4HR HORTENSIA Administration 10/05/23 09:39 10/06/23 05:43
[2023-10-06] MEDS ORDERED: methylPREDNISolone SOD SUCCI 40 MG/ML 1 ML VIAL IV SCH (12:15)
[2023-10-06 12:28] LABS: NT-Pro-B-Type Natriuretic Pept 359 pg/mL
--- NOTE | 2023-10-06 15:46 | P.PN ---
Subjective Progress Note Date: 10/06/23 Hospital Course: Patient is a very pleasant 73-year-old male with a past medical history of SVT/AV renodal entry tachycardia, metastatic lung cancer currently undergoing clinical study with immunotherapy treatments at [facility] in [place] and follows with oncologist Dr. Coughlin, hypertension, hyperlipidemia, and [id number] diabetes mellitus. He presented to the emergency department with a chief complaint of tachycardia, palpitations, and shortness of breath. Patient reports recently having difficulty swallowing secondary to his metastatic cancer and was scheduled for outpatient EGD with PEG tube placement today. However, while in preop preparing to undergo procedure he began having palpitations with episodes of tachycardia with heart rate elevating to the 160s accompanied by worsening shortness of breath. Patient reports this has happened in the past and he typically takes metoprolol on a daily basis for heart rate control but did not take it this morning because he was instructed to hold all medications prior to procedure. Patient's heart rate has improved and 90s at this time. He continues to report slightly increased shortness of breath remains on baseline home oxygen needs of 3 L. He denies having any headache, lightheadedness, dizziness, chest pain, abdominal pain, nausea, vomiting, or experiencing any focal numbness/weakness/tingling in his extremities. He underwent evaluation in the emergency department. Vital signs upon arrival show blood pressure 106/64, heart rate 123, respiratory rate 22, temp 97.8 F, and SpO2 of 93% on 3 L. EKG completed showing sinus Tachycardia at 121 bpm with frequent PACs first-degree AV block with VT interval of 238 ms. Chest x-ray showing large right pleural effusion with scattered pulmonary masses and consolidation of right upper lung and multiple right-sided rib fractures. Labs completed and reviewed. CBC showing leukocytosis with WBC count of 11.4, hemoglobin of 12.5, and thrombocytosis with platelet count of 540. BMP showing hyponatremia with sodium 133, elevated BUN of 26, and blood glucose of 113. Liver profile showing elevated AST of 104 and alkaline phosphatase of 584. Troponin was negative at less than 0.012. Patient being admitted under our services consultation to cardiology for atrial tachycardia, consultation to pulmonology for large pleural effusion, and consultation to general surgery for placement of PEG tube. Physical exam: Vital signs reviewed and stable. General: Nontoxic, no distress, chronically ill-appearing, cachectic Derm: Skin warm and dry, normal coloration for ethnicity. Head: Atraumatic, normocephalic and symmetric. Eyes: EOMs intact, no lid lag, and anicteric sclera Mouth: no lip lesions, mucus membranes moist Cardiovascular: regular rate and rhythm with normal S1S2, systolic murmur, positive posterior tibial pulses bilaterally, and cap refill < 2 seconds. Lungs: Respirations even, regular, and unlabored on 3L O2 via nasal cannula. Lungs diminished throughout entire right lung, good air entry throughout left lung with soft expiratory wheezes in left upper lobe. Abdominal: soft, nontender to palpation, no guarding, no appreciable organomegaly Ext: ROM intact. No gross muscle atrophy, no edema, no contractures Neuro: Speech clear, face symmetrical and CN II-XII grossly intact with no noted focal neuro deficits Psych: Alert and oriented to person, place, time, and situation. Appropriate and pleasant affect. Assessment and Plan of Care: Atrial tachycardia Metastatic Lung cancer with large right pleural effusion Multiple right sided pulmonary masses with multiple right-sided rib fractures, secondary to above Hypertension Hyperlipidemia -Cardiology following, reviewed documentation in chart -Consult placed to general surgery for placement of PEG tube -Pulmonology following, planning for possible pleurocentesis of large right- sided effusion. -Hematology/oncology following, appreciate recommendations. -Oxygenation to be administered and titrated as needed to maintain SPO2 equal to or greater than 90% -Telemetry monitoring. -Monitor Pulse-oximetry -Continue metoprolol succinate 50 mg daily. -Duonebs scheduled for times daily and as needed for SOB and/or wheezing -Incentive Spirometry [id number] diabetes mellitus Hold Trijardy and continue patient on glycemic protocol with NovoLog sliding scale. Data and imaging reviewed: Vital signs reviewed. Blood pressure 100/68, heart rate 85, respiratory rate 20, and SpO2 of 95% on 3 L. Labs reviewed. CBC showing leukocytosis with WBC count of 10.30, hemoglobin 11.5, and platelet count of 467. BMP showing hyponatremia with sodium of 133, BUN of 25, creatinine 0.64, GFR greater than 90. Blood glucose 95. Magnesium 1.8. proBNP 359. And TSH of 2.160. CODE STATUS: Full code DVT prophylaxis: Lovenox Anticipated discharge date: Clinical course to determine Anticipated discharge place: Clinical course to determine Patient was seen independently by Nurse Practitioner. This document was prepared using [employer] dictation software. Please allow for er rors in vice president safety while rare they do occur. Guido Lutz DETACKER rendered care for this patient independently, reviewed the findings and plan as documented in the note above. I did not physically speak with or examine the patient on this date. Objective - Vital Signs Vital signs: Vital Signs Temp 97.8 F 10/05/23 16:39 Pulse 93 10/06/23 08:53 Resp 20 10/06/23 08:10 BP 100/68 10/06/23 08:10 Pulse Ox 95 10/06/23 08:10 FiO2 Intake & Output 10/05/23 10/06/23 10/06/23 18:59 06:59 18:59 Weight 58.967 kg - Labs CBC & Chem 7: 10/06/23 05:43 10/06/23 05:43 Labs: Abnormal Lab Results - Last 24 Hours (Table) 10/05/23 10/05/23 10/05/23 Range/Units 09:39 09:39 09:39 WBC 11.4 H (3.8-10.6) k/uL RBC (4.40-5.60) X 10*6/uL Hgb 12.5 L (13.0-17.5) gm/dL Hct (39.6-50.0) % MCHC 30.8 L (31.0-37.0) g/dL Plt Count 540 H (150-450) k/uL MPV (9.5-12.2) FL Immature Gran # (0.00-0.04) X 10*3/uL Neutrophils # 10.3 H (1.3-7.7) k/uL Lymphocytes # 0.4 L (1.0-4.8) k/uL APTT 19.4 L (22.0-30.0) sec Sodium 133 L (137-145) mmol/L BUN 26 H (9-20) mg/dL Creatinine (0.66-1.25) mg/dL Glucose 113 H (74-99) mg/dL POC Glucose (mg/dL) (70-110) mg/dL AST 104 H (17-59) U/L Alkaline Phosphatase 584 H (38-126) U/L Albumin 3.4 L (3.5-5.0) g/dL 10/05/23 10/05/23 10/06/23 Range/Units 14:22 20:43 05:43 WBC 10.30 H (3.8-10.6) k/uL RBC 4.08 L (4.40-5.60) X 10*6/uL Hgb 11.5 L (13.0-17.5) gm/dL Hct 36.7 L (39.6-50.0) % MCHC 31.3 L (31.0-37.0) g/dL Plt Count 467 H (150-450) k/uL MPV 9.3 L (9.5-12.2) FL Immature Gran # 0.05 H (0.00-0.04) X 10*3/uL Neutrophils # 8.67 H (1.3-7.7) k/uL Lymphocytes # 0.60 L (1.0-4.8) k/uL APTT (22.0-30.0) sec Sodium (137-145) mmol/L BUN (9-20) mg/dL Creatinine (0.66-1.25) mg/dL Glucose (74-99) mg/dL POC Glucose (mg/dL) 123 H 128 H (70-110) mg/dL AST (17-59) U/L Alkaline Phosphatase (38-126) U/L Albumin (3.5-5.0) g/dL 10/06/23 10/06/23 Range/Units 05:43 08:24 WBC (3.8-10.6) k/uL RBC (4.40-5.60) X 10*6/uL Hgb (13.0-17.5) gm/dL Hct (39.6-50.0) % MCHC (31.0-37.0) g/dL Plt Count (150-450) k/uL MPV (9.5-12.2) FL Immature Gran # (0.00-0.04) X 10*3/uL Neutrophils # (1.3-7.7) k/uL Lymphocytes # (1.0-4.8) k/uL APTT (22.0-30.0) sec Sodium 133 L (137-145) mmol/L BUN 25 H (9-20) mg/dL Creatinine 0.64 L (0.66-1.25) mg/dL Glucose (74-99) mg/dL POC Glucose (mg/dL) 114 H (70-110) mg/dL AST (17-59) U/L Alkaline Phosphatase (38-126) U/L Albumin (3.5-5.0) g/dL
[2023-10-06] MEDS ORDERED: RX INFO: IV CONTRAST WAS GIVEN 1 EACH MISC MISCELLANE PRN (15:49)
[2023-10-06 17:12] LABS: Glucose,Whole Blood 103 mg/dL (70-110)
[2023-10-06] MEDS: PIPERACILLIN-TAZOBACTAM 3.375 GM in SODIUM CHLORIDE 0.9% 100 ML IVPB SCH (17:19)
[2023-10-06 20:19] LABS: Glucose,Whole Blood 118 mg/dL (70-110)
[2023-10-07 08:09] LABS: Glucose,Whole Blood 135 mg/dL (70-110)
[2023-10-07] MEDS: METOPROLOL TARTRATE 5 MG/5 ML VIAL IVP SCH (08:18)
[2023-10-07] MEDS: SODIUM CHLORIDE 0.9% 500 ML 500 ML IV ONE (08:34)
[2023-10-07] MEDS: DEXTROSE 5% IN WATER 100 ML with AMIODARONE 150 MG IV ONE (08:54)
[2023-10-07] MEDS: AMIODARONE 360 MG in DEXTROSE 5% IN WATER 200 ML IV ONE (09:04)
[2023-10-07] MEDS: KETOROLAC 15 MG/ML 1 ML VIAL IM STA (09:13)
--- NOTE | 2023-10-07 11:20 | P.CONS ---
History of Present Illness - Reason for Consult Consult date: 10/06/23 lung cancer Requesting physician: Guido Lutz - Chief Complaint arrhythmia - History of Present Illness The patient is a 73-year-old male with a known history of metastatic small cell lung cancer, well known to our service. He followed with Dr. Coughlin, but has transferred care to [facility] with Dr. Patricio. He was initially found to have a small right upper lobe nodule in 2017, remained stable on follow-up scans. He developed increasing lung nodules in the right by 12/02, with subsequent PET scan showing uptake. Diagnosis of small cell lung cancer was made via m ediastinoscopy in 03/04 after initial bronchoscopy in 01/02 was not diagnostic. Brain MRI at baseline was negative. The patient was treated with carboplatin and [employer]-16 along with concurrent radiation, completing treatment in early 2021. In 10/03 he developed isolated 5 mm cerebellar metastasis, which was treated with SB RT with improvement. He then developed biopsy-proven recurrence in the right sup raclavicular area in 02/03, and was treated with irinotecan. He had SBRT to a new brain lesion in 09/04. Subsequent PET scan showed progression in right hilar node, leading to resumption of treatment with carboplatin and [employer]-16. Due to progression noted on PET CT in 11/2022, he was started on weekly Taxol in 01/04 with improvement. He was again found to have disease progression on repeat PET scan in mid 05/06, with new liver lesions, as well as progression in the right supraclavicular area and bilateral lung nodules. The patient was started on treatment with Lurbinectedin, on 05/18/23. Repeat PET CT on 07/07/23, unfortunately showed disease progression. Patient was referred to [facility], and was started on a clinical trial. He is scheduled for treatment response scans on 10/18/23. Patient has been having decreasing oral intake/appetite and progressing dysphagia and was scheduled for PEG tube placement. In preop patient was found to be tachycardic with heart rate 100-160 and was sent to the ER for further evaluation. Patient has history of SVT. Amiodarone started. Patient also reporting increased shortness of breath and productive cough with yellow sputum. Chest x-ray revealed large right pleural effusion with scattered pulmonary masses and consolidation in the right upper lobe, which was seen on prior PET/CT. With multiple right-sided rib fractures. Chest ultrasound was obtained which revealed moderate right pleural effusion. Pulmonology following and plans to treat with empiric antibiotics and bronchodilators. Steroids have not been started as patient is on clinical trial with immunotherapy. CBC reviewed, counts stable, WBC 10.3, hgb 11.5, plt 467,000. Patient afebrile, SPO2 96% 3L. 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, tacycardia, wear home O2 3L 05/12 History of Any Multi-Drug Resistant Organisms: None Reported Past Surgical History: Appendectomy Additional Past Surgical History / Comment(s): bronchoscopy with biopsies, fatty tissue removed from left leg, colonoscopy Past Anesthesia/Blood Transfusion Reactions: No Reported Reaction Additional Past Anesthesia/Blood Transfusion Reaction / Comm: no hx blood transfusion Past Psychological History: No Psychological Hx Reported Smoking Status: Former smoker - Past Family History Father Family Medical History: Diabetes Mellitus Additional Family Medical History / Comment(s): from anuerysm caused from shrapnel injury. Medications and Allergies Home Medications Medication Instructions Recorded Confirmed Type Empaglifloz/Linaglip/Metformin 1 tab PO BID 12/28/21 10/05/23 History [Trijardy Xr 12.5-2.5-1,000 mg] Multivitamins, Thera [Multivitamin 1 tab PO DAILY 05/26/23 10/05/23 History (formulary)] Ondansetron [Zofran] 4 mg PO Q6H PRN 05/26/23 10/05/23 History Metoprolol Succinate (ER) [Toprol 50 mg PO DAILY #30 tab 06/01/23 10/05/23 Rx XL] Albuterol Inhaler [Ventolin Hfa 1 puff INHALATION RT-Q6H PRN 10/05/23 10/05/23 History Inhaler] Budesonide/Formoterol Fumarate 2 puff INHALATION RT-BID 10/05/23 10/05/23 History [Breyna 160-4.5 Mcg Inhaler] Gabapentin 300 mg PO DIRECTED 10/05/23 10/05/23 History HYDROcodone/APAP 7.5-325MG [[place] 1 tab PO Q4H PRN 10/05/23 10/05/23 History 7.5-325] Ipratropium-Albuterol Nebulize 3 ml INHALATION RT-QID 10/05/23 10/05/23 History [Duoneb 0.5 mg-3 mg/3 ml Soln] Sennosides [Senokot] 17.2 mg PO HS 10/05/23 10/05/23 History Allergies Allergy/AdvReac Type Severity Reaction Status Date / Time No Known Allergies Allergy Verified 10/05/23 10:18 Physical Exam Vitals: Vital Signs Temp Pulse Pulse Resp BP BP Pulse Ox 10/06/23 08:53 93 10/06/23 08:41 97 10/06/23 08:10 85 20 100/68 95 10/06/23 06:16 82 18 103/68 96 10/06/23 04:00 79 18 98/63 96 10/06/23 01:00 83 18 112/68 95 10/05/23 21:00 114 H 20 111/58 95 10/05/23 20:41 104 H 20 10/05/23 20:16 104 H 20 10/05/23 18:27 90 22 111/74 95 10/05/23 16:39 97.8 F 91 18 97/65 91 L 10/05/23 16:06 91 10/05/23 15:55 89 10/05/23 14:09 87 22 92/58 94 L 10/05/23 12:17 96 10/05/23 11:57 96 Intake and Output 10/05/23 10/06/23 10/06/23 22:59 06:59 14:59 Other: Voiding Method Urinal - Constitutional General appearance: no acute distress, thin - EENT Eyes: EOMI ENT: hearing grossly normal - Respiratory Respiratory: right: diminished, left: rales - Cardiovascular Rhythm: irregularly irregular - Integumentary Integumentary: no cyanotic, no jaundiced - Musculoskeletal Musculoskeletal: generalized weakness - Psychiatric Psychiatric: A&O x's 3 Results CBC & Chem 7: 10/06/23 05:43 05/24/24 05:43 Labs: Abnormal Lab Results - Last 24 Hours (Table) 10/05/23 10/05/23 10/06/23 Range/Units 14:22 20:43 05:43 WBC 10.30 H (4.50-10.00) X 10*3/uL RBC 4.08 L (4.40-5.60) X 10*6/uL Hgb 11.5 L (13.0-17.0) g/dL Hct 36.7 L (39.6-50.0) % MCHC 31.3 L (32.0-37.0) g/dL Plt Count 467 H (140-440) X 10*3/uL MPV 9.3 L (9.5-12.2) FL Immature Gran # 0.05 H (0.00-0.04) X 10*3/uL Neutrophils # 8.67 H (1.80-7.70) X 10*3/uL Lymphocytes # 0.60 L (0.90-5.00) X 10*3/uL Sodium (137-145) mmol/L BUN (9-20) mg/dL Creatinine (0.66-1.25) mg/dL POC Glucose (mg/dL) 123 H 128 H (70-110) mg/dL 10/06/23 10/06/23 Range/Units 05:43 08:24 WBC (4.50-10.00) X 10*3/uL RBC (4.40-5.60) X 10*6/uL Hgb (13.0-17.0) g/dL Hct (39.6-50.0) % MCHC (32.0-37.0) g/dL Plt Count (140-440) X 10*3/uL MPV (9.5-12.2) FL Immature Gran # (0.00-0.04) X 10*3/uL Neutrophils # (1.80-7.70) X 10*3/uL Lymphocytes # (0.90-5.00) X 10*3/uL Sodium 133 L (137-145) mmol/L BUN 25 H (9-20) mg/dL Creatinine 0.64 L (0.66-1.25) mg/dL POC Glucose (mg/dL) 114 H (70-110) mg/dL Comments: Chest US reviewed Chest x-ray: report reviewed Assessment and Plan (1) Dyspnea Current Visit: Yes Status: Acute Priority: High Code(s): R06.00 - DYSPNEA, UNSPECIFIED SNOMED Code(s): 814257346 (2) SVT (supraventricular tachycardia) Current Visit: Yes Status: Acute Priority: High Code(s): I47.1 - SUPRAVENTRICULAR TACHYCARDIA * DO NOT USE * SNOMED Code(s): 2251980 (3) Small cell lung cancer in adult Current Visit: Yes Status: Acute Priority: Medium Code(s): C34.90 - MALIGNANT NEOPLASM OF UNSP PART OF UNSP BRONCHUS OR LUNG SNOMED Code(s): 437342217 Plan: SVT, tachycardia -Cardiology following -Continues on amiodarone Small cell lung cancer, pleural effusion -Full oncological history in HPI -Currently on clinical trial, following with Dr. Patricio at [facility]. Pt is unsure what his treatment regimen consists of, but has been told to not take steroids with regimen, so likely clinical trial has immunotherapy component. I have requested records from [facility] to further clarify -Chest x-ray revealed large right pleural effusion with scattered pulmonary masses and consolidation in the right upper lobe, which was seen on prior PET/CT. Chest ultrasound was obtained which revealed moderate right pleural effusion. Pulmonology following and plans to treat with empiric antibiotics and bronchodilators. Concern for pneumonia vs disease progression -Pt had initially declined CT chest, as he had treatment response scans scheduled on 10/18/23. However, after further speaking with patient/family today, they were amendable. CT CAP has been ordered. Asked nursing to request disc of CT scans to be given to patient so he can bring it to his primary oncologist on f/u Doctor attests: I performed a history and physical examination of this patient, developed impression and plan of care. Discussed with dictator. I agree with dictators note, documented as a scribe
[2023-10-07 11:22] LABS: Glucose,Whole Blood 140 mg/dL (70-110)
--- NOTE | 2023-10-07 11:53 | P.PN ---
Subjective Progress Note Date: 10/07/23 HISTORY OF PRESENT ILLNESS: This is a 73-year-old male with a past medical history significant for AVNRT status post ablation, PVCs, dysautonomia, and lung cancer. Patient follows in the office with Dr. Mckinnon. We have been asked to see the patient in consultation for tachycardia. Patient examined at the bedside in the ER. Patient was scheduled for PEG tube placement yesterday. He was found to be tachycardic and his procedure was cancelled. He states he did not take his metoprolol yesterday. He reports increased shortness of breath. He does have a large right sided pleural effusion and pulmonary has been consulted. General surgery is planning for PEG tube placement on Monday if he is medically stable. DIAGNOSTICS: - EKG reveals sinus tachycardia with no signs of acute ischemia. - Chest xray large right pleural effusion with scattered pulmonary masses and consolidation right upper lung as seen on prior PET/CT. Multiple right-sided rib fractures. - Laboratory data: WBC 11.4. Hemoglobin 12.5. Platelet count 540. Sodium 133. Potassium 4.5. BUN 25 creatinine 0.64, troponin negative x 1. - Current home cardiac medications include metoprolol succinate 50 mg daily. - Most recent echocardiogram obtained in May 2023 reveals ejection fraction 50 to 55%, severe pulmonary hypertension, mild to moderate tricuspid regurgitation - Cardiac catheterization history: Unknown 10/06 Patient developed episode of tachycardia lasting about an hour. Upon review of telemetry, this could have been SVT versus atrial flutter. Patient received 2 doses of metoprolol 2.5 mg and a fluid bolus of 500 cc. Patient was ordered for amiodarone but had converted by the time it was started. Patient was transferred over to the cardiac stepdown unit and remains on amiodarone drip. Metoprolol had been increased to 25 mg 4 times daily. Patient denies having any palpitations and no chest pain. He states that the time of the episode, he was trying to have his first bowel movement in 5 days and was straining. He is scheduled for PEG tube placement on 10/09. TSH came back normal at 2.16. proBNP normal at 359. Echocardiogram is being obtained at this time and will be reviewed later today. PHYSICAL EXAM: VITAL SIGNS: Reviewed. GENERAL: Well-developed in no acute distress. HEENT: Head is normocephalic. Pupils are equal, round. Sclerae anicteric. Mucous membranes of the mouth are moist. Neck supple. No JVD or thyromegaly LUNGS: Respirations even and unlabored. Diminished breath sounds on the right. HEART: Regular rate and rhythm. S1 and S2 heard. ABDOMEN: Soft. Nondistended. Nontender. EXTREMITIES: Normal range of motion. No clubbing or cyanosis. Peripheral pulses intact. No lower extremity edema NEUROLOGIC: Awake and alert. Oriented x 3. ASSESSMENT: Sinus tachycardia Right pleural effusion Metastatic lung cancer Multiple right-sided rib fractures Severe pulmonary hypertension History of AVNRT status post ablation History of PVCs History of dysautonomia with positive tilt table testing Dysphagia, patient to have PEG tube placed PLAN: Continue current cardiac medications Continue telemetry monitoring Continue amiodarone drip for another 24 hours Continue increased dose of metoprolol 25 mg 4 times daily Obtain limited echo to assess for pericardial effusion Pulmonary consulted for right pleural effusion General surgery consulted and planning for PEG tube placement on Monday if patient is medically stable Further recommendations pending patient course Nurse practitioner note has been reviewed by physician. Signing provider agrees with the documented findings, assessment, and plan of care documented by CONTRACT SERVICEMAN as a scribe. Objective - Vital Signs Vital signs: Vital Signs Temp 97.4 F L 10/07/23 08:28 Pulse 82 10/07/23 09:08 Resp 18 10/07/23 09:03 BP 96/61 10/07/23 09:08 Pulse Ox 93 L 10/07/23 09:03 FiO2 Intake & Output 10/06/23 10/07/23 10/07/23 18:59 06:59 18:59 Intake Total 118 340 500 Output Total 475 300 Balance -357 40 500 Weight 58.967 kg 57 kg Intake: Intake, IV Titration 100 500 Amount Piperacillin-Tazobactam 3 100 .375 gm In Sodium Chloride 0.9% 100 ml @ 25 mls/hr IVPB Q8HR [facility] Rx# :[id number] Sodium Chloride 0.9% 500 500 ml 500 ml @ 999 mls/hr IV .Q31M ONE Rx#:[id number] Oral 118 240 Output: Urine 475 300 Other: Voiding Method Urinal Urinal Urinal # Voids 1 - Labs CBC & Chem 7: 10/06/23 05:43 05/24/24 05:43 Labs: Abnormal Lab Results - Last 24 Hours (Table) 10/06/23 10/06/23 10/07/23 Range/Units 11:36 20:18 08:07 POC Glucose (mg/dL) 126 H 118 H 135 H (70-110) mg/dL
--- NOTE | 2023-10-07 14:53 | P.PN ---
Subjective Progress Note Date: 10/07/23 Patient is a 73-year-old white male with past medical history significant for metastatic small cell lung cancer that was originally diagnosed back in 2020. He is status post chemo and radiation. He was noted to have disease progression on a recent PET scan done 06/2023. He has been referred to [facility], and is currently on immunotherapy. Reportedly enrolled in a clinical trial. Other medical history significant for COPD, diabetes mellitus, hypertension, hyperlipidemia, SVT/AV node reentry tachycardia. PET scan noted above demonstrated slight increased uptake of radiotracer within the patient's known right lung mass. There is new bilateral lung nodules, right hilar lymph node with uptake suspicious for metastatic disease. Enlarging hepatic lesions. And new abnormal uptake within the soft tissue of the right neck suspicious for metastatic disease. Patient does have a right neck mass. He has been having issues with dysphagia and aspiration. Reports coughing after eating or drinking thin liquids. He was scheduled for a elective EGD/PEG tube placement yesterday. While in preop, was noted to be in SVT, the procedure was canceled, and the patient was sent to the emergency department. Heart rate was noted as high as 160s beat per minute. He reportedly held his metoprolol earlier in the day, because he was n.p.o. for his procedure. He normally takes 50 mg twice a day. Of note, patient had a recent admission May 2023 for recurrent SVT refractory to pharmacologic's. He did undergo EP study and cardiac ablation during this admission. On my evaluation, patient is currently in the emergency department, room 1. Heart rhythm on bedside monitor appears normal sinus with a rate of 86 bpm. Blood pressure is normotensive. He is resting comfortably in bed, on 3 L/min nasal cannula, which is chronic. He is no longer experiencing any heart palpitations or lightheadedness or acute shortness of breath that he was feeling when noted to be in SVT. From a pulmonary standpoint, patient denies any change in his chronic dyspnea, he has a chronic cough with very baker ited sputum production. No hemoptysis. No chest pain. Denies fevers. He does have a right neck mass. No stridor on my evaluation. Follow-up chest x-ray shows an elevated right hemidiaphragm and right upper lung consolidation and bilateral lung masses/nodules, consistent with recent PET scan results. There is multiple right-sided rib fractures. No pneumothorax. He states that he has a follow-up CAT scan scheduled October 17 at [facility] in [place]. CBC drawn on arrival: WBC count 11.4, hemoglobin 12.5, hematocrit 40.8, platelets 540. BMP on arrival unremarkable. Troponins less than 0.012. EKG taken earlier in the emergency room showed sinus tachycardia. No obvious acute ischemic changes. Current hemodynamics are stable. 10/07/2023, the patient is being seen for a follow-up. Earlier this morning, the patient became more short of breath and he also had an episode of tachycardia an d the patient was seen by cardiology in this regard. This is SVT versus atrial flutter. The patient received 2 doses of metoprolol 2.5 mg IV and a bolus of 500 cc of normal saline. Following that, the patient to transfer to the telemetry unit. He is currently on metoprolol at a dose of 25 mg p.o. 4 times daily. The patient was also started on IV amiodarone. Pulse ox in the order of 93% on 4 L oxygen by nasal cannula. CAT scan of the chest abdomen and pelvis was noted and there is evidence of a diffuse metastatic disease with extensive hepatic involvement. The patient also has an enlarging right-sided pleural effusion with significant atelectasis of the right lung and evidence of medi astinal lymphadenopathy and scattered lesions involving the left lung in addition consistent with metastatic disease. Awaiting final report. Based on my evaluation and interpretation of the CAT scan, there is interval progression of his malignancy with extensive hepatic involvement. Remains on IV Zosyn. Limited echocardiogram will also obtained to rule out pericardial effusion. Objective - Vital Signs Vital signs: Vital Signs Temp 97.4 F L 10/07/23 12:27 Pulse 95 10/07/23 12:27 Resp 26 H 10/07/23 12:27 BP 96/57 10/07/23 12:27 Pulse Ox 93 L 10/07/23 12:27 FiO2 Intake & Output 10/06/23 10/07/23 10/07/23 18:59 06:59 18:59 Intake Total 118 340 980 Output Total 475 300 Balance -357 40 980 Weight 58.967 kg 57 kg Intake: Intake, IV Titration 100 500 Amount Piperacillin-Tazobactam 3 100 .375 gm In Sodium Chloride 0.9% 100 ml @ 25 mls/hr IVPB Q8HR [facility] Rx# :[id number] Sodium Chloride 0.9% 500 500 ml 500 ml @ 999 mls/hr IV .Q31M ONE Rx#:[id number] Oral 118 240 480 Output: Urine 475 300 Other: Voiding Method Urinal Urinal Urinal # Voids 1 - Exam GENERAL EXAM: Alert, 73-year-old white male, lying flat in bed, comfortable in no apparent distress. HEAD: Normocephalic and atraumatic EYES: Normal reaction of pupils, pupils are unequal, left greater than right. NOSE: Clear with pink turbinates. THROAT: No erythema or exudates. NECK: Right neck mass. No stridor. No JVD. CHEST: No chest wall deformity. LUNGS: Equal air entry with diminished right lung sounds and left basilar inspiratory crackles. No significant wheezing. On 3 L/min nasal cannula. No conversational dyspnea or accessory muscle use.. CVS: S1 and S2 normal with no audible murmur, regular rhythm. No extra heart sounds ABDOMEN: No hepatosplenomegaly, active bowel sounds, no guarding or rigidity. SPINE: No scoliosis or deformity SKIN: No rashes CENTRAL NERVOUS SYSTEM: No focal deficits, tone is normal in all 4 extremities. EXTREMITIES: There is no peripheral edema, clubbing, or cyanosis. Peripheral pulses are intact. - Labs CBC & Chem 7: 10/06/23 05:43 10/06/23 05:43 Labs: Abnormal Lab Results - Last 24 Hours (Table) 10/06/23 10/07/23 10/07/23 Range/Units 20:18 08:07 11:19 POC Glucose (mg/dL) 118 H 135 H 140 H (70-110) mg/dL Microbiology - Last 24 Hours (Table) 10/06/23 13:38 Gram Stain - Preliminary Sputum Assessment and Plan Assessment: SVT while in preop, patient held his metoprolol early in the day for scheduled procedure. 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 Patient had another episode of SVT/flutter and currently is on amiodarone drip in addition of metoprolol and the patient has been transferred to telemetry unit. Cardiology on the case. Limited echocardiogram is to be done Metastatic small cell lung cancer, with evidence of interval progression of disease based on the most recent CAT scan of the chest abdomen pelvis. There is extensive hepatic involvement, significant lysis of the right lung with development of a moderate size right-sided pleural effusion and based on lymphadenopathy and scattered lesions also involving the left lung. Awaiting final report. Based on my comparison of the CAT scan, there is evidence of disease progression. Right neck mass related to small cell lung cancer post. Radiation therapy for palliative reasons. Complicated by dysphagia. Dysphagia, patient has a right neck mass postradiation therapy.. He was scheduled for an elective EGD with PEG tube placement yesterday. Noted to be in SVT in preop, and the procedure was canceled. History of metastatic small cell lung cancer, with disease progression, currently on immunotherapy. Patient was referred to [facility], and is reportedly currently on a clinical trial. Most recent PET scan done June, demonstrated slight increased uptake of radiotracer within the patient's known right lung mass. There were new bilateral lung nodules, right hilar lymph node with uptake suspicious for metastatic disease. Enlarging hepatic lesions. And new abnormal uptake within the soft tissue of the right neck suspicious for metastatic disease. Brain MRI done May, shows a stable medial right cerebral focus of enhancement. This is status post SBRT. Right lung consolidation/opacification combination of tumor progression with small cell lung cancer and possibly pneumonia with right-sided pleural effusion. Patient is coughing copious amount of purulent respiratory secretions. Chronic hypoxemic respiratory failure, secondary to above, most recent chest x- ray demonstrates a large right upper lung consolidation consistent with the patient's known history of lung mass, bilateral pulmonary masses/nodules, right elevated hemidiaphragm, multiple right-sided rib fractures. Elevated right hemidiaphragm History of chronic obstructive pulmonary disease, stable Diabetes mellitus type 2 History of hypertension Former tobacco dependence Plan: Patient has progression in small cell lung cancer, awaiting final CAT scan reports from the CAT scan of the chest abdomen and pelvis Remains n.p.o. Having difficulties with paroxysmal SVT/flutter currently on amiodarone drip Continue on IV Zosyn Continue bronchodilators Oxygen 3 L Patient is currently on clinical trial regarding metastatic small cell lung cancer Not a great candidate for thoracentesis as the right lung seems to be atelectatic and probably trapped. Possibility of endobronchial tumor in the right upper lobe cannot be completely excluded as the right upper lobe bronchus seems to be cut off and the patient also has significant atelectasis of the right lower lobe bronchus. May consider Pleurx catheter insertion for palliative reasons. Swallow mechanism is impaired and the patient is in need for a PEG tube insertion which is currently on hold and general surgery is on the case. Poor prognosis based on above-mentioned comorbidities.
[2023-10-07] MEDS: AMIODARONE 450 MG in DEXTROSE 5% IN WATER 250 ML IV SCH (15:21)
--- NOTE | 2023-10-07 15:21 | P.PN ---
Subjective Principal diagnosis: Patient seen and evaluated at bedside. Patient admits to nausea/emesis. Denies bowel movement Objective - Vital Signs Vital signs: Vital Signs Temp 97.4 F L 10/07/23 12:27 Pulse 88 10/07/23 15:08 Resp 22 10/07/23 15:08 BP 96/57 10/07/23 12:27 Pulse Ox 93 L 10/07/23 12:27 FiO2 Intake & Output 10/06/23 10/07/23 10/07/23 18:59 06:59 18:59 Intake Total 118 340 980 Output Total 475 300 Balance -357 40 980 Weight 58.967 kg 57 kg Intake: Intake, IV Titration 100 500 Amount Piperacillin-Tazobactam 3 100 .375 gm In Sodium Chloride 0.9% 100 ml @ 25 mls/hr IVPB Q8HR [facility] Rx# :[id number] Sodium Chloride 0.9% 500 500 ml 500 ml @ 999 mls/hr IV .Q31M ONE Rx#:[id number] Oral 118 240 480 Output: Urine 475 300 Other: Voiding Method Urinal Urinal Urinal # Voids 1 - Exam gen: nad cv: rrr pul: non labored breathing abd: soft, distended, tender to palpation in right upper quadrant, no guarding or rebound tenderness - Labs CBC & Chem 7: 10/06/23 05:43 10/06/23 05:43 Labs: Abnormal Lab Results - Last 24 Hours (Table) 10/06/23 10/07/23 10/07/23 Range/Units 20:18 08:07 11:19 POC Glucose (mg/dL) 118 H 135 H 140 H (70-110) mg/dL Microbiology - Last 24 Hours (Table) 10/06/23 13:38 Gram Stain - Preliminary Sputum Assessment and Plan Assessment: 73 yo male w/ ileus, r/o small bowel obstruction nasogastric tube for decompression IVF possible small bowel fall through in am Time with Patient: Less than 30
--- NOTE | 2023-10-07 16:15 | P.PN ---
Subjective Progress Note Date: 10/07/23 Hospital Course: Patient is a very pleasant 73-year-old male with a past medical history of SVT/AV renodal entry tachycardia, metastatic lung cancer currently undergoing clinical study with immunotherapy treatments at [facility] in [place] and follows with oncologist Dr. Coughlin, hypertension, hyperlipidemia, and kab-enahinx-yqdufcbza diabetes mellitus. He presented to the emergency department with a chief complaint of tachycardia, palpitations, and shortness of breath. Patient reports recently having difficulty swallowing secondary to his metastatic cancer and was scheduled for outpatient EGD with PEG tube placement but while in preop preparing to undergo procedure he began having palpitations with episodes of tachycardia with heart rate elevating to the 160s accompanied by worsening shortness of breath so he was transferred to ER for evaluation. Vital signs upon arrival show blood pressure 106/64, heart rate 123, respiratory rate 22, temp 97.8 F, and SpO2 of 93% on 3 L. EKG completed showing sinus Tachycardia at 121 bpm with frequent PACs first-degree AV block with [place] interval of 238 ms. Chest x-ray showing large right pleural effusion with scattered pulmonary masses and consolidation of right upper lung and multiple right-sided rib fractures. Labs completed and reviewed. CBC showing leukocytosis with WBC count of 11.4, hemoglobin of 12.5, and thrombocytosis with platelet count of 540. BMP showing hyponatremia with sodium 133, elevated BUN of 26, and blood glucose of 113. Liver profile showing elevated AST of 104 and alkaline phosphatase of 584. Troponin was negative at less than 0.012. Patient being admitted under our services with consultation to cardiology for atrial tachycardia, consultation to pulmonology for large pleural effusion, and consultation to general surgery for placement of PEG tube. Physical exam: Vital signs reviewed and stable. General: Nontoxic, no distress, chronically ill-appearing, cachectic Derm: Skin warm and dry, normal coloration for ethnicity. Head: Atraumatic, normocephalic and symmetric. Eyes: EOMs intact, no lid lag, and anicteric sclera Mouth: no lip lesions, mucus membranes moist Cardiovascular: regular rate and rhythm with normal S1S2, systolic murmur, positive posterior tibial pulses bilaterally, and cap refill < 2 seconds. Lungs: Respirations even, regular, and unlabored on 3L O2 via nasal cannula. Lungs diminished throughout entire right lung, good air entry throughout left lung with soft expiratory wheezes in left upper lobe. Abdominal: soft, nontender to palpation, no guarding, no appreciable organomegaly Ext: ROM intact. No gross muscle atrophy, no edema, no contractures Neuro: Speech clear, face symmetrical and CN II-XII grossly intact with no noted focal neuro deficits Psych: Alert and oriented to person, place, time, and situation. Appropriate and pleasant affect. Assessment and Plan of Care: 10/07/2023: Called to bedside at 7:55 AM, RN reports she assisted patient to ambulate to the restroom and while pt was bearing down to have a bowel movement, he became tachycardic with heart rate accelerating up to 180s. Patient was safely assisted back into bed. Heart rate remained tachycardic in 150s. Patient was placed on [place] and an A-Team was called. Upon arrival to bedside patient reports palpitations and increased shortness of breath but denies any chest pain or discomfort. Heart rate was 150s and systolic pressure of 90s. EKG was completed showing atrial tachycardia with frequent PACs and orders placed for IV Lopressor and a 500 cc bolus. Patient received 2 doses of IV Lopressor along with his morning oral metoprolol. Heart rate decreasing only to 130s and patient was hypotensive 80s to 90 systolic and order placed for amiodarone bolus followed by infusion. Just prior to initiating amiodarone bolus patient returned to normal sinus rhythm with heart rate in 90s and continued to throw frequent PACs. Amiodarone bolus was initiated followed by infusion of 0.5 mg/min. Discontinued metoprolol succinate and started patient on metoprolol tartrate 25 mg 4 times daily. Called and discussed case in detail with director of special education and awaiting further recommendations. Atrial tachycardia Symptomatic Hypotension Metastatic Lung cancer with large right pleural effusion Multiple right sided pulmonary masses with multiple right-sided rib fractures, secondary to above Hx of Hypertension Hyperlipidemia -Cardiology following, discussed in detail with director of special education and cardiac WINDOWS SECURITY ANALYST. -Consult placed to general surgery for placement of PEG tube -Pulmonology following, planning for possible use of thoracentesis of large right-sided effusion. -Hematology/oncology following, appreciate recommendations. -Oxygenation to be administered and titrated as needed to maintain SPO2 equal to or greater than 90% -Telemetry monitoring. -Monitor Pulse-oximetry -Discontinued metoprolol succinate 50 mg daily and started patient on metoprolol titrate 25 mg 4 times daily. -Continue amiodarone infusion at 0.5 mg/min, closely monitor HR and BP -Duonebs scheduled for times daily and as needed for SOB and/or wheezing -Incentive Spirometry Fog-rolgzeb-uqpgmkmwe diabetes mellitus Hold Trijardy and continue patient on glycemic protocol with NovoLog sliding scale. Data and imaging reviewed: Vital signs reviewed. Blood pressure 100/68, heart rate 85, respiratory rate 20, and SpO2 of 95% on [address] chest/abdomen/pelvis was completed and awaiting radiology read at this time. CODE STATUS: Full code DVT prophylaxis: Lovenox Anticipated discharge date: Clinical course to determine Anticipated discharge place: Clinical course to determine Patient was seen independently by Nurse Practitioner. This document was prepared using [employer] dictation software. Please allow for errors in citrus fruit packer while rare they do occur. Critical care time, 85 min. Physically at bedside in room with patient from 7:55 AM until 9:20 AM. Guido Lutz NP rendered care for this patient independently, reviewed the findings and plan as documented in the note above. I did not physically speak with or examine the patient on this date. Objective - Vital Signs Vital signs: Vital Signs Temp 97.4 F L 10/07/23 08:28 Pulse 82 10/07/23 09:08 Resp 18 10/07/23 09:03 BP 96/61 10/07/23 09:08 Pulse Ox 93 L 10/07/23 09:03 FiO2 Intake & Output 10/06/23 10/07/23 10/07/23 18:59 06:59 18:59 Intake Total 118 340 500 Output Total 475 300 Balance -357 40 500 Weight 58.967 kg 57 kg Intake: Intake, IV Titration 100 500 Amount Piperacillin-Tazobactam 3 100 .375 gm In Sodium Chloride 0.9% 100 ml @ 25 mls/hr IVPB Q8HR [facility] Rx# :[id number] Sodium Chloride 0.9% 500 500 ml 500 ml @ 999 mls/hr IV .Q31M [facility] Rx#:[id number] Oral 118 240 Output: Urine 475 300 Other: Voiding Method Urinal Urinal Urinal # Voids 1 - Labs CBC & Chem 7: 10/06/23 05:43 10/06/23 05:43 Labs: Abnormal Lab Results - Last 24 Hours (Table) 10/06/23 10/06/23 10/07/23 Range/Units 11:36 20:18 08:07 POC Glucose (mg/dL) 126 H 118 H 135 H (70-110) mg/dL
[2023-10-07 16:29] LABS: Glucose,Whole Blood 113 mg/dL (70-110)
--- NOTE | 2023-10-07 16:30 | CA ---
Transthoracic Echo Report Name: Lawrence Schaefer Age: 73 Gender: M : 1950 Exam Date: 10/07/2023 11:06 Exam Location: [place] [facility] Ht (in): 70 Wt (lb): 130 Ordering Physician: Marya Barton Attending/Referring Phys: [id number], Mick Glaze Handler Kailee Hernandez RDCS Procedure CPT: Indications: EF, assess for effusion, hx of metastatic lung CA Cardiac Hx: Technical Quality: Good Contrast 1: Total Dose (mL): Contrast 2: Total Dose (mL): MEASUREMENTS (Male / Female) Normal Values 2D ECHO LV Diastolic Diameter PLAX 3.7 cm 4.2 - 5.9 / 3.9 - 5.3 cm LV Systolic Diameter PLAX 2.4 cm IVS Diastolic Thickness 0.5 cm 0.6 - 1.0 / 0.6 - 0.9 cm LVPW Diastolic Thickness 0.8 cm 0.6 - 1.0 / 0.6 - 0.9 cm LV Relative Wall Thickness 0.4 RV Internal Dim ED PLAX 4.0 cm FINDINGS Left Ventricle Left ventricular ejection fraction is estimated at 60-65 %. Right Ventricle Mild to moderate right ventricular dilatation. Right Atrium Left Atrium Mitral Valve Aortic Valve Tricuspid Valve Pulmonic Valve Pericardium Minimal pericardial effusion (normal variant). Aorta CONCLUSIONS Limited 2-D echo Left ventricular ejection fraction 60-65% Mild to moderate right ventricular dilation Minimal pericardial effusion, normal variant Previewed by: Dr. Charlie Christian DO (Electronically Signed) Final Date: 07 Oct 2023 16:29
[2023-10-07] MEDS: METOPROLOL TARTRATE 25 MG TAB PO SCH (17:25)
[2023-10-07 20:00] LABS: Glucose,Whole Blood 132 mg/dL (70-110)
--- NOTE | 2023-10-07 22:16 | CT ---
EXAMINATION TYPE: CT ChestAbdPelvis w con DATE OF EXAM: 10/07/2023 INDICATION: lung ca/pneumonia COMPARISON: CT 07/07/2023 CT DLP: 1640 mGycm CONTRAST: Performed without Oral Contrast and with IV Contrast, patient injected with 100ml mL of Isovue 300. TECHNIQUE: Axial images at 5 mm thick sections. Reconstructed images in the coronal plane. Delayed images through the kidneys. FINDINGS: CT CHEST: Portion of the thyroid visualized is normal. There is a large mass at the right lung apex. Multiple additional bilateral lung nodules and masses a re present. Small effusion may be on the right. Subcarinal lymph node is present which is enlarged estimated to measure 1.6 cm. The ascending aorta diameter at the level of the main pulmonary artery is 3.2 cm. The main pulmonary artery diameter at the bifurcation is 3.[address] ABDOMEN: Liver: Multiple masses are within the liver compatible with multiple metastatic lesions. Spleen: Normal Pancreas: Normal Adrenal glands: The adrenal glands are normal. Gallbladder: Normal Kidneys: No masses are evident. No hydronephrosis is present. There is a 5.5 cm cyst in the posteri or lateral right mid kidney. There is a 2.4 cm cyst on the inferior right kidney. Nonobstructing georgiana l stones at the inferior pole measuring 0.4 cm right kidney. There are small 0.3-0.4 cm calcification s in the inferior pole left kidney. Delayed images through the kidney are unremarkable. Aorta: Vascular calcification is within the aorta. Inferior vena cava: Normal. CT PELVIS: Loops of bowel within the abdomen and pelvis are normal. Study is without oral contrast limiting bowel evaluation. Appendix: Not identified. Urinary bladder: Normal. Genitourinary structures: Prostate is prominent. Few punctate calcifications are present. Osseous structures: No suspicious lytic or sclerotic lesions. Facet degenerative changes are within t he lumbar spine. IMPRESSION: 1. Large mass right upper lobe with additional smaller masses and nodules present bilaterally compati ble with lung cancer. Findings appear more likely due to progression than superimposed pneumonia. 2. Probable subcarinal metastatic lesion. 3. Multiple metastatic lesions within left and right lobes of liver.
[2023-10-08] MEDS: IPRATROPIUM-ALBUTEROL 3 ML NEB INHALATION PRN (04:22)
[2023-10-08 06:07] LABS: Glucose,Whole Blood 105 mg/dL (70-110)
[2023-10-08 07:56] LABS: HCT 36.7 % (39.0-53.0); HGB 11.4 gm/dL (13.0-17.5); MCH 28.6 pg (25.0-35.0); MCV 92.3 fL (80.0-100.0); Mean Platelet Volume 7.2; Platelet Count 431 k/uL (150-450); RBC 3.98 m/uL (4.30-5.90); RDW 14.2 % (11.5-15.5); WBC 13.9 k/uL (3.8-10.6)
[2023-10-08 08:27] LABS: ALT 29 U/L (4-49); AST 97 U/L (17-59); African American GFR (CKD) >90 (>60 ml/min/1.73 sqM); Albumin 2.9 g/dL (3.5-5.0); Alkaline Phosphatase 455 U/L (38-126); Anion Gap 5 mmol/L; Blood Urea Nitrogen 20 mg/dL (9-20); Calcium 8.8 mg/dL (8.4-10.2); Carbon Dioxide 26 mmol/L (22-30); Chloride 101 mmol/L (98-107); Glucose 104 mg/dL (74-99); Magnesium 1.7 mg/dL (1.6-2.3); Non-African American GFR(CKD) >90 (>60 ml/min/1.73 sqM); Potassium 4.4 mmol/L (3.5-5.1); Sodium 132 mmol/L (137-145); Total Bilirubin 0.7 mg/dL (0.2-1.3); Total Protein 5.8 g/dL (6.3-8.2)
--- NOTE | 2023-10-08 10:35 | P.PN ---
Subjective Progress Note Date: 10/08/23 Principal diagnosis: Dysphagia Patient still having issues with his heart rate. Complaining of some shortness of breath. Still having dysphagia issues. Patient still interested in proceeding with PEG tube placement. Objective - Vital Signs Vital signs: Vital Signs Temp 97.6 F 10/08/23 08:00 Pulse 92 10/08/23 08:00 Resp 20 10/08/23 08:00 BP 94/62 10/08/23 08:00 Pulse Ox 92 L 10/08/23 08:00 FiO2 Intake & Output 10/07/23 10/08/23 10/08/23 18:59 06:59 18:59 Intake Total 980 234.727 480 Output Total 500 Balance 980 -265.273 480 Intake: Intake, IV Titration 500 234.727 Amount Amiodarone 450 mg In 234.727 Dextrose 5% in Water 250 ml @ 0.5 MG/MIN 16.667 mls/hr IV .Q15H [facility] Rx#: [id number] Sodium Chloride 0.9% 500 500 ml 500 ml @ 999 mls/hr IV .Q31M ONE Rx#:[id number] Oral 480 480 Output: Urine 500 Other: Voiding Method Urinal Urinal Urinal # Voids 0 1 - Exam Abdomen: Soft, nontender, nondistended - Labs CBC & Chem 7: 10/08/23 07:14 10/08/23 07:14 Labs: Abnormal Lab Results - Last 24 Hours (Table) 10/07/23 10/07/23 10/07/23 Range/Units 11:19 16:18 19:58 WBC (3.8-10.6) k/uL RBC (4.30-5.90) m/uL Hgb (13.0-17.5) gm/dL Hct (39.0-53.0) % Sodium (137-145) mmol/L Glucose (74-99) mg/dL POC Glucose (mg/dL) 140 H 113 H 132 H (70-110) mg/dL AST (17-59) U/L Alkaline Phosphatase (38-126) U/L Total Protein (6.3-8.2) g/dL Albumin (3.5-5.0) g/dL 10/08/23 10/08/23 Range/Units 07:14 07:14 WBC 13.9 H (3.8-10.6) k/uL RBC 3.98 L (4.30-5.90) m/uL Hgb 11.4 L (13.0-17.5) gm/dL Hct 36.7 L (39.0-53.0) % Sodium 132 L (137-145) mmol/L Glucose 104 H (74-99) mg/dL POC Glucose (mg/dL) (70-110) mg/dL AST 97 H (17-59) U/L Alkaline Phosphatase 455 H (38-126) U/L Total Protein 5.8 L (6.3-8.2) g/dL Albumin 2.9 L (3.5-5.0) g/dL Microbiology - Last 24 Hours (Table) 10/06/23 13:38 Gram Stain - Preliminary Sputum Assessment and Plan (1) Dysphagia Narrative/Plan: 73-year-old male with dysphagia and malnutrition. Will proceed with PEG tube placement on Monday if cleared by cardiology. Current Visit: Yes Status: Acute Code(s): R13.10 - DYSPHAGIA, UNSPECIFIED SNOMED Code(s): 98790680
[2023-10-08 11:46] VITALS: BMI 18.0
[2023-10-08 11:50] LABS: Glucose,Whole Blood 193 mg/dL (70-110)
--- NOTE | 2023-10-08 12:47 | P.PN ---
Subjective Progress Note Date: 10/08/23 Hospital Course: Patient is a very pleasant 73-year-old male with a past medical history of SVT/AV renodal entry tachycardia, metastatic lung cancer currently undergoing clinical study with immunotherapy treatments at [facility] in [place] and follows with oncologist Dr. Coughlin, hypertension, hyperlipidemia, and ych-ztedhgx-ycpugfsyh diabetes mellitus. He presented to the emergency department with a chief complaint of tachycardia, palpitations, and shortness of breath. Patient reports recently having difficulty swallowing secondary to his metastatic cancer and was scheduled for outpatient EGD with PEG tube placement but while in preop preparing to undergo procedure he began having palpitations with episodes of tachycardia with heart rate elevating to the 160s accompanied by worsening shortness of breath so he was transferred to ER for evaluation. Vital signs upon arrival show blood pressure 106/64, heart rate 123, respiratory rate 22, temp 97.8 F, and SpO2 of 93% on 3 L. EKG completed showing sinus Tachycardia at 121 bpm with frequent PACs first-degree AV block with [place] interval of 238 ms. Chest x-ray showing large right pleural effusion with scattered pulmonary masses and consolidation of right upper lung and multiple right-sided rib fractures. Labs completed and reviewed. CBC showing leukocytosis with WBC count of 11.4, hemoglobin of 12.5, and thrombocytosis with platelet count of 540. BMP showing hyponatremia with sodium 133, elevated BUN of 26, and blood glucose of 113. Liver profile showing elevated AST of 104 and alkaline phosphatase of 584. Troponin was negative at less than 0.012. Patient being admitted under our services with consultation to cardiology for atrial tachycardia, consultation to pulmonology for large pleural effusion, and consultation to general surgery for placement of PEG tube. On 10/07/2023 patient again having episode of atrial tachycardia/SVT with heart rate accelerating up to 180s accompanied by hypotension. EKG was completed showing atrial tachycardia with frequent PACs and patient requiring multiple doses of IV Lopressor followed by amiodarone bolus and infusion. CT chest/abdomen/pelvis was completed and radiology report reviewed showing large mass right upper lobe with additional smaller masses and nodules present bilaterally, probable subcarinal metastatic lesion and multiple metastatic lesions within the left and right lobes of liver. Physical exam: Patient seen and fully evaluated at bedside this morning. Since converting to normal sinus rhythm yesterday, patient has had no further episodes of tachycardia reported or noted on monitor. Patient reports continued difficulties with swallowing and planning for PEG tube placement on Monday. Patient reports he discussed options with truer pinion and wheel regarding draining of his lung. Patient denies having any other questions, needs, or concerns at this time. Vital signs reviewed and stable. General: Nontoxic, no distress, chronically ill-appearing, cachectic Derm: Skin warm and dry, normal coloration for ethnicity. Head: Atraumatic, normocephalic and symmetric. Eyes: EOMs intact, no lid lag, and anicteric sclera Mouth: no lip lesions, mucus membranes moist Cardiovascular: regular rate and rhythm with normal S1S2, systolic murmur, positive posterior tibial pulses bilaterally, and cap refill < 2 seconds. Lungs: Respirations even, regular, and unlabored on 3L O2 via nasal cannula. Lungs diminished throughout entire right lung, good air entry throughout left lung with soft expiratory wheezes in left upper lobe. Abdominal: soft, nontender to palpation, no guarding, no appreciable organomegaly Ext: ROM intact. No gross muscle atrophy, no edema, no contractures Neuro: Speech clear, face symmetrical and CN II-XII grossly intact with no noted focal neuro deficits Psych: Alert and oriented to person, place, time, and situation. Appropriate and pleasant affect. Assessment and Plan of Care: Atrial tachycardia Symptomatic Hypotension Metastatic Lung cancer with large right pleural effusion Multiple right sided pulmonary masses with multiple right-sided rib fractures, secondary to above Hx of Hypertension Hyperlipidemia -Cardiology following, discussed in detail with guardian family member and cardiac TILE LAYER DRAINAGE. -Consult placed to general surgery for placement of PEG tube -Pulmonology following, planning for possible use of thoracentesis of large right-sided effusion. -Hematology/oncology following, appreciate recommendations. -Oxygenation to be administered and titrated as needed to maintain SPO2 equal to or greater than 90% -Telemetry monitoring. -Monitor Pulse-oximetry -Discontinued metoprolol succinate 50 mg daily and started patient on metoprolol titrate 25 mg 4 times daily. -Continue amiodarone infusion at 0.5 mg/min, closely monitor HR and BP -Duonebs scheduled for times daily and as needed for SOB and/or wheezing -Incentive Spirometry Njz-magchdd-ekgxmqmle diabetes mellitus Hold Trijardy and continue patient on glycemic protocol with NovoLog sliding scale. Data and imaging reviewed: Vital signs reviewed. Blood pressure remains soft at 94/62, heart rate 92, respiratory rate 20, temp 97.6 F, and SpO2 of 92% on [address] chest/abdomen/pelvis was completed and radiology report reviewed showing large mass right upper lobe with additional smaller masses and nodules present bilaterally, probable subcarinal metastatic lesion and multiple metastatic lesions within the left and right lobes of liver. CODE STATUS: Full code DVT prophylaxis: Lovenox Anticipated discharge date: Clinical course to determine Anticipated discharge place: Clinical course to determine Patient was seen independently by Nurse Practitioner. This document was prepared using [employer] dictation software. Please allow for errors in pharmacy technician while rare they do occur. Guido Lutz NP rendered care for this patient independently, reviewed the findings and plan as documented in the note above. I did not physically speak with or examine the patient on this date. Objective - Vital Signs Vital signs: Vital Signs Temp 97.9 F 10/07/23 20:15 Pulse 94 10/08/23 07:49 Resp 24 10/08/23 07:49 BP 104/63 10/08/23 02:44 Pulse Ox 94 L 10/08/23 02:44 FiO2 Intake & Output 10/07/23 10/08/23 10/08/23 18:59 06:59 18:59 Intake Total 980 234.727 Output Total 500 Balance 980 -265.273 Intake: Intake, IV Titration 500 234.727 Amount Amiodarone 450 mg In 234.727 Dextrose 5% in Water 250 ml @ 0.5 MG/MIN 16.667 mls/hr IV .Q15H [facility] Rx#: [id number] Sodium Chloride 0.9% 500 500 ml 500 ml @ 999 mls/hr IV .Q31M [facility] Rx#:[id number] Oral 480 Output: Urine 500 Other: Voiding Method Urinal Urinal # Voids 0 1 - Labs CBC & Chem 7: 10/08/23 07:14 10/08/23 07:14 Labs: Abnormal Lab Results - Last 24 Hours (Table) 10/07/23 10/07/23 10/07/23 Range/Units 08:07 11:19 16:18 POC Glucose (mg/dL) 135 H 140 H 113 H (70-110) mg/dL 10/07/23 Range/Units 19:58 POC Glucose (mg/dL) 132 H (70-110) mg/dL Microbiology - Last 24 Hours (Table) 10/06/23 13:38 Gram Stain - Preliminary Sputum
--- NOTE | 2023-10-08 13:53 | P.PN ---
Subjective Progress Note Date: 10/08/23 Patient is a 73-year-old white male with past medical history significant for metastatic small cell lung cancer that was originally diagnosed back in 2020. He is status post chemo and radiation. He was noted to have disease progression on a recent PET scan done 06/2023. He has been referred to [facility], and is currently on immunotherapy. Reportedly enrolled in a clinical trial. Other medical history significant for COPD, diabetes mellitus, hypertension, hyperlipidemia, SVT/AV node reentry tachycardia. PET scan noted above demonstrated slight increased uptake of radiotracer within the patient's known right lung mass. There is new bilateral lung nodules, right hilar lymph node with uptake suspicious for metastatic disease. Enlarging hepatic lesions. And new abnormal uptake within the soft tissue of the right neck suspicious for metastatic disease. Patient does have a right neck mass. He has been having issues with dysphagia and aspiration. Reports coughing after eating or drinking thin liquids. He was scheduled for a elective EGD/PEG tube placement yesterday. While in preop, was noted to be in SVT, the procedure was canceled, and the patient was sent to the emergency department. Heart rate was noted as high as 160s beat per minute. He reportedly held his metoprolol earlier in the day, because he was n.p.o. for his procedure. He normally takes 50 mg twice a day. Of note, patient had a recent admission May 2023 for recurrent SVT refractory to pharmacologic's. He did undergo EP study and cardiac ablation during this admission. On my evaluation, patient is currently in the emergency department, room 1. Heart rhythm on bedside monitor appears normal sinus with a rate of 86 bpm. Blood pressure is normotensive. He is resting comfortably in bed, on 3 L/min nasal cannula, which is chronic. He is no longer experiencing any heart palpitations or lightheadedness or acute shortness of breath that he was feeling when noted to be in SVT. From a pulmonary standpoint, patient denies any change in his chronic dyspnea, he has a chronic cough with very baker ited sputum production. No hemoptysis. No chest pain. Denies fevers. He does have a right neck mass. No stridor on my evaluation. Follow-up chest x-ray shows an elevated right hemidiaphragm and right upper lung consolidation and bilateral lung masses/nodules, consistent with recent PET scan results. There is multiple right-sided rib fractures. No pneumothorax. He states that he has a follow-up CAT scan scheduled October 17 at [facility] in [place]. CBC drawn on arrival: WBC count 11.4, hemoglobin 12.5, hematocrit 40.8, platelets 540. BMP on arrival unremarkable. Troponins less than 0.012. EKG taken earlier in the emergency room showed sinus tachycardia. No obvious acute ischemic changes. Current hemodynamics are stable. 10/07/2023, the patient is being seen for a follow-up. Earlier this morning, the patient became more short of breath and he also had an episode of tachycardia an d the patient was seen by cardiology in this regard. This is SVT versus atrial flutter. The patient received 2 doses of metoprolol 2.5 mg IV and a bolus of 500 cc of normal saline. Following that, the patient to transfer to the telemetry unit. He is currently on metoprolol at a dose of 25 mg p.o. 4 times daily. The patient was also started on IV amiodarone. Pulse ox in the order of 93% on 4 L oxygen by nasal cannula. CAT scan of the chest abdomen and pelvis was noted and there is evidence of a diffuse metastatic disease with extensive hepatic involvement. The patient also has an enlarging right-sided pleural effusion with significant atelectasis of the right lung and evidence of medi astinal lymphadenopathy and scattered lesions involving the left lung in addition consistent with metastatic disease. Awaiting final report. Based on my evaluation and interpretation of the CAT scan, there is interval progression of his malignancy with extensive hepatic involvement. Remains on IV Zosyn. Limited echocardiogram will also obtained to rule out pericardial effusion. 10/08/2023, the patient is being seen for a follow-up. Patient remains on oxygen and the patient is currently on 4 L with a pulse ox of 94%. CAT scan of the chest abdomen pelvis was noted from yesterday and there is evidence of malignancy progression. The patient has a large right lung mass with significant atelectasis of the right lung and right-sided pleural effusion. In addition to that, the patient has evidence of 70 pulmonary lesions and nodules involving the left lung consistent with metastatic disease. Multiple masses within the liver compatible with metastatic disease. Nonobstructive renal stone in the inferior pole of the right kidney and a right renal cyst. The patient continues to have difficulty with respiratory secretions. He is undergoing self suctioning. He is unable to swallow. Remains NPO. The plan was to insert a PEG tube early next week. Meanwhile, the patient was having episodes of atrial tachycardia/SVT. He was treated with amiodarone bolus and infusion and beta-blockers. Currently, the patient is off amiodarone. The patient is on metoprolol 25 mg p.o. 4 times daily and the patient is on Lovenox for DVT prophylaxis. Remains on DuoNeb updrafts. Blood work from today shows a WBC count 13.9 with a hemoglobin 11.4 and a platelet count of 431. BUN is 20 mg 0.7 and sodium is at 132. LFTs are abnormal related to metastatic liver disease. Objective - Vital Signs Vital signs: Vital Signs Temp 97.6 F 10/08/23 08:00 Pulse 88 10/08/23 10:56 Resp 24 10/08/23 10:56 BP 94/62 10/08/23 08:00 Pulse Ox 92 L 10/08/23 08:00 FiO2 Intake & Output 10/07/23 10/08/23 10/08/23 18:59 06:59 18:59 Intake Total 980 234.727 480 Output Total 500 Balance 980 -265.273 480 Intake: Intake, IV Titration 500 234.727 Amount Amiodarone 450 mg In 234.727 Dextrose 5% in Water 250 ml @ 0.5 MG/MIN 16.667 mls/hr IV .Q15H [facility] Rx#: [id number] Sodium Chloride 0.9% 500 500 ml 500 ml @ 999 mls/hr IV .Q31M [facility] Rx#:[id number] Oral 480 480 Output: Urine 500 Other: Voiding Method Urinal Urinal Urinal # Voids 0 1 - Exam GENERAL EXAM: Alert, 73-year-old white male, lying flat in bed, comfortable in no apparent distress. HEAD: Normocephalic and atraumatic EYES: Normal reaction of pupils, pupils are unequal, left greater than right. NOSE: Clear with pink turbinates. THROAT: No erythema or exudates. NECK: Right neck mass. No stridor. No JVD. CHEST: No chest wall deformity. LUNGS: Equal air entry with diminished right lung sounds and left basilar inspiratory crackles. No significant wheezing. On 3 L/min nasal cannula. No conversational dyspnea or accessory muscle use.. CVS: S1 and S2 normal with no audible murmur, regular rhythm. No extra heart sounds ABDOMEN: No hepatosplenomegaly, active bowel sounds, no guarding or rigidity. SPINE: No scoliosis or deformity SKIN: No rashes CENTRAL NERVOUS SYSTEM: No focal deficits, tone is normal in all 4 extremities. EXTREMITIES: There is no peripheral edema, clubbing, or cyanosis. Peripheral pulses are intact. - Labs CBC & Chem 7: 10/08/23 07:14 10/08/23 07:14 Labs: Abnormal Lab Results - Last 24 Hours (Table) 10/07/23 10/07/23 10/07/23 Range/Units 11:19 16:18 19:58 WBC (3.8-10.6) k/uL RBC (4.30-5.90) m/uL Hgb (13.0-17.5) gm/dL Hct (39.0-53.0) % Sodium (137-145) mmol/L Glucose (74-99) mg/dL POC Glucose (mg/dL) 140 H 113 H 132 H (70-110) mg/dL AST (17-59) U/L Alkaline Phosphatase (38-126) U/L Total Protein (6.3-8.2) g/dL Albumin (3.5-5.0) g/dL 10/08/23 10/08/23 Range/Units 07:14 07:14 WBC 13.9 H (3.8-10.6) k/uL RBC 3.98 L (4.30-5.90) m/uL Hgb 11.4 L (13.0-17.5) gm/dL Hct 36.7 L (39.0-53.0) % Sodium 132 L (137-145) mmol/L Glucose 104 H (74-99) mg/dL POC Glucose (mg/dL) (70-110) mg/dL AST 97 H (17-59) U/L Alkaline Phosphatase 455 H (38-126) U/L Total Protein 5.8 L (6.3-8.2) g/dL Albumin 2.9 L (3.5-5.0) g/dL Microbiology - Last 24 Hours (Table) 10/06/23 13:38 Gram Stain - Preliminary Sputum Assessment and Plan Assessment: SVT while in preop, patient held his metoprolol early in the day for scheduled procedure. 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 Patient had another episode of SVT/flutter and currently is on amiodarone drip in addition of metoprolol and the patient has been transferred to telemetry unit. Cardiology on the case. Limited echocardiogram is to be done Metastatic small cell lung cancer, with evidence of interval progression of disease based on the most recent CAT scan of the chest abdomen pelvis. There is extensive hepatic involvement, significant lysis of the right lung with development of a moderate size right-sided pleural effusion and based on lymphadenopathy and scattered lesions also involving the left lung. Noted the patient also has several nodules involving the left lung consistent with metastatic disease along with subcarinal lymphadenopathy. Based on my com parison of the CAT scan, there is evidence of disease progression. Right neck mass related to small cell lung cancer post. Radiation therapy for palliative reasons. Complicated by dysphagia. Dysphagia, patient has a right neck mass postradiation therapy.. He was scheduled for an elective EGD with PEG tube placement yesterday. Noted to be in SVT in preop, and the procedure was canceled. History of metastatic small cell lung cancer, with disease progression, currently on immunotherapy. Patient was referred to [facility], and is reportedly currently on a clinical trial. Most recent PET scan done June, demonstrated slight increased uptake of radiotracer within the patient's known right lung mass. There were new bilateral lung nodules, right hilar lymph node with uptake suspicious for metastatic disease. Enlarging hepatic lesions. And new abnormal uptake within the soft tissue of the right neck suspicious for metastatic disease. Brain MRI done May, shows a stable medial right cerebral focus of enhancement. This is status post SBRT. Right lung consolidation/opacification combination of tumor progression with small cell lung cancer and possibly pneumonia with right-sided pleural effusion. Patient is coughing copious amount of purulent respiratory secretions. Chronic hypoxemic respiratory failure, secondary to above, most recent chest x- ray demonstrates a large right upper lung consolidation consistent with the patient's known history of lung mass, bilateral pulmonary masses/nodules, right elevated hemidiaphragm, multiple right-sided rib fractures. Elevated right hemidiaphragm History of chronic obstructive pulmonary disease, stable Diabetes mellitus type 2 History of hypertension Former tobacco dependence Plan: Patient has progression in small cell lung cancer, not responding to clinical trial and as such this puts the patient at the very poor prognosis. Remains n.p.o. Having difficulties with paroxysmal SVT/flutter currently on metoprolol and the patient is currently off amiodarone drip. Continue on IV Zosyn Continue bronchodilators Oxygen 4 L Patient is currently on clinical trial regarding metastatic small cell lung c ancer, with obvious progression in his disease and progression of small cell lung cancer. Not a great candidate for thoracentesis as the right lung seems to be atelectatic and probably trapped. Possibility of endobronchial tumor in the right upper lobe cannot be completely excluded as the right upper lobe bronchus seems to be cut off and the patient also has significant atelectasis of the right lower lobe bronchus. May consider Pleurx catheter insertion for palliative reasons. Swallow mechanism is impaired and the patient is in need for a PEG tube insertion which is currently on hold and general surgery is on the case. Poor prognosis based on above-mentioned comorbidities.
--- NOTE | 2023-10-08 15:31 | P.PN ---
Subjective Progress Note Date: 10/08/23 HISTORY OF PRESENT ILLNESS: This is a 73-year-old male with a past medical history significant for AVNRT status post ablation, PVCs, dysautonomia, and lung cancer. Patient follows in the office with Dr. Mckinnon. We have been asked to see the patient in consultation for tachycardia. Patient examined at the bedside in the ER. Patient was scheduled for PEG tube placement yesterday. He was found to be tachycardic and his procedure was cancelled. He states he did not take his metoprolol yesterday. He reports increased shortness of breath. He does have a large right sided pleural effusion and pulmonary has been consulted. General surgery is planning for PEG tube placement on Monday if he is medically stable. DIAGNOSTICS: - EKG reveals sinus tachycardia with no signs of acute ischemia. - Chest xray large right pleural effusion with scattered pulmonary masses and consolidation right upper lung as seen on prior PET/CT. Multiple right-sided rib fractures. - Laboratory data: WBC 11.4. Hemoglobin 12.5. Platelet count 540. Sodium 133. Potassium 4.5. BUN 25 creatinine 0.64, troponin negative x 1. - Current home cardiac medications include metoprolol succinate 50 mg daily. - Most recent echocardiogram obtained in May 2023 reveals ejection fraction 50 to 55%, severe pulmonary hypertension, mild to moderate tricuspid regurgitation - Cardiac catheterization history: Unknown 10/06 Patient developed episode of tachycardia lasting about an hour. Upon review of telemetry, this could have been SVT versus atrial flutter. Patient received 2 doses of metoprolol 2.5 mg and a fluid bolus of 500 cc. Patient was ordered for amiodarone but had converted by the time it was started. Patient was transferred over to the cardiac stepdown unit and remains on amiodarone drip. Metoprolol had been increased to 25 mg 4 times daily. Patient denies having any palpitations and no chest pain. He states that the time of the episode, he was trying to have his first bowel movement in 5 days and was straining. He is scheduled for PEG tube placement on 10/09. TSH came back normal at 2.16. proBNP normal at 359. Echocardiogram is being obtained at this time and will be reviewed later today. 10/07 Telemetry has been sinus rhythm with PACs, PVCs, heart rates have been running in the 80s and 90s, blood pressure 94/62, pulse ox 92% on 4 L nasal cannula. Repeat blood work reveals hemoglobin 11.4. Creatinine 0.71. Potassium 4.4. Echocardiogram reveals EF 60 to 65%, mild to moderate right ventricular dilation. Minimal pericardial effusion, normal variant. CT of the chest abdomen and pelvis with contrast revealed large mass right upper lobe with additional smaller masses or nodules bilaterally. Probable subcarinal metastatic lesion, multiple metastatic lesions in the left and right lobes of the liver. PHYSICAL EXAM: VITAL SIGNS: Reviewed. GENERAL: Well-developed in no acute distress. HEENT: Head is normocephalic. Pupils are equal, round. Sclerae anicteric. Mucous membranes of the mouth are moist. Neck supple. No JVD or thyromegaly LUNGS: Respirations even and unlabored. Diminished breath sounds on the right. HEART: Regular rate and rhythm. S1 and S2 heard. ABDOMEN: Soft. Nondistended. Nontender. EXTREMITIES: Normal range of motion. No clubbing or cyanosis. Peripheral pu lses intact. No lower extremity edema NEUROLOGIC: Awake and alert. Oriented x 3. ASSESSMENT: Sinus tachycardia SVT versus atrial flutter episode on 10/06 Right pleural effusion Metastatic lung cancer Multiple right-sided rib fractures Severe pulmonary hypertension History of AVNRT status post ablation History of PVCs History of dysautonomia with positive tilt table testing Dysphagia, patient to have PEG tube placed PLAN: Continue current cardiac medications Continue telemetry monitoring Patient is off amiodarone drip Continue increased dose of metoprolol 25 mg 4 times daily Pulmonary consulted for right pleural effusion, no plan for thoracentesis General surgery consulted and planning for PEG tube placement on Monday if patient is medically stable Further recommendations pending patient course Nurse practitioner note has been reviewed by physician. Signing provider agrees with the documented findings, assessment, and plan of care documented by [employer] as a scribe. Objective - Vital Signs Vital signs: Vital Signs Temp 97.6 F 10/08/23 08:00 Pulse 92 10/08/23 08:00 Resp 20 10/08/23 08:00 BP 94/62 10/08/23 08:00 Pulse Ox 92 L 10/08/23 08:00 FiO2 Intake & Output 10/07/23 10/08/23 10/08/23 18:59 06:59 18:59 Intake Total 980 234.727 Output Total 500 Balance 980 -265.273 Intake: Intake, IV Titration 500 234.727 Amount Amiodarone 450 mg In 234.727 Dextrose 5% in Water 250 ml @ 0.5 MG/MIN 16.667 mls/hr IV .Q15H [facility] Rx#: [id number] Sodium Chloride 0.9% 500 500 ml 500 ml @ 999 mls/hr IV .Q31M [facility] Rx#:[id number] Oral 480 Output: Urine 500 Other: Voiding Method Urinal Urinal # Voids 0 1 - Labs CBC & Chem 7: 10/08/23 07:14 10/08/23 07:14 Labs: Abnormal Lab Results - Last 24 Hours (Table) 10/07/23 10/07/23 10/07/23 Range/Units 11:19 16:18 19:58 WBC (3.8-10.6) k/uL RBC (4.30-5.90) m/uL Hgb (13.0-17.5) gm/dL Hct (39.0-53.0) % Sodium (137-145) mmol/L Glucose (74-99) mg/dL POC Glucose (mg/dL) 140 H 113 H 132 H (70-110) mg/dL AST (17-59) U/L Alkaline Phosphatase (38-126) U/L Total Protein (6.3-8.2) g/dL Albumin (3.5-5.0) g/dL 10/08/23 10/08/23 Range/Units 07:14 07:14 WBC 13.9 H (3.8-10.6) k/uL RBC 3.98 L (4.30-5.90) m/uL Hgb 11.4 L (13.0-17.5) gm/dL Hct 36.7 L (39.0-53.0) % Sodium 132 L (137-145) mmol/L Glucose 104 H (74-99) mg/dL POC Glucose (mg/dL) (70-110) mg/dL AST 97 H (17-59) U/L Alkaline Phosphatase 455 H (38-126) U/L Total Protein 5.8 L (6.3-8.2) g/dL Albumin 2.9 L (3.5-5.0) g/dL Microbiology - Last 24 Hours (Table) 10/06/23 13:38 Gram Stain - Preliminary Sputum
[2023-10-08 16:37] LABS: Glucose,Whole Blood 110 mg/dL (70-110)
[2023-10-08 20:29] LABS: Glucose,Whole Blood 87 mg/dL (70-110)
[2023-10-09 05:52] LABS: Glucose,Whole Blood 93 mg/dL (70-110)
[2023-10-09] MEDS: DEXTROSE 5% IN WATER 100 ML with AMIODARONE 150 MG IV ONE (07:36)
[2023-10-09] MEDS: AMIODARONE 360 MG in DEXTROSE 5% IN WATER 200 ML IV ONE (07:48)
--- NOTE | 2023-10-09 07:57 | P.PN ---
Subjective Progress Note Date: 10/09/23 Hospital Course: Patient is a very pleasant 73-year-old male with a past medical history of SVT/AV renodal entry tachycardia, metastatic lung cancer currently undergoing clinical study with immunotherapy treatments at [facility] in [place] and follows with oncologist Dr. Coughlin, hypertension, hyperlipidemia, and ivo-hvaitmd-niqlqtndv diabetes mellitus. He presented to the emergency department with a chief complaint of tachycardia, palpitations, and shortness of breath. Patient reports recently having difficulty swallowing secondary to his metastatic cancer and was scheduled for outpatient EGD with PEG tube placement but while in preop preparing to undergo procedure he began having palpitations with episodes of tachycardia with heart rate elevating to the 160s accompanied by worsening shortness of breath so he was transferred to ER for evaluation. Vital signs upon arrival show blood pressure 106/64, heart rate 123, respiratory rate 22, temp 97.8 F, and SpO2 of 93% on 3 L. EKG completed showing sinus Tachycardia at 121 bpm with frequent PACs first-degree AV block with FL interval of 238 ms. Chest x-ray showing large right pleural effusion with scattered pulmonary masses and consolidation of right upper lung and multiple right-sided rib fractures. Labs completed and reviewed. CBC showing leukocytosis with WBC count of 11.4, hemoglobin of 12.5, and thrombocytosis with platelet count of 540. BMP showing hyponatremia with sodium 133, elevated BUN of 26, and blood glucose of 113. Liver profile showing elevated AST of 104 and alkaline phosphatase of 584. Troponin was negative at less than 0.012. Patient being admitted under our services with consultation to cardiology for atrial tachycardia, consultation to pulmonology for large pleural effusion, and consultation to general surgery for placement of PEG tube. On 10/07/2023 patient again having episode of atrial tachycardia/SVT with heart rate accelerating up to 180s accompanied by hypotension. EKG was completed showing atrial tachycardia with frequent PACs and patient requiring multiple doses of IV Lopressor followed by amiodarone bolus and infusion. CT chest/abdomen/pelvis was completed and radiology report reviewed showing large mass right upper lobe with additional smaller masses and nodules present bilaterally, probable subcarinal metastatic lesion and multiple metastatic lesions within the left and right lobes of liver. Physical exam: Patient seen and fully evaluated at bedside this morning. Patient again with episodes of atrial tachycardia/SVT with heart rate up to 170s this morning and hypotension with blood pressure 78 systolic. Vital signs reviewed and stable. General: Nontoxic, no distress, chronically ill-appearing, cachectic Derm: Skin warm and dry, normal coloration for ethnicity. Head: Atraumatic, normocephalic and symmetric. Eyes: EOMs intact, no lid lag, and anicteric sclera Mouth: no lip lesions, mucus membranes moist Cardiovascular: regular rate and rhythm with normal S1S2, systolic murmur, positive posterior tibial pulses bilaterally, and cap refill < 2 seconds. Lungs: Respirations even, regular, and unlabored on 3L O2 via nasal cannula. Lungs diminished throughout entire right lung, good air entry throughout left lung with soft expiratory wheezes in left upper lobe. Abdominal: soft, nontender to palpation, no guarding, no appreciable organomegaly Ext: ROM intact. No gross muscle atrophy, no edema, no contractures Neuro: Speech clear, face symmetrical and CN II-XII grossly intact with no noted focal neuro deficits Psych: Alert and oriented to person, place, time, and situation. Appropriate and pleasant affect. Assessment and Plan of Care: Atrial tachycardia Symptomatic Hypotension Metastatic Lung cancer with large right pleural effusion Multiple right sided pulmonary masses with multiple right-sided rib fractures, secondary to above Hx of Hypertension Hyperlipidemia -Cardiology following, discussed plan of care with Dr. Christian patient again with episode of atrial tachycardia/SVT heart rate 170s with hypotension with blood pressure documented at 78 systolic. Cardiology ordered another amiodarone bolus followed by infusion at this time. -General surgery following, planning for placement of PEG tube on Monday -Pulmonology following, and due to poor prognosis, pt is not a candidate for thoracentesis of large right-sided effusion and if stabelized may consider cardiothorasic sx for palliative Pleurx catheter. -Hematology/oncology following, appreciate recommendations. -Oxygenation to be administered and titrated as needed to maintain SPO2 equal to or greater than 90% -Telemetry monitoring. -Monitor Pulse-oximetry -Patient to continue metoprolol titrate 25 mg 4 times daily along with close monitoring of vital signs. -Amiodarone infusion was discontinued. -Duonebs scheduled for times daily and as needed for SOB and/or wheezing -Incentive Spirometry Igx-wyimbfh-exileuzpr diabetes mellitus Hold Trijardy and continue patient on glycemic protocol with NovoLog sliding scale. Data and imaging reviewed: Vital signs reviewed. Blood pressure remains soft at 94/62, heart rate 92, respiratory rate 20, temp 97.6 F, and SpO2 of 92% on [address] chest/abdomen/pelvis was completed and radiology report reviewed showing large mass right upper lobe with additional smaller masses and nodules present bilaterally, probable subcarinal metastatic lesion and multiple metastatic lesions within the left and right lobes of liver. Patient with overall poor prognosis secondary to worsening of metastasis after failure of chemotherapy and clinical study. CODE STATUS: Full code DVT prophylaxis: Lovenox Anticipated discharge date: Clinical course to determine Anticipated discharge place: Clinical course to determine Patient was seen independently by Nurse Practitioner. This document was prepared using Keepstream dictation software. Please allow for errors in train attendant while rare they do occur. Guido Lutz NP rendered care for this patient independently, reviewed the findings and plan as documented in the note above. I did not physically speak with or examine the patient on this date. Objective - Vital Signs Vital signs: Vital Signs Temp 98.2 F 10/08/23 19:52 Pulse 85 10/09/23 07:49 Resp 18 10/09/23 07:46 BP 102/61 10/09/23 07:46 Pulse Ox 91 L 10/09/23 07:49 FiO2 Intake & Output 10/08/23 10/09/23 10/09/23 18:59 06:59 18:59 Intake Total 1820 Output Total 300 400 Balance 1520 -400 Weight 57 kg Intake: Oral 1820 Output: Urine 300 400 Other: Voiding Method Urinal Urinal # Voids 1 - Labs CBC & Chem 7: 10/09/23 08:38 10/09/23 08:38 Labs: Abnormal Lab Results - Last 24 Hours (Table) 10/08/23 10/08/23 10/08/23 Range/Units 07:14 07:14 11:48 WBC 13.9 H (3.8-10.6) k/uL RBC 3.98 L (4.30-5.90) m/uL Hgb 11.4 L (13.0-17.5) gm/dL Hct 36.7 L (39.0-53.0) % Sodium 132 L (137-145) mmol/L Glucose 104 H (74-99) mg/dL POC Glucose (mg/dL) 193 H (70-110) mg/dL AST 97 H (17-59) U/L Alkaline Phosphatase 455 H (38-126) U/L Total Protein 5.8 L (6.3-8.2) g/dL Albumin 2.9 L (3.5-5.0) g/dL
--- NOTE | 2023-10-09 08:30 | P.PN ---
Progress Note - Text Progress Note Date: 10/09/23 Advanced Care Planning: Diagnoses: Metastatic small cell lung cancer, progressively worsening showing no response to clinical trial and recurrent episodes of atrial tachycardia/SVT Discussion: Discussed with patient in detail findings of CT chest, abdomen, and pelvis bev wing large mass right upper lobe with additional smaller masses and nodules present bilaterally, probable subcarinal metastatic lesion and multiple metastatic lesions within the left and right lobes of liver. Also discussed recurrent episodes of atrial tachycardia/SVT. Patient reports worsening dysphagia and shortness of breath. He expressed frustration over his lack of response to the clinical trial. Patient reports this is a second clinical trial that he is going to miss. Had long discussion regarding goals of care and worsening metastasis. At this time patient requesting to be changed from full code to a DNR. Hospice was also consulted per patient's request. After this conversation called and spoke with patient's and notified her of her 's request and changes being made including consultation to hospice at this time. All questions were answered. Secondary to patient's poor overall prognosis, in agreement with the patient's decision to speak with hospice at thi s time. A total of 16 minutes of face to face time was spent discussing advanced care planning. Guido Lutz NP rendered care for this patient independently, reviewed the find ings and plan as documented in the note above. I did not physically speak with or examine the patient on this date.
[2023-10-09 09:17] LABS: HCT 39.2 % (39.0-53.0); HGB 11.7 gm/dL (13.0-17.5); Hypochromasia Slight; MCH 27.6 pg (25.0-35.0); MCHC 29.9 g/dL (31.0-37.0); MCV 92.1 fL (80.0-100.0); Mean Platelet Volume 7.6; Platelet Count 561 k/uL (150-450); RBC 4.26 m/uL (4.30-5.90); RDW 14.3 % (11.5-15.5)
--- NOTE | 2023-10-09 09:31 | P.PN ---
Subjective Progress Note Date: 10/09/23 Principal diagnosis: Dysphagia Patient more short of breath this morning. Had another episode of SVT last night. Denies abdominal pain. Objective - Vital Signs Vital signs: Vital Signs Temp 98.2 F 10/08/23 19:52 Pulse 88 10/09/23 08:18 Resp 18 10/09/23 07:46 BP 102/61 10/09/23 07:46 Pulse Ox 91 L 10/09/23 07:49 FiO2 Intake & Output 10/08/23 10/09/23 10/09/23 18:59 06:59 18:59 Intake Total 1820 Output Total 300 400 Balance 1520 -400 Weight 57 kg Intake: Oral 1820 Output: Urine 300 400 Other: Voiding Method Urinal Urinal # Voids 1 - Exam Abdomen: Soft, nontender, nondistended - Labs CBC & Chem 7: 10/09/23 08:38 10/08/23 07:14 Labs: Abnormal Lab Results - Last 24 Hours (Table) 10/08/23 10/09/23 Range/Units 11:48 08:38 WBC 13.0 H (3.8-10.6) k/uL RBC 4.26 L (4.30-5.90) m/uL Hgb 11.7 L (13.0-17.5) gm/dL MCHC 29.9 L (31.0-37.0) g/dL Plt Count 561 H (150-450) k/uL POC Glucose (mg/dL) 193 H (70-110) mg/dL Microbiology - Last 24 Hours (Table) 10/06/23 13:38 Gram Stain - Final Sputum Sputum Culture - Final Assessment and Plan (1) Dysphagia Narrative/Plan: Patient with worsening respiratory status. Patient considering hospice measures. Keep n.p.o. after midnight in case PEG tube planned for tomorrow. Current Visit: Yes Status: Acute Code(s): R13.10 - DYSPHAGIA, UNSPECIFIED SNOMED Code(s): 73851384
[2023-10-09 09:40] LABS: African American GFR (CKD) >90 (>60 ml/min/1.73 sqM); Anion Gap 7 mmol/L; Blood Urea Nitrogen 17 mg/dL (9-20); Calcium 8.9 mg/dL (8.4-10.2); Carbon Dioxide 25 mmol/L (22-30); Chloride 101 mmol/L (98-107); Glucose 93 mg/dL (74-99); Magnesium 1.8 mg/dL (1.6-2.3); Non-African American GFR(CKD) >90 (>60 ml/min/1.73 sqM); Potassium 4.2 mmol/L (3.5-5.1); Sodium 133 mmol/L (137-145)
[2023-10-09] MEDS: AMIODARONE 200 MG TAB PO SCH (11:00)
[2023-10-09 11:33] LABS: Glucose,Whole Blood 110 mg/dL (70-110)
--- NOTE | 2023-10-09 12:44 | P.PN ---
Subjective Progress Note Date: 10/09/23 HISTORY OF PRESENT ILLNESS: This is a 73-year-old male with a past medical history significant for AVNRT status post ablation, PVCs, dysautonomia, and lung cancer. Patient follows in the office with Dr. Mckinnon. We have been asked to see the patient in consultation for tachycardia. Patient examined at the bedside in the ER. Patient was scheduled for PEG tube placement yesterday. He was found to be tachycardic and his procedure was cancelled. He states he did not take his metoprolol yesterday. He reports increased shortness of breath. He does have a large right sided pleural effusion and pulmonary has been consulted. General surgery is planning for PEG tube placement on Monday if he is medically stable. DIAGNOSTICS: - EKG reveals sinus tachycardia with no signs of acute ischemia. - Chest xray large right pleural effusion with scattered pulmonary masses and consolidation right upper lung as seen on prior PET/CT. Multiple right-sided rib fractures. - Laboratory data: WBC 11.4. Hemoglobin 12.5. Platelet count 540. Sodium 133. Potassium 4.5. BUN 25 creatinine 0.64, troponin negative x 1. - Current home cardiac medications include metoprolol succinate 50 mg daily. - Most recent echocardiogram obtained in May 2023 reveals ejection fraction 50 to 55%, severe pulmonary hypertension, mild to moderate tricuspid regurgitation - Cardiac catheterization history: Unknown 10/06 Patient developed episode of tachycardia lasting about an hour. Upon review of telemetry, this could have been SVT versus atrial flutter. Patient received 2 doses of metoprolol 2.5 mg and a fluid bolus of 500 cc. Patient was ordered for amiodarone but had converted by the time it was started. Patient was transferred over to the cardiac stepdown unit and remains on amiodarone drip. Metoprolol had been increased to 25 mg 4 times daily. Patient denies having any palpitations and no chest pain. He states that the time of the episode, he was trying to have his first bowel movement in 5 days and was straining. He is scheduled for PEG tube placement on 10/09. TSH came back normal at 2.16. proBNP normal at 359. Echocardiogram is being obtained at this time and will be reviewed later today. 10/07 Telemetry has been sinus rhythm with PACs, PVCs, heart rates have been running in the 80s and 90s, blood pressure 94/62, pulse ox 92% on 4 L nasal cannula. Repeat blood work reveals hemoglobin 11.4. Creatinine 0.71. Potassium 4.4. Echocardiogram reveals EF 60 to 65%, mild to moderate right ventricular dilation. Minimal pericardial effusion, normal variant. CT of the chest abdomen and pelvis with contrast revealed large mass right upper lobe with additional smaller masses or nodules bilaterally. Probable subcarinal metastatic lesion, multiple metastatic lesions in the left and right lobes of the liver. 10/08 Last night, patient went into atrial tachycardia in the 170s and respiratory distress. He was having cough and phlegm production. He was started on amiodarone drip and converted after the bolus. He has been in a sinus rhythm now. Patient states he woke up and he just felt short of breath. Noted the CODE STATUS is changed to no code and there may be discussion regarding hospice care. Patient is tentatively scheduled for PEG tube placement on Monday. Blood pressure 102/61, heart rate in the 80s, pulse ox 91% on 4 L nasal cannula. PHYSICAL EXAM: VITAL SIGNS: Reviewed. GENERAL: Well-developed in no acute distress. HEENT: Head is normocephalic. Pupils are equal, round. Sclerae anicteric. Mucous membranes of the mouth are moist. Neck supple. No JVD or thyromegaly LUNGS: Respirations even and unlabored. Diminished breath sounds on the right. HEART: Regular rate and rhythm. S1 and S2 heard. ABDOMEN: Soft. Nondistended. Nontender. EXTREMITIES: Normal range of motion. No clubbing or cyanosis. Peripheral pulses intact. No lower extremity edema NEUROLOGIC: Awake and alert. Oriented x 3. ASSESSMENT: Sinus tachycardia SVT versus atrial flutter episode on 10/06 Right pleural effusion Metastatic lung cancer Multiple right-sided rib fractures Severe pulmonary hypertension History of AVNRT status post ablation History of PVCs History of dysautonomia with positive tilt table testing Dysphagia, patient to have PEG tube placed PLAN: Continue current cardiac medications Continue amiodarone gtt until after PEG tube is placed Continue telemetry monitoring Continue metoprolol 25 mg 4 times daily Pulmonary consulted for right pleural effusion, no plan for thoracentesis General surgery consulted and planning for PEG tube placement on Monday if patient is medically stable Further recommendations pending patient course Nurse practitioner note has been reviewed by physician. Signing provider agrees with the documented findings, assessment, and plan of care documented by [employer]CHNICIAN as a scribe. Objective - Vital Signs Vital signs: Vital Signs Temp 98.2 F 10/08/23 19:52 Pulse 88 10/09/23 08:18 Resp 18 10/09/23 07:46 BP 102/61 10/09/23 07:46 Pulse Ox 91 L 10/09/23 07:49 FiO2 Intake & Output 10/08/23 10/09/23 10/09/23 18:59 06:59 18:59 Intake Total 1820 Output Total 300 400 Balance 1520 -400 Weight 57 kg Intake: Oral 1820 Output: Urine 300 400 Other: Voiding Method Urinal Urinal # Voids 1 - Labs CBC & Chem 7: 10/09/23 08:38 10/09/23 08:38 Labs: Abnormal Lab Results - Last 24 Hours (Table) 10/08/23 10/09/23 10/09/23 Range/Units 11:48 08:38 08:38 WBC 13.0 H (3.8-10.6) k/uL RBC 4.26 L (4.30-5.90) m/uL Hgb 11.7 L (13.0-17.5) gm/dL MCHC 29.9 L (31.0-37.0) g/dL Plt Count 561 H (150-450) k/uL Sodium 133 L (137-145) mmol/L POC Glucose (mg/dL) 193 H (70-110) mg/dL Microbiology - Last 24 Hours (Table) 10/06/23 13:38 Gram Stain - Final Sputum Sputum Culture - Final
[2023-10-09] MEDS: AMIODARONE 450 MG in DEXTROSE 5% IN WATER 250 ML IV SCH (14:01)
--- NOTE | 2023-10-09 14:12 | P.PN ---
Subjective Progress Note Date: 10/09/23 Patient is a 73-year-old white male with past medical history significant for metastatic small cell lung cancer that was originally diagnosed back in 2020. He is status post chemo and radiation. He was noted to have disease progression on a recent PET scan done 06/2023. He has been referred to [facility], and is currently on immunotherapy. Reportedly enrolled in a clinical trial. Other medical history significant for COPD, diabetes mellitus, hypertension, hyperlipidemia, SVT/AV node reentry tachycardia. PET scan noted above demonstrated slight increased uptake of radiotracer within the patient's known right lung mass. There is new bilateral lung nodules, right hilar lymph node with uptake suspicious for metastatic disease. Enlarging hepatic lesions. And new abnormal uptake within the soft tissue of the right neck suspicious for metastatic disease. Patient does have a right neck mass. He has been having issues with dysphagia and aspiration. Reports coughing after eating or drinking thin liquids. He was scheduled for a elective EGD/PEG tube placement yesterday. While in preop, was noted to be in SVT, the procedure was canceled, and the patient was sent to the emergency department. Heart rate was noted as high as 160s beat per minute. He reportedly held his metoprolol earlier in the day, because he was n.p.o. for his procedure. He normally takes 50 mg twice a day. Of note, patient had a recent admission May 2023 for recurrent SVT refractory to pharmacologic's. He did undergo EP study and cardiac ablation during this admission. On my evaluation, patient is currently in the emergency department, room 1. Heart rhythm on bedside monitor appears normal sinus with a rate of 86 bpm. Blood pressure is normotensive. He is resting comfortably in bed, on 3 L/min nasal cannula, which is chronic. He is no longer experiencing any heart palpitations or lightheadedness or acute shortness of breath that he was feeling when noted to be in SVT. From a pulmonary standpoint, patient denies any change in his chronic dyspnea, he has a chronic cough with very baker ited sputum production. No hemoptysis. No chest pain. Denies fevers. He does have a right neck mass. No stridor on my evaluation. Follow-up chest x-ray shows an elevated right hemidiaphragm and right upper lung consolidation and bilateral lung masses/nodules, consistent with recent PET scan results. There is multiple right-sided rib fractures. No pneumothorax. He states that he has a follow-up CAT scan scheduled October 17 at [facility] in [place]. CBC drawn on arrival: WBC count 11.4, hemoglobin 12.5, hematocrit 40.8, platelets 540. BMP on arrival unremarkable. Troponins less than 0.012. EKG taken earlier in the emergency room showed sinus tachycardia. No obvious acute ischemic changes. Current hemodynamics are stable. 10/07/2023, the patient is being seen for a follow-up. Earlier this morning, the patient became more short of breath and he also had an episode of tachycardia an d the patient was seen by cardiology in this regard. This is SVT versus atrial flutter. The patient received 2 doses of metoprolol 2.5 mg IV and a bolus of 500 cc of normal saline. Following that, the patient to transfer to the telemetry unit. He is currently on metoprolol at a dose of 25 mg p.o. 4 times daily. The patient was also started on IV amiodarone. Pulse ox in the order of 93% on 4 L oxygen by nasal cannula. CAT scan of the chest abdomen and pelvis was noted and there is evidence of a diffuse metastatic disease with extensive hepatic involvement. The patient also has an enlarging right-sided pleural effusion with significant atelectasis of the right lung and evidence of medi astinal lymphadenopathy and scattered lesions involving the left lung in addition consistent with metastatic disease. Awaiting final report. Based on my evaluation and interpretation of the CAT scan, there is interval progression of his malignancy with extensive hepatic involvement. Remains on IV Zosyn. Limited echocardiogram will also obtained to rule out pericardial effusion. 10/08/2023, the patient is being seen for a follow-up. Patient remains on oxygen and the patient is currently on 4 L with a pulse ox of 94%. CAT scan of the chest abdomen pelvis was noted from yesterday and there is evidence of malignancy progression. The patient has a large right lung mass with significant atelectasis of the right lung and right-sided pleural effusion. In addition to that, the patient has evidence of 70 pulmonary lesions and nodules involving the left lung consistent with metastatic disease. Multiple masses within the liver compatible with metastatic disease. Nonobstructive renal stone in the inferior pole of the right kidney and a right renal cyst. The patient continues to have difficulty with respiratory secretions. He is undergoing self suctioning. He is unable to swallow. Remains NPO. The plan was to insert a PEG tube early next week. Meanwhile, the patient was having episodes of atrial tachycardia/SVT. He was treated with amiodarone bolus and infusion and beta-blockers. Currently, the patient is off amiodarone. The patient is on metoprolol 25 mg p.o. 4 times daily and the patient is on Lovenox for DVT prophylaxis. Remains on DuoNeb updrafts. Blood work from today shows a WBC count 13.9 with a hemoglobin 11.4 and a platelet count of 431. BUN is 20 mg 0.7 and sodium is at 132. LFTs are abnormal related to metastatic liver disease. On 10/09/2023, the patient had another episode of atrial fibrillation with RVR. Based on that, the patient was started on amiodarone drip which is being utilized by cardiology for rate control. He seems to continue to have episodes of paroxysmal atrial fibrillation. Current rhythm is back to sinus. Continues to have difficulty with swallowing. He is NPO. He is on 4 L of oxygen by nasal cannula with a pulse ox of 91%. White cell count is at 15, hemoglobin 11.7 and platelet count of 561. BUN is at 17 with a creatinine of 0.7 and a sodium levels of 133. Awake and alert and communicating. Quite cachectic and emaciated with impaired performance and functional status patient with significant progression in his metastatic small cell lung cancer. Objective - Vital Signs Vital signs: Vital Signs Temp 98.2 F 10/08/23 19:52 Pulse 84 10/09/23 11:01 Resp 18 10/09/23 07:46 BP 102/61 10/09/23 07:46 Pulse Ox 91 L 10/09/23 07:49 FiO2 Intake & Output 10/08/23 10/09/23 10/09/23 18:59 06:59 18:59 Intake Total 1820 Output Total 300 400 Balance 1520 -400 Weight 57 kg Intake: Oral 1820 Output: Urine 300 400 Other: Voiding Method Urinal Urinal # Voids 1 - Exam GENERAL EXAM: Alert, 73-year-old white male, lying flat in bed, comfortable in no apparent distress. HEAD: Normocephalic and atraumatic EYES: Normal reaction of pupils, pupils are unequal, left greater than right. NOSE: Clear with pink turbinates. THROAT: No erythema or exudates. NECK: Right neck mass. No stridor. No JVD. CHEST: No chest wall deformity. LUNGS: Equal air entry with diminished right lung sounds and left basilar inspiratory crackles. No significant wheezing. On 3 L/min nasal cannula. No conversational dyspnea or accessory muscle use.. CVS: S1 and S2 normal with no audible murmur, regular rhythm. No extra heart sounds ABDOMEN: No hepatosplenomegaly, active bowel sounds, no guarding or rigidity. SPINE: No scoliosis or deformity SKIN: No rashes CENTRAL NERVOUS SYSTEM: No focal deficits, tone is normal in all 4 extremities. EXTREMITIES: There is no peripheral edema, clubbing, or cyanosis. Peripheral pulses are intact. - Labs CBC & Chem 7: 10/09/23 08:38 10/09/23 08:38 Labs: Abnormal Lab Results - Last 24 Hours (Table) 10/08/23 10/09/23 10/09/23 Range/Units 11:48 08:38 08:38 WBC 13.0 H (3.8-10.6) k/uL RBC 4.26 L (4.30-5.90) m/uL Hgb 11.7 L (13.0-17.5) gm/dL MCHC 29.9 L (31.0-37.0) g/dL Plt Count 561 H (150-450) k/uL Sodium 133 L (137-145) mmol/L POC Glucose (mg/dL) 193 H (70-110) mg/dL Microbiology - Last 24 Hours (Table) 10/06/23 13:38 Gram Stain - Final Sputum Sputum Culture - Final Assessment and Plan Assessment: SVT while in preop, patient held his metoprolol early in the day for scheduled procedure. 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 Cardiology on the case. Overnight, the patient developed A-fib RVR, currently on amiodarone drip in combination with metoprolol. Echocardiogram shows a preserved LV function. No evidence of any pericardial effusion. No significant valvular abnormalities. Metastatic small cell lung cancer, with evidence of interval progression of disease based on the most recent CAT scan of the chest abdomen pelvis. There is extensive hepatic involvement, significant lysis of the right lung with development of a moderate size right-sided pleural effusion and based on lymphadenopathy and scattered lesions also involving the left lung. Noted the patient also has several nodules involving the left lung consistent with metastatic disease along with subcarinal lymphadenopathy. Based on my comparison of the CAT scan, there is evidence of disease progression. Right neck mass related to small cell lung cancer post. Radiation therapy for palliative reasons. Complicated by dysphagia. Dysphagia, patient has a right neck mass postradiation therapy.. He was scheduled for an elective EGD with PEG tube placement yesterday. Noted to be in SVT in preop, and the procedure was canceled. History of metastatic small cell lung cancer, with disease progression, currently on immunotherapy. Patient was referred to [facility], and is reportedly currently on a clinical trial. Most recent PET scan done June, demonstrated slight increased uptake of radiotracer within the patient's known right lung mass. There were new bilateral lung nodules, right hilar lymph node with uptake suspicious for metastatic disease. Enlarging hepatic lesions. And new abnormal uptake within the soft tissue of the right neck suspicious for metastatic disease. Brain MRI done May, shows a stable medial right cerebral focus of enhancement. This is status post SBRT. Right lung consolidation/opacification combination of tumor progression with small cell lung cancer and possibly pneumonia with right-sided pleural effusion. Patient is coughing copious amount of purulent respiratory secretions. Chronic hypoxemic respiratory failure, secondary to above, most recent chest x- ray demonstrates a large right upper lung consolidation consistent with the patient's known history of lung mass, bilateral pulmonary masses/nodules, right elevated hemidiaphragm, multiple right-sided rib fractures. Elevated right hemidiaphragm History of chronic obstructive pulmonary disease, stable Diabetes mellitus type 2 History of hypertension Former tobacco dependence Plan: Patient has progression in small cell lung cancer, not responding to clinical trial and as such this puts the patient at the very poor prognosis. Remains n.p.o. Having difficulties with paroxysmal SVT/flutter currently on metoprolol and amiodarone drip at 0.5 mg/min. No anticoagulants for now. He is on Lovenox for DVT prophylaxis. Continue on IV Zosyn Continue bronchodilators Oxygen 4 L Patient is currently on clinical trial regarding metastatic small cell lung cancer, with obvious progression in his disease and progression of small cell lung cancer. Not a great candidate for thoracentesis as the right lung seems to be atelectatic and probably trapped. Possibility of endobronchial tumor in the right upper lobe cannot be completely excluded as the right upper lobe bronchus seems to be cut off and the patient also has significant atelectasis of the right lower lobe bronchus. May consider Pleurx catheter insertion for palliative reasons. Swallow mechanism is impaired and the patient is in need for a PEG tube insertion which is currently on hold and general surgery is on the case. Poor prognosis based on above-mentioned comorbidities. Consider hospice care also.
[2023-10-09 16:34] LABS: Glucose,Whole Blood 115 mg/dL (70-110)
[2023-10-09 20:18] LABS: Glucose,Whole Blood 104 mg/dL (70-110)
[2023-10-10 06:27] LABS: Glucose,Whole Blood 98 mg/dL (70-110)
[2023-10-10 07:35] LABS: HCT 38.1 % (39.0-53.0); HGB 11.5 gm/dL (13.0-17.5); Hypochromasia Slight; MCH 27.9 pg (25.0-35.0); MCHC 30.2 g/dL (31.0-37.0); MCV 92.4 fL (80.0-100.0); Mean Platelet Volume 7.9; Platelet Count 502 k/uL (150-450); RBC 4.13 m/uL (4.30-5.90); RDW 14.3 % (11.5-15.5); WBC 12.3 k/uL (3.8-10.6)
[2023-10-10 07:53] LABS: ALT 29 U/L (4-49); AST 102 U/L (17-59); African American GFR (CKD) >90 (>60 ml/min/1.73 sqM); Albumin 2.8 g/dL (3.5-5.0); Alkaline Phosphatase 479 U/L (38-126); Anion Gap 4 mmol/L; Blood Urea Nitrogen 15 mg/dL (9-20); Calcium 8.8 mg/dL (8.4-10.2); Carbon Dioxide 27 mmol/L (22-30); Chloride 102 mmol/L (98-107); Glucose 87 mg/dL (74-99); Magnesium 1.9 mg/dL (1.6-2.3); Non-African American GFR(CKD) >90 (>60 ml/min/1.73 sqM); Potassium 3.9 mmol/L (3.5-5.1); Sodium 133 mmol/L (137-145); Total Bilirubin 0.7 mg/dL (0.2-1.3); Total Protein 5.8 g/dL (6.3-8.2)
[2023-10-10] MEDS ORDERED: AMIODARONE 200 MG TAB PO SCH (09:45)
--- NOTE | 2023-10-10 11:27 | P.PN ---
Subjective Progress Note Date: 10/10/23 Hospital Course: Patient is a very pleasant 73-year-old male with a past medical history of SVT/AV renodal entry tachycardia, metastatic lung cancer currently undergoing clinical study with immunotherapy treatments at [facility] in [place] and follows with oncologist Dr. Coughlin, hypertension, hyperlipidemia, and fre-[id number] diabetes mellitus. He presented to the emergency department with a chief complaint of tachycardia, palpitations, and shortness of breath. Patient reports recently having difficulty swallowing secondary to his metastatic cancer and was scheduled for outpatient EGD with PEG tube placement but while in preop preparing to undergo procedure he began having palpitations with episodes of tachycardia with heart rate elevating to the 160s accompanied by worsening shortness of breath so he was transferred to ER for evaluation. Vital signs upon arrival show blood pressure 106/64, heart rate 123, respiratory rate 22, temp 97.8 F, and SpO2 of 93% on 3 L. EKG completed showing sinus Tachycardia at 121 bpm with frequent PACs first-degree AV block with GA interval of 238 ms. Chest x-ray showing large right pleural effusion with scattered pulmonary masses and consolidation of right upper lung and multiple right-sided rib fractures. Labs completed and reviewed. CBC showing leukocytosis with WBC count of 11.4, hemoglobin of 12.5, and thrombocytosis with platelet count of 540. BMP showing hyponatremia with sodium 133, elevated BUN of 26, and blood glucose of 113. Liver profile showing elevated AST of 104 and alkaline phosphatase of 584. Troponin was negative at less than 0.012. Patient being admitted under our services with consultation to cardiology for atrial tachycardia, consultation to pulmonology for large pleural effusion, and consultation to general surgery for placement of PEG tube. On 10/07/2023 patient again having episode of atrial tachycardia/SVT with heart rate accelerating up to 180s accompanied by hypotension. EKG was completed showing atrial tachycardia with frequent PACs and patient requiring multiple doses of IV Lopressor followed by amiodarone bolus and infusion. CT chest/abdomen/pelvis was completed and radiology report reviewed showing large mass right upper lobe with additional smaller masses and nodules present bilaterally, probable subcarinal metastatic lesion and multiple metastatic lesions within the left and right lobes of liver. On 10/09/2023 patient again had episode of SVT/atrial tachycardia with heart rate again in the 170s accompanied by symptomatic hyp otension with reports of dizziness and increased shortness of breath. Patient was given amiodarone bolus and restarted on amiodarone infusion at this time. Physical exam: Vital signs reviewed and stable. General: Nontoxic, no distress, chronically ill-appearing, cachectic Derm: Skin warm and dry, normal coloration for ethnicity. Head: Atraumatic, normocephalic and symmetric. Eyes: EOMs intact, no lid lag, and anicteric sclera Mouth: no lip lesions, mucus membranes moist Cardiovascular: regular rate and rhythm with normal S1S2, systolic murmur, p ositive posterior tibial pulses bilaterally, and cap refill < 2 seconds. Lungs: Respirations even, regular, and unlabored on 4L O2 via nasal cannula. Lungs diminished throughout entire right lung, good air entry throughout left lung with soft expiratory wheezes in left upper lobe. Abdominal: soft, nontender to palpation, no guarding, no appreciable organomegaly Ext: ROM intact. No gross muscle atrophy, no edema, no contractures Neuro: Speech clear, face symmetrical and CN II-XII grossly intact with no noted focal neuro deficits Psych: Alert and oriented to person, place, time, and situation. Appropriate and pleasant affect. Assessment and Plan of Care: Atrial tachycardia/SVT, recurrent episodes Symptomatic Hypotension Metastatic Small Cell Lung cancer with large right pleural effusion Multiple right sided pulmonary masses with multiple right-sided rib fractures, secondary to above Hx of Hypertension Hyperlipidemia -Cardiology following, discussed plan of care with Dr. Mckinnon.. -General surgery following, planning for placement of PEG tube later today -Pulmonology following, and due to poor prognosis, pt is not a candidate for thoracentesis of large right-sided effusion and if stabelized may consider cardiothorasic sx for palliative Pleurx catheter. Discussed thrroughly with pulmonary POULTRY FARMER.. -Hematology/oncology following, appreciate recommendations. -Oxygenation to be administered and titrated as needed to maintain SPO2 equal to or greater than 90% -Telemetry monitoring. -Monitor Pulse-oximetry -Patient to continue metoprolol titrate 25 mg 4 times daily along with close monitoring of vital signs. -Amiodarone infusion to continue at 0.5 mg/min -Duonebs scheduled for times daily and as needed for SOB and/or wheezing -Incentive Spirometry Ccb-vntbxll-psqrqmapt diabetes mellitus Hold Trijardy and continue patient on glycemic protocol with NovoLog sliding scale. Preoperative clearance -Patient with metastatic small cell lung cancer and recurrent episodes of atrial tachycardia/SVT. Secondary to the extensive progression of cancer and development of right neck mass patient with significant dysphagia and requesting a PEG tube to be placed. -Patient and his were educated on the risks of undergoing any surgical procedures at this time, as patient is at a significantly increased risk seconda ry to his multiple comorbidities and poor overall clinical prognosis. However secondary to the extensive progression of his cancer and development of right neck mass patient unable to swallow and requesting undergo surgical procedure for PEG tube placement. This was discussed thoroughly with communication engineer, Dr. Mckinnon and pulmonary team. Market Researcher clearing patient from cardiac perspective to undergo palliative surgical procedure and pulmonary clearing patient from pulmonology standpoint to proceed. -Patient is at a very high risk for surgical intervention as stated above, however there are no absolute contraindications to undergo PEG tube placement from a medical standpoint at this time. Patient verbalized understanding of risks and was informed that he was given medical clearance to proceed with requested surgery. General surgery team was notified of medical clearance, cardiac clearance, and pulmonary clearance at this time.. Data and imaging reviewed: Vital signs reviewed. Blood pressure 111/63, heart rate 96, respiratory rate 18, temp 97.7 F, and SpO2 of 92% on 4 L. Morning labs reviewed. CBC showing leukocytosis with WBC count of 12.3, hemoglobin of 11.5, and thrombocytosis with platelet count of 502. BMP showing hyponatremia with sodium of 133. Liver profile showing elevated AST of 102 and alkaline phosphatase of 479. Patient with overall poor prognosis secondary to worsening of metastasis of small cell lung cancer. Pt requested code status change to DNR/DNI. Per his request, Hospice also consulted. CODE STATUS: DNR/DNI DVT prophylaxis: Lovenox Anticipated discharge date: Clinical course to determine Anticipated discharge place: Clinical course to determine Patient was seen independently by Nurse Practitioner. This document was prepared using [employer] dictation software. Please allow for errors in art model while rare they do occur. Guido Lutz NP rendered care for this patient independently, reviewed the findings and plan as documented in the note above. I did not physically speak with or examine the patient on this date. Objective - Vital Signs Vital signs: Vital Signs Temp 97.7 F 10/10/23 04:21 Pulse 87 10/10/23 07:46 Resp 20 10/10/23 04:21 BP 122/63 10/10/23 04:21 Pulse Ox 91 L 10/09/23 16:47 FiO2 Intake & Output 10/09/23 10/10/23 10/10/23 18:59 06:59 18:59 Intake Total 950.004 Output Total 200 300 Balance -200 650.004 Intake: Intake, IV Titration 470.004 Amount Amiodarone 360 mg In 175 Dextrose 5% in Water 200 ml @ 1 MG/MIN 33.333 mls/ hr IV .Q6H [facility] Rx#: [id number] Amiodarone 450 mg In 195.004 Dextrose 5% in Water 250 ml @ 0.5 MG/MIN 16.667 mls/hr IV .Q15H [facility] Rx#: [id number] Piperacillin-Tazobactam 3 100 .375 gm In Sodium Chloride 0.9% 100 ml @ 25 mls/hr IVPB Q8HR [facility] Rx# :[id number] Oral 480 Output: Urine 200 300 Other: Voiding Method Urinal # Bowel Movements 1 - Labs CBC & Chem 7: 10/10/23 07:16 10/10/23 07:16 Labs: Abnormal Lab Results - Last 24 Hours (Table) 10/09/23 10/09/23 10/09/23 Range/Units 08:38 08:38 16:33 WBC 13.0 H (3.8-10.6) k/uL RBC 4.26 L (4.30-5.90) m/uL Hgb 11.7 L (13.0-17.5) gm/dL Hct (39.0-53.0) % MCHC 29.9 L (31.0-37.0) g/dL Plt Count 561 H (150-450) k/uL Sodium 133 L (137-145) mmol/L POC Glucose (mg/dL) 115 H (70-110) mg/dL AST (17-59) U/L Alkaline Phosphatase (38-126) U/L Total Protein (6.3-8.2) g/dL Albumin (3.5-5.0) g/dL 10/10/23 10/10/23 Range/Units 07:16 07:16 WBC 12.3 H (3.8-10.6) k/uL RBC 4.13 L (4.30-5.90) m/uL Hgb 11.5 L (13.0-17.5) gm/dL Hct 38.1 L (39.0-53.0) % MCHC 30.2 L (31.0-37.0) g/dL Plt Count 502 H (150-450) k/uL Sodium 133 L (137-145) mmol/L POC Glucose (mg/dL) (70-110) mg/dL AST 102 H (17-59) U/L Alkaline Phosphatase 479 H (38-126) U/L Total Protein 5.8 L (6.3-8.2) g/dL Albumin 2.8 L (3.5-5.0) g/dL Microbiology - Last 24 Hours (Table) 10/06/23 13:38 Gram Stain - Final Sputum Sputum Culture - Final
[2023-10-10 11:33] LABS: Glucose,Whole Blood 85 mg/dL (70-110)
[2023-10-10] MEDS ORDERED: PROPOFOL 10 MG/ML 20 ML VIAL IV ONE (12:49)
[2023-10-10] MEDS ORDERED: LIDOCAINE 1% INJ 10MG/ML (20 ML MDV) ONE (12:49)
--- NOTE | 2023-10-10 12:49 | P.PN ---
Subjective Progress Note Date: 10/10/23 CHIEF COMPLAINT: Dysphagia HISTORY OF PRESENT ILLNESS: Patient with history of metastatic small cell lung cancer with a right neck mass patient patient with dysphagia. Patient apparently failed swallow eval at [facility] in [place] about 3 weeks ago. Patient has been cleared by medicine service, cardiology service and pulmonary service to proceed with PEG tube placement. But is considered high risk. Afebrile. WBC 12.3 Hgb 11.5 platelets 502 sodium is 133 potassium 3.9 creatinine 0.71 PHYSICAL EXAM: VITAL SIGNS: Reviewed. GENERAL: Well-developed in no acute distress. ABDOMEN: Soft. Nondistended. Nontender. NEUROLOGIC: Alert and oriented. Cranial nerves II through XII grossly intact. ASSESSMENT: 1. Dysphagia 2. Metastatic small cell lung cancer 3. Right neck mass PLAN: -Patient scheduled for EGD with PEG tube placement today with Dr. Jett -Keep patient n.p.o. Physician Manager Cosmetic note has been reviewed by physician. Signing provider agrees with the documented findings, assessment, and plan of care. Objective - Vital Signs Vital signs: Vital Signs Temp 97.7 F 10/10/23 08:15 Pulse 91 10/10/23 11:30 Resp 18 10/10/23 11:30 BP 106/62 10/10/23 11:30 Pulse Ox 91 L 10/10/23 11:30 FiO2 Intake & Output 10/09/23 10/10/23 10/10/23 18:59 06:59 18:59 Intake Total 950.004 Output Total 200 300 Balance -200 650.004 Intake: Intake, IV Titration 470.004 Amount Amiodarone 360 mg In 175 Dextrose 5% in Water 200 ml @ 1 MG/MIN 33.333 mls/ hr IV .Q6H [facility] Rx#: [id number] Amiodarone 450 mg In 195.004 Dextrose 5% in Water 250 ml @ 0.5 MG/MIN 16.667 mls/hr IV .Q15H [facility] Rx#: [id number] Piperacillin-Tazobactam 3 100 .375 gm In Sodium Chloride 0.9% 100 ml @ 25 mls/hr IVPB Q8HR [facility] Rx# :[id number] Oral 480 Output: Urine 200 300 Other: Voiding Method Urinal Urinal # Bowel Movements 1 - Labs CBC & Chem 7: 10/10/23 07:16 10/10/23 07:16 Labs: Abnormal Lab Results - Last 24 Hours (Table) 10/09/23 10/10/23 10/10/23 Range/Units 16:33 07:16 07:16 WBC 12.3 H (3.8-10.6) k/uL RBC 4.13 L (4.30-5.90) m/uL Hgb 11.5 L (13.0-17.5) gm/dL Hct 38.1 L (39.0-53.0) % MCHC 30.2 L (31.0-37.0) g/dL Plt Count 502 H (150-450) k/uL Sodium 133 L (137-145) mmol/L POC Glucose (mg/dL) 115 H (70-110) mg/dL AST 102 H (17-59) U/L Alkaline Phosphatase 479 H (38-126) U/L Total Protein 5.8 L (6.3-8.2) g/dL Albumin 2.8 L (3.5-5.0) g/dL Microbiology - Last 24 Hours (Table) 10/06/23 13:38 Gram Stain - Final Sputum Sputum Culture - Final
[2023-10-10] MEDS: IV FLUID CONTINUATION 1,000 ML IV ONE (13:06)
--- NOTE | 2023-10-10 13:07 | P.OP ---
Date of Procedure: 10/10/23 Preoperative Diagnosis: mprotein calorie malnutrition Postoperative Diagnosis: routine calorie malnutrition Procedure(s) Performed: EGD with PEG Anesthesia: MAC Surgeon: John Jett Pathology: none sent Condition: stable Disposition: PACU Description of Procedure: the patient received IV sedation. Next the gastroscope placed oropharynx passed in the esophagus and stomach. There is no evidence of any outlet obstruction. Stomach was insufflated with air. The light reflux seen the anterior abdominal wall. The abdomen was prepped and draped usual fashion. The skin was incised. And the needles placed and stomach under direct visualization. The needle was snared. And the wires placed through the needle and the wire was snared and brought the oropharynx. The PEG tube was placed over top the wire brought down to the stomach. The PEG tube was secured. At the 3 cm damion. The one-piece bolster was used. Patient tolerated procedure well.
--- NOTE | 2023-10-10 14:04 | P.PN ---
Subjective Progress Note Date: 10/10/23 Principal diagnosis: Metastatic small cell lung cancer with disease progression Patient is a 73-year-old white male with past medical history significant for metastatic small cell lung cancer that was originally diagnosed back in 2020. He is status post chemo and radiation. He was noted to have disease progression on a recent PET scan done 06/2023. He has been referred to [facility], and is currently on immunotherapy. Reportedly enrolled in a clinical trial. Other medical history significant for COPD, diabetes mellitus, hypertension, hyperlipidemia, SVT/AV node reentry tachycardia. PET scan noted above demonstrated slight increased uptake of radiotracer within the patient's known right lung mass. There is new bilateral lung nodules, right hilar lymph node with uptake suspicious for metastatic disease. Enlarging hepatic lesions. And new abnormal uptake within the soft tissue of the right neck suspicious for metastatic disease. Patient does have a right neck mass. He has been having issues with dysphagia and aspiration. Reports coughing after eating or drinking thin liquids. He was scheduled for a elective EGD/PEG tube placement yesterday. While in preop, was noted to be in SVT, the procedure was canceled, and the patient was sent to the emergency department. Heart rate was noted as high as 160s beat per minute. He reportedly held his metoprolol earlier in the day, because he was n.p.o. for his procedure. He normally takes 50 mg twice a day. Of note, patient had a recent admission May 2023 for recurrent SVT refractory to pharmacologic's. He did undergo EP study and cardiac ablation during this admission. On my evaluation, patient is currently in the emergency department, room 1. Heart rhythm on bedside monitor appears normal sinus with a rate of 86 bpm. Blood pressure is normotensive. He is resting comfortably in bed, on 3 L/min nasal cannula, which is chronic. He is no longer experiencing any heart palpitations or lightheadedness or acute shortness of breath that he was feeling when noted to be in SVT. From a pulmonary standpoint, patient denies any change in his chronic dyspnea, he has a chronic cough with very limited sputum production. No hemoptysis. No chest pain. Denies fevers. He does have a right neck mass. No stridor on my evaluation. Follow-up chest x-ray shows an elevated right hemidiaphragm and right upper lung consolidation and bilateral lung masses/nodules, consistent with recent PET scan results. There is multiple right-sided rib fractures. No pneumothorax. He states that he has a follow-up CAT scan scheduled October 17 at [facility]. CBC drawn on arrival: WBC count 11.4, hemoglobin 12.5, hematocrit 40.8, platelets 540. BMP on arrival unremarkable. Troponins less than 0.012. EKG taken earlier in the emergency room showed sinus tachycardia. No obvious acute ischemic changes. Current hemodynamics are stable. 10/07/2023, the patient is being seen for a follow-up. Earlier this morning, the patient became more short of breath and he also had an episode of tachycardia and the patient was seen by cardiology in this regard. This is SVT versus atrial flutter. The patient received 2 doses of metoprolol 2.5 mg IV and a bolus of 500 cc of normal saline. Following that, the patient to transfer to the telemetry unit. He is currently on metoprolol at a dose of 25 mg p.o. 4 times daily. The patient was also started on IV amiodarone. Pulse ox in the order of 93% on 4 L oxygen by nasal cannula. CAT scan of the chest abdomen and pelvis was noted and there is evidence of a diffuse metastatic disease with extensive hepatic involvement. The patient also has an enlarging right-sided pleural effusion with significant atelectasis of the right lung and evidence of mediastinal lymphadenopathy and scattered lesions involving the left lung in addition consistent with metastatic disease. Awaiting final report. Based on my evaluation and interpretation of the CAT scan, there is interval progression of his malignancy with extensive hepatic involvement. Remains on IV Zosyn. Limited echocardiogram will also obtained to rule out pericardial effusion. 10/08/2023, the patient is being seen for a follow-up. Patient remains on oxygen and the patient is currently on 4 L with a pulse ox of 94%. CAT scan of the chest abdomen pelvis was noted from yesterday and there is evidence of malignancy progression. The patient has a large right lung mass with signific ant atelectasis of the right lung and right-sided pleural effusion. In addition to that, the patient has evidence of 70 pulmonary lesions and nodules involving the left lung consistent with metastatic disease. Multiple masses within the liver compatible with metastatic disease. Nonobstructive renal stone in the inferior pole of the right kidney and a right renal cyst. The patient continues to have difficulty with respiratory secretions. He is undergoing self suctioning. He is unable to swallow. Remains NPO. The plan was to insert a PEG tube early next week. Meanwhile, the patient was having episodes of atrial tachycardia/SVT. He was treated with amiodarone bolus and infusion and beta- blockers. Currently, the patient is off amiodarone. The patient is on metoprolol 25 mg p.o. 4 times daily and the patient is on Lovenox for DVT prophylaxis. Remains on DuoNeb updrafts. Blood work from today shows a WBC count 13.9 with a hemoglobin 11.4 and a platelet count of 431. BUN is 20 mg 0.7 and sodium is at 132. LFTs are abnormal related to metastatic liver disease. On 10/09/2023, the patient had another episode of atrial fibrillation with RVR. Based on that, the patient was started on amiodarone drip which is being utilized by cardiology for rate control. He seems to continue to have episodes of paroxysmal atrial fibrillation. Current rhythm is back to sinus. Continues to have difficulty with swallowing. He is NPO. He is on 4 L of oxygen by nasal cannula with a pulse ox of 91%. White cell count is at 15, hemoglobin 11.7 and platelet count of 561. BUN is at 17 with a creatinine of 0.7 and a sodium levels of 133. Awake and alert and communicating. Quite cachectic and emaciated with impaired performance and functional status patient with significant progression in his metastatic small cell lung cancer. Reevaluated today on 10/10/2023, patient is doing well, relatively asymptomatic, he seems to be very comfortable, on 4 L nasal cannula with O2 saturation in the low 90s. He is hemodynamically stable, scheduled to have a PEG tube placement today, and I will clear the patient if cleared by cardiology he is on amiodarone drip. Pulmonary serrano I do not believe the patient will benefit much from having a Pleurx catheter placement and I would rather not proceed that route. And I would not recommend it. WBC count is 12.3 hemoglobin 11.5 basic metabolic p rofile is normal alkaline phosphatase is 479 with slightly elevated AST of 102. ALT is normal. Bilirubin is normal. Objective - Vital Signs Vital signs: Vital Signs Temp 97.7 F 10/10/23 08:15 Pulse 91 10/10/23 11:30 Resp 18 10/10/23 11:30 BP 106/62 10/10/23 11:30 Pulse Ox 91 L 10/10/23 11:30 FiO2 Intake & Output 10/09/23 10/10/23 10/10/23 18:59 06:59 18:59 Intake Total 950.004 300 Output Total 200 300 Balance -200 650.004 300 Intake: IV 300 Intake, IV Titration 470.004 Amount Amiodarone 360 mg In 175 Dextrose 5% in Water 200 ml @ 1 MG/MIN 33.333 mls/ hr IV .Q6H ONE Rx#: [id number] Amiodarone 450 mg In 195.004 Dextrose 5% in Water 250 ml @ 0.5 MG/MIN 16.667 mls/hr IV .Q15H [facility] Rx#: [id number] Piperacillin-Tazobactam 3 100 .375 gm In Sodium Chloride 0.9% 100 ml @ 25 mls/hr IVPB Q8HR [facility] Rx# :[id number] Oral 480 0 Output: Urine 200 300 Other: Voiding Method Urinal Urinal # Bowel Movements 1 - Exam GENERAL EXAM: Reveals 74-year-old white male in no distress on a few liters nasal cannula HEAD: Normocephalic and atraumatic EYES: Normal reaction of pupils, pupils are unequal, left greater than right. NOSE: Clear with pink turbinates. THROAT: No erythema or exudates. NECK: Right neck mass. No stridor. No JVD. CHEST: No chest wall deformity. LUNGS: Extremely diminished breath sounds on the right side, left side is clear. CVS: S1 and S2 normal with no audible murmur, regular rhythm. No extra heart sounds ABDOMEN: No hepatosplenomegaly, active bowel sounds, no guarding or rigidity. SKIN: No rashes CENTRAL NERVOUS SYSTEM: Alert oriented x 3 no gross focal deficit EXTREMITIES: No clubbing edema or cyan - Labs CBC & Chem 7: 10/10/23 07:16 10/10/23 07:16 Labs: Abnormal Lab Results - Last 24 Hours (Table) 10/09/23 10/10/23 10/10/23 Range/Units 16:33 07:16 07:16 WBC 12.3 H (3.8-10.6) k/uL RBC 4.13 L (4.30-5.90) m/uL Hgb 11.5 L (13.0-17.5) gm/dL Hct 38.1 L (39.0-53.0) % MCHC 30.2 L (31.0-37.0) g/dL Plt Count 502 H (150-450) k/uL Sodium 133 L (137-145) mmol/L POC Glucose (mg/dL) 115 H (70-110) mg/dL AST 102 H (17-59) U/L Alkaline Phosphatase 479 H (38-126) U/L Total Protein 5.8 L (6.3-8.2) g/dL Albumin 2.8 L (3.5-5.0) g/dL Assessment and Plan Assessment: Impression: Metastatic small cell lung cancer with interval progression of disease based on CT of the chest abdomen pelvis and moderate size right-sided pleural effusion From ventricular tachycardia/paroxysmal patient is now on amiodarone Right neck mass related to small cell lung cancer Right lung opacification/consolidation with tumor progression from small cell lung cancer Chronic hypoxic respiratory failure secondary to above Elevated right hemidiaphragm Underlying chronic obstructive pulmonary disease Type 2 diabetes Benign essential hypertension Ex-smoker Recommendations: Will clear the patient for PEG tube placement as long as he is cleared by cardiology Continue amiodarone for paroxysmal SVT/flutter Continue antibiotics/Zosyn and bronchodilators Continue oxygen and titrate accordingly Follow-up much value in placement of Pleurx catheter at this point Severe hospice care. Overall prognosis extremely poor and guarded Time with Patient: Less than 30
[2023-10-10 16:38] LABS: Glucose,Whole Blood 86 mg/dL (70-110)
--- NOTE | 2023-10-10 17:05 | P.PN ---
Subjective Progress Note Date: 10/10/23 At today's visit patient is resting comfortably in bed. Reports mild improvement in shortness of breath. Continues on IV antibiotics. Sputum culture negative. Count stable. Patient scheduled for PEG placement today Objective - Vital Signs Vital signs: Vital Signs Temp 97.7 F 10/10/23 08:15 Pulse 91 10/10/23 11:13 Resp 18 10/10/23 10:53 BP 111/63 10/10/23 08:15 Pulse Ox 92 L 10/10/23 08:15 FiO2 Intake & Output 10/09/23 10/10/23 10/10/23 18:59 06:59 18:59 Intake Total 950.004 Output Total 200 300 Balance -200 650.004 Intake: Intake, IV Titration 470.004 Amount Amiodarone 360 mg In 175 Dextrose 5% in Water 200 ml @ 1 MG/MIN 33.333 mls/ hr IV .Q6H ONE Rx#: [id number] Amiodarone 450 mg In 195.004 Dextrose 5% in Water 250 ml @ 0.5 MG/MIN 16.667 mls/hr IV .Q15H [facility] Rx#: [id number] Piperacillin-Tazobactam 3 100 .375 gm In Sodium Chloride 0.9% 100 ml @ 25 mls/hr IVPB Q8HR [facility] Rx# :[id number] Oral 480 Output: Urine 200 300 Other: Voiding Method Urinal Urinal # Bowel Movements 1 - Constitutional General appearance: Present: no acute distress, thin - EENT Eyes: Present: anicteric sclerae, EOMI ENT: Present: hearing grossly normal - Respiratory Details: breathing mildly labored - Cardiovascular Details: skin warm and dry - Integumentary Integumentary: Absent: cyanotic - Musculoskeletal Musculoskeletal: Present: generalized weakness - Psychiatric Psychiatric: Present: A&O x's 3 - Labs CBC & Chem 7: 10/10/23 07:16 10/10/23 07:16 Labs: Abnormal Lab Results - Last 24 Hours (Table) 10/09/23 10/10/23 10/10/23 Range/Units 16:33 07:16 07:16 WBC 12.3 H (3.8-10.6) k/uL RBC 4.13 L (4.30-5.90) m/uL Hgb 11.5 L (13.0-17.5) gm/dL Hct 38.1 L (39.0-53.0) % MCHC 30.2 L (31.0-37.0) g/dL Plt Count 502 H (150-450) k/uL Sodium 133 L (137-145) mmol/L POC Glucose (mg/dL) 115 H (70-110) mg/dL AST 102 H (17-59) U/L Alkaline Phosphatase 479 H (38-126) U/L Total Protein 5.8 L (6.3-8.2) g/dL Albumin 2.8 L (3.5-5.0) g/dL Microbiology - Last 24 Hours (Table) 10/06/23 13:38 Gram Stain - Final Sputum Sputum Culture - Final Assessment and Plan (1) Dyspnea Current Visit: Yes Status: Acute Priority: High Code(s): R06.00 - DYSPNEA, UNSPECIFIED SNOMED Code(s): 926285559 (2) SVT (supraventricular tachycardia) Current Visit: Yes Status: Acute Priority: High Code(s): I47.1 - SUPRAVENTRICULAR TACHYCARDIA * DO NOT USE * SNOMED Code(s): 8178893 (3) Small cell lung cancer in adult Current Visit: Yes Status: Acute Priority: Medium Code(s): C34.90 - MALIGNANT NEOPLASM OF UNSP PART OF UNSP BRONCHUS OR LUNG SNOMED Code(s): 311565847 Plan: SVT, tachycardia -Cardiology following -Continues on amiodarone Small cell lung cancer, pleural effusion -Full oncological history in HPI -Currently on clinical trial, following with Dr. Patricio at [facility]. Pt is unsure what his treatment regimen consists of, but has been told to not take steroids with regimen, so likely clinical trial has immunotherapy component. I have requested records from [facility] to further clarify -Chest x-ray revealed large right pleural effusion with scattered pulmonary masses and consolidation in the right upper lobe, which was seen on prior P ET/CT. Chest ultrasound was obtained which revealed moderate right pleural effusion. Pulmonology following and plans to treat with empiric antibiotics and bronchodilators. Concern for pneumonia vs disease progression. Spoke with pulm today briefly regarding case. No plan for thoracentesis at this time. -CT CAP ordered. Scan revealed large mass right upper lobe with additional smaller masses and nodules present bilaterally compatible with lung cancer. Findings appear more likely due to progression and superimposed pneumonia. Probable subcarinal metastatic lesion. Multiple metastatic lesions within the left and right lobes of the liver. Discussed results with patient and family at today's visit. His last obtained treatment response scans at [facility] was approximately 2 months ago. His primary oncologist, Dr. Patricio has requested CT scan for review to compare previous scans to determine if disease progression is noted. -Hospice has been consulted for informational meeting. Patient states he would like to wait for his oncologist to further review scans obtained during admi ssion to compare to previous scans that were previously obtained at [facility]. Had discussion with patient and family today regarding hospice/comfort care measures. At this time we will await further discussion with Dr. Patricio pending further review of scans
[2023-10-10 19:58] LABS: Glucose,Whole Blood 78 mg/dL (70-110)
[2023-10-10] MEDS: AMIODARONE 200 MG TAB PO SCH (20:56)
[2023-10-10 23:54] LABS: Glucose,Whole Blood 83 mg/dL (70-110)
[2023-10-11 05:44] LABS: Glucose,Whole Blood 69 mg/dL (70-110)
--- NOTE | 2023-10-11 10:20 | P.PN ---
Subjective Progress Note Date: 10/11/23 CHIEF COMPLAINT: Dysphagia HISTORY OF PRESENT ILLNESS: Patient with history of metastatic small cell lung cancer with a right neck mass. Patient having dysphagia. Patient apparently failed swallow eval at [facility] in [place] about 3 weeks ago. Patient is postop day #1 status post PEG tube placement. Patient denies any pain. Denies any nausea or vomiting. He is asking to be able to drink liquids. PHYSICAL EXAM: VITAL SIGNS: Reviewed. GENERAL: Well-developed in no acute distress. ABDOMEN: Soft. Nondistended. Nontender. PEG tube site clean dry and intact NEUROLOGIC: Alert and oriented. Cranial nerves II through XII grossly intact. ASSESSMENT: 1. Dysphagia 2. Severe protein calorie malnutrition 3. Metastatic small cell lung cancer 4. Right neck mass PLAN: -Dietitian consulted to start tube feedings this afternoon -Patient can have a small sips of water to wet his mouth -Continue supportive care Physician Casting Technician note has been reviewed by physician. Signing provider agrees with the documented findings, assessment, and plan of care. Objective - Vital Signs Vital signs: Vital Signs Temp 97.7 F 10/10/23 20:07 Pulse 100 10/11/23 08:12 Resp 24 10/11/23 04:00 BP 107/56 10/11/23 04:00 Pulse Ox 92 L 10/11/23 07:56 FiO2 Intake & Output 10/10/23 10/11/23 10/11/23 18:59 06:59 18:59 Intake Total 300 Output Total 100 375 Balance 200 -375 Intake: IV 300 Oral 0 Output: Urine 100 375 Other: Voiding Method Urinal Urinal # Voids 1 # Bowel Movements 1 - Labs CBC & Chem 7: 10/10/23 07:16 10/10/23 07:16 Labs: Abnormal Lab Results - Last 24 Hours (Table) 10/11/23 Range/Units 05:43 POC Glucose (mg/dL) 69 L (70-110) mg/dL
[2023-10-11 11:15] LABS: Glucose,Whole Blood 68 mg/dL (70-110)
--- NOTE | 2023-10-11 13:47 | P.PN ---
Subjective Progress Note Date: 10/11/23 S/p peg tube placement, tolerated procedure well. Reports no acute changes in breathing. His oncologist, Dr. Patricio has requested CT scans obtained during admission to compare to previous treatment response scans obtained at [facility]. He has seen the hospice team and wants to discuss scans and treatment with Dr. Patricio prior to making any decisions in regard to comfort care measures Objective - Vital Signs Vital signs: Vital Signs Temp 97.7 F 10/10/23 20:07 Pulse 99 10/11/23 12:00 Resp 22 10/11/23 12:00 BP 122/68 10/11/23 12:00 Pulse Ox 92 L 10/11/23 12:00 FiO2 Intake & Output 10/10/23 10/11/23 10/11/23 18:59 06:59 18:59 Intake Total 300 Output Total 100 375 575 Balance 200 -375 -575 Weight 57 kg Intake: IV 300 Oral 0 Output: Urine 100 375 575 Other: Voiding Method Urinal Urinal Urinal # Voids 1 # Bowel Movements 1 - Constitutional General appearance: Present: no acute distress - EENT Eyes: Present: EOMI ENT: Present: hearing grossly normal - Respiratory Details: breathing mildly labored - Cardiovascular Details: skin warm and dry - Integumentary Integumentary: Absent: cyanotic - Psychiatric Psychiatric: Present: A&O x's 3 - Labs CBC & Chem 7: 10/10/23 07:16 10/10/23 07:16 Labs: Abnormal Lab Results - Last 24 Hours (Table) 10/11/23 10/11/23 Range/Units 05:43 11:13 POC Glucose (mg/dL) 69 L 68 L (70-110) mg/dL Assessment and Plan (1) Dyspnea Current Visit: Yes Status: Acute Priority: High Code(s): R06.00 - DYSPNEA, UNSPECIFIED SNOMED Code(s): 820512296 (2) SVT (supraventricular tachycardia) Current Visit: Yes Status: Acute Priority: High Code(s): I47.1 - SUPRAVENT RICULAR TACHYCARDIA * DO NOT USE * SNOMED Code(s): 9295339 (3) Small cell lung cancer in adult Current Visit: Yes Status: Acute Priority: Medium Code(s): C34.90 - MALIGNANT NEOPLASM OF UNSP PART OF UNSP BRONCHUS OR LUNG SNOMED Code(s): 326401125 Plan: SVT, tachycardia -Cardiology following -Continues on amiodarone Small cell lung cancer, pleural effusion -Full oncological history in consult HPI -Currently on clinical trial, following with Dr. Patricio at [facility]. Pt is unsure what his treatment regimen consists of, but has been told to not take steroids with regimen, so likely clinical trial has immunotherapy component. I have requested records from [facility] to further clarify. -Upon review of records, he is on clinical trial [id number], which is an antibody treatment-immune checkpoint inhibitor -Chest x-ray revealed large right pleural effusion with scattered pulmonary masses and consolidation in the right upper lobe, which was seen on prior PET/CT. Chest ultrasound was obtained which revealed moderate right pleural effusion. Pulmonology following and plans to treat with empiric antibiotics and bronchodilators. Concern for pneumonia vs disease progression. Spoke with pulm regarding case. No plan for thoracentesis at this time. -CT CAP ordered. Scan revealed large mass right upper lobe with additional smaller masses and nodules present bilaterally compatible with lung cancer. Findings appear more likely due to progression than superimposed pneumonia. Probable subcarinal metastatic lesion. Multiple metastatic lesions within the left and right lobes of the liver. Discussed results with patient and family. His last obtained treatment response scans at [facility] was approximately 2 months ago. His primary oncologist, Dr. Patricio has requested CT scan to compare to previous treatment response scans to determine if disease progression is noted. As of this morning, pt was still waiting to hear back from her office. -Hospice team has met with patient. Patient would like to wait for his oncologist to further review scans obtained during admission, so he can discuss disease state and treatment options prior to making any decision in regards to comfort care measures. At this time we will await further discussion with Dr. Patricio
[2023-10-11 13:52] LABS: Glucose,Whole Blood 82 mg/dL (70-110)
--- NOTE | 2023-10-11 14:38 | P.PN ---
Subjective Progress Note Date: 10/11/23 Hospital Course: Patient is a very pleasant 73-year-old male with a past medical history of SVT/AV renodal entry tachycardia, metastatic lung cancer currently undergoing clinical study with immunotherapy treatments at [facility] in [place] and follows with oncologist Dr. Coughlin, hypertension, hyperlipidemia, and [id number] diabetes mellitus. He presented to the emergency department with a chief complaint of tachycardia, palpitations, and shortness of breath. Patient reports recently having difficulty swallowing secondary to his metastatic cancer and was scheduled for outpatient EGD with PEG tube placement but while in preop preparing to undergo procedure he began having palpitations with episodes of tachycardia with heart rate elevating to the 160s accompanied by worsening shortness of breath so he was transferred to ER for evaluation. Vital signs upon arrival show blood pressure 106/64, heart rate 123, respiratory rate 22, temp 97.8 F, and SpO2 of 93% on 3 L. EKG completed showing sinus Tachycardia at 121 bpm with frequent PACs first-degree AV block with TX interval of 238 ms. Chest x-ray showing large right pleural effusion with scattered pulmonary masses and consolidation of right upper lung and multiple right-sided rib fractures. Labs completed and reviewed. CBC showing leukocytosis with WBC count of 11.4, hemoglobin of 12.5, and thrombocytosis with platelet count of 540. BMP showing hyponatremia with sodium 133, elevated BUN of 26, and blood glucose of 113. Liver profile showing elevated AST of 104 and alkaline phosphatase of 584. Troponin was negative at less than 0.012. Patient being admitted under our services with consultation to cardiology for atrial tachycardia, consultation to pulmonology for large pleural effusion, and consultation to general surgery for placement of PEG tube. On 10/07/2023 patient again having episode of atrial tachycardia/SVT with heart rate accelerating up to 180s accompanied by hypotension. EKG was completed showing atrial tachycardia with frequent PACs and patient requiring multiple doses of IV Lopressor followed by amiodarone bolus and infusion. CT chest/abdomen/pelvis was completed and radiology report reviewed showing large mass right upper lobe with additional smaller masses and nodules present bilaterally, probable subcarinal metastatic lesion and multiple metastatic lesions within the left and right lobes of liver. On 10/09/2023 patient again had episode of SVT/atrial tachycardia with heart rate again in the 170s accompanied by symptomatic hyp otension with reports of dizziness and increased shortness of breath. Patient was given amiodarone bolus and restarted on amiodarone infusion at this time. Physical exam: Patient seen and fully evaluated at bedside this morning. Patient reports overall feeling "horrible". States feeling very short of breath and a little discouraged this morning. PEG tube feedings to be initiated later this afternoon managed by general surgery team. Vital signs reviewed and stable. General: Nontoxic, no distress, chronically ill-appearing, cachectic Derm: Skin warm and dry, normal coloration for ethnicity. Head: Atraumatic, normocephalic and symmetric. Eyes: EOMs intact, no lid lag, and anicteric sclera Mouth: no lip lesions, mucus membranes moist Cardiovascular: regular rate and rhythm with normal S1S2, systolic murmur, positive posterior tibial pulses bilaterally, and cap refill < 2 seconds. Lungs: Respirations even, regular, and unlabored on 4L O2 via nasal cannula. Lungs diminished throughout entire right lung, good air entry throughout left lung with soft expiratory wheezes in left upper lobe. Abdominal: soft, nontender to palpation, no guarding, no appreciable organomegaly. PEG tube in place Ext: ROM intact. No gross muscle atrophy, no edema, no contractures Neuro: Speech clear, face symmetrical and CN II-XII grossly intact with no noted focal neuro deficits Psych: Alert and oriented to person, place, time, and situation. Appropriate and pleasant affect. Assessment and Plan of Care: Atrial tachycardia/SVT, recurrent episodes Symptomatic Hypotension Metastatic Small Cell Lung cancer with large right pleural effusion Multiple right sided pulmonary masses with multiple right-sided rib fractures, secondary to above Hx of Hypertension Hyperlipidemia -Cardiology following, reviewed documentation in chart -General surgery following, took patient for PEG tube placement on 10/10/2023. Patient to be started on PEG tube feedings later this afternoon. -Pulmonology following, and due to poor prognosis, pt is not a candidate for thoracentesis of large right-sided effusion and they do not recommend Pleurx catheter at this time. Discussed thrroughly with pulmonary CLOCK AND WATCH HANDS PAINTER.. -Hematology/oncology following, appreciate recommendations. -Oxygenation to be administered and titrated as needed to maintain SPO2 equal to or greater than 90% -Telemetry monitoring. -Monitor Pulse-oximetry -Patient to continue metoprolol titrate 25 mg 4 times daily along with close monitoring of vital signs. -Amiodarone infusion discontinued and patient started on oral amiodarone 200 mg twice daily. -Duonebs scheduled for times daily and as needed for SOB and/or wheezing -Incentive Spirometry Djp-[id number] diabetes mellitus Hold Trijardy and continue patient on glycemic protocol with NovoLog sliding scale. Data and imaging reviewed: Vital signs reviewed. Blood pressure 121/60, heart rate 97, respiratory rate 21, and SpO2 of 93% on 4 L O2 via nasal cannula Patient has had 2 informational sessions with hospice and he and his plan to meet with hospice again this afternoon to further discuss and make final decision. Patient with overall poor prognosis secondary to worsening of metastasis of smal l cell lung cancer. CODE STATUS: DNR/DNI DVT prophylaxis: Lovenox Anticipated discharge date: Clinical course to determine Anticipated discharge place: Clinical course to determine Patient was seen independently by Nurse Practitioner. This document was prepared using [employer] dictation software. Please allow for errors in consumer safety officer while rare they do occur. Guido Lutz CLOCK AND WATCH HANDS PAINTER rendered care for this patient independently, reviewed the findi ngs and plan as documented in the note above. I did not physically speak with or examine the patient on this date. Objective - Vital Signs Vital signs: Vital Signs Temp 97.7 F 10/10/23 20:07 Pulse 100 10/11/23 08:12 Resp 24 10/11/23 04:00 BP 107/56 10/11/23 04:00 Pulse Ox 92 L 10/11/23 07:56 FiO2 Intake & Output 10/10/23 10/11/23 10/11/23 18:59 06:59 18:59 Intake Total 300 Output Total 100 375 Balance 200 -375 Intake: IV 300 Oral 0 Output: Urine 100 375 Other: Voiding Method Urinal Urinal # Voids 1 # Bowel Movements 1 - Labs CBC & Chem 7: 10/12/23 07:37 10/12/23 07:37 Labs: Abnormal Lab Results - Last 24 Hours (Table) 10/11/23 Range/Units 05:43 POC Glucose (mg/dL) 69 L (70-110) mg/dL
--- NOTE | 2023-10-11 14:43 | P.PN ---
Subjective Progress Note Date: 10/11/23 Principal diagnosis: Metastatic small cell lung cancer with disease progression Patient is a 73-year-old white male with past medical history significant for metastatic small cell lung cancer that was originally diagnosed back in 2020. He is status post chemo and radiation. He was noted to have disease progression on a recent PET scan done 06/2023. [facility], and is currently on immunotherapy. Reportedly enrolled in a clinical trial. Other medical history significant for COPD, diabetes mellitus, hypertension, hyperlipidemia, SVT/AV node reentry tachycardia. PET scan noted above demonstrated slight increased uptake of radiotracer within the patient's known right lung mass. There is new bilateral lung nodules, right hilar lymph node with uptake suspicious for metastatic disease. Enlarging hepatic lesions. And new abnormal uptake within the soft tissue of the right neck suspicious for metastatic disease. Patient does have a right neck mass. He has been having issues with dysphagia and aspiration. Reports coughing after eating or drinking thin liquids. He was scheduled for a elective EGD/PEG tube placement yesterday. While in preop, was noted to be in SVT, the procedure was canceled, and the patient was sent to the emergency department. Heart rate was noted as high as 160s beat per minute. He reportedly held his metoprolol earlier in the day, because he was n.p.o. for his procedure. He normally takes 50 mg twice a day. Of note, patient had a recent admission May 2023 for recurrent SVT refractory to pharmacologic's. He did undergo EP study and cardiac ablation during this admission. On my evaluation, patient is currently in the emergency department, room 1. Heart rhythm on bedside monitor appears normal sinus with a rate of 86 bpm. Blood pressure is normotensive. He is resting comfortably in bed, on 3 L/min nasal cannula, which is chronic. He is no longer experiencing any heart palpitations or lightheadedness or acute shortness of breath that he was feeling when noted to be in SVT. From a pulmonary standpoint, patient denies any change in his chronic dyspnea, he has a chronic cough with very limited sputum production. No hemoptysis. No chest pain. Denies fevers. He does have a right neck mass. No stridor on my evaluation. Follow-up chest x-ray shows an elevated right hemidiaphragm and right upper lung consolidation and bilateral lung masses/nodules, consistent with recent PET scan results. There is multiple right-sided rib fractures. No pneumothorax. He states that he has a follow-up CAT scan scheduled October 17 at [facility]. CBC drawn on arrival: WBC count 11.4, hemoglobin 12.5, hematocrit 40.8, platelets 540. BMP on arrival unremarkable. Troponins less than 0.012. EKG taken earlier in the emergency room showed sinus tachycardia. No obvious acute ischemic changes. Current hemodynamics are stable. 10/07/2023, the patient is being seen for a follow-up. Earlier this morning, the patient became more short of breath and he also had an episode of tachycardia and the patient was seen by cardiology in this regard. This is SVT versus atrial flutter. The patient received 2 doses of metoprolol 2.5 mg IV and a bolus of 500 cc of normal saline. Following that, the patient to transfer to the telemetry unit. He is currently on metoprolol at a dose of 25 mg p.o. 4 times daily. The patient was also started on IV amiodarone. Pulse ox in the order of 93% on 4 L oxygen by nasal cannula. CAT scan of the chest abdomen and pelvis was noted and there is evidence of a diffuse metastatic disease with extensive hepatic involvement. The patient also has an enlarging right-sided pleural effusion with significant atelectasis of the right lung and evidence of mediastinal lymphadenopathy and scattered lesions involving the left lung in addition consistent with metastatic disease. Awaiting final report. Based on my evaluation and interpretation of the CAT scan, there is interval progression of his malignancy with extensive hepatic involvement. Remains on IV Zosyn. Limited echocardiogram will also obtained to rule out pericardial effusion. 10/08/2023, the patient is being seen for a follow-up. Patient remains on oxygen and the patient is currently on 4 L with a pulse ox of 94%. CAT scan of the chest abdomen pelvis was noted from yesterday and there is evidence of malignancy progression. The patient has a large right lung mass with signific ant atelectasis of the right lung and right-sided pleural effusion. In addition to that, the patient has evidence of 70 pulmonary lesions and nodules involving the left lung consistent with metastatic disease. Multiple masses within the liver compatible with metastatic disease. Nonobstructive renal stone in the inferior pole of the right kidney and a right renal cyst. The patient continues to have difficulty with respiratory secretions. He is undergoing self suctioning. He is unable to swallow. Remains NPO. The plan was to insert a PEG tube early next week. Meanwhile, the patient was having episodes of atrial tachycardia/SVT. He was treated with amiodarone bolus and infusion and beta- blockers. Currently, the patient is off amiodarone. The patient is on metoprolol 25 mg p.o. 4 times daily and the patient is on Lovenox for DVT prophylaxis. Remains on DuoNeb updrafts. Blood work from today shows a WBC count 13.9 with a hemoglobin 11.4 and a platelet count of 431. BUN is 20 mg 0.7 and sodium is at 132. LFTs are abnormal related to metastatic liver disease. On 10/09/2023, the patient had another episode of atrial fibrillation with RVR. Based on that, the patient was started on amiodarone drip which is being utilized by cardiology for rate control. He seems to continue to have episodes of paroxysmal atrial fibrillation. Current rhythm is back to sinus. Continues to have difficulty with swallowing. He is NPO. He is on 4 L of oxygen by nasal cannula with a pulse ox of 91%. White cell count is at 15, hemoglobin 11.7 and platelet count of 561. BUN is at 17 with a creatinine of 0.7 and a sodium levels of 133. Awake and alert and communicating. Quite cachectic and emaciated with impaired performance and functional status patient with significant progression in his metastatic small cell lung cancer. Reevaluated today on 10/10/2023, patient is doing well, relatively asymptomatic, he seems to be very comfortable, on 4 L nasal cannula with O2 saturation in the low 90s. He is hemodynamically stable, scheduled to have a PEG tube placement today, and I will clear the patient if cleared by cardiology he is on amiodarone drip. Pulmonary serrano I do not believe the patient will benefit much from having a Pleurx catheter placement and I would rather not proceed that route. And I would not recommend it. WBC count is 12.3 hemoglobin 11.5 basic metabolic p rofile is normal alkaline phosphatase is 479 with slightly elevated AST of 102. ALT is normal. Bilirubin is normal. Reevaluated today on 10/11/2023, patient is doing fairly well considering his overall clinical status. Underwent PEG tube placement yesterday, it was uneventful.Remains on 4 L nasal cannula with O2 saturation of 92% he is hemodynamically stable. Seems to be comfortable at rest but short of breath with any exertion. No labs noted today except for a blood sugar of 82 Objective - Vital Signs Vital signs: Vital Signs Temp 97.7 F 10/10/23 20:07 Pulse 102 H 10/11/23 13:54 Resp 22 10/11/23 13:54 BP 122/68 10/11/23 12:00 Pulse Ox 92 L 10/11/23 12:00 FiO2 Intake & Output 10/10/23 10/11/23 10/11/23 18:59 06:59 18:59 Intake Total 300 Output Total 100 375 575 Balance 200 -375 -575 Weight 57 kg Intake: IV 300 Oral 0 Output: Urine 100 375 575 Other: Voiding Method Urinal Urinal Urinal # Voids 1 # Bowel Movements 1 - Exam GENERAL EXAM: Reveals 74-year-old white male in no distress on 4 L nasal cannula HEAD: Normocephalic and atraumatic EYES: Normal reaction of pupils, pupils are unequal, left greater than right. NOSE: Clear with pink turbinates. THROAT: No erythema or exudates. NECK: Right neck mass. No stridor. No JVD. CHEST: No chest wall deformity. LUNGS: Extremely diminished breath sounds on the right side, left side is clear. CVS: S1 and S2 normal with no audible murmur, regular rhythm. No extra heart sounds ABDOMEN: No hepatosplenomegaly, active bowel sounds, no guarding or rigidity. PEG tube is intact. SKIN: No rashes CENTRAL NERVOUS SYSTEM: Alert oriented x 3 no gross focal deficit EXTREMITIES: No clubbing edema or cyan - Labs CBC & Chem 7: 10/10/23 07:16 10/10/23 07:16 Labs: Abnormal Lab Results - Last 24 Hours (Table) 10/11/23 10/11/23 Range/Units 05:43 11:13 POC Glucose (mg/dL) 69 L 68 L (70-110) mg/dL Assessment and Plan Assessment: Impression: Metastatic small cell lung cancer with interval progression of disease based on CT of the chest abdomen pelvis and moderate size right-sided pleural effusion From ventricular tachycardia/paroxysmal patient is now on amiodarone Right neck mass related to small cell lung cancer Right lung opacification/consolidation with tumor progression from small cell lung cancer Chronic hypoxic respiratory failure secondary to above Elevated right hemidiaphragm Underlying chronic obstructive pulmonary disease Type 2 diabetes Benign essential hypertension Ex-smoker Recommendations: Continue antibiotics/Zosyn and bronchodilators Continue oxygen and titrate accordingly Not much value to placement of the placement of a Pleurx catheter considering his overall condition Consider hospice care. Overall prognosis extremely poor and guarded Time with Patient: Less than 30
[2023-10-11 18:07] LABS: Glucose,Whole Blood 80 mg/dL (70-110)
[2023-10-11 23:51] LABS: Glucose,Whole Blood 105 mg/dL (70-110)
[2023-10-12 05:53] LABS: Glucose,Whole Blood 95 mg/dL (70-110)
[2023-10-12 09:22] LABS: HCT 37.5 % (39.0-53.0); HGB 11.1 gm/dL (13.0-17.5); Hypochromasia Slight; MCH 27.5 pg (25.0-35.0); MCHC 29.6 g/dL (31.0-37.0); Mean Platelet Volume 7.7; Platelet Count 544 k/uL (150-450); RBC 4.04 m/uL (4.30-5.90); RDW 14.3 % (11.5-15.5); WBC 11.9 k/uL (3.8-10.6)
[2023-10-12 09:33] LABS: ALT 28 U/L (4-49); AST 100 U/L (17-59); African American GFR (CKD) >90 (>60 ml/min/1.73 sqM); Albumin 2.8 g/dL (3.5-5.0); Alkaline Phosphatase 524 U/L (38-126); Anion Gap 7 mmol/L; Blood Urea Nitrogen 20 mg/dL (9-20); Carbon Dioxide 26 mmol/L (22-30); Chloride 104 mmol/L (98-107); Glucose 88 mg/dL (74-99); Non-African American GFR(CKD) 86 (>60 ml/min/1.73 sqM); Potassium 4.3 mmol/L (3.5-5.1); Sodium 137 mmol/L (137-145); Total Bilirubin 0.5 mg/dL (0.2-1.3); Total Protein 5.8 g/dL (6.3-8.2)
[2023-10-12 11:23] LABS: Glucose,Whole Blood 137 mg/dL (70-110)
--- NOTE | 2023-10-12 11:38 | P.PN ---
Subjective Progress Note Date: 10/12/23 CHIEF COMPLAINT: Dysphagia HISTORY OF PRESENT ILLNESS: Patient with history of metastatic small cell lung cancer with a right neck mass. Patient having dysphagia. Patient apparently failed swallow eval at [facility] in [place] about 3 weeks ago. Patient is postop day #2 status post PEG tube placement. Patient reports mild discomfort at the PEG tube site. Denies any nausea or vomiting. He is tolerating tube feeds. Tube feeds at 20 ml/hour. HR 104 WBC 12.3 to 11.9 PHYSICAL EXAM: VITAL SIGNS: Reviewed. GENERAL: Well-developed in no acute distress. ABDOMEN: Soft. Nondistended. Nontender. PEG tube site clean dry and intact NEUROLOGIC: Alert and oriented. Cranial nerves II through XII grossly intact. ASSESSMENT: 1. Dysphagia 2. Severe protein calorie malnutrition 3. Metastatic small cell lung cancer 4. Right neck mass PLAN: -Dietitian to continue to titrate tube feeds -Patient can have a small sips of water to wet his mouth -Continue supportive care Physician Mannequin Molder note has been reviewed by physician. Signing provider agrees with the documented findings, assessment, and plan of care. Objective - Vital Signs Vital signs: Vital Signs Temp 98.1 F 10/12/23 08:50 Pulse 104 H 10/12/23 09:25 Resp 22 10/12/23 08:50 BP 114/65 10/12/23 08:50 Pulse Ox 89 L 10/12/23 09:14 FiO2 Intake & Output 10/11/23 10/12/23 10/12/23 18:59 06:59 18:59 Intake Total 20 50 20 Output Total 575 450 Balance -555 -400 20 Weight 57 kg Intake: Tube Feeding 20 50 20 Output: Urine 575 450 Other: Voiding Method Urinal Urinal Urinal - Labs CBC & Chem 7: 10/12/23 07:37 10/12/23 07:37 Labs: Abnormal Lab Results - Last 24 Hours (Table) 10/12/23 10/12/23 10/12/23 Range/Units 07:37 07:37 11:22 WBC 11.9 H (3.8-10.6) k/uL RBC 4.04 L (4.30-5.90) m/uL Hgb 11.1 L (13.0-17.5) gm/dL Hct 37.5 L (39.0-53.0) % MCHC 29.6 L (31.0-37.0) g/dL Plt Count 544 H (150-450) k/uL POC Glucose (mg/dL) 137 H (70-110) mg/dL AST 100 H (17-59) U/L Alkaline Phosphatase 524 H (38-126) U/L Total Protein 5.8 L (6.3-8.2) g/dL Albumin 2.8 L (3.5-5.0) g/dL
--- NOTE | 2023-10-12 14:57 | P.PN ---
Subjective Progress Note Date: 10/12/23 Principal diagnosis: Metastatic small cell lung cancer with disease progression Patient is a 73-year-old white male with past medical history significant for metastatic small cell lung cancer that was originally diagnosed back in 2020. He is status post chemo and radiation. He was noted to have disease progression on a recent PET scan done 06/2023. He has been referred to [facility], and is currently on immunotherapy. Reportedly enrolled in a clinical trial. Other medical history significant for COPD, diabetes mellitus, hypertension, hyperlipidemia, SVT/AV node reentry tachycardia. PET scan noted above demonstrated slight increased uptake of radiotracer within the patient's known right lung mass. There is new bilateral lung nodules, right hilar lymph node with uptake suspicious for metastatic disease. Enlarging hepatic lesions. And new abnormal uptake within the soft tissue of the right neck suspicious for metastatic disease. Patient does have a right neck mass. He has been having issues with dysphagia and aspiration. Reports coughing after eating or drinking thin liquids. He was scheduled for a elective EGD/PEG tube placement yesterday. While in preop, was noted to be in SVT, the procedure was canceled, and the patient was sent to the emergency department. Heart rate was noted as high as 160s beat per minute. He reportedly held his metoprolol earlier in the day, because he was n.p.o. for his procedure. He normally takes 50 mg twice a day. Of note, patient had a recent admission May 2023 for recurrent SVT refractory to pharmacologic's. He did undergo EP study and cardiac ablation during this admission. On my evaluation, patient is currently in the emergency department, room 1. Heart rhythm on bedside monitor appears normal sinus with a rate of 86 bpm. Blood pressure is normotensive. He is resting comfortably in bed, on 3 L/min nasal cannula, which is chronic. He is no longer experiencing any heart palpitations or lightheadedness or acute shortness of breath that he was feeling when noted to be in SVT. From a pulmonary standpoint, patient denies any change in his chronic dyspnea, he has a chronic cough with very limited sputum production. No hemoptysis. No chest pain. Denies fevers. He does have a right neck mass. No stridor on my evaluation. Follow-up chest x-ray shows an elevated right hemidiaphragm and right upper lung consolidation and bilateral lung masses/nodules, consistent with recent PET scan results. There is multiple right-sided rib fractures. No pneumothorax. He states that he has a follow-up CAT scan scheduled October 17 at [facility]. CBC drawn on arrival: WBC count 11.4, hemoglobin 12.5, hematocrit 40.8, platelets 540. BMP on arrival unremarkable. Troponins less than 0.012. EKG taken earlier in the emergency room showed sinus tachycardia. No obvious acute ischemic changes. Current hemodynamics are stable. 10/07/2023, the patient is being seen for a follow-up. Earlier this morning, the patient became more short of breath and he also had an episode of tachycardia and the patient was seen by cardiology in this regard. This is SVT versus atrial flutter. The patient received 2 doses of metoprolol 2.5 mg IV and a bolus of 500 cc of normal saline. Following that, the patient to transfer to the telemetry unit. He is currently on metoprolol at a dose of 25 mg p.o. 4 times daily. The patient was also started on IV amiodarone. Pulse ox in the order of 93% on 4 L oxygen by nasal cannula. CAT scan of the chest abdomen and pelvis was noted and there is evidence of a diffuse metastatic disease with extensive hepatic involvement. The patient also has an enlarging right-sided pleural effusion with significant atelectasis of the right lung and evidence of mediastinal lymphadenopathy and scattered lesions involving the left lung in addition consistent with metastatic disease. Awaiting final report. Based on my evaluation and interpretation of the CAT scan, there is interval progression of his malignancy with extensive hepatic involvement. Remains on IV Zosyn. Limited echocardiogram will also obtained to rule out pericardial effusion. 10/08/2023, the patient is being seen for a follow-up. Patient remains on oxygen and the patient is currently on 4 L with a pulse ox of 94%. CAT scan of the chest abdomen pelvis was noted from yesterday and there is evidence of malignancy progression. The patient has a large right lung mass with signific ant atelectasis of the right lung and right-sided pleural effusion. In addition to that, the patient has evidence of 70 pulmonary lesions and nodules involving the left lung consistent with metastatic disease. Multiple masses within the liver compatible with metastatic disease. Nonobstructive renal stone in the inferior pole of the right kidney and a right renal cyst. The patient continues to have difficulty with respiratory secretions. He is undergoing self suctioning. He is unable to swallow. Remains NPO. The plan was to insert a PEG tube early next week. Meanwhile, the patient was having episodes of atrial tachycardia/SVT. He was treated with amiodarone bolus and infusion and beta- blockers. Currently, the patient is off amiodarone. The patient is on metoprolol 25 mg p.o. 4 times daily and the patient is on Lovenox for DVT prophylaxis. Remains on DuoNeb updrafts. Blood work from today shows a WBC count 13.9 with a hemoglobin 11.4 and a platelet count of 431. BUN is 20 mg 0.7 and sodium is at 132. LFTs are abnormal related to metastatic liver disease. On 10/09/2023, the patient had another episode of atrial fibrillation with RVR. Based on that, the patient was started on amiodarone drip which is being utilized by cardiology for rate control. He seems to continue to have episodes of paroxysmal atrial fibrillation. Current rhythm is back to sinus. Continues to have difficulty with swallowing. He is NPO. He is on 4 L of oxygen by nasal cannula with a pulse ox of 91%. White cell count is at 15, hemoglobin 11.7 and platelet count of 561. BUN is at 17 with a creatinine of 0.7 and a sodium levels of 133. Awake and alert and communicating. Quite cachectic and emaciated with impaired performance and functional status patient with significant progression in his metastatic small cell lung cancer. Reevaluated today on 10/10/2023, patient is doing well, relatively asymptomatic, he seems to be very comfortable, on 4 L nasal cannula with O2 saturation in the low 90s. He is hemodynamically stable, scheduled to have a PEG tube placement today, and I will clear the patient if cleared by cardiology he is on amiodarone drip. Pulmonary serarno I do not believe the patient will benefit much from having a Pleurx catheter placement and I would rather not proceed that route. And I would not recommend it. WBC count is 12.3 hemoglobin 11.5 basic metabolic p rofile is normal alkaline phosphatase is 479 with slightly elevated AST of 102. ALT is normal. Bilirubin is normal. Reevaluated today on 10/11/2023, patient is doing fairly well considering his overall clinical status. Underwent PEG tube placement yesterday, it was uneventful.Remains on 4 L nasal cannula with O2 saturation of 92% he is hemodynamically stable. Seems to be comfortable at rest but short of breath with any exertion. No labs noted today except for a blood sugar of 82 Reevaluate today on 10/12/23, patient is basically about the same, no change in his overall status. Patient is now on enteral feeding via PEG tube, remains n.p.o., remains on bronchodilators, remains on oxygen at 4 L nasal cannula. O2 sats is 90%. Patient seems to be generally weak, debilitated, but not in distress. He is hemodynamically stable with blood pressure of 99/60, mean arterial pressure of 73. Seems to be comfortable, and not in distress Objective - Vital Signs Vital signs: Vital Signs Temp 98.0 F 10/12/23 10:55 Pulse 80 10/12/23 10:55 Resp 22 10/12/23 10:55 BP 99/60 10/12/23 10:55 Pulse Ox 90 L 10/12/23 10:55 FiO2 Intake & Output 10/11/23 10/12/23 10/12/23 18:59 06:59 18:59 Intake Total 20 50 50 Output Total 575 450 Balance -555 -400 50 Weight 57 kg Intake: Tube Feeding 20 50 50 Output: Urine 575 450 Other: Voiding Method Urinal Urinal Urinal - Exam GENERAL EXAM: Reveals 74-year-old white male in no distress on 4 L nasal cannula HEAD: Normocephalic and atraumatic EYES: Normal reaction of pupils, pupils are unequal, left greater than right. NOSE: Clear with pink turbinates. THROAT: No erythema or exudates. NECK: Right neck mass. No stridor. No JVD. CHEST: No chest wall deformity. LUNGS: Extremely diminished breath sounds on the right side, left side is clear. CVS: S1 and S2 normal with no audible murmur, regular rhythm. No extra heart sounds ABDOMEN: No hepatosplenomegaly, active bowel sounds, no guarding or rigidity. PEG tube is intact. SKIN: No rashes CENTRAL NERVOUS SYSTEM: Alert oriented x 3 no gross focal deficit EXTREMITIES: No clubbing edema or cyanosis - Labs CBC & Chem 7: 10/12/23 07:37 10/12/23 07:37 Labs: Abnormal Lab Results - Last 24 Hours (Table) 10/12/23 10/12/23 10/12/23 Range/Units 07:37 07:37 11:22 WBC 11.9 H (3.8-10.6) k/uL RBC 4.04 L (4.30-5.90) m/uL Hgb 11.1 L (13.0-17.5) gm/dL Hct 37.5 L (39.0-53.0) % MCHC 29.6 L (31.0-37.0) g/dL Plt Count 544 H (150-450) k/uL POC Glucose (mg/dL) 137 H (70-110) mg/dL AST 100 H (17-59) U/L Alkaline Phosphatase 524 H (38-126) U/L Total Protein 5.8 L (6.3-8.2) g/dL Albumin 2.8 L (3.5-5.0) g/dL Assessment and Plan Assessment: Impression: Metastatic small cell lung cancer with interval progression of disease based on CT of the chest abdomen pelvis and moderate size right-sided pleural effusion From ventricular tachycardia/paroxysmal patient is now on amiodarone Right neck mass related to small cell lung cancer Right lung opacification/consolidation with tumor progression from small cell lung cancer Chronic hypoxic respiratory failure secondary to above Elevated right hemidiaphragm Underlying chronic obstructive pulmonary disease Type 2 diabetes Benign essential hypertension Ex-smoker Recommendations: Continue antibiotics/Zosyn and bronchodilators Continue oxygen and titrate accordingly Patient will need placement/rehab/hospice as recommended Overall prognosis extremely poor and guarded Time with Patient: Less than 30
--- NOTE | 2023-10-12 14:59 | P.PN ---
Subjective Progress Note Date: 10/12/23 Hospital Course: Patient is a very pleasant 73-year-old male with a past medical history of SVT/AV renodal entry tachycardia, metastatic lung cancer currently undergoing clinical study with immunotherapy treatments at [facility] in [place] and follows with oncologist Dr. Coughlin, hypertension, hyperlipidemia, and [id number] diabetes mellitus. He presented to the emergency department with a chief complaint of tachycardia, palpitations, and shortness of breath. Patient reports recently having difficulty swallowing secondary to his metastatic cancer and was scheduled for outpatient EGD with PEG tube placement but while in preop preparing to undergo procedure he began having palpitations with episodes of tachycardia with heart rate elevating to the 160s accompanied by worsening shortness of breath so he was transferred to ER for evaluation. Vital signs upon arrival show blood pressure 106/64, heart rate 123, respiratory rate 22, temp 97.8 F, and SpO2 of 93% on 3 L. EKG completed showing sinus Tachycardia at 121 bpm with frequent PACs first-degree AV block with IN interval of 238 ms. Chest x-ray showing large right pleural effusion with scattered pulmonary masses and consolidation of right upper lung and multiple right-sided rib fractures. Labs completed and reviewed. CBC showing leukocytosis with WBC count of 11.4, hemoglobin of 12.5, and thrombocytosis with platelet count of 540. BMP showing hyponatremia with sodium 133, elevated BUN of 26, and blood glucose of 113. Liver profile showing elevated AST of 104 and alkaline phosph atase of 584. Troponin was negative at less than 0.012. Patient being admitted under our services with consultation to cardiology for atrial tachycardia, consultation to pulmonology for large pleural effusion, and consultation to general surgery for placement of PEG tube. On 10/07/2023 patient again having episode of atrial tachycardia/SVT with heart rate accelerating up to 180s accompanied by hypotension. EKG was completed showing atrial tachycardia with frequent PACs and patient requiring multiple doses of IV Lopressor followed by amiodarone bolus and infusion. CT chest/abdomen/pelvis was completed and radiology report reviewed showing large mass right upper lobe with additional smaller masses and nodules present bilaterally, probable subcarinal metastatic lesion and multiple metastatic lesions within the left and right lobes of liver. On 10/09/2023 patient again had episode of SVT/atrial tachycardia with heart rate again in the 170s accompanied by symptomatic hypotension with reports of dizziness and increased shortness of breath. Patient was given amiodarone bolus and restarted on amiodarone infusion at this time. Subjective: Pt pain is well controlled, but dyspnea is still causing pt distress. He has contemplated hospice, however, at this time, is interested in pursuing rehab. Physical exam: Vital signs reviewed and stable. General: Nontoxic, no distress, chronically ill-appearing, cachectic Derm: Skin warm and dry, normal coloration for ethnicity. Head: Atraumatic, normocephalic and symmetric. Eyes: EOMs intact, no lid lag, and anicteric sclera Mouth: no lip lesions, mucus membranes moist Cardiovascular: regular rate and rhythm with normal S1S2, systolic murmur, positive posterior tibial pulses bilaterally, and cap refill < 2 seconds. Lungs: Respirations even, regular, and unlabored on 4L O2 via nasal cannula. Lungs diminished throughout entire right lung, good air entry throughout left lung with soft expiratory wheezes in left upper lobe. Abdominal: soft, nontender to palpation, no guarding, no appreciable organomegaly. PEG tube in place Ext: ROM intact. No gross muscle atrophy, no edema, no contractures Neuro: Speech clear, face symmetrical and CN II-XII grossly intact with no noted focal neuro deficits Psych: Alert and oriented to person, place, time, and situation. Appropriate and pleasant affect. Assessment and Plan of Care: Atrial tachycardia/SVT, recurrent episodes Symptomatic Hypotension Metastatic Small Cell Lung cancer with large right pleural effusion Multiple right sided pulmonary masses with multiple right-sided rib fractures, secondary to above Hx of Hypertension Hyperlipidemia -Cardiology following, reviewed documentation in chart -General surgery following, took patient for PEG tube placement on 10/10/2023. Patient to be started on PEG tube feedings later this afternoon. -Pulmonology following, and due to poor prognosis, pt is not a candidate for thoracentesis of large right-sided effusion and they do not recommend Pleurx catheter at this time. Discussed thrroughly with pulmonary FIBERGLASS GRINDER.. -Hematology/oncology following, appreciate recommendations. -Oxygenation to be administered and titrated as needed to maintain SPO2 equal to or greater than 90% -Telemetry monitoring. -Monitor Pulse-oximetry -Patient to continue metoprolol titrate 25 mg 4 times daily along with close monitoring of vital signs. -Amiodarone infusion discontinued and patient started on oral amiodarone 200 mg twice daily. -Duonebs scheduled for times daily and as needed for SOB and/or wheezing -Incentive Spirometry Pjo-pbznomg-jhestjcsf diabetes mellitus Hold Trijardy and continue patient on glycemic protocol with NovoLog sliding scale. Data and imaging reviewed: Vital signs reviewed. Blood pressure 121/60, heart rate 97, respiratory rate 21, and SpO2 of 93% on 4 L O2 via nasal cannula Patient has had 2 informational sessions with hospice and he and his plan to meet with hospice again this afternoon to further discuss and make final decision. Patient with overall poor prognosis secondary to worsening of metastasis of small cell lung cancer. CODE STATUS: DNR/DNI DVT prophylaxis: Lovenox Anticipated discharge date: Clinical course to determine Anticipated discharge place: Clinical course to determine This document was prepared using [employer] dictation software. Please allow for errors in press cleaner while rare they do occur. Objective - Vital Signs Vital signs: Vital Signs Temp 98.0 F 10/12/23 10:55 Pulse 80 10/12/23 10:55 Resp 22 10/12/23 10:55 BP 99/60 10/12/23 10:55 Pulse Ox 90 L 10/12/23 10:55 FiO2 Intake & Output 10/11/23 10/12/23 10/12/23 18:59 06:59 18:59 Intake Total 20 50 50 Output Total 575 450 Balance -555 -400 50 Weight 57 kg Intake: Tube Feeding 20 50 50 Output: Urine 575 450 Other: Voiding Method Urinal Urinal Urinal - Labs CBC & Chem 7: 10/12/23 07:37 10/12/23 07:37 Labs: Abnormal Lab Results - Last 24 Hours (Table) 10/12/23 10/12/23 10/12/23 Range/Units 07:37 07:37 11:22 WBC 11.9 H (3.8-10.6) k/uL RBC 4.04 L (4.30-5.90) m/uL Hgb 11.1 L (13.0-17.5) gm/dL Hct 37.5 L (39.0-53.0) % MCHC 29.6 L (31.0-37.0) g/dL Plt Count 544 H (150-450) k/uL POC Glucose (mg/dL) 137 H (70-110) mg/dL AST 100 H (17-59) U/L Alkaline Phosphatase 524 H (38-126) U/L Total Protein 5.8 L (6.3-8.2) g/dL Albumin 2.8 L (3.5-5.0) g/dL
[2023-10-12 16:23] LABS: Glucose,Whole Blood 141 mg/dL (70-110)
[2023-10-12 19:47] LABS: Glucose,Whole Blood 116 mg/dL (70-110)
[2023-10-13 02:16] LABS: Glucose,Whole Blood 113 mg/dL (70-110)
[2023-10-13 06:02] LABS: Glucose,Whole Blood 132 mg/dL (70-110)
--- NOTE | 2023-10-13 08:40 | P.PN ---
Subjective Progress Note Date: 10/13/23 CHIEF COMPLAINT: Dysphagia HISTORY OF PRESENT ILLNESS: Patient with history of metastatic small cell lung cancer with a right neck mass. Patient having dysphagia. Patient apparently failed swallow eval at [facility] in [place] about 3 weeks ago. Patient is postop day #3 status post PEG tube placement. Patient is tolerating tube feeds at 40 ml/hr. Denies any abdominal pain. Afebrile Patient seen and examined with Dr. Jett PHYSICAL EXAM: VITAL SIGNS: Reviewed. GENERAL: no acute distress. ABDOMEN: Soft. Nondistended. Nontender. PEG tube site clean dry and intact ASSESSMENT: 1. Dysphagia 2. Severe protein calorie malnutrition 3. Metastatic small cell lung cancer 4. Right neck mass PLAN: -Tube feeds per dietitian -Patient can have a small sips of water to wet his mouth -Continue supportive care Physician Assembler Arranger note has been reviewed by physician. Signing provider agrees with the documented findings, assessment, and plan of care. Objective - Vital Signs Vital signs: Vital Signs Temp 97.6 F 10/13/23 03:33 Pulse 95 10/13/23 05:05 Resp 10/13/23 03:33 BP 105/60 10/13/23 03:33 Pulse Ox 90 L 10/13/23 03:33 FiO2 Intake & Output 10/12/23 10/13/23 10/13/23 18:59 06:59 18:59 Intake Total 200 650 Output Total 400 Balance 200 250 Weight 57 kg Intake: Oral 120 540 Tube Feeding 80 110 Output: Urine 400 Other: Voiding Method Urinal Bedside Commode Urinal # Voids 2 1 - Labs CBC & Chem 7: 10/12/23 07:37 10/12/23 07:37 Labs: Abnormal Lab Results - Last 24 Hours (Table) 10/12/23 10/12/23 10/12/23 Range/Units 07:37 07:37 11:22 WBC 11.9 H (3.8-10.6) k/uL RBC 4.04 L (4.30-5.90) m/uL Hgb 11.1 L (13.0-17.5) gm/dL Hct 37.5 L (39.0-53.0) % MCHC 29.6 L (31.0-37.0) g/dL Plt Count 544 H (150-450) k/uL POC Glucose (mg/dL) 137 H (70-110) mg/dL AST 100 H (17-59) U/L Alkaline Phosphatase 524 H (38-126) U/L Total Protein 5.8 L (6.3-8.2) g/dL Albumin 2.8 L (3.5-5.0) g/dL 10/12/23 10/12/23 10/13/23 Range/Units 16:21 19:45 02:13 WBC (3.8-10.6) k/uL RBC (4.30-5.90) m/uL Hgb (13.0-17.5) gm/dL Hct (39.0-53.0) % MCHC (31.0-37.0) g/dL Plt Count (150-450) k/uL POC Glucose (mg/dL) 141 H 116 H 113 H (70-110) mg/dL AST (17-59) U/L Alkaline Phosphatase (38-126) U/L Total Protein (6.3-8.2) g/dL Albumin (3.5-5.0) g/dL 10/13/23 Range/Units 06:00 WBC (3.8-10.6) k/uL RBC (4.30-5.90) m/uL Hgb (13.0-17.5) gm/dL Hct (39.0-53.0) % MCHC (31.0-37.0) g/dL Plt Count (150-450) k/uL POC Glucose (mg/dL) 132 H (70-110) mg/dL AST (17-59) U/L Alkaline Phosphatase (38-126) U/L Total Protein (6.3-8.2) g/dL Albumin (3.5-5.0) g/dL
[2023-10-13 11:27] LABS: Glucose,Whole Blood 161 mg/dL (70-110)
--- NOTE | 2023-10-13 12:09 | P.PN ---
Subjective Progress Note Date: 10/13/23 Hospital Course: Patient is a very pleasant 73-year-old male with a past medical history of SVT/AV renodal entry tachycardia, metastatic lung cancer currently undergoing clinical study with immunotherapy treatments at [facility] in [place] and follows with oncologist Dr. Coughlin, hypertension, hyperlipidemia, and pun-[id number]-[id number] diabetes mellitus. He presented to the emergency department with a chief complaint of tachycardia, palpitations, and shortness of breath. Patient reports recently having difficulty swallowing secondary to his metastatic cancer and was scheduled for outpatient EGD with PEG tube placement but while in preop preparing to undergo procedure he began having palpitations with episodes of tachycardia with heart rate elevating to the 160s accompanied by worsening shortness of breath so he was transferred to ER for evaluation. Vital signs upon arrival show blood pressure 106/64, heart rate 123, respiratory rate 22, temp 97.8 F, and SpO2 of 93% on 3 L. EKG completed showing sinus Tachycardia at 121 bpm with frequent PACs first-degree AV block with KS interval of 238 ms. Chest x-ray showing large right pleural effusion with scattered pulmonary masses and consolidation of right upper lung and multiple right-sided rib fractures. Labs completed and reviewed. CBC showing leukocytosis with WBC count of 11.4, hemoglobin of 12.5, and thrombocytosis with platelet count of 540. BMP showing hyponatremia with sodium 133, elevated BUN of 26, and blood glucose of 113. Liver profile showing elevated AST of 104 and alkaline phosph atase of 584. Troponin was negative at less than 0.012. Patient being admitted under our services with consultation to cardiology for atrial tachycardia, consultation to pulmonology for large pleural effusion, and consultation to general surgery for placement of PEG tube. On 10/07/2023 patient again having episode of atrial tachycardia/SVT with heart rate accelerating up to 180s accompanied by hypotension. EKG was completed showing atrial tachycardia with frequent PACs and patient requiring multiple doses of IV Lopressor followed by amiodarone bolus and infusion. CT chest/abdomen/pelvis was completed and radiology report reviewed showing large mass right upper lobe with additional smaller masses and nodules present bilaterally, probable subcarinal metastatic lesion and multiple metastatic lesions within the left and right lobes of liver. On 10/09/2023 patient again had episode of SVT/atrial tachycardia with heart rate again in the 170s accompanied by symptomatic hypotension with reports of dizziness and increased shortness of breath. Patient was given amiodarone bolus and restarted on amiodarone infusion at this time. Subjective: Pt pain is well controlled, but dyspnea is still causing pt distress. He has contemplated hospice, however, at this time, is interested in pursuing rehab. Pending TFs to get up to goal. Physical exam: Vital signs reviewed and stable. General: Nontoxic, no distress, chronically ill-appearing, cachectic Derm: Skin warm and dry, normal coloration for ethnicity. Head: Atraumatic, normocephalic and symmetric. Eyes: EOMs intact, no lid lag, and anicteric sclera Mouth: no lip lesions, mucus membranes moist Cardiovascular: regular rate and rhythm with normal S1S2, systolic murmur, posi tive posterior tibial pulses bilaterally, and cap refill < 2 seconds. Lungs: Respirations even, regular, and unlabored on 4L O2 via nasal cannula. Lungs diminished throughout entire right lung, good air entry throughout left lung with soft expiratory wheezes in left upper lobe. Abdominal: soft, nontender to palpation, no guarding, no appreciable organomegaly. PEG tube in place Ext: ROM intact. No gross muscle atrophy, no edema, no contractures Neuro: Speech clear, face symmetrical and CN II-XII grossly intact with no noted focal neuro deficits Psych: Alert and oriented to person, place, time, and situation. Appropriate and pleasant affect. Assessment and Plan of Care: Atrial tachycardia/SVT, recurrent episodes Symptomatic Hypotension Metastatic Small Cell Lung cancer with large right pleural effusion Multiple right sided pulmonary masses with multiple right-sided rib fractures, secondary to above Hx of Hypertension Hyperlipidemia -Cardiology following, reviewed documentation in chart -General surgery following, took patient for PEG tube placement on 10/10/2023. Patient to be started on PEG tube feedings later this afternoon. -Pulmonology following, and due to poor prognosis, pt is not a candidate for thoracentesis of large right-sided effusion and they do not recommend Pleurx catheter at this time. Discussed thrroughly with pulmonary QUARTZ MINER.. -Hematology/oncology following, appreciate recommendations. -Oxygenation to be administered and titrated as needed to maintain SPO2 equal to or greater than 90% -Telemetry monitoring. -Monitor Pulse-oximetry -Patient to continue metoprolol titrate 25 mg 4 times daily along with close monitoring of vital signs. -Amiodarone infusion discontinued and patient started on oral amiodarone 200 mg twice daily. -Duonebs scheduled for times daily and as needed for SOB and/or wheezing -Incentive Spirometry Pjk-szshigh-vrfmsabom diabetes mellitus Hold Trijardy and continue patient on glycemic protocol with NovoLog sliding scale. Data and imaging reviewed: Vital signs reviewed. Blood pressure 121/60, heart rate 97, respiratory rate 21, and SpO2 of 93% on 4 L O2 via nasal cannula Patient has had 2 informational sessions with hospice and he and his plan to meet with hospice again this afternoon to further discuss and make final decision. Patient with overall poor prognosis secondary to worsening of metastasis of small cell lung cancer. CODE STATUS: DNR/DNI DVT prophylaxis: Lovenox Anticipated discharge date: Clinical course to determine Anticipated discharge place: Clinical course to determine This document was prepared using [employer] dictation software. Please allow for errors in sales review clerk while rare they do occur. Objective - Vital Signs Vital signs: Vital Signs Temp 97.8 F 10/13/23 09:32 Pulse 90 10/13/23 12:08 Resp 20 10/13/23 12:08 BP 118/65 10/13/23 12:08 Pulse Ox 86 L 10/13/23 12:08 FiO2 Intake & Output 10/12/23 10/13/23 10/13/23 18:59 06:59 18:59 Intake Total 200 650 40 Output Total 400 200 Balance 200 250 -160 Weight 57 kg Intake: Oral 120 540 Tube Feeding 80 110 40 Output: Urine 400 200 Other: Voiding Method Urinal Bedside Commode Bedside Commode Urinal Urinal # Voids 2 1 - Labs CBC & Chem 7: 10/12/23 07:37 10/12/23 07:37 Labs: Abnormal Lab Results - Last 24 Hours (Table) 10/12/23 10/12/23 10/13/23 Range/Units 16:21 19:45 02:13 POC Glucose (mg/dL) 141 H 116 H 113 H (70-110) mg/dL 10/13/23 10/13/23 Range/Units 06:00 11:23 POC Glucose (mg/dL) 132 H 161 H (70-110) mg/dL
--- NOTE | 2023-10-13 14:49 | XR ---
EXAMINATION TYPE: XR chest 1V portable DATE OF EXAM: 10/13/2023 Comparison: 10/05/2023 Clinical History: 73-year-old male Hypoxemia Findings: Right heart margin obscured by adjacent pleural parenchymal opacity. Old right-sided rib fracture def ormities. Focal left midlung opacity is less pronounced compared to prior. However, there is progress karin, now complete white out of the right hemithorax. Impression: Progressive, now complete white out of the right hemithorax. Known left midlung opacity is not as wel l-seen on the present exam. Background COPD and interstitial lung disease persists.
--- NOTE | 2023-10-13 15:52 | P.PN ---
Subjective Progress Note Date: 10/13/23 Principal diagnosis: Metastatic small cell lung cancer with disease progression Patient is a 73-year-old white male with past medical history significant for metastatic small cell lung cancer that was originally diagnosed back in 2020. He is status post chemo and radiation. He was noted to have disease progression on a recent PET scan done 06/2023. He has been referred to [facility], and is currently on immunotherapy. Reportedly enrolled in a clinical trial. Other medical history significant for COPD, diabetes mellitus, hypertension, hyperlipidemia, SVT/AV node reentry tachycardia. PET scan noted above demonstrated slight increased uptake of radiotracer within the patient's known right lung mass. There is new bilateral lung nodules, right hilar lymph node with uptake suspicious for metastatic disease. Enlarging hepatic lesions. And new abnormal uptake within the soft tissue of the right neck suspicious for metastatic disease. Patient does have a right neck mass. He has been having issues with dysphagia and aspiration. Reports coughing after eating or drinking thin liquids. He was scheduled for a elective EGD/PEG tube placement yesterday. While in preop, was noted to be in SVT, the procedure was canceled, and the patient was sent to the emergency department. Heart rate was noted as high as 160s beat per minute. He reportedly held his metoprolol earlier in the day, because he was n.p.o. for his procedure. He normally takes 50 mg twice a day. Of note, patient had a recent admission May 2023 for recurrent SVT refractory to pharmacologic's. He did undergo EP study and cardiac ablation during this admission. On my evaluation, patient is currently in the emergency department, room 1. Heart rhythm on bedside monitor appears normal sinus with a rate of 86 bpm. Blood pressure is normotensive. He is resting comfortably in bed, on 3 L/min nasal cannula, which is chronic. He is no longer experiencing any heart palpitations or lightheadedness or acute shortness of breath that he was feeling when noted to be in SVT. From a pulmonary standpoint, patient denies any change in his chronic dyspnea, he has a chronic cough with very limited sputum production. No hemoptysis. No chest pain. Denies fevers. He does have a right neck mass. No stridor on my evaluation. Follow-up chest x-ray shows an elevated right hemidiaphragm and right upper lung consolidation and bilateral lung masses/nodules, consistent with recent PET scan results. There is multiple right-sided rib fractures. No pneumothorax. He states that he has a follow-up CAT scan scheduled October 17 at [facility]. CBC drawn on arrival: WBC count 11.4, hemoglobin 12.5, hematocrit 40.8, platelets 540. BMP on arrival unremarkable. Troponins less than 0.012. EKG taken earlier in the emergency room showed sinus tachycardia. No obvious acute ischemic changes. Current hemodynamics are stable. 10/07/2023, the patient is being seen for a follow-up. Earlier this morning, the patient became more short of breath and he also had an episode of tachycardia and the patient was seen by cardiology in this regard. This is SVT versus atrial flutter. The patient received 2 doses of metoprolol 2.5 mg IV and a bolus of 500 cc of normal saline. Following that, the patient to transfer to the telemetry unit. He is currently on metoprolol at a dose of 25 mg p.o. 4 times daily. The patient was also started on IV amiodarone. Pulse ox in the order of 93% on 4 L oxygen by nasal cannula. CAT scan of the chest abdomen and pelvis was noted and there is evidence of a diffuse metastatic disease with extensive hepatic involvement. The patient also has an enlarging right-sided pleural effusion with significant atelectasis of the right lung and evidence of mediastinal lymphadenopathy and scattered lesions involving the left lung in addition consistent with metastatic disease. Awaiting final report. Based on my evaluation and interpretation of the CAT scan, there is interval progression of his malignancy with extensive hepatic involvement. Remains on IV Zosyn. Limited echocardiogram will also obtained to rule out pericardial effusion. 10/08/2023, the patient is being seen for a follow-up. Patient remains on oxygen and the patient is currently on 4 L with a pulse ox of 94%. CAT scan of the chest abdomen pelvis was noted from yesterday and there is evidence of malignancy progression. The patient has a large right lung mass with signific ant atelectasis of the right lung and right-sided pleural effusion. In addition to that, the patient has evidence of 70 pulmonary lesions and nodules involving the left lung consistent with metastatic disease. Multiple masses within the liver compatible with metastatic disease. Nonobstructive renal stone in the inferior pole of the right kidney and a right renal cyst. The patient continues to have difficulty with respiratory secretions. He is undergoing self suctioning. He is unable to swallow. Remains NPO. The plan was to insert a PEG tube early next week. Meanwhile, the patient was having episodes of atrial tachycardia/SVT. He was treated with amiodarone bolus and infusion and beta- blockers. Currently, the patient is off amiodarone. The patient is on metoprolol 25 mg p.o. 4 times daily and the patient is on Lovenox for DVT prophylaxis. Remains on DuoNeb updrafts. Blood work from today shows a WBC count 13.9 with a hemoglobin 11.4 and a platelet count of 431. BUN is 20 mg 0.7 and sodium is at 132. LFTs are abnormal related to metastatic liver disease. On 10/09/2023, the patient had another episode of atrial fibrillation with RVR. Based on that, the patient was started on amiodarone drip which is being utilized by cardiology for rate control. He seems to continue to have episodes of paroxysmal atrial fibrillation. Current rhythm is back to sinus. Continues to have difficulty with swallowing. He is NPO. He is on 4 L of oxygen by nasal cannula with a pulse ox of 91%. White cell count is at 15, hemoglobin 11.7 and platelet count of 561. BUN is at 17 with a creatinine of 0.7 and a sodium levels of 133. Awake and alert and communicating. Quite cachectic and emaciated with impaired performance and functional status patient with significant progression in his metastatic small cell lung cancer. Reevaluated today on 10/10/2023, patient is doing well, relatively asymptomatic, he seems to be very comfortable, on 4 L nasal cannula with O2 saturation in the low 90s. He is hemodynamically stable, scheduled to have a PEG tube placement today, and I will clear the patient if cleared by cardiology he is on amiodarone drip. Pulmonary serrano I do not believe the patient will benefit much from having a Pleurx catheter placement and I would rather not proceed that route. And I would not recommend it. WBC count is 12.3 hemoglobin 11.5 basic metabolic p rofile is normal alkaline phosphatase is 479 with slightly elevated AST of 102. ALT is normal. Bilirubin is normal. Reevaluated today on 10/11/2023, patient is doing fairly well considering his overall clinical status. Underwent PEG tube placement yesterday, it was uneventful.Remains on 4 L nasal cannula with O2 saturation of 92% he is hemodynamically stable. Seems to be comfortable at rest but short of breath with any exertion. No labs noted today except for a blood sugar of 82 Reevaluate today on 10/12/23, patient is basically about the same, no change in his overall status. Patient is now on enteral feeding via PEG tube, remains n.p.o., remains on bronchodilators, remains on oxygen at 4 L nasal cannula. O2 sats is 90%. Patient seems to be generally weak, debilitated, but not in distress. He is hemodynamically stable with blood pressure of 99/60, mean arterial pressure of 73. Seems to be comfortable, and not in distress Patient was evaluated today on 10/13/2023, patient remains the same but he seems to be more congested today. After evaluating the patient, a chest x-ray was done, and it showed complete opacification of the right lung, I believe there is progression of his lung disease and there is progression of his pleural effusion. Hence I will arrange for the patient to have a ultrasound of the chest, and if necessary we will proceed with performing a bedside thoracentesis depending on the ultrasound findings. My only concern is that ultrasound guided thoracentesis may lead us into a trapped lung, but we will decide after reviewing the ultrasound of the chest today. FiO2 requirement has gone up, patient was on 4 L on along, and I had to put him on 5 L today. And that explains why his FiO2 requirement has gone up today. Objective - Vital Signs Vital signs: Vital Signs Temp 97.8 F 10/13/23 09:32 Pulse 90 10/13/23 12:08 Resp 20 10/13/23 12:08 BP 118/65 10/13/23 12:08 Pulse Ox 96 10/13/23 12:15 FiO2 Intake & Output 10/12/23 10/13/23 10/13/23 18:59 06:59 18:59 Intake Total 200 650 80 Output Total 400 200 Balance 200 250 -120 Weight 57 kg Intake: Oral 120 540 Tube Feeding 80 110 80 Output: Urine 400 200 Other: Voiding Method Urinal Bedside Commode Bedside Commode Urinal Urinal # Voids 2 1 - Exam GENERAL EXAM: Reveals 74-year-old white male in no distress on 5 L nasal cannula HEAD: Normocephalic and atraumatic EYES: Normal reaction of pupils, pupils are unequal, left greater than right. NOSE: Clear with pink turbinates. THROAT: No erythema or exudates. NECK: Right neck mass. No stridor. No JVD. CHEST: No chest wall deformity. LUNGS: Diminished breath sounds on the right side CVS: S1 and S2 normal with no audible murmur, regular rhythm. No extra heart sounds ABDOMEN: No hepatosplenomegaly, active bowel sounds, no guarding or rigidity. PEG tube is intact. SKIN: No rashes CENTRAL NERVOUS SYSTEM: Alert oriented x 3 no gross focal deficit EXTREMITIES: No clubbing edema or cyanosis - Labs CBC & Chem 7: 10/12/23 07:37 10/12/23 07:37 Labs: Abnormal Lab Results - Last 24 Hours (Table) 10/12/23 10/12/23 10/13/23 Range/Units 16:21 19:45 02:13 POC Glucose (mg/dL) 141 H 116 H 113 H (70-110) mg/dL 10/13/23 10/13/23 Range/Units 06:00 11:23 POC Glucose (mg/dL) 132 H 161 H (70-110) mg/dL Assessment and Plan Assessment: Impression: Metastatic small cell lung cancer with interval progression of disease based on CT of the chest abdomen pelvis and worsening right-sided pleural effusion From ventricular tachycardia/paroxysmal patient is now on amiodarone Right neck mass related to small cell lung cancer Right lung opacification/consolidation with tumor progression from small cell lung cancer Chronic hypoxic respiratory failure secondary to above Elevated right hemidiaphragm Underlying chronic obstructive pulmonary disease Type 2 diabetes Benign essential hypertension Ex-smoker Recommendations: Arrange for ultrasound of the chest, Consider right-sided thoracentesis although patient may end up having a trapped lung after thoracentesis Continue antibiotics/Zosyn and bronchodilators Continue oxygen and titrate accordingly Still believe that the patient would be better off in hospice. And I am strongly recommending hospice Overall prognosis extremely poor and guarded Time with Patient: Less than 30
--- NOTE | 2023-10-13 16:17 | US ---
EXAMINATION TYPE: US chest DATE OF EXAM: 10/13/2023 COMPARISON: NONE CLINICAL INDICATION: Male, 73 years old with history of Markings for thoracentesis by pulmonary staff ; TECHNIQUE: Targeted ultrasound of the posterior lower EXAM MEASUREMENTS: Right Pleural Effusion pocket size: 13.3 cm Right skin surface to fluid distance: 2.0 cm Left Pleural Effusion pocket size: no significant fluid Right side marked for possible thoracentesis outside the dept. Left side NOT marked for possible thoracentesis outside the dept. Pulmonologists are able to review the images in the patient?s EMR. IMPRESSIONS: 1. Right pleural effusion
--- NOTE | 2023-10-13 17:58 | XR ---
EXAMINATION TYPE: XR chest 1V portable DATE OF EXAM: 10/13/2023 5:43 PM CLINICAL INDICATION:Male, 73 years old with history of post right sided thoracentesis; H COMPARISON: Chest radiographs from 10/13/2023. TECHNIQUE: XR chest 1V portable Frontal view of the chest. FINDINGS: Lungs/Pleura: Improved aeration along with persistent near complete opacification of the right lung. Few scattered left mid and lower lung airspace opacities. No pneumothorax or pleural effusion on the left. Air cystic change in the right lung apex new from prior. This could possibly represent small pn eumothorax. Pulmonary vascularity: Unremarkable. Heart/mediastinum: Cardiomediastinal silhouette is unremarkable. Musculoskeletal: No acute osseous pathology. IMPRESSION: 1. Improved aeration of the right lung with Near complete opacification of the right lung most marta tible with atelectasis enhancement large pleural effusion. Lucent area in the lung apex on the right possibly representing small pneumothorax. 2. Left midlung and lower airspace opacities correlate for infectious process.
[2023-10-13 18:27] LABS: Glucose,Whole Blood 130 mg/dL (70-110)
[2023-10-14] LABS: Glucose,Whole Blood 121 mg/dL (70-110)
--- NOTE | 2023-10-14 00:05 | OP ---
OPERATIVE REPORT DATE OF SERVICE : PROCEDURE PERFORMED: Right-sided thoracentesis. PREOPERATIVE DIAGNOSIS: Malignant pleural effusion. POSTOPERATIVE DIAGNOSIS: Malignant pleural effusion. ANESTHESIA USED: 2 mL of 1% lidocaine. DESCRIPTION OF PROCEDURE: The patient was placed in the sitting upright position, the area of the pleural effusion was localized earlier by ultrasound guidance and it correlated to the 8th intercostal space and posterior axillary line. The marking was done already by graphic arts technician. Again, the patient was placed in a sitting upright position, the area below the right scapula was prepared in a sterile fashion. Drapes were applied. At the same site, the area was locally anesthetized with lidocaine. Then, a 26-gauge needle advanced into the pleural space, less than 1.5 cm, fluid was localized with the needle. Then a small tiny incision was made, and a standard thoracentesis catheter and needle advanced into the pleural space. Fluid was obtained. The catheter was advanced over the needle and the needle was pulled out of the pleural space. Freely flowing fluid was removed, roughly 1600 cc of serosanguineous fluid was removed from the right pleural space. No evidence of any immediate complications, chest x-ray is pending at the time of this dictation. Again, no complications noted upon the procedure. MMODL / IJN: [id number] /
[2023-10-14 03:56] LABS: Glucose, BF Source Pleural Fluid; Glucose, Body Fluid 119 mg/dL; LDH, Body Fluid Source Pleural Fluid
[2023-10-14 03:57] LABS: T. Protein, Body Fluid Source Pleural Fluid; Total Protein, Body Fluid 2970 mg/dL
[2023-10-14 04:24] LABS: Appearance,BF Cloudy (Clear)
[2023-10-14 06:01] LABS: Glucose,Whole Blood 132 mg/dL (70-110)
--- NOTE | 2023-10-14 08:39 | XR ---
EXAMINATION TYPE: XR chest 1V portable DATE OF EXAM: 10/14/2023 COMPARISON: 10/13/2023 HISTORY: Pleural effusion TECHNIQUE: Single frontal view of the chest is obtained. FINDINGS: There is complete opacification right hemithorax consistent with a large right pleural effusion. There is a persistent focal partially consolidative opacity in the left midlung and in the retrocardi ac left lower lobe. There is a chronic rotator cuff and the right shoulder. IMPRESSION: 1. Worsening large right pleural effusion. 2. Stable infiltrates in the left lung.
--- NOTE | 2023-10-14 10:42 | P.PN ---
Subjective Progress Note Date: 10/14/23 NAEON. No N/V. No F/C. No abdominal pain. Endorses BM and flatus. Objective - Vital Signs Vital signs: Vital Signs Temp 98.1 F 10/14/23 03:44 Pulse 100 10/14/23 08:09 Resp 24 10/14/23 03:44 BP 130/70 10/14/23 03:44 Pulse Ox 93 L 10/14/23 07:53 FiO2 Intake & Output 10/13/23 10/14/23 10/14/23 18:59 06:59 18:59 Intake Total 120 120 Output Total 200 Balance -80 120 Weight 57 kg Intake: Tube Feeding 120 120 Output: Urine 200 Other: Voiding Method Bedside Commode Bedside Commode Urinal Urinal # Voids 1 - Exam Gen: AxO, NAD Pulm: non-labored respirations Abd: soft, non-tender, non-distended. PEG: C/D/I, TF running. No erythema or drainage from around PEG site seen Extrem: no edema seen - Labs CBC & Chem 7: 10/12/23 07:37 10/12/23 07:37 Labs: Abnormal Lab Results - Last 24 Hours (Table) 10/13/23 10/13/23 10/13/23 Range/Units 11:23 17:30 18:25 POC Glucose (mg/dL) 161 H 130 H (70-110) mg/dL Fluid Appearance Cloudy A (Clear) 10/13/23 10/14/23 Range/Units 23:59 05:59 POC Glucose (mg/dL) 121 H 132 H (70-110) mg/dL Fluid Appearance (Clear) Assessment and Plan Assessment: Patient is a 73M who is s/p PEG placement Plan: -TF as tolerated -PRN pain and nausea control -DVT/GI PPx -Care per primary Diogenes Leyva MD General Surgery
--- NOTE | 2023-10-14 11:03 | P.PN ---
Subjective Progress Note Date: 10/14/23 Hospital Course: Patient is a very pleasant 73-year-old male with a past medical history of SVT/AV renodal entry tachycardia, metastatic lung cancer currently undergoing clinical study with immunotherapy treatments at [facility] in [place] and follows with oncologist Dr. Coughlin, hypertension, hyperlipidemia, and [id number] diabetes mellitus. He presented to the emergency department with a chief complaint of tachycardia, palpitations, and shortness of breath. Patient reports recently having difficulty swallowing secondary to his metastatic cancer and was scheduled for outpatient EGD with PEG tube placement but while in preop preparing to undergo procedure he began having palpitations with episodes of tachycardia with heart rate elevating to the 160s accompanied by worsening shortness of breath so he was transferred to ER for evaluation. Vital signs upon arrival show blood pressure 106/64, heart rate 123, respiratory rate 22, temp 97.8 F, and SpO2 of 93% on 3 L. EKG completed showing sinus Tachycardia at 121 bpm with frequent PACs first-degree AV block with ND interval of 238 ms. Chest x-ray showing large right pleural effusion with scattered pulmonary masses and consolidation of right upper lung and multiple right-sided rib fractures. Labs completed and reviewed. CBC showing leukocytosis with WBC count of 11.4, hemoglobin of 12.5, and thrombocytosis with platelet count of 540. BMP showing hyponatremia with sodium 133, elevated BUN of 26, and blood glucose of 113. Liver profile showing elevated AST of 104 and alkaline phosph atase of 584. Troponin was negative at less than 0.012. Patient being admitted under our services with consultation to cardiology for atrial tachycardia, consultation to pulmonology for large pleural effusion, and consultation to general surgery for placement of PEG tube. On 10/07/2023 patient again having episode of atrial tachycardia/SVT with heart rate accelerating up to 180s accompanied by hypotension. EKG was completed showing atrial tachycardia with frequent PACs and patient requiring multiple doses of IV Lopressor followed by amiodarone bolus and infusion. CT chest/abdomen/pelvis was completed and radiology report reviewed showing large mass right upper lobe with additional smaller masses and nodules present bilaterally, probable subcarinal metastatic lesion and multiple metastatic lesions within the left and right lobes of liver. On 10/09/2023 patient again had episode of SVT/atrial tachycardia with heart rate again in the 170s accompanied by symptomatic hypotension with reports of dizziness and increased shortness of breath. Patient was given amiodarone bolus and restarted on amiodarone infusion at this time. s/p 1600cc thoracentesis Subjective: Pt pain is well controlled, but dyspnea is still causing pt distress. Had thoracentesis yesterday which pulled 1600cc, repeat CXR shows re-accumulation of fluid. Physical exam: Vital signs reviewed and stable. General: Nontoxic, no distress, chronically ill-appearing, cachectic Derm: Skin warm and dry, normal coloration for ethnicity. Head: Atraumatic, normocephalic and symmetric. Eyes: EOMs intact, no lid lag, and anicteric sclera Mouth: no lip lesions, mucus membranes moist Cardiovascular: regular rate and rhythm with normal S1S2, systolic murmur, posi tive posterior tibial pulses bilaterally, and cap refill < 2 seconds. Lungs: Respirations even, regular, and unlabored on 4L O2 via nasal cannula. Lungs diminished throughout entire right lung, good air entry throughout left lung with soft expiratory wheezes in left upper lobe. Abdominal: soft, nontender to palpation, no guarding, no appreciable organomegaly. PEG tube in place Ext: ROM intact. No gross muscle atrophy, no edema, no contractures Neuro: Speech clear, face symmetrical and CN II-XII grossly intact with no noted focal neuro deficits Psych: Alert and oriented to person, place, time, and situation. Appropriate and pleasant affect. Assessment and Plan of Care: Atrial tachycardia/SVT, recurrent episodes Symptomatic Hypotension Metastatic Small Cell Lung cancer with large right pleural effusion Multiple right sided pulmonary masses with multiple right-sided rib fractures, secondary to above Hx of Hypertension Hyperlipidemia -Cardiology following, reviewed documentation in chart -General surgery following, took patient for PEG tube placement on 10/10/2023. -Pulmonology following, and due to poor prognosis, recommending Pleurx catheter at this time. -Consulted CT surgery -Hematology/oncology following, appreciate recommendations. -Oxygenation to be administered and titrated as needed to maintain SPO2 equal to or greater than 90% -Telemetry monitoring. -Monitor Pulse-oximetry -continue metoprolol titrate -Amiodarone 200 mg twice daily. -Duonebs scheduled -Incentive Spirometry Iua-vdnhlqf-avubmtchv diabetes mellitus Hold Trijardy and continue patient on glycemic protocol with NovoLog sliding scale. Patient with overall poor prognosis secondary to worsening of metastasis of smal l cell lung cancer. CODE STATUS: DNR/DNI DVT prophylaxis: Lovenox Anticipated discharge date: Clinical course to determine Anticipated discharge place: Clinical course to determine This document was prepared using [email or web address] dictation software. Please allow for errors in ballet soloist while rare they do occur. Objective - Vital Signs Vital signs: Vital Signs Temp 98.1 F 10/14/23 03:44 Pulse 100 10/14/23 08:09 Resp 24 10/14/23 03:44 BP 130/70 10/14/23 03:44 Pulse Ox 93 L 10/14/23 07:53 FiO2 Intake & Output 10/13/23 10/14/23 10/14/23 18:59 06:59 18:59 Intake Total 120 120 Output Total 200 Balance -80 120 Weight 57 kg Intake: Tube Feeding 120 120 Output: Urine 200 Other: Voiding Method Bedside Commode Bedside Commode Urinal Urinal # Voids 1 - Labs CBC & Chem 7: 10/12/23 07:37 10/12/23 07:37 Labs: Abnormal Lab Results - Last 24 Hours (Table) 10/13/23 10/13/23 10/13/23 Range/Units 11:23 17:30 18:25 POC Glucose (mg/dL) 161 H 130 H (70-110) mg/dL Fluid Appearance Cloudy A (Clear) 10/13/23 10/14/23 Range/Units 23:59 05:59 POC Glucose (mg/dL) 121 H 132 H (70-110) mg/dL Fluid Appearance (Clear)
[2023-10-14 11:37] LABS: Glucose,Whole Blood 119 mg/dL (70-110)
--- NOTE | 2023-10-14 12:14 | P.PN ---
Subjective Progress Note Date: 10/14/23 Principal diagnosis: Metastatic small cell lung cancer with disease progression Patient is a 73-year-old white male with past medical history significant for metastatic small cell lung cancer that was originally diagnosed back in 2020. He is status post chemo and radiation. He was noted to have disease progression on a recent PET scan done 06/2023. He has been referred to [facility], and is currently on immunotherapy. Reportedly enrolled in a clinical trial. Other medical history significant for COPD, diabetes mellitus, hypertension, hyperlipidemia, SVT/AV node reentry tachycardia. PET scan noted above demonstrated slight increased uptake of radiotracer within the patient's known right lung mass. There is new bilateral lung nodules, right hilar lymph node with uptake suspicious for metastatic disease. Enlarging hepatic lesions. And new abnormal uptake within the soft tissue of the right neck suspicious for metastatic disease. Patient does have a right neck mass. He has been having issues with dysphagia and aspiration. Reports coughing after eating or drinking thin liquids. He was scheduled for a elective EGD/PEG tube placement yesterday. While in preop, was noted to be in SVT, the procedure was canceled, and the patient was sent to the emergency department. Heart rate was noted as high as 160s beat per minute. He reportedly held his metoprolol earlier in the day, because he was n.p.o. for his procedure. He normally takes 50 mg twice a day. Of note, patient had a recent admission May 2023 for recurrent SVT refractory to pharmacologic's. He did undergo EP study and cardiac ablation during this admission. On my evaluation, patient is currently in the emergency department, room 1. Heart rhythm on bedside monitor appears normal sinus with a rate of 86 bpm. Blood pressure is normotensive. He is resting comfortably in bed, on 3 L/min nasal cannula, which is chronic. He is no longer experiencing any heart palpitations or lightheadedness or acute shortness of breath that he was feeling when noted to be in SVT. From a pulmonary standpoint, patient denies any change in his chronic dyspnea, he has a chronic cough with very limited sputum production. No hemoptysis. No chest pain. Denies fevers. He does have a right neck mass. No stridor on my evaluation. Follow-up chest x-ray shows an elevated right hemidiaphragm and right upper lung consolidation and bilateral lung masses/nodules, consistent with recent PET scan results. There is multiple right-sided rib fractures. No pneumothorax. He states that he has a follow-up CAT scan scheduled October 17 at [facility]. CBC drawn on arrival: WBC count 11.4, hemoglobin 12.5, hematocrit 40.8, platelets 540. BMP on arrival unremarkable. Troponins less than 0.012. EKG taken earlier in the emergency room showed sinus tachycardia. No obvious acute ischemic changes. Current hemodynamics are stable. 10/07/2023, the patient is being seen for a follow-up. Earlier this morning, the patient became more short of breath and he also had an episode of tachycardia and the patient was seen by cardiology in this regard. This is SVT versus atrial flutter. The patient received 2 doses of metoprolol 2.5 mg IV and a bolus of 500 cc of normal saline. Following that, the patient to transfer to the telemetry unit. He is currently on metoprolol at a dose of 25 mg p.o. 4 times daily. The patient was also started on IV amiodarone. Pulse ox in the order of 93% on 4 L oxygen by nasal cannula. CAT scan of the chest abdomen and pelvis was noted and there is evidence of a diffuse metastatic disease with extensive hepatic involvement. The patient also has an enlarging right-sided pleural effusion with significant atelectasis of the right lung and evidence of mediastinal lymphadenopathy and scattered lesions involving the left lung in addition consistent with metastatic disease. Awaiting final report. Based on my evaluation and interpretation of the CAT scan, there is interval progression of his malignancy with extensive hepatic involvement. Remains on IV Zosyn. Limited echocardiogram will also obtained to rule out pericardial effusion. 10/08/2023, the patient is being seen for a follow-up. Patient remains on oxygen and the patient is currently on 4 L with a pulse ox of 94%. CAT scan of the chest abdomen pelvis was noted from yesterday and there is evidence of malignancy progression. The patient has a large right lung mass with signific ant atelectasis of the right lung and right-sided pleural effusion. In addition to that, the patient has evidence of 70 pulmonary lesions and nodules involving the left lung consistent with metastatic disease. Multiple masses within the liver compatible with metastatic disease. Nonobstructive renal stone in the inferior pole of the right kidney and a right renal cyst. The patient continues to have difficulty with respiratory secretions. He is undergoing self suctioning. He is unable to swallow. Remains NPO. The plan was to insert a PEG tube early next week. Meanwhile, the patient was having episodes of atrial tachycardia/SVT. He was treated with amiodarone bolus and infusion and beta- blockers. Currently, the patient is off amiodarone. The patient is on metoprolol 25 mg p.o. 4 times daily and the patient is on Lovenox for DVT prophylaxis. Remains on DuoNeb updrafts. Blood work from today shows a WBC count 13.9 with a hemoglobin 11.4 and a platelet count of 431. BUN is 20 mg 0.7 and sodium is at 132. LFTs are abnormal related to metastatic liver disease. On 10/09/2023, the patient had another episode of atrial fibrillation with RVR. Based on that, the patient was started on amiodarone drip which is being utilized by cardiology for rate control. He seems to continue to have episodes of paroxysmal atrial fibrillation. Current rhythm is back to sinus. Continues to have difficulty with swallowing. He is NPO. He is on 4 L of oxygen by nasal cannula with a pulse ox of 91%. White cell count is at 15, hemoglobin 11.7 and platelet count of 561. BUN is at 17 with a creatinine of 0.7 and a sodium levels of 133. Awake and alert and communicating. Quite cachectic and emaciated with impaired performance and functional status patient with significant progression in his metastatic small cell lung cancer. Reevaluated today on 10/10/2023, patient is doing well, relatively asymptomatic, he seems to be very comfortable, on 4 L nasal cannula with O2 saturation in the low 90s. He is hemodynamically stable, scheduled to have a PEG tube placement today, and I will clear the patient if cleared by cardiology he is on amiodarone drip. Pulmonary serrano I do not believe the patient will benefit much from having a Pleurx catheter placement and I would rather not proceed that route. And I would not recommend it. WBC count is 12.3 hemoglobin 11.5 basic metabolic p rofile is normal alkaline phosphatase is 479 with slightly elevated AST of 102. ALT is normal. Bilirubin is normal. Reevaluated today on 10/11/2023, patient is doing fairly well considering his overall clinical status. Underwent PEG tube placement yesterday, it was uneventful.Remains on 4 L nasal cannula with O2 saturation of 92% he is hemodynamically stable. Seems to be comfortable at rest but short of breath with any exertion. No labs noted today except for a blood sugar of 82 Reevaluate today on 10/12/23, patient is basically about the same, no change in his overall status. Patient is now on enteral feeding via PEG tube, remains n.p.o., remains on bronchodilators, remains on oxygen at 4 L nasal cannula. O2 sats is 90%. Patient seems to be generally weak, debilitated, but not in distress. He is hemodynamically stable with blood pressure of 99/60, mean arterial pressure of 73. Seems to be comfortable, and not in distress Patient was evaluated today on 10/13/2023, patient remains the same but he seems to be more congested today. After evaluating the patient, a chest x-ray was done, and it showed complete opacification of the right lung, I believe there is progression of his lung disease and there is progression of his pleural effusion. Hence I will arrange for the patient to have a ultrasound of the chest, and if necessary we will proceed with performing a bedside thoracentesis depending on the ultrasound findings. My only concern is that ultrasound guided thoracentesis may lead us into a trapped lung, but we will decide after reviewing the ultrasound of the chest today. FiO2 requirement has gone up, patient was on 4 L on along, and I had to put him on 5 L today. And that explains why his FiO2 requirement has gone up today. Reevaluated today on 10/14/2023, patient is basically about the same, he felt a bit better after his thoracentesis yesterday, however his follow-up chest x-ray continues to show completely opacified right lung. I actually drained 1600 cc of serosanguineous fluid from the right pleural space yesterday, stopped the procedure after 600 cc of fluid drained mostly because the patient was developing some chest pain at the site of the procedure today chest x-ray continues to show completely opacified right lung, hence I am recommending thoracic surgery consultation for Pleurx catheter placement mostly for comfort care unless the family decides to proceed with hospice without Pleurx catheter placement. Blood report/initial report on his pleural effusion showed protein of 2970 LDH 537, clearly exudative in nature and most likely malignant unless for otherwise Objective - Vital Signs Vital signs: Vital Signs Temp 98.1 F 10/14/23 03:44 Pulse 102 H 10/14/23 11:16 Resp 24 10/14/23 03:44 BP 130/70 10/14/23 03:44 Pulse Ox 93 L 10/14/23 07:53 FiO2 Intake & Output 10/13/23 10/14/23 10/14/23 18:59 06:59 18:59 Intake Total 120 120 Output Total 200 Balance -80 120 Weight 57 kg Intake: Tube Feeding 120 120 Output: Urine 200 Other: Voiding Method Bedside Commode Bedside Commode Urinal Urinal # Voids 1 - Exam GENERAL EXAM: Reveals 74-year-old white male in no distress on 5 L nasal cannula, O2 saturation is 93% HEAD: Normocephalic and atraumatic EYES: Normal reaction of pupils, pupils are unequal, left greater than right. NOSE: Clear with pink turbinates. THROAT: No erythema or exudates. NECK: Right neck mass. No stridor. No JVD. CHEST: No chest wall deformity. LUNGS: Diminished breath sounds on the right side CVS: S1 and S2 normal with no audible murmur, regular rhythm. No extra heart sounds ABDOMEN: No hepatosplenomegaly, active bowel sounds, no guarding or rigidity. PEG tube is intact. SKIN: No rashes CENTRAL NERVOUS SYSTEM: Alert oriented x 3 no gross focal deficit EXTREMITIES: No clubbing edema or cyanosis - Labs CBC & Chem 7: 10/12/23 07:37 10/12/23 07:37 Labs: Abnormal Lab Results - Last 24 Hours (Table) 10/13/23 10/13/23 10/13/23 Range/Units 17:30 18:25 23:59 POC Glucose (mg/dL) 130 H 121 H (70-110) mg/dL Fluid Appearance Cloudy A (Clear) 10/14/23 10/14/23 Range/Units 05:59 11:36 POC Glucose (mg/dL) 132 H 119 H (70-110) mg/dL Fluid Appearance (Clear) Assessment and Plan Assessment: Impression: Metastatic small cell lung cancer with interval progression of disease based on CT of the chest abdomen pelvis and worsening right-sided pleural effusion From ventricular tachycardia/paroxysmal patient is now on amiodarone Right neck mass related to small cell lung cancer Right lung opacification/consolidation with tumor progression from small cell l ivon cancer Chronic hypoxic respiratory failure secondary to above Elevated right hemidiaphragm Underlying chronic obstructive pulmonary disease Type 2 diabetes Benign essential hypertension Ex-smoker Status post right-sided thoracentesis, drained 1600 cc of serosanguineous fluid from the right pleural space, and right lung remains opacified even with high- volume thoracentesis. Recommendations: Will consult thoracic surgery for Pleurx catheter placement mostly for comfort care and eventual hospice down the line Continue antibiotics/Zosyn and bronchodilators Continue oxygen and titrate accordingly Gnosis is extremely poor and guarded and terminal and would recommend hospice Continue to follow in the meantime Time with Patient: Less than 30
[2023-10-14] MEDS ORDERED: ACETAMINOPHEN TAB 325 MG TAB PO PRN (13:04)
[2023-10-14] MEDS ORDERED: ONDANSETRON 4 MG/2 ML VIAL IVP PRN (13:04)
[2023-10-14] MEDS: MORPHINE SULFATE 4 MG/ML SYRINGE IVP STA (14:41)
[2023-10-14] MEDS: SCOPOLAMINE 1 MG/72 HR PATCH TRANSDERM SCH (14:42)
[2023-10-14 16:44] LABS: Glucose,Whole Blood 113 mg/dL (70-110)
[2023-10-15 00:02] LABS: Glucose,Whole Blood 116 mg/dL (70-110)
[2023-10-15] MEDS: MORPHINE SULFATE 2 MG/ML SYRINGE IV PRN (01:15)
[2023-10-15 06:01] LABS: Glucose,Whole Blood 130 mg/dL (70-110)
--- NOTE | 2023-10-15 09:16 | P.GSCN ---
History of Present Illness Consult date: 10/15/23 Reason for Consult: Right pleural effusion status postthoracentesis of 1.6 L of pleural fluid, evaluation for Pleurx catheter placement. Requesting physician: Darcy Santos History of present illness: This is a 73-year-old gentleman who follows on an outpatient basis with Dr. Stoney Patel for his a primary care, Dr. Celeste for his pulmonary medicine care and Dr. Coughlin for his oncology care. He has a past medical history significant for metastatic small cell lung cancer diagnosed in December 2020, is status post radiation and chemotherapy and immunotherapy which finished around 2 weeks ago. He also has a history of hypertension, hyperlipidemia, diabetes mellitus type 2, tachycardia, COPD on 3 L nasal cannula as an outpatient, chronic cough, remote history of nicotine dependence quit smoking 4 years ago, history of EtOH abuse quit drinking 4 years ago, recurrent SVT status post ablation in May 2023 and history of dysphagia status post PEG tube placement. The patient was scheduled for a PEG tube placement on October 05, 2023, and came to the hospital electively for the PEG tube placement. Subsequently the patient was n.p.o. after midnight for the PEG tube placement and reports he did not take his metoprolol. On presentation to the hospital he was found to be in a tachycardic rhythm with a heart rate of 105 to 160 bpm. He was transferred to the emergency department for further evaluation and treatment recommendations. He was subsequently admitted for further evaluation and treatment recommendations. He denies any recent fever, chills, nausea, vomiting, chest pain/chest pressure, hemoptysis, hematemesis, headache, visual disturbances, presyncope or syncope. A chest x-ray was completed in the emergency department on October 05, 2023 which showed a large right pleural effusion with scattered pulmonary masses and consolidation right upper lung, and multiple right-sided rib fractures. A twelve-lead EKG was completed which showed no signs of acute ischemia and sinus tachycardia with first-degree AV block with a heart rate of 121 bpm. Due to the findings of a large right pleural effusion pulmonary/critical care medicine was consulted and the patient underwent a chest ultrasound on October 06, 2023 which showed an 8.6 cm pleural effusion pocket size. The patient also underwent a limited 2D transthoracic 2D echocardiogram which showed an ejection fraction of 60 to 65%, mild to moderate right ventricular dilation, and minimal pericardial effusion. A CT scan of the chest/abdomen/pelvis with contrast was completed on October 07, 2023 with the report showing an impression of a large mass right upper lobe with additional smaller masses and nodules present bilaterally compatible with lung cancer, probable subcarinal metastatic lesion, and multiple metastatic lesions in the left and right lobes of the liver. On October 13, 2023 the patient underwent a repeat ultrasound of his chest which revealed a 13.3 cm right pleural effusion pocket. Due to the findings of the 13.3 cm right pleural effusion pocket the patient underwent a right-sided thoracentesis completed by Dr. Deshpande on October 13, 2023 with 1.6 L of serosanguineous pleural fluid drained from the right pleural space. A follow-up chest x-ray on October 14, 2023 continue to show a completely opacified right lung despite the right thoracentesis. Due to the findings on the chest x-ray a consult was placed to cardiothoracic surgery for further evaluation and treatment recommendations including a placement of a right Pleurx catheter. Review of Systems A review of systems was completed and was negative except as mentioned in the HPI. 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 Mckinnon), Appendectomy, Orthopedic Surgery (Right knee surgery), Tonsillectomy Additional Past Surgical History / Comment(s): bronchoscopy with biopsies, fatty tissue removed from left leg, colonoscopy Past Anesthesia/Blood Transfusion Reactions: No Reported Reaction Additional Past Anesthesia/Blood Transfusion Reaction / Comm: no hx blood transfusion Past Psychological History: No Psychological Hx Reported Smoking Status: Former smoker (Quit smoking in December 2020) Past Alcohol Use History: Abuse (History of EtOH abuse quit drinking in 2020) Past Drug Use History: None Reported - Past Family History Father Family Medical History: Congestive Heart Failure (CHF) Additional Family Medical History / Comment(s): from anuerysm caused from a were related injury from shrapnel. Mother Family Medical History: Diabetes Mellitus Medications and Allergies Home Medications Medication Instructions Recorded Confirmed Type Empaglifloz/Linaglip/Metformin 1 tab PO BID 12/28/21 10/05/23 History [Trijardy Xr 12.5-2.5-1,000 mg] Multivitamins, Thera [Multivitamin 1 tab PO DAILY 05/26/23 10/05/23 History (formulary)] Ondansetron [Zofran] 4 mg PO Q6H PRN 05/26/23 10/05/23 History Metoprolol Succinate (ER) [Toprol 50 mg PO DAILY #30 tab 06/01/23 10/05/23 Rx XL] Albuterol Inhaler [Ventolin Hfa 1 puff INHALATION RT-Q6H PRN 10/05/23 10/05/23 History Inhaler] Budesonide/Formoterol Fumarate 2 puff INHALATION RT-BID 10/05/23 10/05/23 History [Breyna 160-4.5 Mcg Inhaler] Gabapentin 300 mg PO DIRECTED 10/05/23 10/05/23 History HYDROcodone/APAP 7.5-325MG [[place] 1 tab PO Q4H PRN 10/05/23 10/05/23 History 7.5-325] Ipratropium-Albuterol Nebulize 3 ml INHALATION RT-QID 10/05/23 10/05/23 History [Duoneb 0.5 mg-3 mg/3 ml Soln] Sennosides [Senokot] 17.2 mg PO HS 10/05/23 10/05/23 History Allergies Allergy/AdvReac Type Severity Reaction Status Date / Time No Known Allergies Allergy Verified 10/05/23 10:18 Surgical - Exam Vital Signs Pulse Resp BP Pulse Ox 123 H 22 106/64 93 L 10/05/23 09:07 10/05/23 09:07 10/05/23 09:07 10/05/23 09:07 - General no distress, cachectic, chronically ill - Eyes PERRL, normal ocular movement, no pale, no icteric - ENT normal pinna, normal nares, normal mucosa, no hearing loss, no congestion, poor usp - Neck no masses, no bruits, trachea midline, no venous distension - Respiratory Lung sounds diminished to his right lobes, scattered crackles throughout with few scattered expiratory wheezes. 3 L nasal cannula. Respirations are symmetrical and nonlabored. - Cardiovascular Regular rhythm and tachycardic rate. S1 and S2 present, negative for S3, gallop or murmur. Remote telemetry showing sinus tachycardia heart rate 109 bpm. - Abdomen Abdomen is soft, nontender and nondistended. PEG tube in place with tube feeding infusing Glucerna 40 mL/h. No guarding or rigidity. No organomegaly appreciated. - Genitourinary Deferred - Rectum Deferred - Integumentary Skin is warm and dry. No clubbing or cyanosis is present. no rash, no growths, no abnormal pigmentation - Neurologic No focal deficits. - Musculoskeletal Moves all 4 extremities with equal strength bilateral. Generalized weakness. - Psychiatric oriented to time, oriented to person, oriented to place, speech is normal, memory intact Results - Labs 10/12/23 07:37 10/12/23 07:37 Abnormal Lab Results - Last 24 Hours (Table) 10/14/23 10/14/23 10/15/23 Range/Units 11:36 16:43 00:01 POC Glucose (mg/dL) 119 H 113 H 116 H (70-110) mg/dL 10/15/23 Range/Units 05:54 POC Glucose (mg/dL) 130 H (70-110) mg/dL Microbiology - Last 24 Hours (Table) 10/13/23 17:30 Body Fluid Culture - Preliminary Pleural Fluid 10/13/23 17:30 Acid Fast Bacilli Smear - Preliminary Perineal Fluid - Imaging Chest x-ray: report reviewed, image reviewed Assessment and Plan Assessment: Right lung opacification on chest x-ray possibly secondary from pleural effusion orconsolidation with tumor progression from small cell lung cancer, status post thoracentesis on October 13, 2023 with 1.6 L of serosanguineous fluid drained from the right pleural space by Dr. Santos Metastatic small cell lung cancer, status post chemotherapy, radiation and immunotherapy Right neck mass related to small cell lung cancer Chronic hypoxic respiratory failure, on 3 L nasal cannula oxygen as an outpatient Chronic obstructive pulmonary disease Chronic cough History of hypertension Hyperlipidemia Diabetes mellitus type 2 Remote history of nicotine dependence, quit smoking in December 2020 History of EtOH abuse, quit drinking in 2020 History of dysphagia, status post PEG tube placement Recurrent SVT status post ablation in May 2023 Plan: The patient was seen and examined at his bedside on the floor for cardiac stepdown unit. The patient's was present at his bedside. His chart and diagnostics reviewed. His case was discussed in detail with Dr. Gunnar Bruno from cardiothoracic surgery. It was discussed with the patient that we will obtain a CT scan of the chest without contrast tomorrow October 16, 2023 to evaluate his right pleural effusion. If the CT scan shows a continued large right pleural effusion he will be scheduled for a right sided chest Pleurx catheter. The patient is agreeable to have a Pleurx catheter placed. He will be made n.p.o. after midnight. Medical management other comorbidities per primary care, cardiology, oncology and pulmonary/critical care medicine. More recommendations to follow based on patient's clinical course and findings on the CT scan of the chest. Thank you Dr. Edward for this consult and we look forward to working with you in the care of this patient. I have personally seen and examined the patient, performed the documentation and the assessment and plan as written. Number of minutes spent on the visit: 30. KANDICE Jose
--- NOTE | 2023-10-15 11:48 | P.PN ---
Subjective Progress Note Date: 10/15/23 Hospital Course: Patient is a very pleasant 73-year-old male with a past medical history of SVT/AV renodal entry tachycardia, metastatic lung cancer currently undergoing clinical study with immunotherapy treatments at [facility] in [place] and follows with oncologist Dr. Coughlin, hypertension, hyperlipidemia, and [id number] diabetes mellitus. He presented to the emergency department with a chief complaint of tachycardia, palpitations, and shortness of breath. Patient reports recently having difficulty swallowing secondary to his metastatic cancer and was scheduled for outpatient EGD with PEG tube placement but while in preop preparing to undergo procedure he began having palpitations with episodes of tachycardia with heart rate elevating to the 160s accompanied by worsening shortness of breath so he was transferred to ER for evaluation. Vital signs upon arrival show blood pressure 106/64, heart rate 123, respiratory rate 22, temp 97.8 F, and SpO2 of 93% on 3 L. EKG completed showing sinus Tachycardia at 121 bpm with frequent PACs first-degree AV block with NV interval of 238 ms. Chest x-ray showing large right pleural effusion with scattered pulmonary masses and consolidation of right upper lung and multiple right-sided rib fractures. Labs completed and reviewed. CBC showing leukocytosis with WBC count of 11.4, hemoglobin of 12.5, and thrombocytosis with platelet count of 540. BMP showing hyponatremia with sodium 133, elevated BUN of 26, and blood glucose of 113. Liver profile showing elevated AST of 104 and alkaline phosph atase of 584. Troponin was negative at less than 0.012. Patient being admitted under our services with consultation to cardiology for atrial tachycardia, consultation to pulmonology for large pleural effusion, and consultation to general surgery for placement of PEG tube. On 10/07/2023 patient again having episode of atrial tachycardia/SVT with heart rate accelerating up to 180s accompanied by hypotension. EKG was completed showing atrial tachycardia with frequent PACs and patient requiring multiple doses of IV Lopressor followed by amiodarone bolus and infusion. CT chest/abdomen/pelvis was completed and radiology report reviewed showing large mass right upper lobe with additional smaller masses and nodules present bilaterally, probable subcarinal metastatic lesion and multiple metastatic lesions within the left and right lobes of liver. On 10/09/2023 patient again had episode of SVT/atrial tachycardia with heart rate again in the 170s accompanied by symptomatic hypotension with reports of dizziness and increased shortness of breath. Patient was given amiodarone bolus and restarted on amiodarone infusion, then titrated back to orals. Due to concern over aspiration, patient received PEG tube on 10/09 with tube feeds up to goal. After much consideration, patient decided to go home with hospice, currently pending set up of home hospital bed, home oxygen. Hospice is on board. Patient's medications were optimized for comfort including the addition of morphine as needed, oxycodone as needed, scopolamine patch, Xanax as needed. Upon reevaluation by pulmonology, patient did have a thoracentesis on 10/12 with 1600 cc pulled out, CT surgery was subsequently consulted for consideration of Pleurx placement since patient did improve for approximately [address] scan the following day showed reaccumulation of fluid on the right. Subjective: Pt pain is well controlled, dyspnea improved with morphine. Decided on comfort measures yesterday, goal is to go home with hospice per him and family. Physical exam: Vital signs reviewed and stable. General: Nontoxic, no distress, chronically ill-appearing, cachectic Derm: Skin warm and dry, normal coloration for ethnicity. Head: Atraumatic, normocephalic and symmetric. Eyes: EOMs intact, no lid lag, and anicteric sclera Mouth: no lip lesions, mucus membranes moist Cardiovascular: regular rate and rhythm with normal S1S2, systolic murmur, positive posterior tibial pulses bilaterally, and cap refill < 2 seconds. Lungs: Respirations even, regular, and unlabored on 4L O2 via nasal cannula. Lungs diminished throughout entire right lung, good air entry throughout left lung with soft expiratory wheezes in left upper lobe. Abdominal: soft, nontender to palpation, no guarding, no appreciable organomegaly. PEG tube in place Ext: ROM intact. No gross muscle atrophy, no edema, no contractures Neuro: Speech clear, face symmetrical and CN II-XII grossly intact with no noted focal neuro deficits Psych: Alert and oriented to person, place, time, and situation. Appropriate and pleasant affect. Assessment and Plan of Care: Atrial tachycardia/SVT, recurrent episodes Symptomatic Hypotension Metastatic Small Cell Lung cancer with large right pleural effusion Multiple right sided pulmonary masses with multiple right-sided rib fractures, secondary to above Hx of Hypertension Hyperlipidemia -Cardiology following, reviewed documentation in chart -General surgery following, took patient for PEG tube placement on 10/10/2023. -Pulmonology following, and due to poor prognosis, recommending Pleurx catheter at this time. -Consulted CT surgery -Hematology/oncology following, appreciate recommendations. -Oxygenation prn -Telemetry monitoring. -Monitor Pulse-oximetry -continue metoprolol titrate -Amiodarone 200 mg twice daily. -Duonebs scheduled -Incentive Spirometry -Edna as needed, morphine as needed, Xanax as needed, scopolamine patch -Hospice to follow-up on Monday Otm-gezkgzi-mleosqyaw diabetes mellitus Hold Trijardy and continue patient on glycemic protocol with NovoLog sliding scale. Patient with overall poor prognosis secondary to worsening of metastasis of small cell lung cancer. CODE STATUS: DNR/DNI DVT prophylaxis: Lovenox Anticipated discharge date: Clinical course to determine Anticipated discharge place: Clinical course to determine This document was prepared using [employer] dictation software. Please allow for errors in iron pourer while rare they do occur. Objective - Vital Signs Vital signs: Vital Signs Temp 97.7 F 10/15/23 08:15 Pulse 104 H 10/15/23 08:15 Resp 15 10/15/23 08:15 BP 124/68 10/15/23 08:15 Pulse Ox 96 10/15/23 08:15 FiO2 Intake & Output 10/14/23 10/15/23 10/15/23 18:59 06:59 18:59 Intake Total 120 80 Balance 120 80 Intake: Tube Feeding 120 80 Other: Voiding Method Bedside Commode Bedside Commode Urinal Urinal # Voids 1 2 1 - Labs CBC & Chem 7: 10/12/23 07:37 10/12/23 07:37 Labs: Abnormal Lab Results - Last 24 Hours (Table) 10/14/23 10/15/23 10/15/23 Range/Units 16:43 00:01 05:54 POC Glucose (mg/dL) 113 H 116 H 130 H (70-110) mg/dL Microbiology - Last 24 Hours (Table) 10/13/23 17:30 Body Fluid Culture - Preliminary Pleural Fluid 10/13/23 17:30 Acid Fast Bacilli Smear - Preliminary Perineal Fluid
[2023-10-15 12:03] LABS: Glucose,Whole Blood 121 mg/dL (70-110)
--- NOTE | 2023-10-15 12:48 | P.PN ---
Subjective Progress Note Date: 10/15/23 patient's PEG tube site is clean. He is tolerating tube feeds. Objective - Vital Signs Vital signs: Vital Signs Temp 97.7 F 10/15/23 08:15 Pulse 104 H 10/15/23 08:15 Resp 15 10/15/23 08:15 BP 124/68 10/15/23 08:15 Pulse Ox 96 10/15/23 08:15 FiO2 Intake & Output 10/14/23 10/15/23 10/15/23 18:59 06:59 18:59 Intake Total 120 80 Balance 120 80 Intake: Tube Feeding 120 80 Other: Voiding Method Bedside Commode Bedside Commode Urinal Urinal # Voids 1 2 1 - Labs CBC & Chem 7: 10/12/23 07:37 10/12/23 07:37 Labs: Abnormal Lab Results - Last 24 Hours (Table) 10/14/23 10/15/23 10/15/23 Range/Units 16:43 00:01 05:54 POC Glucose (mg/dL) 113 H 116 H 130 H (70-110) mg/dL 10/15/23 Range/Units 12:01 POC Glucose (mg/dL) 121 H (70-110) mg/dL Microbiology - Last 24 Hours (Table) 10/13/23 17:30 Body Fluid Culture - Preliminary Pleural Fluid 10/13/23 17:30 Acid Fast Bacilli Smear - Preliminary Perineal Fluid
--- NOTE | 2023-10-15 13:47 | P.PN ---
Subjective Progress Note Date: 10/15/23 Principal diagnosis: Metastatic small cell lung cancer with disease progression Patient is a 73-year-old white male with past medical history significant for metastatic small cell lung cancer that was originally diagnosed back in 2020. He is status post chemo and radiation. He was noted to have disease progression on a recent PET scan done 06/2023. He has been referred to [facility], and is currently on immunotherapy. Reportedly enrolled in a clinical trial. Other medical history significant for COPD, diabetes mellitus, hypertension, hyperlipidemia, SVT/AV node reentry tachycardia. PET scan noted above demonstrated slight increased uptake of radiotracer within the patient's known right lung mass. There is new bilateral lung nodules, right hilar lymph node with uptake suspicious for metastatic disease. Enlarging hepatic lesions. And new abnormal uptake within the soft tissue of the right neck suspicious for metastatic disease. Patient does have a right neck mass. He has been having issues with dysphagia and aspiration. Reports coughing after eating or drinking thin liquids. He was scheduled for a elective EGD/PEG tube placement yesterday. While in preop, was noted to be in SVT, the procedure was canceled, and the patient was sent to the emergency department. Heart rate was noted as high as 160s beat per minute. He reportedly held his metoprolol earlier in the day, because he was n.p.o. for his procedure. He normally takes 50 mg twice a day. Of note, patient had a recent admission May 2023 for recurrent SVT refractory to pharmacologic's. He did undergo EP study and cardiac ablation during this admission. On my evaluation, patient is currently in the emergency department, room 1. Heart rhythm on bedside monitor appears normal sinus with a rate of 86 bpm. Blood pressure is normotensive. He is resting comfortably in bed, on 3 L/min nasal cannula, which is chronic. He is no longer experiencing any heart palpitations or lightheadedness or acute shortness of breath that he was feeling when noted to be in SVT. From a pulmonary standpoint, patient denies any change in his chronic dyspnea, he has a chronic cough with very limited sputum production. No hemoptysis. No chest pain. Denies fevers. He does have a right neck mass. No stridor on my evaluation. Follow-up chest x-ray shows an elevated right hemidiaphragm and right upper lung consolidation and bilateral lung masses/nodules, consistent with recent PET scan results. There is multiple right-sided rib fractures. No pneumothorax. He states that he has a follow-up CAT scan scheduled October 17 at [facility]. CBC drawn on arrival: WBC count 11.4, hemoglobin 12.5, hematocrit 40.8, platelets 540. BMP on arrival unremarkable. Troponins less than 0.012. EKG taken earlier in the emergency room showed sinus tachycardia. No obvious acute ischemic changes. Current hemodynamics are stable. 10/07/2023, the patient is being seen for a follow-up. Earlier this morning, the patient became more short of breath and he also had an episode of tachycardia and the patient was seen by cardiology in this regard. This is SVT versus atrial flutter. The patient received 2 doses of metoprolol 2.5 mg IV and a bolus of 500 cc of normal saline. Following that, the patient to transfer to the telemetry unit. He is currently on metoprolol at a dose of 25 mg p.o. 4 times daily. The patient was also started on IV amiodarone. Pulse ox in the order of 93% on 4 L oxygen by nasal cannula. CAT scan of the chest abdomen and pelvis was noted and there is evidence of a diffuse metastatic disease with extensive hepatic involvement. The patient also has an enlarging right-sided pleural effusion with significant atelectasis of the right lung and evidence of mediastinal lymphadenopathy and scattered lesions involving the left lung in addition consistent with metastatic disease. Awaiting final report. Based on my evaluation and interpretation of the CAT scan, there is interval progression of his malignancy with extensive hepatic involvement. Remains on IV Zosyn. Limited echocardiogram will also obtained to rule out pericardial effusion. 10/08/2023, the patient is being seen for a follow-up. Patient remains on oxygen and the patient is currently on 4 L with a pulse ox of 94%. CAT scan of the chest abdomen pelvis was noted from yesterday and there is evidence of malignancy progression. The patient has a large right lung mass with signific ant atelectasis of the right lung and right-sided pleural effusion. In addition to that, the patient has evidence of 70 pulmonary lesions and nodules involving the left lung consistent with metastatic disease. Multiple masses within the liver compatible with metastatic disease. Nonobstructive renal stone in the inferior pole of the right kidney and a right renal cyst. The patient continues to have difficulty with respiratory secretions. He is undergoing self suctioning. He is unable to swallow. Remains NPO. The plan was to insert a PEG tube early next week. Meanwhile, the patient was having episodes of atrial tachycardia/SVT. He was treated with amiodarone bolus and infusion and beta- blockers. Currently, the patient is off amiodarone. The patient is on metoprolol 25 mg p.o. 4 times daily and the patient is on Lovenox for DVT prophylaxis. Remains on DuoNeb updrafts. Blood work from today shows a WBC count 13.9 with a hemoglobin 11.4 and a platelet count of 431. BUN is 20 mg 0.7 and sodium is at 132. LFTs are abnormal related to metastatic liver disease. On 10/09/2023, the patient had another episode of atrial fibrillation with RVR. Based on that, the patient was started on amiodarone drip which is being utilized by cardiology for rate control. He seems to continue to have episodes of paroxysmal atrial fibrillation. Current rhythm is back to sinus. Continues to have difficulty with swallowing. He is NPO. He is on 4 L of oxygen by nasal cannula with a pulse ox of 91%. White cell count is at 15, hemoglobin 11.7 and platelet count of 561. BUN is at 17 with a creatinine of 0.7 and a sodium levels of 133. Awake and alert and communicating. Quite cachectic and emaciated with impaired performance and functional status patient with significant progression in his metastatic small cell lung cancer. Reevaluated today on 10/10/2023, patient is doing well, relatively asymptomatic, he seems to be very comfortable, on 4 L nasal cannula with O2 saturation in the low 90s. He is hemodynamically stable, scheduled to have a PEG tube placement today, and I will clear the patient if cleared by cardiology he is on amiodarone drip. Pulmonary serrano I do not believe the patient will benefit much from having a Pleurx catheter placement and I would rather not proceed that route. And I would not recommend it. WBC count is 12.3 hemoglobin 11.5 basic metabolic p rofile is normal alkaline phosphatase is 479 with slightly elevated AST of 102. ALT is normal. Bilirubin is normal. Reevaluated today on 10/11/2023, patient is doing fairly well considering his overall clinical status. Underwent PEG tube placement yesterday, it was uneventful.Remains on 4 L nasal cannula with O2 saturation of 92% he is hemodynamically stable. Seems to be comfortable at rest but short of breath with any exertion. No labs noted today except for a blood sugar of 82 Reevaluate today on 10/12/23, patient is basically about the same, no change in his overall status. Patient is now on enteral feeding via PEG tube, remains n.p.o., remains on bronchodilators, remains on oxygen at 4 L nasal cannula. O2 sats is 90%. Patient seems to be generally weak, debilitated, but not in distress. He is hemodynamically stable with blood pressure of 99/60, mean arterial pressure of 73. Seems to be comfortable, and not in distress Patient was evaluated today on 10/13/2023, patient remains the same but he seems to be more congested today. After evaluating the patient, a chest x-ray was done, and it showed complete opacification of the right lung, I believe there is progression of his lung disease and there is progression of his pleural effusion. Hence I will arrange for the patient to have a ultrasound of the chest, and if necessary we will proceed with performing a bedside thoracentesis depending on the ultrasound findings. My only concern is that ultrasound guided thoracentesis may lead us into a trapped lung, but we will decide after reviewing the ultrasound of the chest today. FiO2 requirement has gone up, patient was on 4 L on along, and I had to put him on 5 L today. And that explains why his FiO2 requirement has gone up today. Reevaluated today on 10/14/2023, patient is basically about the same, he felt a bit better after his thoracentesis yesterday, however his follow-up chest x-ray continues to show completely opacified right lung. I actually drained 1600 cc of serosanguineous fluid from the right pleural space yesterday, stopped the procedure after 600 cc of fluid drained mostly because the patient was developing some chest pain at the site of the procedure today chest x-ray continues to show completely opacified right lung, hence I am recommending thoracic surgery consultation for Pleurx catheter placement mostly for comfort care unless the family decides to proceed with hospice without Pleurx catheter placement. Blood report/initial report on his pleural effusion showed protein of 2970 LDH 537, clearly exudative in nature and most likely malignant unless for otherwise Patient was reevaluated today on 10/15/2023, patient is about the same, continues to look extremely frail, continues to have intermittent cough and difficulty clearing his secretions. Patient has a spit cup next to him, and he is constantly spitting into the cup. Chest x-ray yesterday continues to show complete opacification of the right lung, thoracic surgery was consulted for Pleurx catheter placement and mostly for comfort, recommended CT of the chest and will decide on Pleurx catheter placement in the next 24 hours. In the meantime the patient remains on his usual meds, he does not seem to be in distress, he is on 5 L nasal cannula, and O2 saturation remains between 93 to 96%. Objective - Vital Signs Vital signs: Vital Signs Temp 97.9 F 10/15/23 12:30 Pulse 91 10/15/23 12:30 Resp 16 10/15/23 12:30 BP 113/64 10/15/23 12:30 Pulse Ox 93 L 10/15/23 12:30 FiO2 Intake & Output 10/14/23 10/15/23 10/15/23 18:59 06:59 18:59 Intake Total 120 80 220 Balance 120 80 220 Intake: Tube Feeding 120 80 220 Other: Voiding Method Bedside Commode Bedside Commode Urinal Urinal # Voids 1 2 1 - Exam GENERAL EXAM: Reveals 74-year-old white male in no distress on 5 L nasal cannula HEAD: Normocephalic and atraumatic EYES: Normal reaction of pupils, pupils are unequal, left greater than right. NOSE: Clear with pink turbinates. THROAT: No erythema or exudates. NECK: Right neck mass. No stridor. No JVD. CHEST: No chest wall deformity. LUNGS: Diminished breath sounds on the right side CVS: S1 and S2 normal with no audible murmur, regular rhythm. No extra heart sounds ABDOMEN: No hepatosplenomegaly, active bowel sounds, no guarding or rigidity. PEG tube is intact. SKIN: No rashes CENTRAL NERVOUS SYSTEM: Alert oriented x 3 no gross focal deficit EXTREMITIES: No clubbing edema or cyanosis - Labs CBC & Chem 7: 10/12/23 07:37 10/12/23 07:37 Labs: Abnormal Lab Results - Last 24 Hours (Table) 10/14/23 10/15/2324 Range/Units 16:43 00:01 05:54 POC Glucose (mg/dL) 113 H 116 H 130 H (70-110) mg/dL 10/15/23 Range/Units 12:01 POC Glucose (mg/dL) 121 H (70-110) mg/dL Microbiology - Last 24 Hours (Table) 10/13/23 17:30 Body Fluid Culture - Preliminary Pleural Fluid 10/13/23 17:30 Acid Fast Bacilli Smear - Preliminary Perineal Fluid Assessment and Plan Assessment: Impression: Metastatic small cell lung cancer with interval progression of disease based on CT of the chest abdomen pelvis and worsening right-sided pleural effusion From ventricular tachycardia/paroxysmal patient is now on amiodarone Right neck mass related to small cell lung cancer Right lung opacification/consolidation with tumor progression from small cell lung cancer Chronic hypoxic respiratory failure secondary to above Elevated right hemidiaphragm Underlying chronic obstructive pulmonary disease Type 2 diabetes Benign essential hypertension Ex-smoker Status post right-sided thoracentesis, drained 1600 cc of serosanguineous fluid from the right pleural space, and right lung remains opacified even with high- volume thoracentesis. Recommendations: CT of the chest tomorrow and based on the findings may require Pleurx catheter placement by thoracic surgery who have already seen the patient. Continue antibiotics/cefazolin Continue bronchodilators Continue oxygen and titrate accordingly Still recommend hospice Continue to follow in the meantime Time with Patient: Less than 30
[2023-10-15 18:50] LABS: Glucose,Whole Blood 126 mg/dL (70-110)
[2023-10-16 00:04] LABS: Glucose,Whole Blood 112 mg/dL (70-110)
[2023-10-16 06:10] LABS: Glucose,Whole Blood 120 mg/dL (70-110)
[2023-10-16] MEDS: ALPRAZolam 0.5 MG TAB PO PRN (08:19)
--- NOTE | 2023-10-16 09:03 | P.PN ---
Subjective Progress Note Date: 10/16/23 Principal diagnosis: Right pleural effusion status postthoracentesis of 1.6 L of pleural fluid, evaluation for Pleurx catheter placement. Past medical history significant for metastatic small cell lung cancer diagnosed in December 2020, is status post radiation and chemotherapy and immunotherapy which finished around 2 weeks ago. He also has a history of hypertension, hyperlipidemia, diabetes mellitus type 2, tachycardia, COPD on 3 L nasal cannula as an outpatient, chronic cough, remote history of nicotine dependence quit smoking 4 years ago, history of EtOH abuse quit drinking 4 years ago, recurrent SVT status post ablation in May 2023 and history of dysphagia status post PEG tube placement. The patient was seen and examined in follow-up today 10/16/2023 at his bedside on the third floor cardiac stepdown unit. He is currently sitting up in bed, is having episodes of coughing and spitting up sputum into a cup. Oxygen saturation turn 91% on 5 L nasal cannula. Remote telemetry is showing normal sinus rhythm heart rate 97 BPM. He is scheduled for a computed tomography scan of the chest today without contrast which will be completed at 11 AM to evaluate his right pleural effusion for possible Pleurx catheter placement. He is currently nothing by mouth and anticipation for Pleurx catheter placement. Objective - Vital Signs Vital signs: Vital Signs Temp 97.6 F 10/16/23 08:00 Pulse 103 H 10/16/23 08:08 Resp 18 10/16/23 08:00 BP 120/71 10/16/23 08:00 Pulse Ox 91 L 10/16/23 08:00 FiO2 Intake & Output 10/15/23 10/16/23 10/16/23 18:59 06:59 18:59 Intake Total 580 480 Output Total 600 220 Balance -20 260 Intake: IV 80 .9 80 Oral 120 Tube Feeding 380 480 Output: Urine 600 220 Other: Voiding Method Bedside Commode Urinal # Voids 1 2 - Exam CONSTITUTIONAL: Appears comfortable, cooperative, no acute distress RESPIRATORY: Lungs sounds diminished To his right lobes, scattered crackles throughout with few scattered expiratory wheezes. Respirations symmetrical, nonlabored. Currently on room 5 L nasal cannula oxygen saturation 91%. Strong cough. CARDIOVASCULAR: S1, S2 present. Regular rate and rhythm, sinus rhythm on telemetry. Palpable peripheral pulses bilaterally. No edema present. No calf pain or tenderness noted. GASTROINTESTINAL: Abdomen soft, nontender, nondistended. PEG tube. Active bowel sounds present 4 quadrants. GENITOURINARY: Continues to void. INTEGUMENTARY: Skin is warm and dry with no clubbing or cyanosis. NEUROLOGIC: Cranial nerves II through XII intact. MUSKULOSKELETAL: Able to move all extremities, strength equal bilaterally, Generalized weakness. PSYCHIATRIC: Alert and oriented to person place and time, Flat affect, intact judgment and insight - Allied health notes Allied health notes reviewed: nursing - Labs CBC & Chem 7: 10/12/23 07:37 10/12/23 07:37 Labs: Abnormal Lab Results - Last 24 Hours (Table) 10/15/23 10/15/23 10/16/23 Range/Units 12:01 18:47 00:01 POC Glucose (mg/dL) 121 H 126 H 112 H (70-110) mg/dL 10/16/23 Range/Units 05:58 POC Glucose (mg/dL) 120 H (70-110) mg/dL Microbiology - Last 24 Hours (Table) 10/13/23 17:30 Gram Stain - Preliminary Pleural Fluid Body Fluid Culture - Preliminary - Imaging and Cardiology Chest x-ray: report reviewed, image reviewed Assessment and Plan Assessment: Right lung opacification on chest x-ray possibly secondary from pleural effusion orconsolidation with tumor progression from small cell lung cancer, status post thoracentesis on October 13, 2023 with 1.6 L of serosanguineous fluid drained from the right pleural space by Dr. Santos Metastatic small cell lung cancer, status post chemotherapy, radiation and immunotherapy Right neck mass related to small cell lung cancer Chronic hypoxic respiratory failure, on 3 L nasal cannula oxygen as an outpatient Chronic obstructive pulmonary disease Chronic cough History of hypertension Hyperlipidemia Diabetes mellitus type 2 Remote history of nicotine dependence, quit smoking in December 2020 History of EtOH abuse, quit drinking in 2020 History of dysphagia, status post PEG tube placement Recurrent SVT status post ablation in May 2023 Plan: Computed tomography scan of the chest without contrast is scheduled for 11 AM today, with possible Pleurx catheter placement today. Increase activity as tolerated. Medical management and other comorbidities per primary care service and other c onsultants. More recommendations follow based on patient's clinical course and per the computed tomography scan of the chest results. Time with Patient: Less than 30
[2023-10-16 12:05] LABS: Glucose,Whole Blood 105 mg/dL (70-110)
--- NOTE | 2023-10-16 12:25 | CT ---
EXAMINATION TYPE: CT chest wo con CT DLP: 283.2 mGycm, Automated exposure control for dose reduction was used. DATE OF EXAM: 10/16/2023 11:21 AM COMPARISON: Chest CT 10/06/2023. CLINICAL INDICATION:Male, 73 years old with history of Evaluate right pleural effusion; PHH, Evaluate right pleural effusion TECHNIQUE: Multiple axial images were obtained through the chest. Sagittal and coronal reformats were created for review. Contrast used: mL of (None if empty) Oral contrast used: (None if empty) FINDINGS: LUNGS/ PLEURA: Near-complete collapse of the entire right lung. Complete loss of aerated lung, pre dominantly due to atelectasis, but also slight increase in small to moderate right pleural effusion. Left base groundglass patchy pneumonia. Mid left lower lobe demonstrates 3 cm mass. No other large rodrigo ng nodule is identified in the right upper lobe measuring 1.8 cm AIRWAY: Left airway patent. After the right mainstem bronchus, no visible right lung airway. HEART: Size within normal limits. Severe calcific coronary artery disease MEDIASTINUM: No gross evidence of adenopathy. VASCULATURE: No aortic aneurysm. MUSCULOSKELETAL: No acute osseous abnormalities SOFT TISSUES/LYMPH NODES: Unremarkable. LOWER NECK: No significant findings. UPPER ABDOMEN: Innumerable large liver metastatic foci. IMPRESSION: 1. Large mass right upper lobe with additional smaller masses and nodules present bilaterally compati ble with lung cancer. Right upper lobe nodule and right lower lobe mass. Findings in the right lung a ppear more likely to increasing atelectasis or effusion and/or pneumonia. The amount of lung cancer i n the right upper lobe but not seem likely to account for the complete atelectasis of the right lung at this point. 2. Probable subcarinal metastatic lesion. 3. Multiple metastatic lesions within left and right lobes of liver.
--- NOTE | 2023-10-16 13:17 | P.PN ---
Subjective Progress Note Date: 10/16/23 Principal diagnosis: Lung cancer. Patient is a 73-year-old white male with past medical history significant for metastatic small cell lung cancer that was originally diagnosed back in 2020. He is status post chemo and radiation. He was noted to have disease progression on a recent PET scan done 06/2023. He has been referred to [facility], and is currently on immunotherapy. Reportedly enrolled in a clinical trial. Other medical history significant for COPD, diabetes mellitus, hypertension, hyperlipidemia, SVT/AV node reentry tachycardia. PET scan noted above dem onstrated slight increased uptake of radiotracer within the patient's known right lung mass. There is new bilateral lung nodules, right hilar lymph node with uptake suspicious for metastatic disease. Enlarging hepatic lesions. And new abnormal uptake within the soft tissue of the right neck suspicious for metastatic disease. Patient does have a right neck mass. He has been having issues with dysphagia and aspiration. Reports coughing after eating or drinking thin liquids. He was scheduled for a elective EGD/PEG tube placement yesterday. While in preop, was noted to be in SVT, the procedure was canceled, and the patient was sent to the emergency department. Heart rate was noted as high as 160s beat per minute. He reportedly held his metoprolol earlier in the day, because he was n.p.o. for his procedure. He normally takes 50 mg twice a day. Of note, patient had a recent admission May 2023 for recurrent SVT refractory to pharmacologic's. He did undergo EP study and cardiac ablation during this admission. On my evaluation, patient is currently in the emergency department, room 1. Heart rhythm on bedside monitor appears normal sinus with a rate of 86 bpm. Blood pressure is normotensive. He is resting comfortably in bed, on 3 L/min nasal cannula, which is chronic. He is no longer experiencing any heart palpitations or lightheadedness or acute shortness of breath that he was feeling when noted to be in SVT. From a pulmonary standpoint, patient denies any change in his chronic dyspnea, he has a chronic cough with very limited sputum production. No hemoptysis. No chest pain. Denies fevers. He does have a right neck mass. No stridor on my evaluation. Follow-up chest x-ray shows an elevated right hemidiaphragm and right upper lung consolidation and bilateral lung masses/nodules, consistent with recent PET scan results. There is multiple right-sided rib fractures. No pneumothorax. He states that he has a follow-up CAT scan scheduled October 17 at [facility] in [place]. CBC drawn on arrival: WBC count 11.4, hemoglobin 12.5, hematocrit 40.8, platelets 540. BMP on arrival unremarkable. Troponins less than 0.012. EKG taken earlier in the emergency room showed sinus tachycardia. No obvious acute ischemic changes. Current hemodynamics are stable. 10/07/2023, the patient is being seen for a follow-up. Earlier this morning, the patient became more short of breath and he also had an episode of tachycardia and the patient was seen by cardiology in this regard. This is SVT versus atrial flutter. The patient received 2 doses of metoprolol 2.5 mg IV and a bolus of 500 cc of normal saline. Following that, the patient to transfer to the telemetry unit. He is currently on metoprolol at a dose of 25 mg p.o. 4 times daily. The patient was also started on IV amiodarone. Pulse ox in the order of 93% on 4 L oxygen by nasal cannula. CAT scan of the chest abdomen and pelvis was noted and there is evidence of a diffuse metastatic disease with ex tensive hepatic involvement. The patient also has an enlarging right-sided pleural effusion with significant atelectasis of the right lung and evidence of mediastinal lymphadenopathy and scattered lesions involving the left lung in addition consistent with metastatic disease. Awaiting final report. Based on my evaluation and interpretation of the CAT scan, there is interval progression of his malignancy with extensive hepatic involvement. Remains on IV Zosyn. Limited echocardiogram will also obtained to rule out pericardial effusion. 10/08/2023, the patient is being seen for a follow-up. Patient remains on oxygen and the patient is currently on 4 L with a pulse ox of 94%. CAT scan of the chest abdomen pelvis was noted from yesterday and there is evidence of malignancy progression. The patient has a large right lung mass with significant atelectasis of the right lung and right-sided pleural effusion. In addition to that, the patient has evidence of 70 pulmonary lesions and nodules involving the left lung consistent with metastatic disease. Multiple masses within the liver compatible with metastatic disease. Nonobstructive renal stone in the inferior pole of the right kidney and a right renal cyst. The patient continues to have difficulty with respiratory secretions. He is undergoing self suctioning. He is unable to swallow. Remains NPO. The plan was to insert a P EG tube early next week. Meanwhile, the patient was having episodes of atrial tachycardia/SVT. He was treated with amiodarone bolus and infusion and beta- blockers. Currently, the patient is off amiodarone. The patient is on metoprolol 25 mg p.o. 4 times daily and the patient is on Lovenox for DVT prophylaxis. [facility] [place] Blood work from today shows a WBC count 13.9 with a hemoglobin 11.4 and a platelet count of 431. BUN is 20 mg 0.7 and sodium is at 132. LFTs are abnormal related to metastatic liver disease. On 10/09/2023, the patient had another episode of atrial fibrillation with RVR. Based on that, the patient was started on amiodarone drip which is being utilized by cardiology for rate control. He seems to continue to have episodes of paroxysmal atrial fibrillation. Current rhythm is back to sinus. Continues to have difficulty with swallowing. He is NPO. He is on 4 L of oxygen by nasal cannula with a pulse ox of 91%. White cell count is at 15, hemoglobin 11.7 and platelet count of 561. BUN is at 17 with a creatinine of 0.7 and a sodium levels of 133. Awake and alert and communicating. Quite cachectic and emaciated with impaired performance and functional status patient with significant progression in his metastatic small cell lung cancer. Reevaluated today on 10/10/2023, patient is doing well, relatively asymptomatic, he seems to be very comfortable, on 4 L nasal cannula with O2 saturation in the low 90s. He is hemodynamically stable, scheduled to have a PEG tube placement today, and I will clear the patient if cleared by cardiology he is on amiodarone drip. Pulmonary serrano I do not believe the patient will benefit much from having a Pleurx catheter placement and I would rather not proceed that route. And I would not recommend it. WBC count is 12.3 hemoglobin 11.5 basic metabolic profile is normal alkaline phosphatase is 479 with slightly elevated AST of 102. ALT is normal. Bilirubin is normal. Reevaluated today on 10/11/2023, patient is doing fairly well considering his overall clinical status. Underwent PEG tube placement yesterday, it was uneventful.Remains on 4 L nasal cannula with O2 saturation of 92% he is hemody namically stable. Seems to be comfortable at rest but short of breath with any exertion. No labs noted today except for a blood sugar of 82 Reevaluate today on 10/12/23, patient is basically about the same, no change in his overall status. Patient is now on enteral feeding via PEG tube, remains n .p.o., remains on bronchodilators, remains on oxygen at 4 L nasal cannula. O2 sats is 90%. Patient seems to be generally weak, debilitated, but not in distress. He is hemodynamically stable with blood pressure of 99/60, mean arterial pressure of 73. Seems to be comfortable, and not in distress Patient was evaluated today on 10/13/2023, patient remains the same but he seems to be more congested today. After evaluating the patient, a chest x-ray was done, and it showed complete opacification of the right lung, I believe there is progression of his lung disease and there is progression of his pleural effusion. Hence I will arrange for the patient to have a ultrasound of the chest, and if necessary we will proceed with performing a bedside thoracentesis depending on the ultrasound findings. My only concern is that ultrasound guided thoracentesis may lead us into a trapped lung, but we will decide after reviewing the ultrasound of the chest today. FiO2 requirement has gone up, patient was on 4 L on along, and I had to put him on 5 L today. And that explains why his FiO2 requirement has gone up today. Reevaluated today on 10/14/2023, patient is basically about the same, he felt a bit better after his thoracentesis yesterday, however his follow-up chest x-ray continues to show completely opacified right lung. I actually drained 1600 cc of serosanguineous fluid from the right pleural space yesterday, stopped the procedure after 600 cc of fluid drained mostly because the patient was developing some chest pain at the site of the procedure today chest x-ray continues to show completely opacified right lung, hence I am recommending thoracic surgery consultation for Pleurx catheter placement mostly for comfort care unless the family decides to proceed with hospice without Pleurx catheter placement. Blood report/initial report on his pleural effusion showed protein of 2970 LDH 537, clearly exudative in nature and most likely malignant unless for otherwise Patient was reevaluated today on 10/15/2023, patient is about the same, continues to look extremely frail, continues to have intermittent cough and difficulty clearing his secretions. Patient has a spit cup next to him, and he is constantly spitting into the cup. Chest x-ray yesterday continues to show complete opacification of the right lung, thoracic surgery was consulted for Pleurx catheter placement and mostly for comfort, recommended CT of the chest and will decide on Pleurx catheter placement in the next 24 hours. In the meantime the patient remains on his usual meds, he does not seem to be in distr ess, he is on 5 L nasal cannula, and O2 saturation remains between 93 to 96%. Progress note dated October 16, 2023. This is a 73-year-old male that I been seeing for a number of years. The patient was diagnosed as having lung cancer, and is currently seen today in room 351. He was going downstairs, for CAT scan of the chest. He has a very large right-sided pleural effusion. Thoracic surgery was consulted about the possibility of a Pleurx catheter. The patient is currently on 5 L nasal cannula . He is getting saline at 10 cc an hour. On October 12, he had a large-volume thoracentesis on the right side, with 1.6 L of fluid being removed. The right chest is already completely full of fluid again. No new labs today other than a glucose of 105. The patient looks quite frail, and very emaciated, and is lost quite a bit of weight. Objective - Vital Signs Vital signs: Vital Signs Temp 97.6 F 10/16/23 08:00 Pulse 103 H 10/16/23 08:08 Resp 18 10/16/23 08:00 BP 120/71 10/16/23 08:00 Pulse Ox 91 L 10/16/23 08:00 FiO2 Intake & Output 10/15/23 10/16/23 10/16/23 18:59 06:59 18:59 Intake Total 580 480 Output Total 600 220 Balance -20 260 Intake: IV 80 .9 80 Oral 120 Tube Feeding 380 480 Output: Urine 600 220 Other: Voiding Method Bedside Commode Urinal # Voids 1 2 1 - Exam No acute distress, oriented 3. The patient is chronically ill-appearing, and quite frail. Nasal O2 is noted. HEENT examination is grossly unremarkable. Mucous membranes are moist. No oral lesions. Neck supple. Full range of motion. No adenopathy thyromegaly or neck vein distention. Cardiovascular examination reveals regular rhythm rate. S1-S2 normal. No S3 or S4. No discernible murmur noted. Rate 103 bpm. Lungs reveal fairly diminished breath sounds on the right. No wheezes or r honchi. Left chest is clear 5 L saturation is 91%. Abdomen soft bowel sounds are heard. No masses or tenderness. Extremities are intact. No cyanosis clubbing or edema. Skin is without rash or lesion. Neurologic examination is brief but nonfocal. - Labs CBC & Chem 7: 10/12/23 07:37 10/12/23 07:37 Labs: Abnormal Lab Results - Last 24 Hours (Table) 10/15/23 10/16/23 10/16/23 Range/Units 18:47 00:01 05:58 POC Glucose (mg/dL) 126 H 112 H 120 H (70-110) mg/dL Microbiology - Last 24 Hours (Table) 10/13/23 17:30 Gram Stain - Preliminary Pleural Fluid Body Fluid Culture - Preliminary Assessment and Plan Assessment: Metastatic small cell lung cancer, with interval progression of disease. Recurrent right-sided pleural effusion, status post large-volume thoracentesis, October 12, with 1.6 L removed. Ventricular tachycardia. Right neck mass, related to small cell lung cancer. Chronic hypoxemic respiratory failure. Elevated right hemidiaphragm. COPD. Type 2 diabetes. Benign essential hypertension. Previous history of tobacco use. Plan: Plan dated October 16, 2023. The patient is seen today in room 351. He was being taken down for a CAT scan of the chest. CT scan of the chest shows complete opacification of the right hemithorax, secondary to recurrent large right-sided effusion. He is currently on 5 L of oxygen. He is getting saline at 10 cc an hour. He had a large-volume right-sided thoracentesis performed on October 12, with 1.6 L of fluid removed. The patient is being evaluated by cardiothoracic surgery for possible Pleurx catheter placement. The patient is status post PEG tube placement. The patient is a no code patient. In my opinion, hospice should be consulted. Time with Patient: Less than 30
--- NOTE | 2023-10-16 13:23 | P.PN ---
Subjective Progress Note Date: 10/16/23 Hospital Course: Patient is a very pleasant 73-year-old male with a past medical history of SVT/AV renodal entry tachycardia, metastatic lung cancer currently undergoing clinical study with immunotherapy treatments at [facility] in [place] and follows with oncologist Dr. Coughlin, hypertension, hyperlipidemia, and [id number] diabetes mellitus. He presented to the emergency department with a chief complaint of tachycardia, palpitations, and shortness of breath. Patient reports recently having difficulty swallowing secondary to his metastatic cancer and was scheduled for outpatient EGD with PEG tube placement but while in preop preparing to undergo procedure he began having palpitations with episodes of tachycardia with heart rate elevating to the 160s accompanied by worsening shortness of breath so he was transferred to ER for evaluation. Vital signs upon arrival show blood pressure 106/64, heart rate 123, respiratory rate 22, temp 97.8 F, and SpO2 of 93% on 3 L. EKG completed showing sinus Tachycardia at 121 bpm with frequent PACs first-degree AV block with AZ interval of 238 ms. Chest x-ray showing large right pleural effusion with scattered pulmonary masses and consolidation of right upper lung and multiple right-sided rib fractures. Labs completed and reviewed. CBC showing leukocytosis with WBC count of 11.4, hemoglobin of 12.5, and thrombocytosis with platelet count of 540. BMP showing hyponatremia with sodium 133, elevated BUN of 26, and blood glucose of 113. Liver profile showing elevated AST of 104 and alkaline phosph atase of 584. Troponin was negative at less than 0.012. Patient being admitted under our services with consultation to cardiology for atrial tachycardia, consultation to pulmonology for large pleural effusion, and consultation to general surgery for placement of PEG tube. On 10/07/2023 patient again having episode of atrial tachycardia/SVT with heart rate accelerating up to 180s accompanied by hypotension. EKG was completed showing atrial tachycardia with frequent PACs and patient requiring multiple doses of IV Lopressor followed by amiodarone bolus and infusion. CT chest/abdomen/pelvis was completed and radiology report reviewed showing large mass right upper lobe with additional smaller masses and nodules present bilaterally, probable subcarinal metastatic lesion and multiple metastatic lesions within the left and right lobes of liver. On 10/09/2023 patient again had episode of SVT/atrial tachycardia with heart rate again in the 170s accompanied by symptomatic hypotension with reports of dizziness and increased shortness of breath. Patient was given amiodarone bolus and restarted on amiodarone infusion, then titrated back to orals. Due to concern over aspiration, patient received PEG tube on 10/09 with tube feeds up to goal. After much consideration, patient decided to go home with hospice, currently pending set up of home hospital bed, home oxygen. Hospice is on board. Patient's medications were optimized for comfort including the addition of morphine as needed, oxycodone as needed, scopolamine patch, Xanax as needed. Upon reevaluation by pulmonology, patient did have a thoracentesis on 10/12 with 1600 cc pulled out, CT surgery was subsequently consulted for consideration of Pleurx placement since patient did improve for approximately [address] scan the following day showed reaccumulation of fluid on the right. Subjective: Pt pain is well controlled, dyspnea improved with morphine. Decided on comfort measures yesterday, goal is to go home with hospice per him and family. Physical exam: Vital signs reviewed and stable. General: Nontoxic, no distress, chronically ill-appearing, cachectic Derm: Skin warm and dry, normal coloration for ethnicity. Head: Atraumatic, normocephalic and symmetric. Eyes: EOMs intact, no lid lag, and anicteric sclera Mouth: no lip lesions, mucus membranes moist Cardiovascular: regular rate and rhythm with normal S1S2, systolic murmur, positive posterior tibial pulses bilaterally, and cap refill < 2 seconds. Lungs: Respirations even, regular, and unlabored on 4L O2 via nasal cannula. Lungs diminished throughout entire right lung, good air entry throughout left lung with soft expiratory wheezes in left upper lobe. Abdominal: soft, nontender to palpation, no guarding, no appreciable organomegaly. PEG tube in place Ext: ROM intact. No gross muscle atrophy, no edema, no contractures Neuro: Speech clear, face symmetrical and CN II-XII grossly intact with no noted focal neuro deficits Psych: Alert and oriented to person, place, time, and situation. Appropriate and pleasant affect. Assessment and Plan of Care: Atrial tachycardia/SVT, recurrent episodes Symptomatic Hypotension Metastatic Small Cell Lung cancer with large right pleural effusion Multiple right sided pulmonary masses with multiple right-sided rib fractures, secondary to above Hx of Hypertension Hyperlipidemia -Cardiology following, reviewed documentation in chart -General surgery following, took patient for PEG tube placement on 10/10/2023. -Pulmonology following, and due to poor prognosis, recommending Pleurx catheter at this time. -Consulted CT surgery, planning on placing pleurX today -Hematology/oncology following, appreciate recommendations. -Oxygenation prn -Telemetry monitoring. -Monitor Pulse-oximetry -continue metoprolol titrate -Amiodarone 200 mg twice daily. -Duonebs scheduled -Incentive Spirometry -[place] as needed, morphine as needed, Xanax as needed, scopolamine patch -Hospice followed up and arranging for DME, with plan to discharge home with hospice, monday Iyk-[id number] diabetes mellitus Hold Trijardy and continue patient on glycemic protocol with NovoLog sliding scale. Patient with overall poor prognosis secondary to worsening of metastasis of small cell lung cancer. CODE STATUS: DNR/DNI DVT prophylaxis: Lovenox Anticipated discharge date: Clinical course to determine Anticipated discharge place: Clinical course to determine This document was prepared using [employer] dictation software. Please allow for errors in braille coder while rare they do occur. Objective - Vital Signs Vital signs: Vital Signs Temp 97.6 F 10/16/23 08:00 Pulse 103 H 10/16/23 08:08 Resp 18 10/16/23 08:00 BP 120/71 10/16/23 08:00 Pulse Ox 91 L 10/16/23 08:00 FiO2 Intake & Output 10/15/23 10/16/23 10/16/23 18:59 06:59 18:59 Intake Total 580 480 Output Total 600 220 Balance -20 260 Intake: IV 80 .9 80 Oral 120 Tube Feeding 380 480 Output: Urine 600 220 Other: Voiding Method Bedside Commode Urinal # Voids 1 2 1 - Labs CBC & Chem 7: 10/12/23 07:37 10/12/23 07:37 Labs: Abnormal Lab Results - Last 24 Hours (Table) 10/15/23 10/16/23 10/16/23 Range/Units 18:47 00:01 05:58 POC Glucose (mg/dL) 126 H 112 H 120 H (70-110) mg/dL Microbiology - Last 24 Hours (Table) 10/13/23 17:30 Gram Stain - Preliminary Pleural Fluid Body Fluid Culture - Preliminary
--- NOTE | 2023-10-16 13:48 | P.PN ---
Subjective Progress Note Date: 10/16/23 Reports persisting SOB. Having significant conversational SOB at todays visit. CTS has been consulted, plan for CT chest and possible pleurx placement today. He states he has not had any updates from his oncologist, Dr. Patricio's office in regards to obtained scans. He has met with hospice team but has not decided to proceed with comfort care measures at this time Objective - Vital Signs Vital signs: Vital Signs Temp 97.6 F 10/16/23 08:00 Pulse 103 H 10/16/23 08:08 Resp 18 10/16/23 08:00 BP 120/71 10/16/23 08:00 Pulse Ox 91 L 10/16/23 08:00 FiO2 Intake & Output 10/15/23 10/16/23 10/16/23 18:59 06:59 18:59 Intake Total 580 480 Output Total 600 220 Balance -20 260 Intake: IV 80 .9 80 Oral 120 Tube Feeding 380 480 Output: Urine 600 220 Other: Voiding Method Bedside Commode Urinal # Voids 1 2 1 - Constitutional General appearance: Present: mild distress - EENT Eyes: Present: anicteric sclerae, EOMI ENT: Present: hearing grossly normal - Respiratory Details: breathing labored - Cardiovascular Details: skin warm and dry - Integumentary Integumentary: Absent: cyanotic - Musculoskeletal Musculoskeletal: Present: generalized weakness - Psychiatric Psychiatric: Present: A&O x's 3 - Labs CBC & Chem 7: 10/12/23 07:37 10/12/23 07:37 Labs: Abnormal Lab Results - Last 24 Hours (Table) 10/15/23 10/15/23 10/16/23 Range/Units 12:01 18:47 00:01 POC Glucose (mg/dL) 121 H 126 H 112 H (70-110) mg/dL 10/16/23 Range/Units 05:58 POC Glucose (mg/dL) 120 H (70-110) mg/dL Microbiology - Last 24 Hours (Table) 10/13/23 17:30 Gram Stain - Preliminary Pleural Fluid Body Fluid Culture - Preliminary - Imaging and Cardiology Chest x-ray: report reviewed Assessment and Plan (1) Dyspnea Current Visit: Yes Status: Acute Priority: High Code(s): R06.00 - DYSPNEA, UNSPECIFIED SNOMED Code(s): 758275495 (2) SVT (supraventricular tachycardia) Current Visit: Yes Status: Acute Priority: High Code(s): I47.1 - SUPRAVENTRICULAR TACHYCARDIA * DO NOT USE * SNOMED Code(s): 9453860 (3) Small cell lung cancer in adult Current Visit: Yes Status: Acute Priority: Medium Code(s): C34.90 - MALIGNANT NEOPLASM OF UNSP PART OF UNSP BRONCHUS OR LUNG SNOMED Code(s): 961379058 Plan: Small cell lung cancer, recurrent pleural effusion -Full oncological history in consult HPI -Currently on clinical trial, following with Dr. Patricio at [facility]. Pt is unsure what his treatment regimen consists of, but has been told to not take steroids with regimen, so likely clinical trial has immunotherapy component. I have requested records from [facility] to further clarify. -Upon review of records, he is on clinical trial [id number], which is an antibody treatment-immune checkpoint inhibitor -Chest x-ray revealed large right pleural effusion with scattered pulmonary mas ses and consolidation in the right upper lobe, which was seen on prior PET/CT. Chest ultrasound was obtained which revealed moderate right pleural effusion. -Pulmonology following and plans to treat with empiric antibiotics and bronchodilators. Concern for pneumonia vs disease progression. -CT CAP revealed large mass right upper lobe with additional smaller masses and nodules present bilaterally compatible with lung cancer. Findings appear more likely due to progression than superimposed pneumonia. Probable subcarinal metastatic lesion. Multiple metastatic lesions within the left and right lobes of the liver. Discussed results with patient and family. His last obtained treatment response scans at [facility] was approximately 2 months ago. Per pt he spoke with his primary oncologist, Dr. Patricio's [employer] and they will request CT scan to compare to previous treatment response scans to determine if disease progression is noted. -Hospice team has met with patient. Patient would like to wait for his oncologist to further review scans obtained during admission, so he can discuss disease state and treatment options prior to making any decision in regards to comfort care measures. At this time we will await further discussion with Dr. Patricio -S/p thoracentesis, 1600cc removed, unfortunately repeat CXR showed worsening right pleural effusion. -CTS has been consulted, plan for CT chest and possible pleurx placement today. *At today's visit, patient states he has not heard any updates from his oncologist's office. He has met with hospice team but has decided not to proceed with comfort care measures at this time. Will try to reach Dr. Patricio's office to further discuss CT scan findings and course of hospitalization
[2023-10-16 16:10] LABS: Glucose,Whole Blood 85 mg/dL (70-110)
--- NOTE | 2023-10-16 17:35 | P.PN ---
Subjective Progress Note Date: 10/16/23 the patient remains stable. He is tolerated tube feeds. On exam vital signs are stable. Abdomen is soft. PEG tube site is clean. Objective - Vital Signs Vital signs: Vital Signs Temp 97.8 F 10/16/23 12:00 Pulse 93 10/16/23 12:00 Resp 22 10/16/23 12:00 BP 118/66 10/16/23 12:00 Pulse Ox 93 L 10/16/23 12:00 FiO2 Intake & Output 10/15/23 10/16/23 10/16/23 18:59 06:59 18:59 Intake Total 580 480 Output Total 600 220 Balance -20 260 Weight 57 kg Intake: IV 80 .9 80 Oral 120 Tube Feeding 380 480 Output: Urine 600 220 Other: Voiding Method Bedside Commode Bedside Commode Urinal Urinal # Voids 1 2 1 - Labs CBC & Chem 7: 10/12/23 07:37 10/12/23 07:37 Labs: Abnormal Lab Results - Last 24 Hours (Table) 10/15/23 10/16/23 10/16/23 Range/Units 18:47 00:01 05:58 POC Glucose (mg/dL) 126 H 112 H 120 H (70-110) mg/dL Microbiology - Last 24 Hours (Table) 10/13/23 17:30 Gram Stain - Preliminary Pleural Fluid Body Fluid Culture - Preliminary
[2023-10-17 00:57] LABS: Glucose,Whole Blood 93 mg/dL (70-110)
[2023-10-17 06:20] LABS: Glucose,Whole Blood 106 mg/dL (70-110)
--- NOTE | 2023-10-17 09:40 | P.PN ---
Subjective Progress Note Date: 10/17/23 Principal diagnosis: Right pleural effusion status postthoracentesis of 1.6 L of pleural fluid, evaluation for Pleurx catheter placement. Past medical history significant for metastatic small cell lung cancer diagnosed in December 2020, is status post radiation and chemotherapy and immunotherapy which finished around 2 weeks ago. He also has a history of hypertension, hyperlipidemia, diabetes mellitus type 2, tachycardia, COPD on 3 L nasal cannula as an outpatient, chronic cough, remote history of nicotine dependence quit smoking 4 years ago, history of EtOH abuse quit drinking 4 years ago, recurrent SVT status post ablation in May 2023 and history of dysphagia status post PEG tube placement. The patient was seen and examined at his bedside on the third floor cardiac stepdown unit today October 17, 2023. The patient underwent a repeat this CAT scan of his chest without contrast yesterday which was reviewed by Dr. Ayad Andrea. Dr. Andrea discussed the findings with Dr. Celeste from pulmonary critical care medicine. Dr. Andrea discussed with the patient the findings on the CT scan and felt like Pleurx catheter is not indicated at this time due to the amount of f luid present. The patient was in agreement with Dr. Andrea's recommendations. Oxygen saturations are 93% on 5 L nasal cannula. Objective - Vital Signs Vital signs: Vital Signs Temp 97.5 F L 10/17/23 04:00 Pulse 108 H 10/17/23 08:23 Resp 22 10/17/23 04:00 BP 94/61 10/17/23 04:00 Pulse Ox 93 L 10/17/23 08:09 FiO2 Intake & Output 10/16/23 10/17/23 10/17/23 18:59 06:59 18:59 Weight 57 kg Other: Voiding Method Bedside Commode Bedside Commode Urinal # Voids 2 2 - Exam CONSTITUTIONAL: Appears comfortable, cooperative, no acute distress RESPIRATORY: Lungs sounds diminished To his right lobes, scattered crackles throughout with few scattered expiratory wheezes. Respirations symmetrical, nonlabored. Currently on room 5 L nasal cannula oxygen saturation 93%. Strong cough. CARDIOVASCULAR: S1, S2 present. Regular rate and rhythm, sinus rhythm on telemetry. Palpable peripheral pulses bilaterally. No edema present. No calf pain or tenderness noted. GASTROINTESTINAL: Abdomen soft, nontender, nondistended. PEG tube. Active bowel sounds present 4 quadrants. GENITOURINARY: Continues to void. INTEGUMENTARY: Skin is warm and dry with no clubbing or cyanosis. NEUROLOGIC: Cranial nerves II through XII intact. MUSKULOSKELETAL: Able to move all extremities, strength equal bilaterally, Generalized weakness. PSYCHIATRIC: Alert and oriented to person place and time, Flat affect, intact judgment and insight - Labs CBC & Chem 7: 10/12/23 07:37 10/12/23 07:37 Labs: Microbiology - Last 24 Hours (Table) 10/13/23 17:30 Gram Stain - Preliminary Pleural Fluid Body Fluid Culture - Preliminary Assessment and Plan Assessment: Right lung opacification on chest x-ray possibly secondary from pleural effusion orconsolidation with tumor progression from small cell lung cancer, status post thoracentesis on October 13, 2023 with 1.6 L of serosanguineous fluid drained from the right pleural space by Dr. Santos Metastatic small cell lung cancer, status post chemotherapy, radiation and immun otherapy Right neck mass related to small cell lung cancer Chronic hypoxic respiratory failure, on 3 L nasal cannula oxygen as an outpatient Chronic obstructive pulmonary disease Chronic cough History of hypertension Hyperlipidemia Diabetes mellitus type 2 Remote history of nicotine dependence, quit smoking in December 2020 History of EtOH abuse, quit drinking in 2020 History of dysphagia, status post PEG tube placement Recurrent SVT status post ablation in May 2023 Plan: No Pleurx catheter placement is planned at this time. Tube feeding management per primary care service. Increase activity as tolerated. Medical management and other comorbidities per primary care service and other consultants. We will continue to follow the patient on an as-needed basis. Time with Patient: Less than 30
[2023-10-17 10:16] VITALS: TEMP 97.9
--- NOTE | 2023-10-17 11:04 | P.PN ---
Subjective Progress Note Date: 10/17/23 Principal diagnosis: Lung cancer. Patient is a 73-year-old white male with past medical history significant for metastatic small cell lung cancer that was originally diagnosed back in 2020. He is status post chemo and radiation. He was noted to have disease progression on a recent PET scan done 06/2023. He has been referred to [facility], and is currently on immunotherapy. Reportedly enrolled in a clinical trial. Other medical history significant for COPD, diabetes mellitus, hypertension, hyperlipidemia, SVT/AV node reentry tachycardia. PET scan noted above dem onstrated slight increased uptake of radiotracer within the patient's known right lung mass. There is new bilateral lung nodules, right hilar lymph node with uptake suspicious for metastatic disease. Enlarging hepatic lesions. And new abnormal uptake within the soft tissue of the right neck suspicious for metastatic disease. Patient does have a right neck mass. He has been having issues with dysphagia and aspiration. Reports coughing after eating or drinking thin liquids. He was scheduled for a elective EGD/PEG tube placement yesterday. While in preop, was noted to be in SVT, the procedure was canceled, and the patient was sent to the emergency department. Heart rate was noted as high as 160s beat per minute. He reportedly held his metoprolol earlier in the day, because he was n.p.o. for his procedure. He normally takes 50 mg twice a day. Of note, patient had a recent admission May 2023 for recurrent SVT refractory to pharmacologic's. He did undergo EP study and cardiac ablation during this admission. On my evaluation, patient is currently in the emergency department, room 1. Heart rhythm on bedside monitor appears normal sinus with a rate of 86 bpm. Blood pressure is normotensive. He is resting comfortably in bed, on 3 L/min nasal cannula, which is chronic. He is no longer experiencing any heart palpitations or lightheadedness or acute shortness of breath that he was feeling when noted to be in SVT. From a pulmonary standpoint, patient denies any change in his chronic dyspnea, he has a chronic cough with very limited sputum production. No hemoptysis. No chest pain. Denies fevers. He does have a right neck mass. No stridor on my evaluation. Follow-up chest x-ray shows an elevated right hemidiaphragm and right upper lung consolidation and bilateral lung masses/nodules, consistent with recent PET scan results. There is multiple right-sided rib fractures. No pneumothorax. He states that he has a follow-up CAT scan scheduled October 17 at [facility] in [place]. CBC drawn on arrival: WBC count 11.4, hemoglobin 12.5, hematocrit 40.8, platelets 540. BMP on arrival unremarkable. Troponins less than 0.012. EKG taken earlier in the emergency room showed sinus tachycardia. No obvious acute ischemic changes. Current hemodynamics are stable. 10/07/2023, the patient is being seen for a follow-up. Earlier this morning, the patient became more short of breath and he also had an episode of tachycardia and the patient was seen by cardiology in this regard. This is SVT versus atrial flutter. The patient received 2 doses of metoprolol 2.5 mg IV and a bolus of 500 cc of normal saline. Following that, the patient to transfer to the telemetry unit. He is currently on metoprolol at a dose of 25 mg p.o. 4 times daily. The patient was also started on IV amiodarone. Pulse ox in the order of 93% on 4 L oxygen by nasal cannula. CAT scan of the chest abdomen and pelvis was noted and there is evidence of a diffuse metastatic disease with ex tensive hepatic involvement. The patient also has an enlarging right-sided pleural effusion with significant atelectasis of the right lung and evidence of mediastinal lymphadenopathy and scattered lesions involving the left lung in addition consistent with metastatic disease. Awaiting final report. Based on my evaluation and interpretation of the CAT scan, there is interval progression of his malignancy with extensive hepatic involvement. Remains on IV Zosyn. Limited echocardiogram will also obtained to rule out pericardial effusion. 10/08/2023, the patient is being seen for a follow-up. Patient remains on oxygen and the patient is currently on 4 L with a pulse ox of 94%. CAT scan of the chest abdomen pelvis was noted from yesterday and there is evidence of malignancy progression. The patient has a large right lung mass with significant atelectasis of the right lung and right-sided pleural effusion. In addition to that, the patient has evidence of 70 pulmonary lesions and nodules involving the left lung consistent with metastatic disease. Multiple masses within the liver compatible with metastatic disease. Nonobstructive renal stone in the inferior pole of the right kidney and a right renal cyst. The patient continues to have difficulty with respiratory secretions. He is undergoing self suctioning. He is unable to swallow. Remains NPO. The plan was to insert a P EG tube early next week. Meanwhile, the patient was having episodes of atrial tachycardia/SVT. He was treated with amiodarone bolus and infusion and beta- blockers. Currently, the patient is off amiodarone. The patient is on metoprolol 25 mg p.o. 4 times daily and the patient is on Lovenox for DVT prophylaxis. Remains on [facility]. Blood work from today shows a WBC count 13.9 with a hemoglobin 11.4 and a platelet count of 431. BUN is 20 mg 0.7 and sodium is at 132. LFTs are abnormal related to metastatic liver disease. On 10/09/2023, the patient had another episode of atrial fibrillation with RVR. Based on that, the patient was started on amiodarone drip which is being utilized by cardiology for rate control. He seems to continue to have episodes of paroxysmal atrial fibrillation. Current rhythm is back to sinus. Continues to have difficulty with swallowing. He is NPO. He is on 4 L of oxygen by nasal cannula with a pulse ox of 91%. White cell count is at 15, hemoglobin 11.7 and platelet count of 561. BUN is at 17 with a creatinine of 0.7 and a sodium levels of 133. Awake and alert and communicating. Quite cachectic and emaciated with impaired performance and functional status patient with significant progression in his metastatic small cell lung cancer. Reevaluated today on 10/10/2023, patient is doing well, relatively asymptomatic, he seems to be very comfortable, on 4 L nasal cannula with O2 saturation in the low 90s. He is hemodynamically stable, scheduled to have a PEG tube placement today, and I will clear the patient if cleared by cardiology he is on amiodarone drip. Pulmonary serrano I do not believe the patient will benefit much from having a Pleurx catheter placement and I would rather not proceed that route. And I would not recommend it. WBC count is 12.3 hemoglobin 11.5 basic metabolic profile is normal alkaline phosphatase is 479 with slightly elevated AST of 102. ALT is normal. Bilirubin is normal. Reevaluated today on 10/11/2023, patient is doing fairly well considering his overall clinical status. Underwent PEG tube placement yesterday, it was uneventful.Remains on 4 L nasal cannula with O2 saturation of 92% he is hemody namically stable. Seems to be comfortable at rest but short of breath with any exertion. No labs noted today except for a blood sugar of 82 Reevaluate today on 10/12/23, patient is basically about the same, no change in his overall status. Patient is now on enteral feeding via PEG tube, remains n .p.o., remains on bronchodilators, remains on oxygen at 4 L nasal cannula. O2 sats is 90%. Patient seems to be generally weak, debilitated, but not in distress. He is hemodynamically stable with blood pressure of 99/60, mean arterial pressure of 73. Seems to be comfortable, and not in distress Patient was evaluated today on 10/13/2023, patient remains the same but he seems to be more congested today. After evaluating the patient, a chest x-ray was done, and it showed complete opacification of the right lung, I believe there is progression of his lung disease and there is progression of his pleural effusion. Hence I will arrange for the patient to have a ultrasound of the chest, and if necessary we will proceed with performing a bedside thoracentesis depending on the ultrasound findings. My only concern is that ultrasound guided thoracentesis may lead us into a trapped lung, but we will decide after reviewing the ultrasound of the chest today. FiO2 requirement has gone up, patient was on 4 L on along, and I had to put him on 5 L today. And that explains why his FiO2 requirement has gone up today. Reevaluated today on 10/14/2023, patient is basically about the same, he felt a bit better after his thoracentesis yesterday, however his follow-up chest x-ray continues to show completely opacified right lung. I actually drained 1600 cc of serosanguineous fluid from the right pleural space yesterday, stopped the procedure after 600 cc of fluid drained mostly because the patient was developing some chest pain at the site of the procedure today chest x-ray continues to show completely opacified right lung, hence I am recommending thoracic surgery consultation for Pleurx catheter placement mostly for comfort care unless the family decides to proceed with hospice without Pleurx catheter placement. Blood report/initial report on his pleural effusion showed protein of 2970 LDH 537, clearly exudative in nature and most likely malignant unless for otherwise Patient was reevaluated today on 10/15/2023, patient is about the same, continues to look extremely frail, continues to have intermittent cough and difficulty clearing his secretions. Patient has a spit cup next to him, and he is constantly spitting into the cup. Chest x-ray yesterday continues to show complete opacification of the right lung, thoracic surgery was consulted for Pleurx catheter placement and mostly for comfort, recommended CT of the chest and will decide on Pleurx catheter placement in the next 24 hours. In the meantime the patient remains on his usual meds, he does not seem to be in distr ess, he is on 5 L nasal cannula, and O2 saturation remains between 93 to 96%. Progress note dated October 16, 2023. This is a 73-year-old male that I been seeing for a number of years. The patient was diagnosed as having lung cancer, and is currently seen today in room 351. He was going downstairs, for CAT scan of the chest. He has a very large right-sided pleural effusion. Thoracic surgery was consulted about the possibility of a Pleurx catheter. The patient is currently on 5 L nasal cannula . He is getting saline at 10 cc an hour. On October 12, he had a large-volume thoracentesis on the right side, with 1.6 L of fluid being removed. The right chest is already completely full of fluid again. No new labs today other than a glucose of 105. The patient looks quite frail, and very emaciated, and is lost quite a bit of weight. Progress note dated October 17, 2023. 73-year-old male seen today in room 351. Currently, he is on 5 L by nasal cannula. He is receiving Glucerna at 40 cc an hour, and saline at 10 cc an hour. I spoke to Dr. Andrea about the patient yesterday. Dr. Andrea was not interested at this time and placing a Pleurx catheter. I did mention to the patient, and family members, that we will repeat an ultrasound, and if there was fluid, that was free-flowing, and we were able to drain, we might consider doing another thoracentesis. The patient is a DNR patient. No new labs today other than a glucose of 106. Objective - Vital Signs Vital signs: Vital Signs Temp 97.9 F 10/17/23 08:50 Pulse 125 H 10/17/23 08:50 Resp 20 10/17/23 08:50 BP 106/68 10/17/23 08:50 Pulse Ox 90 L 10/17/23 08:50 FiO2 Intake & Output 10/16/23 10/17/23 10/17/23 18:59 06:59 18:59 Weight 57 kg Other: Voiding Method Bedside Commode Bedside Commode Bedside Commode Urinal # Voids 2 2 - Exam No acute distress, oriented 3. The patient is chronically ill-appearing, and quite frail. Nasal O2 is noted at 5 L. HEENT examination is grossly unremarkable. Mucous membranes are moist. No oral lesions. Neck supple. Full range of motion. No adenopathy thyromegaly or neck vein distention. Cardiovascular examination reveals regular rhythm rate. S1-S2 normal. No S3 or S4. No discernible murmur noted. Rate 105 bpm. Lungs reveal fairly diminished breath sounds on the right. No wheezes or rhonchi. Left chest is clear 5 L saturation is 90 %. Abdomen soft bowel sounds are heard. No masses or tenderness. Extremities are intact. No cyanosis clubbing or edema. Skin is without rash or lesion. Neurologic examination is brief but nonfocal. - Labs CBC & Chem 7: 10/12/23 07:37 10/12/23 07:37 Labs: Microbiology - Last 24 Hours (Table) 10/13/23 17:30 Gram Stain - Preliminary Pleural Fluid Body Fluid Culture - Preliminary Assessment and Plan Assessment: Metastatic small cell lung cancer, with interval progression of disease. Recurrent right-sided pleural effusion, status post large-volume thoracentesis, October 12, with 1.6 L removed. Ventricular tachycardia. Right neck mass, related to small cell lung cancer. Chronic hypoxemic respiratory failure. Elevated right hemidiaphragm. COPD. Type 2 diabetes. Benign essential hypertension. Previous history of tobacco use. Plan: Plan dated October 16, 2023. The patient is seen today in room 351. He was being taken down for a CAT scan of the chest. CT scan of the chest shows complete opacification of the right hemithorax, secondary to recurrent large right-sided effusion. He is currently on 5 L of oxygen. He is getting saline at 10 cc an hour. He had a large-volume right-sided thoracentesis performed on October 12, with 1.6 L of fluid removed. The patient is being evaluated by cardiothoracic surgery for possible Pleurx catheter placement. The patient is status post PEG tube placement. The patient is a no code patient. In my opinion, hospice should be consulted. Plan dated October 17, 2023. The patient is seen again in room 351. I spoke to Dr[address] Andrea about the patient yesterday, and Dr. Andrea did not think that a Pleurx catheter was appropriate at this time. The patient is a DNR patient, but, we will check another ultrasound of the chest, and if there is free-flowing fluid, we may consider thoracentesis. Labs, x-rays, and medications are reviewed. The patient is receiving tube feedings with Glucerna at 40 cc an hour. He remains on nasal oxy gen at 5 L. We will continue to follow make recommendations. Prognosis is certainly very poor. Time with Patient: Less than 30
[2023-10-17] MEDS ORDERED: LORazepam 1 MG/0.5 ML VIAL IV PRN (11:25)
[2023-10-17] MEDS ORDERED: HYOSCYAMINE ORAL DROPS 1.875 MG/15 ML BOTTLE PO PRN (11:26)
--- NOTE | 2023-10-17 11:35 | US ---
EXAMINATION TYPE: US chest DATE OF EXAM: 10/17/2023 COMPARISON: CT 2023, XR 2023, US 2023 CLINICAL INDICATION: Male, 73 years old with history of Right pleural effusion; Right pleural effusio n. TECHNIQUE: Targeted ultrasound of the posterior lower bilateral hemithoraces EXAM MEASUREMENTS: Right Pleural Effusion pocket size: ?Question loculated/very complex fluid versus mass seen measurin .9 cm. Not marked. Right skin surface to fluid distance: 2.0 cm Lung tissue seen at 2.5 cm from skin surface. Left Pleural Effusion pocket size: 0 cm No fluid seen. Right side NOT marked for possible thoracentesis outside the dept. Left side NOT marked for possible thoracentesis outside the dept. Pulmonologists are able to review the images in the patient?s EMR. IMPRESSIONS: No safe access to right pleural effusion.
[2023-10-17] MEDS: LORazepam 1 MG/0.5 ML VIAL IV STA (11:43)
--- NOTE | 2023-10-17 11:48 | P.PN ---
Subjective Progress Note Date: 10/17/23 Hospital Course: Patient is a very pleasant 73-year-old male with a past medical history of SVT/AV renodal entry tachycardia, metastatic lung cancer currently undergoing clinical study with immunotherapy treatments at [facility] in [place] and follows with oncologist Dr. Coughlin, hypertension, hyperlipidemia, and [id number] diabetes mellitus. He presented to the emergency department with a chief complaint of tachycardia, palpitations, and shortness of breath. Patient reports recently having difficulty swallowing secondary to his metastatic cancer and was scheduled for outpatient EGD with PEG tube placement but while in preop preparing to undergo procedure he began having palpitations with episodes of tachycardia with heart rate elevating to the 160s accompanied by worsening shortness of breath so he was transferred to ER for evaluation. Vital signs upon arrival show blood pressure 106/64, heart rate 123, respiratory rate 22, temp 97.8 F, and SpO2 of 93% on 3 L. EKG completed showing sinus Tachycardia at 121 bpm with frequent PACs first-degree AV block with VA interval of 238 ms. Chest x-ray showing large right pleural effusion with scattered pulmonary masses and consolidation of right upper lung and multiple right-sided rib fractures. Labs completed and reviewed. CBC showing leukocytosis with WBC count of 11.4, hemoglobin of 12.5, and thrombocytosis with platelet count of 540. BMP showing hyponatremia with sodium 133, elevated BUN of 26, and blood glucose of 113. Liver profile showing elevated AST of 104 and alkaline phosphatase of 584. Troponin was negative at less than 0.012. Patient being admitted under our services with consultation to cardiology for atrial tachycardia, consultation to pulmonology for large pleural effusion, and consultation to general surgery for placement of PEG tube. On 10/07/2023 patient again having episode of atrial tachycardia/SVT with heart rate accelerating up to 180s accompanied by hypotension. EKG was completed showing atrial tachycardia with frequent PACs and patient requiring multiple doses of IV Lopressor followed by amiodarone bolus and infusion. CT chest/abdomen/pelvis was completed and radiology report reviewed showing large mass right upper lobe with additional smaller masses and nodules present bilaterally, probable subcarinal metastatic lesion and multiple metastatic lesions within the left and right lobes of liver. On 10/09/2023 patient again had episode of SVT/atrial tachycardia with heart rate again in the 170s accompanied by symptomatic hypo tension with reports of dizziness and increased shortness of breath. Patient was given amiodarone bolus and restarted on amiodarone infusion, then titrated back to orals. Due to concern over aspiration, patient received PEG tube on 10/09 with tube feeds up to goal. On 10/13/2023 patient underwent right-sided thoracentesis with a reported 1600 cc of serosanguineous fluid removed from right pleural space. After much consideration, patient decided to go home with hospice, currently pending set up of home hospital bed, home oxygen. Hospice is on board. Patient's medications were optimized for comfort including the addition of morphine as needed, oxycodone as needed, scopolamine patch, Xanax as needed. Upon reevaluation by pulmonology, patient did have a thoracentesis on 10/12 with 1600 cc pulled out, CT surgery was subsequently consulted for consideration of Pleurx placement since patient did improve for approximately [address] scan the following day showed reaccumulation of fluid on the right. Physical exam: Vital signs reviewed and stable. General: Nontoxic, no distress, chronically ill-appearing, cachectic Derm: Skin warm and dry, normal coloration for ethnicity. Head: Atraumatic, normocephalic and symmetric. Eyes: EOMs intact, no lid lag, and anicteric sclera Mouth: no lip lesions, mucus membranes moist Cardiovascular: regular rate and rhythm with normal S1S2, systolic murmur, positive posterior tibial pulses bilaterally, and cap refill < 2 seconds. Lungs: Respirations even, regular, and unlabored on 4L O2 via nasal cannula. Lungs diminished throughout entire right lung, good air entry throughout left lung with soft expiratory wheezes in left upper lobe. Abdominal: soft, nontender to palpation, no guarding, no appreciable organomegaly. PEG tube in place Ext: ROM intact. No gross muscle atrophy, no edema, no contractures Neuro: Speech clear, face symmetrical and CN II-XII grossly intact with no noted focal neuro deficits Psych: Alert and oriented to person, place, time, and situation. Appropriate and pleasant affect. Assessment and Plan of Care: Atrial tachycardia/SVT, recurrent episodes Symptomatic Hypotension Metastatic Small Cell Lung cancer with large right pleural effusion Multiple right sided pulmonary masses with multiple right-sided rib fractures, secondary to above Hx of Hypertension Hyperlipidemia -Cardiology following, reviewed documentation in chart -General surgery following, took patient for PEG tube placement on 10/10/2023. -Pulmonology following, and due to poor prognosis, recommending Pleurx catheter at this time. -Consulted CT surgery, planning on placing pleurX today -Hematology/oncology following, appreciate recommendations. -Oxygenation prn -Telemetry monitoring. -Monitor Pulse-oximetry -continue metoprolol titrate -Amiodarone 200 mg twice daily. -Duonebs scheduled -Incentive Spirometry -[place] as needed, morphine as needed, Xanax as needed, scopolamine patch scheduled every [address] patient on scheduled Robinul 0.1 mg every 6 hours for excess secretions. -Hospice followed up and arranging for DME, with plan to discharge home with hospice 10/18/23 [id number] diabetes mellitus -Hold Trijardy and continue patient on glycemic protocol with NovoLog sliding scale. Patient with overall poor prognosis secondary to worsening of metastasis of small cell lung cancer. CODE STATUS: DNR/DNI DVT prophylaxis: Lovenox Anticipated discharge date: Tomorrow Anticipated discharge place: Home with hospice Patient was seen independently by Nurse Pracitioner. This document was prepared using [employer] dictation software. Please allow for errors in project leader, while rare they do occur. Guido Lutz NP rendered care for this patient independently, reviewed the findings and plan as documented in the note above. I did not physically speak with or examine the patient on this date. Objective - Vital Signs Vital signs: Vital Signs Temp 97.5 F L 10/17/23 04:00 Pulse 110 H 10/17/23 08:09 Resp 22 10/17/23 04:00 BP 94/61 10/17/23 04:00 Pulse Ox 93 L 10/17/23 08:09 FiO2 Intake & Output 10/16/23 10/17/23 10/17/23 18:59 06:59 18:59 Weight 57 kg Other: Voiding Method Bedside Commode Bedside Commode Urinal # Voids 2 - Labs CBC & Chem 7: 10/12/23 07:37 10/12/23 07:37 Labs: Microbiology - Last 24 Hours (Table) 10/13/23 17:30 Gram Stain - Preliminary Pleural Fluid Body Fluid Culture - Preliminary
[2023-10-17 11:55] VITALS: BP 85/49; PULSE 88; RESP 21
[2023-10-17 12:04] LABS: Glucose,Whole Blood 139 mg/dL (70-110)
[2023-10-17] MEDS: GLYCOPYRROLATE 0.2 MG/ML 2 ML VIAL IVP SCH (12:39)
--- NOTE | 2023-10-17 13:20 | P.DS ---
Providers Date of admission: 10/07/23 16:08 Expected date of discharge: 10/17/23 Attending physician: Hussein Murguia MD Consults: 10/05/23 12:02 Consult Physician Urgent Consulting Provider: [facility] Consult Reason/Comments: tachycardia, hx svt Do you want consulting provider notified?: Yes Consult Physician Urgent Consulting Provider: John Jett Consult Reason/Comments: dysphagia, lung cancer Do you want consulting provider notified?: Yes 10/05/23 13:46 Consult Physician Routine Consulting Provider: Abdirashid Rosales Consult Reason/Comments: Lg right pleural effusion, lung cancer Do you want consulting provider notified?: Yes 10/05/23 15:50 Consult Physician Routine Consulting Provider: Chuck Robles Consult Reason/Comments: Metastatic lung cancer Do you want consulting provider notified?: Yes 10/07/23 11:08 Consult Physician Routine Consulting Provider: Charlie Christian Consult Reason/Comments: A-tach. Do you want consulting provider notified?: Already Contacted 10/09/23 09:39 Consult Physician Routine Consulting Provider: Charlie Christian Consult Reason/Comments: SVT Do you want consulting provider notified?: Yes 10/14/23 09:20 Consult Physician Routine Consulting Provider: Betito Short Consult Reason/Comments: Pleurx catheter Do you want consulting provider notified?: Yes Primary care physician: Stoney Patel Hospital Course: PATIENT DISCHARGED TO INPATIENT HOSPICE AT THIS TIME Discharge Diagnosis: Atrial tachycardia/SVT, recurrent episodes Symptomatic Hypotension Metastatic Small Cell Lung cancer with large right pleural effusion Multiple right sided pulmonary masses with multiple right-sided rib fractures, secondary to above Hx of Hypertension Hyperlipidemia Bbj-isfktrz-oxsqlkorp diabetes mellitus Hospital Course: Patient is a very pleasant 73-year-old male with a past medical history of SVT/AV renodal entry tachycardia, metastatic lung cancer currently undergoing clinical study with immunotherapy treatments at [facility] in [place] and follows with oncologist Dr. Coughlin, hypertension, hyperlipidemia, and roz-stlbfxh-ccydhbhuf diabetes mellitus. He presented to the emergency department with a chief complaint of tachycardia, palpitations, and shortness of breath. Patient reports recently having difficulty swallowing secondary to his metastatic cancer and was scheduled for outpatient EGD with PEG tube placement but while in preop preparing to undergo procedure he began having palpitations with episodes of tachycardia with heart rate elevating to the 160s accompanied by worsening shortness of breath so he was transferred to ER for evaluation. Vital signs upon arrival show blood pressure 106/64, heart rate 123, respiratory rate 22, temp 97.8 F, and SpO2 of 93% on 3 L. EKG completed showing sinus Tachycardia at 121 bpm with frequent PACs first-degree AV block with [place] interval of 238 ms. Chest x-ray showing large right pleural effusion with scattered pulmonary masses and consolidation of right upper lung and multiple right-sided rib fractures. Labs completed and reviewed. CBC showing leukocytosis with WBC count of 11.4, hemoglobin of 12.5, and thrombocytosis with platelet count of 540. BMP showing hyponatremia with sodium 133, elevated BUN of 26, and blood glucose of 113. Liver profile showing elevated AST of 104 and alkaline phosphatase of 584. Troponin was negative at less than 0.012. Patient being admitted under our services with consultation to cardiology for atrial tachycardia, consultation to pulmonology for large pleural effusion, and consultation to general surgery for placement of PEG tube. On 10/07/2023 patient again having episode of atrial tachycardia/SVT with heart rate accelerating up to 180s accompanied by hypotension. EKG was completed showing atrial tachycardia with frequent PACs and patient requiring multiple doses of IV Lopressor followed by amiodarone bolus and infusion. CT chest/abdomen/pelvis was completed and radiology report reviewed showing large mass right upper lobe with additional smaller masses and nodules present bilaterally, probable subcarinal metastatic lesion and multiple metastatic lesions within the left and right lobes of liver. On 10/09/2023 patient again had episode of SVT/atrial tachycardia with heart rate again in the 170s accompanied by symptomatic hypotension with reports of dizziness and increased shortness of breath. Patient was given amiodarone bolus and restarted on amiodarone infusion, then titrated back to orals. Due to concern over aspiration, patient received PEG tube on 10/09 with tube feeds up to goal. On 10/13/2023 patient underwent right- sided thoracentesis with a reported 1600 cc of serosanguineous fluid removed from right pleural space. After much consideration, patient decided to go home with hospice, currently pending set up of home hospital bed, home oxygen. Hospice is on board. Patient's medications were optimized for comfort including the addition of morphine as needed, oxycodone as needed, scopolamine patch, Xanax as needed. Upon reevaluation by pulmonology, patient did have a thoracentesis on 10/12 with 1600 cc pulled out, CT surgery was subsequently consulted for consideration of Pleurx placement since patient did improve for approximately [address] scan the following day showed reaccumulation of fluid on the right. Physical exam: Vital signs reviewed and stable. General: Nontoxic, no distress, chronically ill-appearing, cachectic Derm: Skin warm and dry, normal coloration for ethnicity. Head: Atraumatic, normocephalic and symmetric. Eyes: EOMs intact, no lid lag, and anicteric sclera Mouth: no lip lesions, mucus membranes moist Cardiovascular: regular rate and rhythm with normal S1S2, systolic murmur, positive posterior tibial pulses bilaterally, and cap refill < 2 seconds. Lungs: Respirations even, regular, and unlabored on 4L O2 via nasal cannula. Lungs diminished throughout entire right lung, good air entry throughout left lung with soft expiratory wheezes in left upper lobe. Abdominal: soft, nontender to palpation, no guarding, no appreciable organomegaly. PEG tube in place Ext: ROM intact. No gross muscle atrophy, no edema, no contractures Neuro: Speech clear, face symmetrical and CN II-XII grossly intact with no noted focal neuro deficits Psych: Alert and oriented to person, place, time, and situation. Appropriate and pleasant affect. A total of 31 minutes of time were spent preparing this complex discharge summary. Pt was discharged on 10/17/2023 at 1:15 PM Patient was seen independently by Nurse Practitioner. This document was prepared using [employer] dictation software. Please allow for errors in quiller machine fixer while rare they do occur. Guido Lutz NP rendered care for this patient independently, reviewed the findings and plan as documented in the note above. I did not physically speak with or examine the patient on this date. Patient Condition at Discharge: Stable Plan - Discharge Summary New Discharge Prescriptions: No Action Multivitamins, Thera [Multivitamin (formulary)] 1 tab PO DAILY Metoprolol Succinate (ER) [Toprol XL] 50 mg PO DAILY #30 tab HYDROcodone/APAP 7.5-325MG [[place] 7.5-325] 1 tab PO Q4H PRN PRN Reason: Pain Albuterol Inhaler [Ventolin Hfa Inhaler] 1 puff INHALATION RT-Q6H PRN PRN Reason: Shortness Of Breath Or Wheezing Empaglifloz/Linaglip/Metformin [Trijardy Xr 12.5-2.5-1,000 mg] 1 tab PO BID Ondansetron [Zofran] 4 mg PO Q6H PRN PRN Reason: Nausea Sennosides [Senokot] 17.2 mg PO HS Gabapentin 300 mg PO DIRECTED Ipratropium-Albuterol Nebulize [Duoneb 0.5 mg-3 mg/3 ml Soln] 3 ml INHALATION RT-QID Budesonide/Formoterol Fumarate [Breyna 160-4.5 Mcg Inhaler] 2 puff INHALATION RT-BID Discharge Medication List Empaglifloz/Linaglip/Metformin [Trijardy Xr 12.5-2.5-1,000 mg] 1 tab PO BID 12/28/21 [History] Multivitamins, Thera [Multivitamin (formulary)] 1 tab PO DAILY 05/26/23 [History] Ondansetron [Zofran] 4 mg PO Q6H PRN 05/26/23 [History] Metoprolol Succinate (ER) [Toprol XL] 50 mg PO DAILY #30 tab 06/01/23 [Rx] Albuterol Inhaler [Ventolin Hfa Inhaler] 1 puff INHALATION RT-Q6H PRN 10/05/23 [History] Budesonide/Formoterol Fumarate [Breyna 160-4.5 Mcg Inhaler] 2 puff INHALATION RT-BID 10/05/23 [History] Gabapentin 300 mg PO DIRECTED 10/05/23 [History] HYDROcodone/APAP 7.5-325MG [[place] 7.5-325] 1 tab PO Q4H PRN 10/05/23 [History] Ipratropium-Albuterol Nebulize [Duoneb 0.5 mg-3 mg/3 ml Soln] 3 ml INHALATION RT-QID 10/05/23 [History] Sennosides [Senokot] 17.2 mg PO HS 10/05/23 [History] Follow up Appointment(s)/Referral(s): Stoney Patel MD [Primary Care Provider] - 1-2 days Discharge Disposition: HOME WITH HOSPICE
--- NOTE | 2023-10-17 16:32 | P.PN ---
Subjective Progress Note Date: 10/17/23 Principal diagnosis: Extensive stage SCLC, actively dying When seen pt is agitated and confused, he falls asleep very quickly and then arouses very quickly. He did not communicate with me, at bedside Objective - Vital Signs Vital signs: Vital Signs Temp 97.9 F 10/17/23 08:50 Pulse 125 H 10/17/23 08:50 Resp 20 10/17/23 08:50 BP 106/68 10/17/23 08:50 Pulse Ox 90 L 10/17/23 08:50 FiO2 Intake & Output 10/16/23 10/17/23 10/17/23 18:59 06:59 18:59 Weight 57 kg Other: Voiding Method Bedside Commode Bedside Commode Bedside Commode Urinal # Voids 2 2 - Constitutional Constitutional Comment(s): Thin, frail, resp rattle from secretions pooling in the back of throat, restless, wide eyed stare. - Labs CBC & Chem 7: 10/12/23 07:37 10/12/23 07:37 Labs: Microbiology - Last 24 Hours (Table) 10/13/23 17:30 Gram Stain - Preliminary Pleural Fluid Body Fluid Culture - Preliminary Assessment and Plan (1) Pleural effusion Status: Acute Priority: High Code(s): J90 - PLEURAL EFFUSION, NOT ELSEWHERE CLASSIFIED SNOMED Code(s): 89939164 (2) Dyspnea Status: Acute Priority: High Code(s): R06.00 - DYSPNEA, UNSPECIFIED SNOMED Code(s): 594262989 (3) Small cell lung cancer in adult Status: Acute Priority: High Code(s): C34.90 - MALIGNANT NEOPLASM OF UNSP PART OF UNSP BRONCHUS OR LUNG SNOMED Code(s): 891776680 (4) Tachycardia Status: Acute Priority: High Code(s): R00.0 - TACHYCARDIA, UNSPECIFIED SNOMED Code(s): 1593330 Plan: Extensive stage SCLC -Pt most recently on a clinical trial through [facility] in [place] -It is felt that most likely pt is having disease progression based on symptoms, recurrent pl effusion. Exam of the pt would suggest that he is currently actively dying. agrees with assessment. -Plan is to go home with hospice as soon as everything is in place. -Ativan ordered for restlessness, also levsin drops for secretions
== END 2023-10-17 13:43 | disposition hospice, home (50) | DRG 308 ==
LOC: EC 08:58 → 3SCARD 12:03 → 5NMEDONC 14:00 → 3SCARD 10-07 11:09 → OBSVTOIN 10-07 16:08
PROVIDERS: ADMIT Internal Medicine; ATTEND Internal Medicine
PROC: 3E033RZ Introduction of Antiarrhythmic into Peripheral Vein, Percutaneous Approach (ICD-10-PCS; principal; 2023-10-07)
PROC: 0DH63UZ Insertion of Feeding Device into Stomach, Percutaneous Approach (ICD-10-PCS; 2023-10-10)
PROC: 3E0G76Z Introduction of Nutritional Substance into Upper GI, Via Natural or Artificial Opening (ICD-10-PCS; 2023-10-11)
PROC: 0W993ZX Drainage of Right Pleural Cavity, Percutaneous Approach, Diagnostic (ICD-10-PCS; 2023-10-13)
DX: I47.19 Other supraventricular tachycardia (principal); Z00.6 Encounter for examination for normal comparison and control in clinical research program; E43 Unspecified severe protein-calorie malnutrition; J96.21 Acute and chronic respiratory failure with hypoxia; J18.9 Pneumonia, unspecified organism; R64 Cachexia; C77.0 Secondary and unspecified malignant neoplasm of lymph nodes of head, face and neck; C78.02 Secondary malignant neoplasm of left lung; E87.1 Hypo-osmolality and hyponatremia; S22.41XA Multiple fractures of ribs, right side, initial encounter for closed fracture; C34.11 Malignant neoplasm of upper lobe, right bronchus or lung; C78.7 Secondary malignant neoplasm of liver and intrahepatic bile duct; J91.0 Malignant pleural effusion; C79.31 Secondary malignant neoplasm of brain; Z68.1 Body mass index [BMI] 19.9 or less, adult; K56.7 Ileus, unspecified; J98.11 Atelectasis; I27.20 Pulmonary hypertension, unspecified; I47.20 Ventricular tachycardia, unspecified; R62.7 Adult failure to thrive; J44.9 Chronic obstructive pulmonary disease, unspecified; I48.0 Paroxysmal atrial fibrillation; I44.0 Atrioventricular block, first degree; E11.9 Type 2 diabetes mellitus without complications; I10 Essential (primary) hypertension; D64.9 Anemia, unspecified; G90.1 Familial dysautonomia [Riley-Day]; Z66 Do not resuscitate; Z51.5 Encounter for palliative care; I95.9 Hypotension, unspecified; Z99.81 Dependence on supplemental oxygen; I49.3 Ventricular premature depolarization; D75.839 Thrombocytosis, unspecified; E78.5 Hyperlipidemia, unspecified; N20.0 Calculus of kidney; N28.1 Cyst of kidney, acquired; R13.10 Dysphagia, unspecified; Z53.9 Procedure and treatment not carried out, unspecified reason; Z79.51 Long term (current) use of inhaled steroids; Z79.84 Long term (current) use of oral hypoglycemic drugs; Z79.899 Other long term (current) drug therapy; Z92.3 Personal history of irradiation; Z92.21 Personal history of antineoplastic chemotherapy; Z87.891 Personal history of nicotine dependence; Z71.3 Dietary counseling and surveillance
CPT/HCPCS: 36415; 43246; 71045; 71046; 71250; 71260; 74177; 76604; 80048; 80053; 82945; 83615; 83735; 83880; 84100; 84157; 84443; 84484; 85025; 85027; 85610; 85730; 87070; 87102; 87116; 87205; 87206; 89050; 93005; 93308; 94640; 94667; 94668; 94760; 99285

== ENCOUNTER → 2023-10-05 | Day surgery (SDC) | payer BC, MEDICARE ==
[~2023-10-05] MED LIST changes: +LACTATED RINGERS 1,000 ML IV SCH; -SODIUM CHLORIDE 0.9% 1,000 ML IV SCH
[2023-10-05] MEDS: LACTATED RINGERS 1,000 ML IV ONE (08:40)
[2023-10-05 08:55] LABS: Glucose,Whole Blood 109 mg/dL (70-110)
[2023-10-05 09:14] VITALS: BP 86/56; PULSE 120; RESP 28; TEMP 97.6
== END ==
LOC: ORWHC2ENDO 07:25
PROVIDERS: ATTEND Surgery
DX: Z53.8 Procedure and treatment not carried out for other reasons (principal); C34.91 Malignant neoplasm of unspecified part of right bronchus or lung; I10 Essential (primary) hypertension; E11.9 Type 2 diabetes mellitus without complications; K21.9 Gastro-esophageal reflux disease without esophagitis; E78.5 Hyperlipidemia, unspecified; F10.90 Alcohol use, unspecified, uncomplicated; D61.810 Antineoplastic chemotherapy induced pancytopenia; Z87.891 Personal history of nicotine dependence; Z79.899 Other long term (current) drug therapy; Z79.84 Long term (current) use of oral hypoglycemic drugs

== ENCOUNTER 2023-10-17 13:21 | Inpatient (IN) | payer MEDICAID ==
[2023-10-17] MEDS ORDERED: ACETAMINOPHEN SUPPOSITORY 650 MG SUPP RECTAL PRN (13:47)
[2023-10-17] MEDS ORDERED: ONDANSETRON 4 MG/2 ML VIAL IVP PRN (13:47)
[2023-10-17] MEDS ORDERED: LORazepam 2 MG/ML INJ IV PRN (13:47)
[2023-10-17] MEDS ORDERED: DRY MOUTH SPRAY 44.3 SPRAY/44.3 ML SPRAY MUCOUS MEM PRN (13:47)
[2023-10-17] MEDS ORDERED: GLYCOPYRROLATE 0.2 MG/ML 2 ML VIAL IVP PRN (13:47)
[2023-10-17] MEDS ORDERED: ARTIFICIAL TEARS-HYPROMELLOSE DROPS 15 ML BTL BOTH EYES PRN (13:47)
--- NOTE | 2023-10-17 13:59 | P.HPIM ---
History of Present Illness H&P Date: 10/17/23 History of Presenting Illness: Patient is a a very pleasant 73-year-old male with a past medical history of SVT/AV renodal entry tachycardia, metastatic lung cancer currently undergoing clinical study with immunotherapy treatments at [facility] in [place] and follows with oncologist Dr. Coughlin, hypertension, hyperlipidemia, and xmu-azkwual-dhkgjetod diabetes mellitus. He initially presented to the emergency department on 10/05/2023 with a chief complaint of tachycardia, palpitations, and shortness of breath along with reports of difficulty swallowing secondary to his metastatic cancer and was scheduled for outpatient EGD with PEG tube placement but while in preop preparing to undergo procedure he began having palpitations with episodes of tachycardia with heart rate elevating to the 160s accompanied by worsening shortness of breath so he was transferred to ER for evaluation. Vital signs upon arrival show blood pressure 106/64, heart rate 123, respiratory rate 22, temp 97.8 F, and SpO2 of 93% on 3 L. EKG completed showing sinus Tachycardia at 121 bpm with frequent PACs first-degree AV block with [place] interval of 238 ms. Chest x-ray showing large right pleural effusion with scattered pulmonary masses and consolidation of right upper lung and multiple right-sided rib fractures. Labs completed and reviewed. CBC showing leukocytosis with WBC count of 11.4, hemoglobin of 12.5, and thrombocytosis with platelet count of 540. BMP showing hyponatremia with sodium 133, elevated BUN of 26, and blood glucose of 113. Liver profile showing elevated AST of 104 and alkaline phosphatase of 584. Troponin was negative at less than 0.012. Patient being admitted under our services with consultation to cardiology for atrial tachycardia, consultation to pulmonology for large pleural effusion, and consultation to general surgery for placement of PEG tube. On 10/07/2023 patient again having episode of atrial tachycardia/SVT with heart rate accelerating up to 180s accompanied by hypotension. EKG w delayas completed showing atrial tachycardia with frequent PACs and patient requiring multiple doses of IV Lopressor followed by amiodarone bolus and infusion. CT chest/abdomen/pelvis was completed and radiology report reviewed showing large mass right upper lobe with additional smaller masses and nodules present bilaterally, probable subcarinal metastatic lesion and multiple metastatic lesions within the left and right lobes of liver. On 10/09/2023 patient again had episode of SVT/atrial tachycardia with heart rate again in the 170s accompanied by symptomatic hypotension with reports of dizziness and increased shortness of breath. Patient was given amiodarone bolus and restarted on amiodarone infusion, then titrated back to orals. Due to concern over aspiration, patient received PEG tube on 10/09 with tube feeds up to goal. On 10/13/2023 patient underwent right-sided thoracentesis with a reported 1600 cc of serosanguineous fluid removed from right pleural space. Patient's condition continued to deteriorate and initially plan was for patient to be discharged home on hospice. However, secondary to his poor overall prognosis and rapid decline hospice recommended inpatient hospice care and family agreed upon this plan. Patient currently admitted to [facility] hospice under our services. Review of systems: Pertinent positives and negatives as discussed in HPI, a complete review of systems was performed and all other systems are negative. Physical exam: Vital signs reviewed and stable. General: Chronically ill-appearing, mild distress secondary to increased respiratory effort and lethargy. Derm: Skin warm and dry, normal coloration for ethnicity. Head: Atraumatic, normocephalic and symmetric. Eyes: EOMs intact, no lid lag, and anicteric sclera Mouth: no lip lesions, mucus membranes moist Cardiovascular: regular rate and rhythm with normal S1S2, systolic murmur, positive posterior tibial pulses bilaterally, and cap refill < 2 seconds. Lungs: Respirations with increased work of breathing, accessory muscle usage, lungs coarse. Patient on supplemental oxygen via nasal cannula. Abdominal: soft, nontender to palpation, no guarding, no appreciable organomegaly Ext: ROM intact. No gross muscle atrophy, no edema, no contractures Neuro: Patient lethargic. Face symmetrical and CN II-XII grossly intact with no noted focal neuro deficits Psych: Patient lethargic. Assessment and Plan of Care: Metastatic Small Cell Lung cancer with large right pleural effusion Multiple right sided pulmonary masses with multiple right-sided rib fractures, secondary to above Atrial tachycardia/SVT, recurrent episodes Symptomatic Hypotension Hx of Hypertension Hyperlipidemia Svt-njcyuen-qsdizdkii diabetes mellitus -Comfort measures only. -Symptomatic care and pain management. -Tylenol suppository 650 mg rectally every 4 hours as needed for fever and/or mild pain. -Artificial teardrops to bilateral eyes every 2 hours as needed for dry eyes. -Scopolamine patch. -Order placed Robinul for excess secretions. -Zofran as needed for nausea and/or vomiting. -Initiate morphine infusion 1 mg/h and titrate as needed to maintain patient's comfort. -Morphine 4 mg IVP every 15 minutes as needed for severe uncontrolled breakthrough pain. -Ativan 1 mg IVP every 6 hours as needed for agitation or acute anxiety. Patient currently admitted to [facility] hospice under our services. CODE STATUS: DNR/DNI, hospice care with comfort measures only Discussed with: [facility] hospice team and patient's at bedside Patient was seen independently by Nurse Practitioner. This document was prepared using [employer] dictation software. Please allow for errors in band master while rare they do occur. Guido Lutz NP rendered care for this patient independently, reviewed the findings and plan as documented in the note above. I did not physically speak with or examine the patient on this date. 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 Mckinnon), Appendectomy, Orthopedic Surgery (Right knee surgery), Tonsillectomy Additional Past Surgical History / Comment(s): bronchoscopy with biopsies, fatty tissue removed from left leg, colonoscopy Past Anesthesia/Blood Transfusion Reactions: No Reported Reaction Additional Past Anesthesia/Blood Transfusion Reaction / Comment(s): no hx blood transfusion Past Psychological History: No Psychological Hx Reported Smoking Status: Former smoker (Quit smoking in December 2020) Past Alcohol Use History: Abuse (History of EtOH abuse quit drinking in 2020) Past Drug Use History: None Reported - Past Family History Mother Family Medical History: No Reported History Father Family Medical History: Congestive Heart Failure (CHF) Additional Family Medical History / Comment(s): from anuerysm caused from a were related injury from shrapnel. Medications and Allergies Home Medications Medication Instructions Recorded Confirmed Type Empaglifloz/Linaglip/Metformin 1 tab PO BID 12/28/21 10/17/23 History [Trijardy Xr 12.5-2.5-1,000 mg] Multivitamins, Thera [Multivitamin 1 tab PO DAILY 05/26/23 10/17/23 History (formulary)] Ondansetron [Zofran] 4 mg PO Q6H PRN 05/26/23 10/17/23 History Metoprolol Succinate (ER) [Toprol 50 mg PO DAILY #30 tab 06/01/23 10/17/23 Rx XL] Albuterol Inhaler [Ventolin Hfa 1 puff INHALATION RT-Q6H PRN 10/05/23 10/17/23 History Inhaler] Budesonide/Formoterol Fumarate 2 puff INHALATION RT-BID 10/05/23 10/17/23 History [Breyna 160-4.5 Mcg Inhaler] Gabapentin 300 mg PO DIRECTED 10/05/23 10/17/23 History HYDROcodone/APAP 7.5-325MG [[place] 1 tab PO Q4H PRN 10/05/23 10/17/23 History 7.5-325] Ipratropium-Albuterol Nebulize 3 ml INHALATION RT-QID 10/05/23 10/17/23 History [Duoneb 0.5 mg-3 mg/3 ml Soln] Sennosides [Senokot] 17.2 mg PO HS 10/05/23 10/17/23 History Allergies Allergy/AdvReac Type Severity Reaction Status Date / Time No Known Allergies Allergy Verified 10/05/23 10:18 Physical Exam Vitals: Intake and Output 10/16/23 10/17/23 10/17/23 22:59 06:59 14:59 Other: Weight 57 kg
[2023-10-17] MEDS: MORPHINE SULFATE (100 MG/2 ML) 100 MG in SODIUM CHLORIDE 0.9% 100 ML IV SCH (14:14)
[2023-10-17] MEDS: SCOPOLAMINE 1 MG/72 HR PATCH TRANSDERM SCH (14:15)
[2023-10-17 14:59] VITALS: BMI 18.0
[2023-10-17] MEDS: LORazepam 1 MG/0.5 ML VIAL IV PRN (15:11)
[2023-10-17] MEDS: MORPHINE SULFATE 4 MG/ML SYRINGE IV PRN (15:14)
[2023-10-17 16:01] VITALS: RESP 25
--- NOTE | 2023-10-17 19:11 | P.DS ---
Providers Date of admission: 10/17/23 13:45 Expected date of discharge: 10/17/23 Attending physician: Hussein Murguia MD Primary care physician: Stated None Dr. Stoney Patel Hospital Course: PATIENT . TIME OF PRONOUNCED ON 10/17/23 AT 6:20 PM Discharge Diagnosis: Metastatic Small Cell Lung cancer with large right pleural effusion Multiple right sided pulmonary masses with multiple right-sided rib fractures, secondary to above Atrial tachycardia/SVT, recurrent episodes Symptomatic Hypotension Hx of Hypertension Hyperlipidemia Dem-jyaatff-jtinhnfrt diabetes mellitus Hospital Course: Patient is a a very pleasant 73-year-old male with a past medical history of SVT/AV renodal entry tachycardia, metastatic lung cancer currently undergoing clinical study with immunotherapy treatments at [facility] in [place] and follows with oncologist Dr. Coughlin, hypertension, hyperlipidemia, and zpk-aweysre-euwaldmyc diabetes mellitus. He initially presented to the emergency department on 10/05/2023 with a chief complaint of tachycardia, palpitations, and shortness of breath along with reports of difficulty swallowing secondary to his metastatic cancer and was scheduled for outpatient EGD with PEG tube placement but while in preop preparing to undergo procedure he began having palpitations with episodes of tachycardia with heart rate elevating to the 160s accompanied by worsening shortness of breath so he was transferred to ER for evaluation. Vital signs upon arrival show blood pressure 106/64, heart rate 123, respiratory rate 22, temp 97.8 F, and SpO2 of 93% on 3 L. EKG completed showing sinus Tachycardia at 121 bpm with frequent PACs first-degree AV block with IA interval of 238 ms. Chest x-ray showing large right pleural effusion with scattered pulmonary masses and consolidation of right upper lung and multiple right-sided rib fractures. Labs completed and reviewed. CBC showing leukocytosis with WBC count of 11.4, hemoglobin of 12.5, and thrombocytosis with platelet count of 540. BMP showing hyponatremia with sodium 133, elevated BUN of 26, and blood glucose of 113. Liver profile showing elevated AST of 104 and alkaline phosphatase of 584. Troponin was negative at less than 0.012. Patient being admitted under our services with consultation to cardiology for atrial tachycardia, consultation to pulmonology for large pleural effusion, and consultation to general surgery for placement of PEG tube. On 10/07/2023 patient again having episode of atrial tachycardia/SVT with heart rate accelerating up to 180s accompanied by hypotension. EKG w delayas completed showing atrial tachycardia with frequent PACs and patient requiring multiple doses of IV Lopressor followed by amiodarone bolus and infusion. CT chest/abdomen/pelvis was completed and radiology report reviewed showing large mass right upper lobe with additional smaller masses and nodules present bilaterally, probable subcarinal metastatic lesion and multiple metastatic lesions within the left and right lobes of liver. On 10/09/2023 patient again had episode of SVT/atrial tachycardia with heart rate again in the 170s accompanied by symptomatic hypotension with reports of dizziness and increased shortness of breath. Patient was given amiodarone bolus and restarted on amiodarone infusion, then titrated back to orals. Due to concern over aspiration, patient received PEG tube on 10/09 with tube feeds up to goal. On 10/13/2023 patient underwent right-sided thoracentesis with a reported 1600 cc of serosanguineous fluid removed from right pleural space. Patient's condition continued to deteriorate and initially plan was for patient to be discharged home on hospice. However, secondary to his poor overall prognosis and rapid decline hospice recommended inpatient hospice care and family agreed upon this plan. Patient was admitted to [facility] hospice under our services. Patient was on comfort measures and peacefully with family at bedside. Time of was pronounced on 10/17/2023 at 6:20 PM. PATIENT . TIME OF PRONOUNCED ON 10/17/23 AT 6:20 PM This document was prepared using [employer] dictation software. Please allow for errors in inside sales account representative while rare they do occur. Guido Lutz NP rendered care for this patient independently, reviewed the findings and plan as documented in the note above. I did not physically speak with or examine the patient on this date. Plan - Discharge Summary New Discharge Prescriptions: No Action Multivitamins, Thera [Multivitamin (formulary)] 1 tab PO DAILY Metoprolol Succinate (ER) [Toprol XL] 50 mg PO DAILY #30 tab HYDROcodone/APAP 7.5-325MG [[place] 7.5-325] 1 tab PO Q4H PRN PRN Reason: Pain Albuterol Inhaler [Ventolin Hfa Inhaler] 1 puff INHALATION RT-Q6H PRN PRN Reason: Shortness Of Breath Or Wheezing Empaglifloz/Linaglip/Metformin [Trijardy Xr 12.5-2.5-1,000 mg] 1 tab PO BID Ondansetron [Zofran] 4 mg PO Q6H PRN PRN Reason: Nausea Sennosides [Senokot] 17.2 mg PO HS Gabapentin 300 mg PO DIRECTED Ipratropium-Albuterol Nebulize [Duoneb 0.5 mg-3 mg/3 ml Soln] 3 ml INHALATION RT-QID Budesonide/Formoterol Fumarate [Breyna 160-4.5 Mcg Inhaler] 2 puff INHALATION RT-BID Discharge Medication List Empaglifloz/Linaglip/Metformin [Trijardy Xr 12.5-2.5-1,000 mg] 1 tab PO BID 12/28/21 [History] Multivitamins, Thera [Multivitamin (formulary)] 1 tab PO DAILY 05/26/23 [History] Ondansetron [Zofran] 4 mg PO Q6H PRN 05/26/23 [History] Metoprolol Succinate (ER) [Toprol XL] 50 mg PO DAILY #30 tab 06/01/23 [Rx] Albuterol Inhaler [Ventolin Hfa Inhaler] 1 puff INHALATION RT-Q6H PRN 10/05/23 [History] Budesonide/Formoterol Fumarate [Breyna 160-4.5 Mcg Inhaler] 2 puff INHALATION RT-BID 10/05/23 [History] Gabapentin 300 mg PO DIRECTED 10/05/23 [History] HYDROcodone/APAP 7.5-325MG [[place] 7.5-325] 1 tab PO Q4H PRN 10/05/23 [History] Ipratropium-Albuterol Nebulize [Duoneb 0.5 mg-3 mg/3 ml Soln] 3 ml INHALATION RT-QID 10/05/23 [History] Sennosides [Senokot] 17.2 mg PO HS 10/05/23 [History] Discharge Disposition: - Preliminary Cause of Preliminary Cause of : Metastatic lung cancer, small cell carcinoma
== END 2023-10-17 20:24 | disposition expired | DRG 951 ==
LOC: 3SCARD 13:45
PROVIDERS: ADMIT Internal Medicine; ATTEND Internal Medicine
DX: Z51.5 Encounter for palliative care (principal); S22.41XA Multiple fractures of ribs, right side, initial encounter for closed fracture; C34.90 Malignant neoplasm of unspecified part of unspecified bronchus or lung; C78.7 Secondary malignant neoplasm of liver and intrahepatic bile duct; E87.1 Hypo-osmolality and hyponatremia; I47.19 Other supraventricular tachycardia; J90 Pleural effusion, not elsewhere classified; C77.9 Secondary and unspecified malignant neoplasm of lymph node, unspecified; Z66 Do not resuscitate; D72.829 Elevated white blood cell count, unspecified; D75.839 Thrombocytosis, unspecified; E11.9 Type 2 diabetes mellitus without complications; E78.5 Hyperlipidemia, unspecified; R13.10 Dysphagia, unspecified; I49.3 Ventricular premature depolarization; I10 Essential (primary) hypertension; I44.0 Atrioventricular block, first degree; J44.9 Chronic obstructive pulmonary disease, unspecified; Z85.118 Personal history of other malignant neoplasm of bronchus and lung; Z82.49 Family history of ischemic heart disease and other diseases of the circulatory system; Z87.442 Personal history of urinary calculi; Z87.891 Personal history of nicotine dependence; Z79.84 Long term (current) use of oral hypoglycemic drugs